=== PATIENT | female | born 1965 | race Caucasian/White ===

== ENCOUNTER 2021-06-05 19:27 | Observation (INO) | payer MEDICAID, SELFPAY ==
[2021-06-05] VITALS (8 sets, daily range): BP systolic 101–111; BP diastolic 72–81; PULSE 101–135; RESP 13–21; TEMP 36.7–36.8; O2SAT 99–100; BMI 23.2
--- NOTE | 2021-06-05 19:56 | USR_ITS ---
PROCEDURE INFORMATION: Exam: US Pelvis, Transvaginal Exam date and time: 06/05/2021 7:56 PM Age: 55 years old Clinical indication: Other: Vaginal bleeding since nov 2020 non stop TECHNIQUE: Imaging protocol: Real-time transvaginal pelvic ultrasound with image documentation. Transvaginal imaging was used for better evaluation of the endometrium, adnexa, and/or cervix. COMPARISON: No relevant prior studies available. FINDINGS: Uterus/cervix: No uterus measures 9.9 cm longitudinal x 6.3 cm AP x 8.0 cm transverse. Myometrium appears unremarkable. There is marked abnormal thickening of the endometrium. The endometrium measures 49 mm in AP thickness, and demonstrates visible blood flow on color Doppler imaging. Right adnexa: Right ovary is not identified/demonstrated. No right adnexal abnormality noted. Left adnexa: Left ovary is seen on the transabdominal images only. Left ovary measures 2.8 x 2.5 x 2.0 cm, and is unremarkable. Intraperitoneal space: No free fluid. US/US pelvic with transvaginal IMPRESSION: There is marked abnormal thickening of the endometrium. The endometrium measures 49 mm in AP thickness, and demonstrates abnormal blood flow on color Doppler imaging. This may represent endometrial hyperplasia versus endometrial carcinoma.. OPTICAL SALES ASSOCIATE consult recommended.
[2021-06-05 20:20] LABS: Basophils # 0.1 10^3/uL (0.0-0.1); Basophils % 0.3 %; Eosinophils % 0.1 %; Hematocrit 24.6 % (37.0-47.0); Lymphocytes # 3.3 10^3/uL (0.8-4.8); Lymphocytes % 17.5 %; Mean Corpuscular HGB Conc 28.5 g/dL (30.0-36.0); Mean Corpuscular Hemoglobin 25.2 pg (28.0-34.0); Mean Corpuscular Volume 88.5 fl (81-99); Mean Platelet Volume 11.5 fL (7.4-10.4); Monocytes # 0.7 10^3/uL (0.2-0.9); Monocytes % 3.4 %; Neutrophils % 78.3 %; Nucleated Red Blood Cells % 0 %; Platelet Count 663 10^3/cmm (130-400); Red Blood Count 2.78 10^6/uL (4.1-5.3); Red Cell Distribution Width 16.6 % (12.1-15.1); White Blood Count 19.1 10^3/uL (4.0-10.0)
[2021-06-05 20:26] LABS: Alanine Aminotransferase 37 U/L (0-33); Albumin Level 3.6 g/dL (3.5-5.2); Alkaline Phosphatase 85 IU/L (35-105); Aspartate Amino Transferase 33 U/L (0-32); Blood Urea Nitrogen 7 mg/dL (6-20); Calcium 9.1 mg/dL (8.5-10.5); Carbon Dioxide 19 mmol/L (22-29); Chloride 99 mmol/L (98-107); Globulin 3.1 g/dL (1.3-4.6); Glomerular Filtration Rate 128.1 mL/min (90-130); Glucose 196 mg/dL (65-115); NT Pro B Type Natriuretic Pept 149 pg/mL (0-125); Osmolality Calculated 283 mOsm/kg (285-295); Sodium 135 mmol/L (136-145); Total Bilirubin 0.3 mg/dL (0.15-1.2); Total Protein 6.7 g/dL (6.6-8.7)
[2021-06-05 21:07] LABS: INR 1.14 (0.8-1.2)
[2021-06-05 21:13] LABS: Lactate (Lactic Acid level) 2.8 mmol/L (0.5-2.2)
--- NOTE | 2021-06-05 22:26 | ED_ITS ---
HPI - General Adult General: Chief complaint: General Medical Stated complaint: SEIZURE/ VAGINAL BLEEDING Time Seen by Provider: 06/05/21 19:30 Source: patient, family, EMS and RN notes reviewed Mode of arrival: EMS Limitations: no limitations History of Present Illness: HPI narrative: Is 55-year-old female patient presents to the emergency department with complaints of intermittent vaginal bleeding for about 6 months. However in the last week she has been having heavy vaginal bleeds and using up to 1 pad per hour. She has seen a cooking show host about a week ago who put her on progesterone which helped a little but after the dose was decreased the bleeding got much worse. The patient has been feeling dizzy, lightheaded and is pale. Today while she was in the bathroom she had a syncopal episode. She is scheduled to have an ultrasound done sometime within the next week. She denies any fever, she has nausea but no vomiting. No blood in her stool. No urinary symptoms. Onset (ago): month(s) (6) Associated symptoms: Reports dyspnea, nausea, short of breath and weakness; Deny chest pain, confusion, cough, diaphoresis, decreased appetite, fevers/chills, headache(s), malaise, rash, palpitations, seizures, syncope or vomiting Review of Systems General: Reports: 10 or more systems reviewed and unremarkable except in HPI and below Const: Denies: malaise or diaphoresis Card: Denies: chest pain, palpitations or syncope Resp: Reports: dyspnea GI: Reports: nausea; Denies: vomiting Skin/Breast: Denies: rash Neuro: Denies: headache(s) or confusion PFS ED PFSH: Medical History CVA (cerebral vascular accident) Diabetes mellitus type 2 History of ganglion cyst History of stroke without residual deficits History of TIA (transient ischemic attack) Surgical History History of carpal tunnel surgery of left wrist History of surgery on arm broken arm History of surgical removal of ganglion cyst Family History Mother Breast cancer Cervical cancer Cancer lymphnode, lung, brain Diabetes Hypertension Stroke Sister Diabetes Hypertension Sister Hypertension Denies family history of CAD (coronary artery disease) Clotting disorder Hyperlipidemia Chronic kidney disease (CKD) Bleeding disorder Physical Exam Const: COMMON NORMALS: no acute distress, average body habitus, patient oriented x3, no limitations, healthy appearing, alert and well nourished HENMT: COMMON NORMALS: normocephalic, atraumatic and moist oral mucous membranes HEAD & SCALP: normocephalic and atraumatic Neck/C-Spine: COMMON NORMALS: no meningeal signs and no JVD Resp: COMMON NORMALS: normal respiratory effort, No retractions, No use of accessory muscles, clear to auscultation bilaterally and percussion normal AUSCULTATION: clear to auscultation bilaterally PERCUSSION: percussion normal Cardio: COMMON NORMALS: no JVD, regular rhythm, S1 normal heart sound present, S2 normal heart sound present, No gallops present (Cardio), No clicks present (Cardio), No murmurs present (Cardio), No rub (Cardio) and Peripheral pulses 2+ throughout RATE: tachycardic RHYTHM: regular rhythm HEART SOUNDS: S1 normal heart sound present and S2 normal heart sound present PERIPHERAL PULSES: Peripheral pulses 2+ throughout GI: COMMON NORMALS: Normal to inspection, nondistended, normoactive bowel sounds present, Soft to palpation, non-tender, No hepatosplenomegaly present, no masses and no bruits PALPATION: Yes Soft to palpation and Yes No hepatosplenomegaly present Extremity: COMMON NORMALS: normal to inspection, full ROM, capillary refill normal, no calf tenderness and no pedal edema Neuro: COMMON NORMALS: patient oriented x3 SENSORIUM/ORIENTATION: Yes alert MENINGEAL SIGNS: Yes no meningeal signs Skin: COMMON NORMALS: no rashes or lesions noted, no wounds, turgor normal, no jaundice, no petechiae and no mottling GENERAL SKIN EXAM: no rashes or lesions noted, turgor normal and pallor Course Reevaluation(s): Reevaluation #1: Discussed her lab and imaging findings with her. Also discussed my conversation with the cooking show host on-call. Explained that she has symptomatic anemia and ultrasound findings are concerning for en dometrial cancer. She will be admitted for transfusion and to undergo an endometrial biopsy. She voiced understanding and is in agreement with the plan. Time: 22:26 Consultations: Consultation #1: Discussed the patient with Dr. Hawley, cooking show host on-call. She advised that we admit the patient to her service for an endometrial biopsy. Meanwhile we should continue the transfusion is we have ordered as she is symptomatic. Time: 22:15 Vital Signs: Vital signs: Vital Signs Temperature 98.1 F 06/05/21 23:37 Pulse Rate 118 H 06/05/21 23:37 Respiratory Rate 18 06/05/21 23:37 Blood Pressure 108/72 06/05/21 23:37 Pulse Oximetry 99 06/05/21 22:52 MDM - General Adult MDM Narrative: Medical decision making narrative: 55-year-old female patient who presents with postmenopausal bleeding for about 6 months. In the last week the bleeding has been much more severe. She has been feeling dizzy and lightheaded and today had a syncopal episode. In the emergency department she has been tachycardic, had a low normal blood pressure and was pretty pale. Hemoglobin is 7.0 today and ultrasound of her pelvis was consistent with thickened endometrium concerning for endometrial cancer. Because she is symptomatic she is going to be transfused with 2 units of blood and will undergo an endometrial biopsy tomorrow by the cooking show host. She is therefore admitted to the gynecology service. Medical Records: Attestation: I reviewed the patient's medical records. Lab Data: Attestation: I reviewed the patient's lab results. Labs: Lab Results 06/05/21 06/05/21 06/05/21 Range/Units 19:35 19:35 20:46 WBC 19.1 H (4.0-10.0) 10^3/ uL RBC 2.78 L (4.1-5.3) 10^6/u L Hgb 7.0 L (11.5-15.3) g/dL Hct 24.6 L (37.0-47.0) % MCV 88.5 (81-99) fl MCH 25.2 L (28.0-34.0) pg MCHC 28.5 L (30.0-36.0) g/dL RDW 16.6 H (12.1-15.1) % Plt Count 663 H (130-400) 10^3/c mm MPV 11.5 H (7.4-10.4) fL Neut % (Auto) 78.3 % Lymph % (Auto) 17.5 % [place] % (Auto) 3.4 % Eos % (Auto) 0.1 % Baso % (Auto) 0.3 % Neut # (Auto) 15.00 H (1.8-7.7) 10^3/u L Lymph # (Auto) 3.3 (0.8-4.8) 10^3/u L [place] # (Auto) 0.7 (0.2-0.9) 10^3/u L Eos # (Auto) 0.0 (0.0-0.8) 10^3/u L Baso # (Auto) 0.1 (0.0-0.1) 10^3/u L Nucleated RBC % (a uto) 0 % Nucleated RBCs # 0.0 /100WBC PT 14.90 (12.1-14.9) SECO NDS INR 1.14 (0.8-1.2) Sodium 135 L (136-145) mmol/L Potassium 4.0 (3.5-5.1) mmol/L Chloride 99 (98-107) mmol/L Carbon Dioxide 19 L (22-29) mmol/L Anion Gap 21.0 H (5-19) BUN 7 (6-20) mg/dL Creatinine 0.5 (0.5-0.9) mg/dL GFR Calculation 128.1 (90-130) mL/min Glucose 196 H (65-115) mg/dL Calculated Osmolal ity 283 L (285-295) mOsm/k g Lactate (0.5-2.2) mmol/L Calcium 9.1 (8.5-10.5) mg/dL Total Bilirubin 0.3 (0.15-1.2) mg/dL AST 33 H (0-32) U/L ALT 37 H (0-33) U/L Alkaline Phosphata se 85 (35-105) IU/L C-Reactive Protein 5.0 H (0.0-4.9) mg/L NT-Pro-B Natriuret Pep 149 H (0-125) pg/mL Total Protein 6.7 (6.6-8.7) g/dL Albumin 3.6 (3.5-5.2) g/dL Globulin 3.1 (1.3-4.6) g/dL Blood Type Rho(D) Type Antibody Screen Crossmatch 06/05/21 06/05/21 Range/Units 20:46 20:46 WBC (4.0-10.0) 10^3/ uL RBC (4.1-5.3) 10^6/u L Hgb (11.5-15.3) g/dL Hct (37.0-47.0) % MCV (81-99) fl MCH (28.0-34.0) pg MCHC (30.0-36.0) g/dL RDW (12.1-15.1) % Plt Count (130-400) 10^3/c mm MPV (7.4-10.4) fL Neut % (Auto) % Lymph % (Auto) % [place] % (Auto) % Eos % (Auto) % Baso % (Auto) % Neut # (Auto) (1.8-7.7) 10^3/u L Lymph # (Auto) (0.8-4.8) 10^3/u L [place] # (Auto) (0.2-0.9) 10^3/u L Eos # (Auto) (0.0-0.8) 10^3/u L Baso # (Auto) (0.0-0.1) 10^3/u L Nucleated RBC % (a uto) % Nucleated RBCs # /100WBC PT (12.1-14.9) SECO NDS INR (0.8-1.2) Sodium (136-145) mmol/L Potassium (3.5-5.1) mmol/L Chloride (98-107) mmol/L Carbon Dioxide (22-29) mmol/L Anion Gap (5-19) BUN (6-20) mg/dL Creatinine (0.5-0.9) mg/dL GFR Calculation (90-130) mL/min Glucose (65-115) mg/dL Calculated Osmolal ity (285-295) mOsm/k g Lactate 2.8 H (0.5-2.2) mmol/L Calcium (8.5-10.5) mg/dL Total Bilirubin (0.15-1.2) mg/dL AST (0-32) U/L ALT (0-33) U/L Alkaline Phosphata se (35-105) IU/L C-Reactive Protein (0.0-4.9) mg/L NT-Pro-B Natriuret Pep (0-125) pg/mL Total Protein (6.6-8.7) g/dL Albumin (3.5-5.2) g/dL Globulin (1.3-4.6) g/dL Blood Type A Positive Rho(D) Type Positive Antibody Screen Negative Crossmatch See Detail Imaging Data^: US: Attestation: I personally reviewed and interpreted this imaging study as follows: Radiologist's impression: [employer] [id number] [place], [place] [id number] ReportSigned Patient: Basilia Pedraza #: [id number]: [id number]#:[id number]/Sex: 55 / FADM Date: 06/05/21Loc: ERRoom/Bed:Attending Dr: Ordering Provider/Ordering MD: Yair Cason [place] [facility] [place]: 06/05/21 Procedure(s): US pelvic with transvaginal Accession Number(s): [id number] Report Number: [id number] PROCEDURE INFORMATION: Exam: US Pelvis, Transvaginal Exam date and time: 06/05/2021 7:56 PM Age: 55 years old Clinical indication: Other: Vaginal bleeding since nov 2020 non stop TECHNIQUE: Imaging protocol: Real-time transvaginal pelvic ultrasound with image documentation. Transvaginal imaging was used for better evaluation of the endometrium, adnexa, and/or cervix. COMPARISON: No relevant prior studies available. FINDINGS: Uterus/cervix: No uterus measures 9.9 cm longitudinal x 6.3 cm AP x 8.0 cm transverse. Myometrium appears unremarkable. There is marked abnormal thickening of the endometrium. The endometrium measures 49 mm in AP thickness, and demonstrates visible blood flow on color Doppler imaging. Right adnexa: Right ovary is not identified/demonstrated. No right adnexal abnormality noted. Left adnexa: Left ovary is seen on the transabdominal images only. Left ovary measures 2.8 x 2.5 x 2.0 cm, and is unremarkable. Intraperitoneal space: No free fluid. US/US pelvic with transvaginal IMPRESSION: There is marked abnormal thickening of the endometrium. The endometrium measures 49 mm in AP thickness, and demonstrates abnormal blood flow on color Doppler imaging. This may represent endometrial hyperplasia versus endometrial carcinoma.. CREDIT CASHIER consult recommended. Dictated By:Ruslan Blake MDSigned By:Ruslan Blake MDSigned Date/Time:06/05/21D/ 11 Critical Care Time Critical Care Time: Critical Care Time: Yes Total Critical Care Time: 30 Attestation: This case had a high probability of a clinically significant, sudden, or life threatening deterioration of this patient's condition which required my full and direct attention, intervention and personal management. Discharge Plan Discharge Patient Disposition: Admitted As Inpatient Admit Provider: Aga Hawley Clinical Impression: Abnormal uterine bleeding (AUB), Symptomatic anemia, Endometrial hyperplasia Condition: Stable Coding Level of Care Code ED Manager Sql for Viktoria Hdez
[2021-06-05] MEDS: acetaminophen 325 mg Tablet 650 MG PO (23:30)
[2021-06-05] MEDS: diphenhydrAMINE 50 mg Capsule PO (23:30)
[2021-06-05 23:46] LABS: Glucose Point of Care 130 mg/dL (70-110)
[2021-06-06] VITALS (10 sets, daily range): BP systolic 104–126; BP diastolic 62–76; PULSE 81–101; RESP 17–18; TEMP 36.6–37.6; O2SAT 99–100
[2021-06-06 07:21] LABS: Glucose Point of Care 112 mg/dL (70-110)
[2021-06-06 07:25] LABS: Basophils # 0.1 10^3/uL (0.0-0.1); Basophils % 0.5 %; Eosinophils % 0.1 %; Hematocrit 30.8 % (37.0-47.0); Hemoglobin 9.3 g/dL (11.5-15.3); Lymphocytes # 2.7 10^3/uL (0.8-4.8); Lymphocytes % 18.7 %; Mean Corpuscular HGB Conc 30.2 g/dL (30.0-36.0); Mean Corpuscular Hemoglobin 27.6 pg (28.0-34.0); Mean Corpuscular Volume 91.4 fl (81-99); Mean Platelet Volume 10.3 fL (7.4-10.4); Monocytes # 0.9 10^3/uL (0.2-0.9); Monocytes % 6.2 %; Neutrophils # 10.75 10^3/uL (1.8-7.7); Neutrophils % 74.3 %; Nucleated Red Blood Cells % 0.1 %; Platelet Count 350 10^3/cmm (130-400); Red Blood Count 3.37 10^6/uL (4.1-5.3); White Blood Count 14.5 10^3/uL (4.0-10.0)
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
== END 2021-06-06 11:55 | disposition home or self-care (01) ==
LOC: ER 22:28 → OBGYN 22:40
PROVIDERS: Admitting Provider Obstetrics & Gynecology; Emergency Provider Family Medicine; PCP Registered Nurse; Visit Provider Obstetrics & Gynecology
DX: N93.9 Abnormal uterine and vaginal bleeding, unspecified (principal); D64.9 Anemia, unspecified; R93.89 Abnormal findings on diagnostic imaging of other specified body structures; Z86.73 Personal history of transient ischemic attack (TIA), and cerebral infarction without residual deficits; E11.9 Type 2 diabetes mellitus without complications; Z82.49 Family history of ischemic heart disease and other diseases of the circulatory system; Z83.3 Family history of diabetes mellitus; Z82.3 Family history of stroke; Z80.3 Family history of malignant neoplasm of breast
CPT/HCPCS: 36415; 36416; 36430; 76830; 76856; 80053; 82962; 83605; 83880; 85025; 85610; 86140; 86850; 86900; 86920; 99285; G0378; P9016; Q0163

== ENCOUNTER 2021-06-09 01:39 | Observation (INO) | payer MEDICAID, SELFPAY ==
[2021-06-09] VITALS (29 sets, daily range): BP systolic 99–139; BP diastolic 64–99; PULSE 72–142; RESP 13–20; TEMP 36.5–37.2; O2SAT 95–100; BMI 23.6
--- NOTE | 2021-06-09 02:02 | W.ED.FEMALGU ---
HPI - Female Genitourinary General: Chief complaint: Vaginal Bleeding Stated complaint: Vaginal Bleeding Time Seen by Provider: 06/09/21 01:58 Source: patient Mode of arrival: ambulatory Limitations: no limitations History of Present Illness: HPI Narrative: 55-year-old female having history of irregular periods over the last year. States she has had heavy periods recently and was actually admitted here 3 days ago and had received 2 units of blood due to vaginal bleeding. She had a pelvic ultrasound and that showed hyperplasia versus a possible neoplasm. She states she been doing well and then started bleeding again tonight at midnight. States she is having to change a pad every 15 minutes due to the heavy bleeding. She is also tachycardic as well. She had some slight lightheadedness denies any syncopal events. Denies any vomiting or diarrhea. Associated symptoms: Deny abdominal pain, headache(s) or nausea Review of Systems Const: Denies: fever(s), chills, body aches or change in appetite Eyes: Denies: blurry vision or eye discomfort ENMT: Denies: throat pain or dental pain Card: Denies: chest pain Resp: Denies: dyspnea GI: Denies: abdominal pain, nausea, vomiting or diarrhea : Reports: vaginal bleeding Musc: Denies: neck pain or back pain Skin/Breast: Denies: rash Neuro: Denies: headache(s) Psych: Denies: depression Viral/Lymph: Denies: easy bruising All/Imm: Denies: urticaria PFSH ED PFSH: Medical History CVA (cerebral vascular accident) Diabetes mellitus type 2 History of ganglion cyst History of stroke without residual deficits History of TIA (transient ischemic attack) Surgical History History of carpal tunnel surgery of left wrist History of surgery on arm broken arm History of surgical removal of ganglion cyst Family History Mother Breast cancer Cervical cancer Cancer lymphnode, lung, brain Diabetes Hypertension Stroke Sister Diabetes Hypertension Sister Hypertension Denies family history of CAD (coronary artery disease) Clotting disorder Hyperlipidemia Chronic kidney disease (CKD) Bleeding disorder Physical Exam Const: COMMON NORMALS: no acute distress, patient oriented x3 and healthy appearing HENMT: COMMON NORMALS: normocephalic and atraumatic HEAD & SCALP: normocephalic and atraumatic Eye: COMMON NORMALS: Equal, round and reactive pupils present and EOMs intact bilaterally PUPIL: Yes Equal, round and reactive pupils present Neck/C-Spine: COMMON NORMALS: full ROM and supple Chest: COMMONS NORMALS: normal inspection of the chest and normal palpation of entire chest wall Resp: COMMON NORMALS: normal respiratory effort, No retractions, No use of accessory muscles and clear to auscultation bilaterally AUSCULTATION: clear to auscultation bilaterally Cardio: COMMON NORMALS: regular rhythm and No murmurs present (Cardio) RATE: tachycardic RHYTHM: regular rhythm GI: COMMON NORMALS: Normal to inspection, nondistended, normoactive bowel sounds present, Soft to palpation, non-tender and no masses PALPATION: Yes Soft to palpation Extremity: COMMON NORMALS: normal to inspection and full ROM Neuro: COMMON NORMALS: patient oriented x3, moves all extremities and no focal motor deficits Psych: COMMON NORMALS: mental status grossly normal, Normal thought process present and cooperative THOUGHT PROCESS: Normal thought process present Skin: COMMON NORMALS: no rashes or lesions noted and no wounds GENERAL SKIN EXAM: no rashes or lesions noted Course Vital Signs: Vital signs: Vital Signs Temperature 98.2 F 06/09/21 01:42 Pulse Rate 98 06/09/21 04:43 Respiratory Rate 18 06/09/21 04:43 Blood Pressure 139/86 06/09/21 04:43 Pulse Oximetry 98 06/09/21 04:43 MDM - Female [facility] Narrative: Medical decision making narrative: Presents with abnormal vaginal bleeding. Her hemoglobin dropped from 9.5-8.2 she is continued to be tachycardic. I spoke to Dr. Gustafson [employer] FRUIT COLORER who agreed to admit patient at this time. She has had continued bleeding here as well. Will transfuse patient. Lab Data: Labs: Lab Results 06/09/21 06/09/21 06/09/21 Range/Units 02:05 02:05 02:05 WBC 14.4 H (4.0-10.0) 10^3/ uL RBC 3.45 L (4.1-5.3) 10^6/u L Hgb 9.5 L (11.5-15.3) g/dL Hct 29.9 L (37.0-47.0) % MCV 86.7 (81-99) fl MCH 27.5 L (28.0-34.0) pg MCHC 31.8 (30.0-36.0) g/dL RDW 15.1 (12.1-15.1) % Plt Count 527 H (130-400) 10^3/c mm MPV 9.9 (7.4-10.4) fL Neut % (Auto) 74.5 % Lymph % (Auto) 18.1 % [place] % (Auto) 5.7 % Eos % (Auto) 1.0 % Baso % (Auto) 0.5 % Neut # (Auto) 10.68 H (1.8-7.7) 10^3/u L Lymph # (Auto) 2.6 (0.8-4.8) 10^3/u L [place] # (Auto) 0.8 (0.2-0.9) 10^3/u L Eos # (Auto) 0.2 (0.0-0.8) 10^3/u L Baso # (Auto) 0.1 (0.0-0.1) 10^3/u L Nucleated RBC % (a uto) 0 % Nucleated RBCs # 0.0 /100WBC PT 14.80 (12.1-14.9) SECO NDS INR 1.12 (0.8-1.2) Sodium 136 (136-145) mmol/L Potassium 4.0 (3.5-5.1) mmol/L Chloride 100 (98-107) mmol/L Carbon Dioxide 23 (22-29) mmol/L Anion Gap 17.0 (5-19) BUN 6 (6-20) mg/dL Creatinine 0.4 L (0.5-0.9) mg/dL GFR Calculation 165.7 H (90-130) mL/min Glucose 145 H (65-115) mg/dL Calculated Osmolal ity 282 L (285-295) mOsm/k g Calcium 9.3 (8.5-10.5) mg/dL Total Bilirubin 0.6 (0.15-1.2) mg/dL AST 23 (0-32) U/L ALT 26 (0-33) U/L Alkaline Phosphata se 98 (35-105) IU/L Total Protein 7.2 (6.6-8.7) g/dL Albumin 3.6 (3.5-5.2) g/dL Globulin 3.6 (1.3-4.6) g/dL Blood Type Rho(D) Type Antibody Screen Crossmatch 06/09/21 06/09/21 Range/Units 02:05 04:38 WBC (4.0-10.0) 10^3/ uL RBC (4.1-5.3) 10^6/u L Hgb 8.2 L (11.5-15.3) g/dL Hct 26.6 L (37.0-47.0) % MCV (81-99) fl MCH (28.0-34.0) pg MCHC (30.0-36.0) g/dL RDW (12.1-15.1) % Plt Count (130-400) 10^3/c mm MPV (7.4-10.4) fL Neut % (Auto) % Lymph % (Auto) % [place] % (Auto) % Eos % (Auto) % Baso % (Auto) % Neut # (Auto) (1.8-7.7) 10^3/u L Lymph # (Auto) (0.8-4.8) 10^3/u L [place] # (Auto) (0.2-0.9) 10^3/u L Eos # (Auto) (0.0-0.8) 10^3/u L Baso # (Auto) (0.0-0.1) 10^3/u L Nucleated RBC % (a uto) % Nucleated RBCs # /100WBC PT (12.1-14.9) SECO NDS INR (0.8-1.2) Sodium (136-145) mmol/L Potassium (3.5-5.1) mmol/L Chloride (98-107) mmol/L Carbon Dioxide (22-29) mmol/L Anion Gap (5-19) BUN (6-20) mg/dL Creatinine (0.5-0.9) mg/dL GFR Calculation (90-130) mL/min Glucose (65-115) mg/dL Calculated Osmolal ity (285-295) mOsm/k g Calcium (8.5-10.5) mg/dL Total Bilirubin (0.15-1.2) mg/dL AST (0-32) U/L ALT (0-33) U/L Alkaline Phosphata se (35-105) IU/L Total Protein (6.6-8.7) g/dL Albumin (3.5-5.2) g/dL Globulin (1.3-4.6) g/dL Blood Type A Positive Rho(D) Type Positive Antibody Screen Negative Crossmatch See Detail EKG Data: EKG 1: Attestation: I personally reviewed and interpreted this EKG as follows: EKG Data: 06/09/21 EKG interpretation time: 02:15 Interpretation: sinus tach hr [address] or t wave abnormalities qrs 73 qtc 355 Discharge Plan Discharge Patient Disposition: Admitted As Inpatient Clinical Impression: Abnormal uterine bleeding (AUB) Condition: Stable Coding Level of Care Code ED Traffic Division Commanding Officer for Viktoria Hdez
--- NOTE | 2021-06-09 02:03 | ECG_ITS ---
[facility] Test Date: 2021-06-09 Pat Name: Basilia Pedraza Department: Room: OB8 Gender: Female Superintendent Commissary: : [id number] Requested By: Lima Mandujano Order Number: [id number] Reading MD: ZACARIAS LEE Measurements Intervals [place] Rate: 122 P: 5 OK: 108 QRS: 2 QRSD: 73 T: 20 QT: 282 QTc: 403 Interpretive Statements SINUS TACHYCARDIA WITH SHORT OK INTERVAL ABNORMAL RHYTHM ECG No previous ECG available for comparison Electronically Signed On 06-09-2021 21:04:48 CDT by ZACARIAS LEE [email or web address]
[2021-06-09 02:16] LABS: Basophils # 0.1 10^3/uL (0.0-0.1); Basophils % 0.5 %; Eosinophils # 0.2 10^3/uL (0.0-0.8); Hematocrit 29.9 % (37.0-47.0); Hemoglobin 9.5 g/dL (11.5-15.3); Lymphocytes # 2.6 10^3/uL (0.8-4.8); Lymphocytes % 18.1 %; Mean Corpuscular HGB Conc 31.8 g/dL (30.0-36.0); Mean Corpuscular Hemoglobin 27.5 pg (28.0-34.0); Mean Corpuscular Volume 86.7 fl (81-99); Mean Platelet Volume 9.9 fL (7.4-10.4); Monocytes # 0.8 10^3/uL (0.2-0.9); Monocytes % 5.7 %; Neutrophils # 10.68 10^3/uL (1.8-7.7); Neutrophils % 74.5 %; Nucleated Red Blood Cells % 0 %; Platelet Count 527 10^3/cmm (130-400); Red Blood Count 3.45 10^6/uL (4.1-5.3); Red Cell Distribution Width 15.1 % (12.1-15.1); White Blood Count 14.4 10^3/uL (4.0-10.0)
[2021-06-09] MEDS: sodium chloride 0.9% 1,000 ML 999 ML IV ×2 (02:22→03:25)
[2021-06-09 02:25] LABS: INR 1.12 (0.8-1.2)
[2021-06-09 02:32] LABS: Alanine Aminotransferase 26 U/L (0-33); Albumin Level 3.6 g/dL (3.5-5.2); Alkaline Phosphatase 98 IU/L (35-105); Aspartate Amino Transferase 23 U/L (0-32); Blood Urea Nitrogen 6 mg/dL (6-20); Calcium 9.3 mg/dL (8.5-10.5); Carbon Dioxide 23 mmol/L (22-29); Chloride 100 mmol/L (98-107); Globulin 3.6 g/dL (1.3-4.6); Glomerular Filtration Rate 165.7 mL/min (90-130); Glucose 145 mg/dL (65-115); Osmolality Calculated 282 mOsm/kg (285-295); Sodium 136 mmol/L (136-145); Total Bilirubin 0.6 mg/dL (0.15-1.2); Total Protein 7.2 g/dL (6.6-8.7)
--- NOTE | 2021-06-09 02:34 | CTR_ITS ---
PROCEDURE INFORMATION: Exam: CT Abdomen And Pelvis With Contrast Exam date and time: 06/09/2021 2:34 AM Age: 55 years old Clinical indication: Other: Vaginal bleeding TECHNIQUE: Imaging protocol: Computed tomography of the abdomen and pelvis with contrast. Radiation optimization: All CT scans at this facility use at least one of these dose optimization techniques: automated exposure control; mA and/or kV adjustment per patient size (includes targeted exams where dose is matched to clinical indication); or iterative reconstruction. Contrast material: OMNI 300; Contrast volume: 95 ml; Contrast route: INTRAVENOUS (IV); COMPARISON: US transvaginal [id number] 06/05/2021 8:24 PM RADIATION DOSE METRICS: Total DLP (mGy-cm): 1110.27 FINDINGS: Liver: There is diffuse low attenuation throughout the liver consistent with fatty infiltration. No masses. Gallbladder and bile ducts: Normal. No calcified stones. No ductal dilation. Pancreas: Normal. No ductal dilation. Spleen: Normal. No splenomegaly. Adrenal glands: Normal. No mass. Kidneys and ureters: Normal. No hydronephrosis. Stomach and bowel: Unremarkable. No obstruction. No mucosal thickening. Appendix: No evidence of appendicitis. Intraperitoneal space: Unremarkable. No free air. No significant fluid collection. Vasculature: Unremarkable. No abdominal aortic aneurysm. Lymph nodes: Extensive para-aortic and aortocaval lymphadenopathy, measuring up to 1.9 cm. There is also bilateral iliac chain lymphadenopathy, measuring 2.5 cm on the left and 2.4 cm on the right. There is also surendra hepatis lymphadenopathy, measuring up to 2.3 cm. Urinary bladder: Unremarkable as visualized. 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 There is invasion and thinning of the myometrium near the right fundus. Bones/joints: Unremarkable. No acute fracture. Soft tissues: Unremarkable. CT/CT abdomen pelvis w con* [id number] IMPRESSION: Large mass in the uterus with retroperitoneal lymphadenopathy suspicious for an endometrial carcinoma versus hyperplasia with large blood clots. Fatty liver. Radiation Dose CTDIVOL = (mGy): DLP = 1110.27 (mGy-cm)
[2021-06-09] MEDS: iohexol 300 mg/mL 100 mL Btl IV (03:20)
[2021-06-09 04:41] LABS: Hematocrit 26.6 % (37.0-47.0); Hemoglobin 8.2 g/dL (11.5-15.3)
[2021-06-09] MEDS: sodium chloride 0.9% (100 ml) 100 ML (05:40)
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
--- NOTE | 2021-06-09 06:36 | PC.NURSE ---
patient taken to OR via stretcher with OR team; blood continued there
--- NOTE | 2021-06-09 06:59 | P.ANESASSM_ITS ---
Pre-Anesthetic Assessment Pre-Anesthetic Assessment: Height/Weight: Height 1.55 m Weight 56.835 kg Temp Pulse Resp BP Pulse Ox 97.8 F 106 H 16 122/91 97 06/09/21 06:38 06/09/21 06:38 06/09/21 06:38 06/09/21 06:38 06/09/21 06:38 Preop Diagnosis: AUB Proposed Procedure: Operation Date: 06/09/21 07:25 Proposed Procedures p Dilation And Curettage (D&C)(Not Applicable) - Jeanette Nettles MD Familial anesthetic complications: None Was Beta Tre taken within 24 hours: N/A Was Clonidine taken within 24 hours: N/A Last intake: Intake Last Liquid Date 06/08/21 Last Liquid Time 22:30 Last Solid Date 06/08/21 Last Solid Time 21:30 Social: Social History: No alcohol and No tobacco Exam: Pre-Anes Outpt Exam: alert, oriented x 3, clear to auscultation bilaterally and regular rate & rhythm Additional Exam Findings (including area of procedure): HR 99- 103 Airway: Cervical ROM: WNL MP: 3 Dentition: Other (missing) Metabolic: Metabolic: DM and Hyperlipidemia Anesthetic Plan: ASA status: 3 Anesthesia: General Risk of > 500 ml blood loss (7ml/kg in children): No PFSH Anesthesia PFSH: Medical History (Updated 06/09/21 @ 06:33 by Jeanette Nettles MD) Diabetes mellitus type 2--diagnosed in November 2020 with a hemoglobin A1c of 10. She states she was on Metformin and her hemoglobin A1c improved to 4 and she was taken off of Metformin in April 2021. History of TIA (transient ischemic attack) November 2020--some minor memory difficulty--is just on aspirin Hypercholesteremia Diagnosed in November 2020 at time of TIA--has been on Lipitor since then managed by her primary care provider No pertinent past medical history Denies asthma, hypertension, seizures, DVT/PE. PMD: Surgical History (Updated 06/09/21 @ 06:33 by Jeanette Nettles MD) H/O: knee surgery Arthroscopic left knee surgery History of surgery on arm broken arm-left arm and her 40s History of surgical removal of ganglion cyst Left wrist Family History Mother Breast cancer Cervical cancer Cancer lymphnode, lung, brain Diabetes Hypertension Stroke Sister Diabetes Hypertension Sister Hypertension Denies family history of CAD (coronary artery disease) Clotting disorder Hyperlipidemia Chronic kidney disease (CKD) Bleeding disorder Supplemental [facility] Information: Tobacco use: denies Alcohol use: denies Drug use: denies Data Anesthesia CBC & Chem 7: 06/09/21 04:38 06/09/21 02:05 Other Labs: Laboratory Results - last 48 hr 06/09/21 06/09/21 06/09/21 02:05 02:05 02:05 WBC 14.4 H RBC 3.45 L Hgb 9.5 L Hct 29.9 L MCV 86.7 MCH 27.5 L MCHC 31.8 RDW 15.1 Plt Count 527 H MPV 9.9 Neut % (Auto) 74.5 Lymph % (Auto) 18.1 Brown % (Auto) 5.7 Eos % (Auto) 1.0 Baso % (Auto) 0.5 Neut # (Auto) 10.68 H Lymph # (Auto) 2.6 Brown # (Auto) 0.8 Eos # (Auto) 0.2 Baso # (Auto) 0.1 Nucleated RBC % (auto) 0 Nucleated RBCs # 0.0 PT 14.80 INR 1.12 Sodium 136 Potassium 4.0 Chloride 100 Carbon Dioxide 23 Anion Gap 17.0 BUN 6 Creatinine 0.4 L GFR Calculation 165.7 H Glucose 145 H Calculated Osmolality 282 L Calcium 9.3 Total Bilirubin 0.6 AST 23 ALT 26 Alkaline Phosphatase 98 Total Protein 7.2 Albumin 3.6 Globulin 3.6 Blood Type Rho(D) Type Antibody Screen Crossmatch 06/09/21 06/09/21 02:05 04:38 WBC RBC Hgb 8.2 L Hct 26.6 L MCV MCH MCHC RDW Plt Count MPV Neut % (Auto) Lymph % (Auto) Brown % (Auto) Eos % (Auto) Baso % (Auto) Neut # (Auto) Lymph # (Auto) Brown # (Auto) Eos # (Auto) Baso # (Auto) Nucleated RBC % (auto) Nucleated RBCs # PT INR Sodium Potassium Chloride Carbon Dioxide Anion Gap BUN Creatinine GFR Calculation Glucose Calculated Osmolality Calcium Total Bilirubin AST ALT Alkaline Phosphatase Total Protein Albumin Globulin Blood Type A Positive Rho(D) Type Positive Antibody Screen Negative Crossmatch See Detail Cardiac Studies: No Data to Display
[2021-06-09] MEDS: silver nitrate applicator 1 EACH TOPICAL (07:50)
--- NOTE | 2021-06-09 08:01 | P.OP_ITS ---
Operative Report Date of procedure: June 09, 2021 OPERATIVE REPORT Date of surgery: 06/09/2021 Date of dictation: 06/09/2021 Preoperative diagnosis: Abnormal uterine bleeding, anemia Postoperative diagnosis/findings: Same, 9 to 10-week size anteverted bulky uterus, normal vaginal tissue, normal-appearing cervix-cotesting collected, D&C done, no obvious adnexal masses. Procedure done: Examination under anesthesia, dilation and curettage Specimens removed/disposition of specimens: Cotesting, endometrial curetting sent to pathology Surgeon: Dr. Jeanette Mayes Pressure Supervisor: Eliane Anesthesia: General endotracheal tube anesthesia Estimated blood loss: 25 ml Intravenous fluids: 500 mL of LR, 100 mL of PRBCs Urine output: 20 mL of urine via straight catheter prior to start of procedure Medications: As per anesthesia records Complications: None, patient was extubated and taken to the recovery room in a stable condition PROCEDURE: After consents were signed , the patient was taken to the operating room where she was placed under general endotracheal tube anesthesia without any difficulty. She was placed in dorsal lithotomy position and exam under anesthesia showed findings noted above. She he was then prepped and draped in the usual sterile fashion. Weighted speculum and lateral wall retractors were used to visualize the cervix and the anterior lip of cervix was grasped with a tenaculum. The cervix was easily dilated without any difficulty to 14 Ang- Khan dilator. Once this was done a uterine sound was placed and cavity was measured to 9 cm. Care was taken to be very gentle. The sound was removed and a sharp curette was introduced and gentle curettage was done of all 4 dahl with copious amounts of tissue removed without any difficulty. This was done until a slightly gritty sensation was noted. She was not noted to be actively bleeding once curettage was done. Tenaculum was removed from the cervix and hemostasis was achieved with silver nitrate. All instruments were removed from the vagina. The patient was extubated without difficulty and taken to the recovery room in a stable condition. This documentation was created by [employer] certified activities director software (known for inherent certified activities director error). Every effort was made to assure accuracy of certified activities director. Any obvious errors or omissions should be clarified with the author of the document. Pre-op Diagnosis: AUB
[2021-06-09] MEDS: sodium chloride 0.9% 1,000 ML 125 ML IV (10:25)
[2021-06-09] MEDS: medroxyprogesterone 2.5 mg Tablet 10 MG PO (10:50)
[2021-06-09 16:42] LABS: Basophils # 0.1 10^3/uL (0.0-0.1); Basophils % 0.4 %; Eosinophils # 0.1 10^3/uL (0.0-0.8); Eosinophils % 0.7 %; Hematocrit 28.5 % (37.0-47.0); Lymphocytes # 2.2 10^3/uL (0.8-4.8); Mean Corpuscular HGB Conc 31.6 g/dL (30.0-36.0); Mean Corpuscular Hemoglobin 28.2 pg (28.0-34.0); Mean Corpuscular Volume 89.3 fl (81-99); Mean Platelet Volume 10.4 fL (7.4-10.4); Monocytes # 0.8 10^3/uL (0.2-0.9); Monocytes % 5.5 %; Neutrophils # 10.44 10^3/uL (1.8-7.7); Nucleated Red Blood Cells % 0 %; Platelet Count 392 10^3/cmm (130-400); Red Blood Count 3.19 10^6/uL (4.1-5.3); White Blood Count 13.6 10^3/uL (4.0-10.0)
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
[2021-06-18 09:57] LABS: Miscellaneous Test See Scanned Lab Rpt
== END 2021-06-09 18:58 | disposition home or self-care (01) ==
LOC: ER 05:06 → OBGYN 05:39
PROVIDERS: Admitting Provider Obstetrics & Gynecology; Emergency Provider Emergency Medicine; Visit Provider Obstetrics & Gynecology
PROC: (CPT 58120; principal; 2021-06-09 07:15)
PROC: (CPT 58120; 2021-06-09 07:15)
DX: N93.9 Abnormal uterine and vaginal bleeding, unspecified (principal); D64.9 Anemia, unspecified
CPT/HCPCS: 58120; 36415; 36430; 74177; 80053; 85014; 85018; 85025; 85610; 86850; 86900; 86920; 88175; 88305; 88341; 88342; 93005; 96360; 96361; 99285; G0378; J0330; J2405; J2704; J3010; J3490; J7030; P9016; Q9967

== ENCOUNTER 2021-06-14 06:03 | Emergency (ER) | payer MEDICAID, SELFPAY ==
[2021-06-14 06:10] VITALS: BP 103/82; PULSE 120; RESP 18; TEMP 36.7; O2SAT 100; BMI 23.6
--- NOTE | 2021-06-14 06:27 | USR_ITS ---
PROCEDURE INFORMATION: Exam: US Nonobstetric Pelvis; Complete Exam date and time: 06/14/2021 6:27 AM Age: 55 years old Clinical indication: Other: Vaginal bleeding, age 55; Patient HX: D&c done on 06-09-21. Prior pelvic/tv US on 06-05-21; Additional info: Vag bleeding age 55 TECHNIQUE: Imaging protocol: Transabdominal pelvic nonobstetric ultrasound. Complete exam. Real time ultrasound with image documentation. COMPARISON: US transvaginal [id number] 06/05/2021 8:24 PM FINDINGS: Uterus/cervix: The uterus measures 9.6 x 7.0 x 6.7 cm. Heterogeneous endometrium with evidence of internal vascularity, and measuring up to 5 cm in thickness. Right adnexa: Obscured by overlying bowel gas. No mass identified. Left adnexa: Obscured by overlying bowel gas. No mass identified. Intraperitoneal space: No intraperitoneal fluid. Urinary bladder: Normal. US/US pelvic with transvaginal IMPRESSION: Unchanged abnormally thickened endometrium. OBGYN consultation is recommended.
[2021-06-14 06:29] VITALS: BP 109/83; PULSE 118; RESP 18; O2SAT 100
[2021-06-14 06:42] LABS: Basophils # 0.1 10^3/uL (0.0-0.1); Basophils % 0.6 %; Eosinophils # 0.2 10^3/uL (0.0-0.8); Eosinophils % 0.8 %; Hematocrit 29.5 % (37.0-47.0); Hemoglobin 8.8 g/dL (11.5-15.3); Lymphocytes # 2.8 10^3/uL (0.8-4.8); Lymphocytes % 14.8 %; Mean Corpuscular HGB Conc 29.8 g/dL (30.0-36.0); Mean Corpuscular Hemoglobin 27.5 pg (28.0-34.0); Mean Corpuscular Volume 92.2 fl (81-99); Mean Platelet Volume 9.8 fL (7.4-10.4); Monocytes % 5.2 %; Neutrophils # 14.83 10^3/uL (1.8-7.7); Nucleated Red Blood Cells % 0 %; Platelet Count 521 10^3/cmm (130-400); Red Cell Distribution Width 15.5 % (12.1-15.1)
[2021-06-14 06:54] LABS: Alanine Aminotransferase 21 U/L (0-33); Albumin Level 3.7 g/dL (3.5-5.2); Alkaline Phosphatase 84 IU/L (35-105); Anion Gap 14.5 (5-19); Aspartate Amino Transferase 22 U/L (0-32); Blood Urea Nitrogen 6 mg/dL (6-20); Calcium 8.9 mg/dL (8.5-10.5); Carbon Dioxide 23 mmol/L (22-29); Chloride 100 mmol/L (98-107); Globulin 3.1 g/dL (1.3-4.6); Glomerular Filtration Rate 165.7 mL/min (90-130); Glucose 141 mg/dL (65-115); Lipase 24 U/L (13-60); Osmolality Calculated 278 mOsm/kg (285-295); Potassium 3.5 mmol/L (3.5-5.1); Sodium 134 mmol/L (136-145); Total Bilirubin 0.5 mg/dL (0.15-1.2); Total Protein 6.8 g/dL (6.6-8.7)
--- NOTE | 2021-06-14 07:09 | ED_ITS ---
HPI - General Adult General: Chief complaint: Vaginal Bleeding Stated complaint: Vaginal Bleeding Time Seen by Provider: 06/14/21 06:26 History of Present Illness: HPI narrative: Patient is a 55-year-old female with history of DM, TIA, abnormal uterine bleeding since March who presents to the emergency room for breakthrough vaginal bleeding after D&C 06/09. Patient initially presented to the hospital at that point time for concerns of vaginal bleeding and tachycardia. US showed thickened endometrium vs mass. Patient was admitted on 06/09 abd underwent heterotopic D&C with significant resolution of symptoms. Since discharge, patient has noticed worsening bleeding. Over the last 3 days, patient has been using 16 pads a day. Patient reports feeling fatigued with generalized weakness from the bleeding. Onset: chronic x 3 months, acutely 3 days ago Duration:3 days Location:home Severity: moderate Review of Systems Narrative: Constitutional: No fever, no chills. HEENT: No vision changes CV: No chest pain, no palpitations PULM: no cough, no dyspnea. GI: No abdominal pain, no N/V/D. : No dysuria, +vaginal bleeding MSKEL: No muscle pain SKIN: No new rashes, no lesions. NEURO: No headache, no focal weakness. HEME: No visible bruises PSYCH: Normal mood PFSH ED PFSH: Medical History (Updated 06/14/21 @ 09:02 by Roland Dahl MD) Diabetes mellitus type 2--diagnosed in November 2020 with a hemoglobin A1c of 10. She states she was on Metformin and her hemoglobin A1c improved to 4 and she was taken off of Metformin in April 2021. History of TIA (transient ischemic attack) November 2020--some minor memory difficulty--is just on aspirin Hypercholesteremia Diagnosed in November 2020 at time of TIA--has been on Lipitor since then managed by her primary care provider No pertinent past medical history Denies asthma, hypertension, seizures, DVT/PE. PMD: Surgical History (Updated 06/09/21 @ 08:14 by Jeanette Nettles MD) H/O: knee surgery Arthroscopic left knee surgery History of surgery on arm broken arm-left arm and her 40s History of surgical removal of ganglion cyst Left wrist S/P dilation and curettage 06/09/2021--D&C done for acute abnormal uterine bleeding for thickened endometrium by Dr. Mayes at [facility] [place]. ------> pathology pending Family History Mother Breast cancer Cervical cancer Cancer lymphnode, lung, brain Diabetes Hypertension Stroke Sister Diabetes Hypertension Sister Hypertension Denies family history of CAD (coronary artery disease) Clotting disorder Hyperlipidemia Chronic kidney disease (CKD) Bleeding disorder Female Reproductive History: Date of last menstrual period: 01/01/21 Physical Exam Narrative: EXAM NARRATIVE: Head: Atraumatic Eyes: PERRL, conjunctiva without injection, +conjunctival pallor ENT: Dry membrane moist NECK: Supple, ROM intact LUNGS: LCTAB, no crackles/rhonchi CV: Tachycardia ABDOMEN: Soft, nontender in all quadrants EXTREMITY: Normal ROM SKIN: No rash or erythema NEURO: Awake and alert, no focal motor deficits PSYCH: Normal mood and affect : Exam supervised by TA Ewing: clots at the vaginal opening, pools of bloods and clots in the vaginal vault, no signs of active or brisk bleeding Course Vital Signs: Vital signs: Vital Signs Temperature 98.8 F 06/14/21 11:11 Pulse Rate 101 H 06/14/21 11:11 Respiratory Rate 14 06/14/21 11:11 Blood Pressure 132/87 06/14/21 11:11 Pulse Oximetry 99 06/14/21 11:11 MDM - General Adult MDM Narrative: Medical decision making narrative: Patient is a 55-year-old female who is status post D&C on 06/09 presenting to the emergency room with vaginal bleeding. On arrival, patient is noted to be tachycardic to 120s. Bedside pelvic exam showed clots and blood in the vaginal vault. No signs of active bleeding. D&C sample from 06/09/2021 showed endometrial adenocarcinoma, FIGO grade 2. H&H appears to be stable compared to prior 9.0 from 06/09/2021. However patient has noticed significant blood and clots in the vaginal vault. Given elevated white count of 19 K from 13 K with tachycardia after D&C on 06/09, this is concerning for possible sepsis from recent instrumentation. S/p vancomycin, ceftriaxone, and clindaymcin, and 2L of IVF. Given concerns for bleeding, as well as sepsis, case was discussed with Dr. Ruelas our OPTICAL COATING TECHNICIAN provider who informed of given cancer finding on pathology report, patient will need GYO service to control the bleeding. I have discussed case with Dr[facility] Agarwal at [facility] in [place], [place] who agrees with the transfer. We will arrange ground transport for patient. Prior to transfer, repeat hemoglobin of 7.0 at 9:56PM. Patient received 2u of pRBC. Continues to be tachycardiac to the 110s. Disposition: Transfer to outside hospital. Lab Data: Labs: Lab Results 06/14/21 06/14/21 06/14/21 Range/Units 06:19 06:19 06:19 WBC 19.0 H (4.0-10.0) 10^3/ uL RBC 3.20 L (4.1-5.3) 10^6/u L Hgb 8.8 L (11.5-15.3) g/dL Hct 29.5 L (37.0-47.0) % MCV 92.2 (81-99) fl MCH 27.5 L (28.0-34.0) pg MCHC 29.8 L (30.0-36.0) g/dL RDW 15.5 H (12.1-15.1) % Plt Count 521 H (130-400) 10^3/c mm MPV 9.8 (7.4-10.4) fL Neut % (Auto) 78.0 % Lymph % (Auto) 14.8 % [place] % (Auto) 5.2 % Eos % (Auto) 0.8 % Baso % (Auto) 0.6 % Neut # (Auto) 14.83 H (1.8-7.7) 10^3/u L Lymph # (Auto) 2.8 (0.8-4.8) 10^3/u L [place] # (Auto) 1.0 H (0.2-0.9) 10^3/u L Eos # (Auto) 0.2 (0.0-0.8) 10^3/u L Baso # (Auto) 0.1 (0.0-0.1) 10^3/u L Nucleated RBC % (a uto) 0 % Nucleated RBCs # 0.0 /100WBC Sodium 134 L (136-145) mmol/L Potassium 3.5 (3.5-5.1) mmol/L Chloride 100 (98-107) mmol/L Carbon Dioxide 23 (22-29) mmol/L Anion Gap 14.5 (5-19) BUN 6 (6-20) mg/dL Creatinine 0.4 L (0.5-0.9) mg/dL GFR Calculation 165.7 H (90-130) mL/min Glucose 141 H (65-115) mg/dL Calculated Osmolal ity 278 L (285-295) mOsm/k g Lactate (0.5-2.2) mmol/L Calcium 8.9 (8.5-10.5) mg/dL Total Bilirubin 0.5 (0.15-1.2) mg/dL AST 22 (0-32) U/L ALT 21 (0-33) U/L Alkaline Phosphata se 84 (35-105) IU/L Total Protein 6.8 (6.6-8.7) g/dL Albumin 3.7 (3.5-5.2) g/dL Globulin 3.1 (1.3-4.6) g/dL Lipase 24 (13-60) U/L SARS-CoV-2 Ag (Rap id) (Negative) Blood Type A Positive Rho(D) Type Positive Antibody Screen Negative Crossmatch See Detail 06/14/21 06/14/21 06/14/21 Range/Units 06:19 09:00 09:15 WBC 12.8 H (4.0-10.0) 10^3/ uL RBC 2.58 L (4.1-5.3) 10^6/u L Hgb 7.0 L (11.5-15.3) g/dL Hct 23.1 L (37.0-47.0) % MCV 89.5 (81-99) fl MCH 27.1 L (28.0-34.0) pg MCHC 30.3 (30.0-36.0) g/dL RDW 15.5 H (12.1-15.1) % Plt Count 378 (130-400) 10^3/c mm MPV 9.8 (7.4-10.4) fL Neut % (Auto) 85.0 % Lymph % (Auto) 10.9 % [place] % (Auto) 3.1 % Eos % (Auto) 0.2 % Baso % (Auto) 0.5 % Neut # (Auto) 10.83 H (1.8-7.7) 10^3/u L Lymph # (Auto) 1.4 (0.8-4.8) 10^3/u L [place] # (Auto) 0.4 (0.2-0.9) 10^3/u L Eos # (Auto) 0.0 (0.0-0.8) 10^3/u L Baso # (Auto) 0.1 (0.0-0.1) 10^3/u L Nucleated RBC % (a uto) 0 % Nucleated RBCs # 0.0 /100WBC Sodium (136-145) mmol/L Potassium (3.5-5.1) mmol/L Chloride (98-107) mmol/L Carbon Dioxide (22-29) mmol/L Anion Gap (5-19) BUN (6-20) mg/dL Creatinine (0.5-0.9) mg/dL GFR Calculation (90-130) mL/min Glucose (65-115) mg/dL Calculated Osmolal ity (285-295) mOsm/k g Lactate 1.6 (0.5-2.2) mmol/L Calcium (8.5-10.5) mg/dL Total Bilirubin (0.15-1.2) mg/dL AST (0-32) U/L ALT (0-33) U/L Alkaline Phosphata se (35-105) IU/L Total Protein (6.6-8.7) g/dL Albumin (3.5-5.2) g/dL Globulin (1.3-4.6) g/dL Lipase (13-60) U/L SARS-CoV-2 Ag (Rap id) Negative (Negative) Blood Type Rho(D) Type Antibody Screen Crossmatch Imaging Data^: Other Imaging: Radiologist's impression: [address] [id number] ReportSigned Patient: Basilia Pedraza #: [id number]: 1965Acct#:[id number]/Sex: 55 / FADM Date: 06/14/21Loc: ERRoom/Bed:Attending Dr: Ordering Provider/Ordering MD: Roland Dahl MD Date of Service: 06/14/21 Procedure(s): US pelvic with transvaginal Accession Number(s): [id number] Report Number: [id number] PROCEDURE INFORMATION: Exam: US Nonobstetric Pelvis; Complete Exam date and time: 06/14/2021 6:27 AM Age: 55 years old Clinical indication: Other: Vaginal bleeding, age 55; Patient HX: D&c done on 06-09-21. Prior pelvic/tv US on 06-05-21; Additional info: Vag bleeding age 55 TECHNIQUE: Imaging protocol: Transabdominal pelvic nonobstetric ultrasound. Complete exam. Real time ultrasound with image documentation. COMPARISON: US transvaginal [id number] 06/05/2021 8:24 PM FINDINGS: Uterus/cervix: The uterus measures 9.6 x 7.0 x 6.7 cm. Heterogeneous endometrium with evidence of internal vascularity, and measuring up to 5 cm in thickness. Right adnexa: Obscured by overlying bowel gas. No mass identified. Left adnexa: Obscured by overlying bowel gas. No mass identified. Intraperitoneal space: No intraperitoneal fluid. Urinary bladder: Normal. US/US pelvic with transvaginal IMPRESSION: Unchanged abnormally thickened endometrium. OBGYN consultation is recommended. Dictated By:Jeannie Briggs By:Jeannie Briggs Date/Time:06/14/21823DD/ 2 Discharge Plan Discharge Patient Disposition: Transfer to ED Clinical Impression: Sepsis, Abnormal uterine bleeding (AUB), Vaginal bleeding, Endometrial carcinoma Condition: Stable Prescriptions: No Action atorvastatin 40 mg tablet 40 mg PO DAILY RF: 0 ferrous sulfate 325 mg (65 mg iron) tablet,delayed release (DR/EC) 325 mg PO TID RF: 0 vitamin B complex Tablet 1 tab PO DAILY RF: 0 multivitamin with minerals Capsule 1 cap PO DAILY RF: 0 medroxyprogesterone [Provera] 10 mg tablet 10 mg PO BID Qty: 30 RF: 2 Senna-S 8.6-50 mg Tablet 1 tab-cap PO TID PRN (Reason: Constipation) RF: 0 Coding Level of Care Code ED Puppet Developer for Chg Lemuel
[2021-06-14 07:59] LABS: Lactate (Lactic Acid level) 1.6 mmol/L (0.5-2.2)
[2021-06-14] MEDS: sodium chloride 0.9% 1,000 ML 999 ML IV (08:15)
[2021-06-14] MEDS: vancomycin 1,000 MG in sodium chloride 0.9% 250 ML 250 MG IV (08:15)
[2021-06-14] MEDS: cefTRIAXone 1,000 MG in lidocaine 1% 2.1 ML 1 MG IM (08:16)
[2021-06-14 09:08] VITALS: BP 134/86; PULSE 96; RESP 15; O2SAT 100
[2021-06-14 09:19] LABS: Basophils # 0.1 10^3/uL (0.0-0.1); Basophils % 0.5 %; Eosinophils % 0.2 %; Hematocrit 23.1 % (37.0-47.0); Lymphocytes # 1.4 10^3/uL (0.8-4.8); Lymphocytes % 10.9 %; Mean Corpuscular HGB Conc 30.3 g/dL (30.0-36.0); Mean Corpuscular Hemoglobin 27.1 pg (28.0-34.0); Mean Corpuscular Volume 89.5 fl (81-99); Mean Platelet Volume 9.8 fL (7.4-10.4); Monocytes # 0.4 10^3/uL (0.2-0.9); Monocytes % 3.1 %; Neutrophils # 10.83 10^3/uL (1.8-7.7); Nucleated Red Blood Cells % 0 %; Platelet Count 378 10^3/cmm (130-400); Red Blood Count 2.58 10^6/uL (4.1-5.3); Red Cell Distribution Width 15.5 % (12.1-15.1); White Blood Count 12.8 10^3/uL (4.0-10.0)
[2021-06-14] MEDS: clindamycin 600 MG/50 ML PREMIX 100 MG IV (09:25)
[2021-06-14 09:37] LABS: SARS Covid-2 Antigen Negative (Negative)
[2021-06-14 10:31] VITALS: BP 129/84; PULSE 103; RESP 19; O2SAT 100
[2021-06-14 10:54] VITALS: BP 129/90; PULSE 102; RESP 14; TEMP 37.3; O2SAT 98
[2021-06-14 11:11] VITALS: BP 132/87; PULSE 101; RESP 14; TEMP 37.1; O2SAT 99
== END 2021-06-14 11:41 ==
PROVIDERS: Emergency Provider Emergency Medicine
DX: A41.9 Sepsis, unspecified organism (principal); N93.9 Abnormal uterine and vaginal bleeding, unspecified; C54.1 Malignant neoplasm of endometrium; E11.9 Type 2 diabetes mellitus without complications; Z86.73 Personal history of transient ischemic attack (TIA), and cerebral infarction without residual deficits; Z20.822 Contact with and (suspected) exposure to COVID-19
CPT/HCPCS: 36430; 76830; 76856; 80053; 83605; 83690; 85025; 86850; 86900; 86920; 87040; 87426; 96365; 96367; 96372; 99285; J0696; J3370; J3490; J7030; J7050; P9016

== ENCOUNTER → 2021-06-22 10:47 | Outpatient (BNVA) | payer MEDICAID, SELFPAY | PROVIDERS: Referring Provider Obstetrics & Gynecology Gynecologic Oncology; Visit Provider Surgery | DX: C55 Malignant neoplasm of uterus, part unspecified (principal); Z20.822 Contact with and (suspected) exposure to COVID-19 | CPT/HCPCS: 87635 ==

== ENCOUNTER 2021-06-29 06:13 | Day surgery (SDC) | payer MEDICAID, SELFPAY ==
[2021-06-26 14:53] VITALS: BMI 23.6
[2021-06-29] VITALS (7 sets, daily range): BP systolic 103–127; BP diastolic 75–99; PULSE 86–134; RESP 15–19; TEMP 36.2–36.8; O2SAT 94–99
--- NOTE | 2021-06-29 | SCC_ITS ---
Procedure Done: 1. Placement of PowerPort catheter right internal jugular vein 16.5 seconds of fluoroscopic guidance, for a cumulative dose of 1.62 mGy, was provided to Dr. Broderick by the radiology department. C-arm images of the chest were saved for the patient's permanent record. [facility]
--- NOTE | 2021-06-29 06:21 | SC_ITS ---
WS: [id number] INTRAOPERATIVE TECHNIQUE: 3 Spot fluoroscopic images for intraoperative purposes. FLUOROSCOPY TIME: 16.5 seconds CLINICAL INFORMATION: Powerport Placement COMPARISON: None. FINDINGS: Right Port-A-Cath with tip in the distal SVC in good position. No pneumothorax. SC/C-arm FL for CVA [id number] IMPRESSION: Right Port-A-Cath with tip in the distal SVC in good position.
[2021-06-29] MEDS: sodium chloride 0.9% 1,000 ML 30 ML IV (06:49)
--- NOTE | 2021-06-29 07:54 | W.PM.OPSUD ---
Surgery/Procedure H&P Update DATE OF PROCEDURE: June 29, 2021 DATE H&P PERFORMED: 06/22/21 H&P UPDATE INFORMATION: I have reviewed H&P completed within last 30 days, I have examined patient prior to procedure and No changes to prior documentation PREOP DIAGNOSIS: Uterine cancer PRIMARY INDICATION FOR PROCEDURE: The same PLANNED PROCEDURE: Operation Date: 06/29/21 07:45 Proposed Procedures p Portacath Placement [id number] C55(Not Applicable) - Rogelio Broderick MD
--- NOTE | 2021-06-29 08:18 | ANES.PREANE2 ---
Pre-Anesthetic Assessment Pre-Anesthetic Assessment: Height/Weight: Height 1.55 m Weight 56.699 kg Temp Pulse Resp BP Pulse Ox 98.3 F 120 H 15 119/99 99 06/29/21 06:30 06/29/21 06:44 06/29/21 06:30 06/29/21 06:30 06/29/21 06:30 Preop Diagnosis: Uterine cancer Proposed Procedure: Operation Date: 06/29/21 07:45 Proposed Procedures p Portacath Placement 31686 C55(Not Applicable) - Rogelio Broderick MD Was Beta Tre taken within 24 hours: N/A Was Clonidine taken within 24 hours: N/A Last intake: Intake Last Liquid Date 06/28/21 Last Liquid Time 22:00 Last Solid Date 06/28/21 Last Solid Time 18:00 Social: Social History: No alcohol and No tobacco Exam: Pre-Anes Outpt Exam: alert, oriented x 3, clear to auscultation bilaterally and regular rate & rhythm Airway: Submandibular: WNL Cervical ROM: WNL MP: 2 Dentition: Chipped Additional comments: Missing several CV/HEM: CV/HEM: Anemia Metabolic: Metabolic: Hyperlipidemia Anesthetic Plan: ASA status: 3 Anesthesia: MAC Risk of > 500 ml blood loss (7ml/kg in children): No Meds/Allergies Current Medications: Current Medications Generic Name Dose Route Start Last Admin Trade Name Freq PRN Reason Stop Dose Admin Sodium Chloride 1,000 mls @ 30 ml s/hr 06/29/21 06:30 06/29/21 06:49 Sodium Chloride 0.9% IV 06/30/21 06:29 30 mls/hr .Q24H ALCEIA Administration PFSH Anesthesia PFSH: Medical History Diabetes mellitus type 2--diagnosed in November 2020 with a hemoglobin A1c of 10. She states she was on Metformin and her hemoglobin A1c improved to 4 and she was taken off of Metformin in April 2021. History of TIA (transient ischemic attack) November 2020--some minor memory difficulty--is just on aspirin Hypercholesteremia Diagnosed in November 2020 at time of TIA--has been on Lipitor since then managed by her primary care provider No pertinent past medical history Denies asthma, hypertension, seizures, DVT/PE. PMD: Uterine cancer Surgical History H/O: knee surgery Arthroscopic left knee surgery History of surgery on arm broken arm-left arm and her 40s History of surgical removal of ganglion cyst Left wrist S/P dilation and curettage 06/09/2021--D&C done for acute abnormal uterine bleeding for thickened endometrium by Dr. Mayes at [facility] [place]. ------> pathology pending Family History Mother Breast cancer Cervical cancer Cancer lymphnode, lung, brain Diabetes Hypertension Stroke Sister Diabetes Hypertension Sister Hypertension Denies family history of CAD (coronary artery disease) Clotting disorder Hyperlipidemia Chronic kidney disease (CKD) Bleeding disorder Social History Smoking and tobacco status: never smoked Female Reproductive History: Date of last menstrual period: 01/01/21 Data Anesthesia Cardiac Studies: No Data to Display
[2021-06-29] MEDS: lidocaine 2% INJ 20 mL INJECTION (08:25)
[2021-06-29] MEDS: heparin, porcine 1,000 unit/mL INJ 10 mL 10000 UNIT INJECTION (08:27)
--- NOTE | 2021-06-29 08:53 | PM.OP ---
Operative Report Date of procedure: June 29, 2021 Pre-op Diagnosis: Uterine cancer Post-op diagnosis: same Procedure Done: 1. Placement of PowerPort catheter right internal jugular vein 2. Fluoroscopic guidance and interpretation for placement of catheter 3. Ultrasound guidance to access the right internal jugular vein Implants: Right internal jugular vein PowerPort placement Surgeon: Rogelio Broderick Human Relations Professor: lead injection mold technician Haley Circulating nurse Chidi Colmenares Anesthesia: MAC (manager servicing Kiel) Estimated blood loss (mL): 10 Condition: stable Disposition: same day Brief History: Uterine cancer Procedure: Patient was identified in the holding area and taken to the operative room and placed in supine position IV propofol was given by the anesthesia provider ,both arms were tucked,Time-out was done verifying the patient's name/date of /planned procedure and destination after the procedure, all were in agreement. SCDs confirmed to be functioning, preoperative antibiotics administered per protocol, and beta bon protocol was confirmed, appropriate positioning of the patient was done by me. Medications were reviewed to assess for anticoagulant usage. Risks and benefits and prevention of central line associated blood stream infection (CLABSI) were discussed with the patient/CPOA, and a consent was obtained. Monitors were in place and monitored throughout the procedure. All necessary supplies were available prior to start. Hand hygiene was completed prior to starting. Maximum barrier technique was utilized including a sterile gown, sterile gloves with a hat and mask. Site was was prepped with [chlorhexidine] and a full body drape was placed. 5 mL of 2% lidocaine was injected into the skin with a 25 gauge needle. Prep& drape was done under the usual sterile technique, lidocaine 2% was injected at the site of the stick, started by right subclavian vein but yet on 2 attempts arterial blood was withdrawn so I decided to abort and deviate my attention to the right internal jugular vein. Appropriate pressure was applied for a few minutes at the site of the right subclavian area stick. The right internal Juglar vein stick that retrieved venous blood was obtained from the first stick under ultrasound guidance and there was no evidence of intraluminal thrombosis, interpretation was done by me through the whole entire procedure, a guidewire was then threaded and under the guidance of fluoroscopy position was confirmed to be in the IVC and my interpretation, there was no PVC changes, at that point the guidewire was secured to the drapes with a hemostat and the needle was taken out. Attention was then deviated towards creation of a pocket for the port were lidocaine 2% was injected using an 15 blade knife skin incision was created at the right upper Chest ,dissection using the Bovie to create a pocket for the PowerPort to be accommodated, hemostasis was secured, after the port being appropriately flushed it was inserted into the pocket and a tunneler was used to accommodate the catheter of the port cath to be delivered through the incision first created at the site of the stick. At that point under fluoroscopy an estimated length was measured for the catheter and was cut at the designed level, followed by that a dilator with the sheath introduced onto the guidewire the dilator and the wire were retrieved and the catheter of the port was introduced via the sheath where it was peeled off and the catheter maintained to be in the SVC that was confirmed with fluoroscopy, and the fluoroscopy interpretation was done by me throughout the entire procedure. Multiple flushes of the port was done by diluted heparin and I was able to retrieve without difficulty venous blood as well as appropriate flushing was achieved. The port was kept in its pocket, 3-0 Vicryl deep subdermal interrupted sutures, skin was then closed by 4-0 Monocryl as subcuticular closure. The stick site was closed by 3-0 Vicryl and Dermabond was used followed by dressing. Patient tolerated the procedure well was taken to the recovery area Count was correct at the end of the procedure I was present for the whole entire procedure
--- NOTE | 2021-06-29 08:57 | XR_ITS ---
WS: [id number] CHEST XRAY TECHNIQUE: Portable chest. CLINICAL INFORMATION: Status post placement of right internal jugular vein port COMPARISON: None. FINDINGS: Right Port-A-Cath with tip in the distal SVC in good position. No pneumothorax. Postoperative changes left humerus. XR/XR chest 1V portable [id number] IMPRESSION: Right Port-A-Cath with tip in the distal SVC in good position
--- NOTE | 2021-06-29 15:26 | ANE.PACU2 ---
Inpatient post-anesthesia follow up: Airway intact: Yes Vital signs: Temperature 98.2 F Pulse Rate 86 Respiratory Rate 17 Blood Pressure 127/82 Pulse Oximetry 97 Oxygen Delivery Me thod Room Air Oxygen Flow Rate Fraction of Inspir ed Oxygen Hydration adequate: Yes Nausea and vomiting: No Pain level: 1 Mental status: Baseline
== END 2021-06-29 10:00 | disposition home or self-care (01) ==
PROVIDERS: PCP Registered Nurse; Visit Provider Surgery
PROC: (CPT 36561; principal; 2021-06-29 07:45)
DX: C55 Malignant neoplasm of uterus, part unspecified (principal); E11.9 Type 2 diabetes mellitus without complications; Z86.73 Personal history of transient ischemic attack (TIA), and cerebral infarction without residual deficits; E78.00 Pure hypercholesterolemia, unspecified; Z82.49 Family history of ischemic heart disease and other diseases of the circulatory system; Z83.3 Family history of diabetes mellitus; Z80.3 Family history of malignant neoplasm of breast; Z80.8 Family history of malignant neoplasm of other organs or systems; E78.5 Hyperlipidemia, unspecified
CPT/HCPCS: 36561; 71045; 76000; 77001; C1788; J0690; J1644; J7030

== ENCOUNTER 2021-06-29 11:57 | Outpatient (CLI) | payer MEDICAID, SELFPAY ==
--- NOTE | 2021-06-29 12:02 | MR_ITS ---
WS: [id number] INDICATION: Uterine cancer TECHNIQUE: MRI of the pelvis without and with gadolinium enhancement. Coronal T1, T2, and STIR imagin g. Axial T1 and T2 imaging. Sagittal T1-T2 and postgadolinium imaging with fat saturation technique. FINDINGS: Comparison CT abdomen pelvis 06/09/21 ultrasound June 14, 2021 Diffuse heterogeneous enlargement of the uterus with diffuse heterogeneous enhancement. Marked hetero geneity of the endometrium consistent with neoplasm. Uterus measures approximately 6.9 x 7.9 x 7.9 cm . Mass effect on the sigmoid colon adjacent bladder. Diffuse heterogeneity and endometrial thickening extends to the internal cervical os and the cervix. Normal adnexa. No adnexal mass. Bilateral retroperitoneal and iliac lymphadenopathy extending into the pelvis. Largest lymph nodes me asure approximately 1.5 and 1.8 cm. Right obturator and external iliac lymphadenopathy. Large right e xternal iliac lymph node measuring 2.5 x 1.7 cm unchanged since the prior CT. Normal bone marrow sign al in the lower lumbar spine and sacrum. No evidence of bony metastatic disease. IMPRESSION: 1. Diffuse heterogeneous enlargement of the uterus with marked endometrial thickening compatible wi th endometrial carcinoma. 2. Heterogeneous endometrial thickening and enhancement extends to the internal cervical os 3. Both adnexa are normal. No adnexal lesions. 4. Bilateral retroperitoneal and iliac lymphadenopathy extending into the pelvis. Largest lymph node s measure approximately 1.5 and 1.8 cm. 5. Right obturator and external iliac lymphadenopathy. Large right external iliac lymph node measuri ng 2.5 x 1.7 cm unchanged since the prior CT. 6. Normal bone marrow signal in the lower lumbar spine and sacrum. No evidence of bony metastatic di sease.
[2021-06-29] MEDS: gadobenate dimeglumine 20 mL vial IV (13:18)
== END 2021-06-29 11:58 | disposition home or self-care (01) ==
PROVIDERS: PCP Registered Nurse; Visit Provider Obstetrics & Gynecology
DX: C54.9 Malignant neoplasm of corpus uteri, unspecified (principal); R59.0 Localized enlarged lymph nodes
CPT/HCPCS: 72197; A9577

== ENCOUNTER → 2021-06-29 | Day surgery (SDC) | payer BC, MEDICAID, SELFPAY | LOC: OR 02-18 10:53 | PROVIDERS: PCP Registered Nurse; Visit Provider Obstetrics & Gynecology | DX: Z01.818 Encounter for other preprocedural examination (principal); C55 Malignant neoplasm of uterus, part unspecified | CPT/HCPCS: J2704; J2710; J3010 ==

== ENCOUNTER 2021-07-01 09:01 | Outpatient (CLI) | payer MEDICAID, SELFPAY ==
[2021-07-01 11:44] LABS: Basophils # 0.1 10^3/uL (0.0-0.1); Basophils % 0.5 %; Eosinophils # 0.1 10^3/uL (0.0-0.8); Eosinophils % 0.7 %; Hematocrit 35.7 % (37.0-47.0); Hemoglobin 11.1 g/dL (11.5-15.3); Lymphocytes # 1.9 10^3/uL (0.8-4.8); Lymphocytes % 18.6 %; Mean Corpuscular HGB Conc 31.1 g/dL (30.0-36.0); Mean Corpuscular Hemoglobin 27.9 pg (28.0-34.0); Mean Corpuscular Volume 89.7 fl (81-99); Mean Platelet Volume 9.9 fL (7.4-10.4); Monocytes # 0.8 10^3/uL (0.2-0.9); Monocytes % 7.6 %; Neutrophils # 7.25 10^3/uL (1.8-7.7); Neutrophils % 72.3 %; Nucleated Red Blood Cells % 0 %; Platelet Count 397 10^3/cmm (130-400); Red Blood Count 3.98 10^6/uL (4.1-5.3); Red Cell Distribution Width 13.7 % (12.1-15.1)
[2021-07-01 12:34] LABS: Alanine Aminotransferase 30 U/L (0-33); Albumin Level 3.7 g/dL (3.5-5.2); Alkaline Phosphatase 115 IU/L (35-105); Anion Gap 13.9 (5-19); Aspartate Amino Transferase 31 U/L (0-32); Blood Urea Nitrogen 6 mg/dL (6-20); Calcium 9.1 mg/dL (8.5-10.5); Carbon Dioxide 27 mmol/L (22-29); Chloride 98 mmol/L (98-107); Ferritin 57 ng/mL (15-150); Globulin 3.6 g/dL (1.3-4.6); Glucose 90 mg/dL (65-115); Iron 26 ug/dL (37-145); Osmolality Calculated 277 mOsm/kg (285-295); Percent Saturation 8.6 % (20-50); Potassium 3.9 mmol/L (3.5-5.1); Sodium 135 mmol/L (136-145); Total Bilirubin 0.6 mg/dL (0.15-1.2); Total Iron Binding Capacity 299 mcg/dl; Total Protein 7.3 g/dL (6.6-8.7); Unsaturated Iron Binding 273 ug/dL (112-347); Vitamin B12 581 pg/mL (232-1245)
--- NOTE | 2021-07-01 13:30 | ONC CON_ITS ---
Dr. Wilburn New Patient Note Patient: Basilia Pedraza Unit #: [id number]: 1965 Dicatated By: Jerardo Wilburn M.D.Date of Visit: Jul 01, 2021 Onc MED New Patient/Consult Referring Physician: Tito Agarwal History of Present Illness: Ms. Basilia Fuentes, is a 55-year-old woman with history of diabetes mellitus, hypercholesterolemia, history of TIA/stroke in November 2020, subsequently she developed dysphagia and lost about 30 pounds since then moreover patient was on diabetic diet also, earlier patient was treated with Metformin but as she lost weight and her A1c gone down to 4 from 10, now she takes Metformin on as-needed basis. 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 There is invasion and thinning of the myometrium near the right fundus. And extensive para-aortic and aortocaval lymphadenopathy, measuring up to 1.9 cm. There is also bilateral iliac chain lymphadenopathy measuring 2.5 cm on the left and 2.4 cm on the right. 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 On June 14, 2021 patient went to [facility] with heavy vaginal bleeding, at that time she was referred to [facility] where she received 2 units of packed RBC prior to the transfer. Patient underwent pelvic exam which showed lesion of the cervix which was biopsied which showed extensive necroinflammatory debris's, no viable tumor cells present and while in [place] she underwent CT scan of head, chest abdomen pelvis on June 15, 2021 which showed few indeterminate sub-3 mm pulmonary nodules. No thoracic lymphadenopathy, and large heterogeneous irregular endometrial thickening/mass. Multiple enlarged retroperitoneal and pelvic lymph nodes. Few too small to characterize splenic hypodensities., Patient was evaluated by Dr. Agarwal he order MRI scan of the pelvis which was done on July 07, 2021 which shows diffuse heterogeneous enlargement of uterus with marked endometrial thickening compatible with endometrial carcinoma. Heterogeneous endometrial thickening and enhancement extends to the internal cervical os., Both adnexa are normal. Bilateral retroperitoneal and iliac lymphadenopathy extending into the pelvis. Largest lymph nodes measuring approximately 1.5 x 1.8 cm. Right obturator and external iliac lymphadenopathy. Large right external iliac lymph node measuring 2.5 x 1.7 cm. No bone mets. Patient denies smoking alcohol use patient denies any abdominal pain, denies any fever chills but generalized weakness and fatigue, denies any melena or hematochezia denies any hemoptysis or hematemesis, no jaundice still having off and on vaginal bleeding. And now awaiting her CT PET scan which is scheduled for coming Tuesday. As per patient she has seen Dr. Agarwal in [place] who has recommended 3 cycles of chemotherapy and then reevaluation to see if she is a candidate for surgery. Past Medical History: Ms. Pedraza's medical history consists of ganglion cyst, type II diabetes, and stroke in 2020. Past Surgical History: Ms. Pedraza's surgical/procedural history consists of excision of ganglion cyst, left carpal tunnel release, repair of arm fracture, portacath placement in 2020, Dilation and Curettage in 2020, covid vaccine #2 in 2020, and covid vaccine #1 in 2020. Medications: Adult Aspirin EC Low Strength 1 Tablet (of 81 mg) Tablet, enteric coated Oral daily, Atorvastatin Calcium 1 Tablet (of 40 mg) Oral daily, B Complex 1 Tablet Oral daily, Cholecalciferol 1 Tablet (of 25 mcg ) Oral daily, Daily Multiple Vitamins 1 Tablet Oral daily, Ferrous Sulfate 1 Tablet (of 325 (65 fe) mg) Oral t.i.d., Sennosides 1 Tablet (of 8.6 mg) Capsule Oral b.i.d. Allergies: Adhesive tape Social History: Ms. Pedraza is single. Ms. Pedraza has never smoked. She has no history of drinking. Family History: Ms. Pedraza's mother at age 81: brain cancer, and breast cancer, and cervical cancer, and hypertension, and lung cancer, and lung met, and stroke, and type II diabetes. Ms. Pedraza's father at age 94: dementia. Ms. Pedraza has 2 brothers: 2 alive. She has 2 sisters: 2 alive. Review Of Symptoms: Review of Systems is not available for this patient. Vital Signs: Performed on Jul 01, 2021 10:51: 7, 3, 22.67, 1.52 sq.m, 61 in, 99 %, 80 /min, 18 /min, 127/87 mm(hg), 97.5 F (LOW), and 120 lbs (HIGH). Performance Status: 1 - No physically strenuous activity, but ambulatory and able to carry out light or sedentary work (e.g. office work, light house work). (ECOG) Physical Examination: ENMT - Mouth sores, no thrush, no jaundice no cervical lymphadenopathy, Respiratory - Lungs are clear to auscultation, Cardiovascular - Regular rate and rhythm of heart, Abdomen - Soft, bowel sounds present, Extremities - Trace edema bilaterally. Lab/Imaging: Most recent lab results are not available for this patient. 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 Agarwal in [place], patient is already scheduled for staging CT PET scan for coming Tuesday, so she will return to clinic on Tuesday for review and discussion in the meantime, as recommended and planned by Dr. Agrawal, will consider neoadjuvant therapy with carboplatin/Taxol every 3 weeks x 3 and reevaluate, all the side effect ,possible benefits associated with chemotherapy including but not limited to bone marrow suppression, nausea vomiting, hair loss, peripheral neuropathy, allergic reactions especially with Taxol were mentioned. Further teaching will be done by chemotherapy nurse. We will obtain approval from insurance regarding her treatment. Patient has mild numbness in the fingertips and toes probably due to diabetic neuropathy due to noncompliance with diabetes, patient was advised to monitor her blood sugar and to use Metformin as recommended by PMD and also consider sliding scale during chemotherapy as patient will require high-dose steroids as premedication for Taxol, which may cause hyperglycemia. We will obtain baseline CBC CMP iron studies, CA-125 today, patient already has Port-A-Cath placement. Return to clinic on Tuesday, with staging CT PET scan for further discussion Signed By: Jerardo Wilburn M.D. <<Signature on File>>
== END 2021-07-01 09:02 | disposition home or self-care (01) ==
LOC: ONCMED 09:05
PROVIDERS: PCP Registered Nurse; Visit Provider Internal Medicine Hematology & Oncology
DX: C54.1 Malignant neoplasm of endometrium (principal); D50.0 Iron deficiency anemia secondary to blood loss (chronic); Z86.73 Personal history of transient ischemic attack (TIA), and cerebral infarction without residual deficits; Z79.899 Other long term (current) drug therapy
CPT/HCPCS: 36415; 80053; 82607; 82728; 83540; 83550; 85025; 86304; 99205

== ENCOUNTER 2021-07-08 06:42 | Outpatient (CLI) | payer MEDICAID, SELFPAY ==
[2021-07-08 12:45] LABS: Basophils % 0.3 %; Eosinophils # 0.1 10^3/uL (0.0-0.8); Eosinophils % 0.9 %; Hematocrit 38.7 % (37.0-47.0); Hemoglobin 12.2 g/dL (11.5-15.3); Lymphocytes # 1.7 10^3/uL (0.8-4.8); Lymphocytes % 15.1 %; Mean Corpuscular HGB Conc 31.5 g/dL (30.0-36.0); Mean Corpuscular Hemoglobin 28.1 pg (28.0-34.0); Mean Corpuscular Volume 89.2 fl (81-99); Monocytes # 0.6 10^3/uL (0.2-0.9); Monocytes % 5.4 %; Neutrophils # 8.87 10^3/uL (1.8-7.7); Neutrophils % 77.9 %; Nucleated Red Blood Cells % 0 %; Platelet Count 431 10^3/cmm (130-400); Red Blood Count 4.34 10^6/uL (4.1-5.3); Red Cell Distribution Width 13.4 % (12.1-15.1); White Blood Count 11.4 10^3/uL (4.0-10.0)
[2021-07-08 13:27] LABS: Alanine Aminotransferase 24 U/L (0-33); Albumin Level 3.8 g/dL (3.5-5.2); Alkaline Phosphatase 108 IU/L (35-105); Aspartate Amino Transferase 28 U/L (0-32); Carbon Dioxide 27 mmol/L (22-29); Chloride 98 mmol/L (98-107); Ferritin 52 ng/mL (15-150); Globulin 3.8 g/dL (1.3-4.6); Glucose 156 mg/dL (65-115); Iron 31 ug/dL (37-145); Percent Saturation 9.1 % (20-50); Sodium 135 mmol/L (136-145); Total Bilirubin 0.5 mg/dL (0.15-1.2); Total Iron Binding Capacity 340 mcg/dl; Total Protein 7.6 g/dL (6.6-8.7); Unsaturated Iron Binding 309 ug/dL (112-347); Vitamin B12 467 pg/mL (232-1245)
[2021-07-08 13:43] LABS: Blood Urea Nitrogen 9 mg/dL (6-20); Calcium 9.5 mg/dL (8.5-10.5); Osmolality Calculated 282 mOsm/kg (285-295)
--- NOTE | 2021-07-08 14:06 | ONC FU_ITS ---
Dr. Wilburn follow up note Patient: Basilia Pedraza Unit #: [id number]: 1965 Dicatated By: Jerardo Wilburn M.D.Date of Visit:Jul 08, 2021 Onc Med Follow-up/Prog Note History of Present Illness: Ms. Basilia Fuentes, is a 55-year-old woman with history of diabetes mellitus, hypercholesterolemia, history of TIA/stroke in November 2020, subsequently she developed dysphagia and lost about 30 pounds since then moreover patient was on diabetic diet also, earlier patient was treated with Metformin but as she lost weight and her A1c gone down to 4 from 10, now she takes Metformin on as-needed basis. As per patient in November 2020 she started having heavy vaginal bleeding initially she was treated with medroxyprogesterone and underwent [employer] work-up including transvaginal ultrasound which Was done on June 05, 2021 showed thickened endometrium to 5 cm subsequently underwent hysteroscopy and D&C on June 09, 2021 with that her bleeding improved initially but then again progressed requiring multiple blood transfusion and eventually she was referred to [facility] Also underwent CT scan of abdomen pelvis which showed 5.2 x 5.4 cm heterogeneous mass in the fundus of uterus with marked thickening of the endometrial canal consistent with probable endometrial carcinoma. There is invasion and thinning of the myometrium near the right fundus. And extensive para-aortic and aortocaval lymphadenopathy, measuring up to 1.9 cm. There is also bilateral iliac chain lymphadenopathy measuring 2.5 cm on the left and 2.4 cm on the right. 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 On June 14, 2021 patient went to [facility] with heavy vaginal bleeding, at that time she was referred to [facility] where she received 2 units of packed RBC prior to the transfer. Patient underwent pelvic exam which showed lesion of the cervix which was biopsied which showed extensive necroinflammatory debris's, no viable tumor cells present and while in [place] she underwent CT scan of head, chest abdomen pelvis on June 15, 2021 which showed few indeterminate sub-3 mm pulmonary nodules. No thoracic lymphadenopathy, and large heterogeneous irregular endometrial thickening/mass. Multiple enlarged retroperitoneal and pelvic lymph nodes. Few too small to characterize splenic hypodensities., Patient was evaluated by Dr. Agarwal he order MRI scan of the pelvis which was done on July 07, 2021 which shows diffuse heterogeneous enlargement of uterus with marked endometrial thickening compatible with endometrial carcinoma. Heterogeneous endometrial thickening and enhancement extends to the internal cervical os., Both adnexa are normal. Bilateral retroperitoneal and iliac lymphadenopathy extending into the pelvis. Largest lymph nodes measuring approximately 1.5 x 1.8 cm. Right obturator and external iliac lymphadenopathy. Large right external iliac lymph node measuring 2.5 x 1.7 cm. No bone mets. Patient denies smoking alcohol use patient denies any abdominal pain, denies any fever chills but generalized weakness and fatigue, denies any melena or hematochezia denies any hemoptysis or hematemesis, no jaundice still having off and on vaginal bleeding. And now awaiting her CT PET scan which is scheduled for coming Tuesday. As per patient she has seen Dr. Agarwal in [place] who has recommended 3 cycles of chemotherapy and then reevaluation to see if she is a candidate for surgery. CT PET scan done on July 04, 2021 showed primary central uterine mass with central necrosis measuring 3.6 x 4.2 x 7.7 cm with SUV of 24.9. Multiple FDG positive bilateral pelvic and abdominal lymph nodes represent metastatic disease. These are present in the right external iliac, right obturator, bilateral common iliac, bilateral periaortic, retrocaval, mesenteric root, peripancreatic nodes and left para-aortic region and node in the left mesenteric root is 1.7 cm and outside of abdomen and pelvis there is a metastatic lymph node in the left cervical level 4 territory of the neck measuring 1.5 cm with SUV of 7 Came for follow-up, denies any specific complaints, except generalized weakness and fatigue, no fever chills, no nausea or vomiting, no diarrhea or constipation, no abdominal pain, no jaundice, no diarrhea or constipation. Medications: Adult Aspirin EC Low Strength 1 Tablet (of 81 mg) Tablet, enteric coated Oral daily, Atorvastatin Calcium 1 Tablet (of 40 mg) Oral daily, B Complex 1 Tablet Oral daily, Cholecalciferol 1 Tablet (of 25 mcg ) Oral daily, Daily Multiple Vitamins 1 Tablet Oral daily, Ferrous Sulfate 1 Tablet (of 325 (65 fe) mg) Oral t.i.d., Sennosides 1 Tablet (of 8.6 mg) Capsule Oral b.i.d. Allergies: Adhesive tape Review of Systems: Review of Systems is not available for this patient. Vital Signs: Vitals are not available for this patient. Performance Status: 1 - No physically strenuous activity, but ambulatory and able to carry out light or sedentary work (e.g. office work, light house work). (ECOG) Physical Examination: ENMT - No mouth sores, no thrush, no jaundice, Respiratory - Lungs are clear to auscultation, Cardiovascular - Regular rate and rhythm of heart, Abdomen - Soft, bowel sounds present, Extremities - No visible edema. Lab/Imaging: Most recent lab results are not available for this patient. Impression: Endometrioid endometrial carcinoma per D&C done on June 09, [address] PET scan done on July 04, 2021 showed primary central uterine mass with central necrosis measuring 3.6 x 4.2 x 7.7 cm with SUV of 24.9. Multiple FDG positive bilateral pelvic and abdominal lymph nodes represent metastatic disease. These are present in the right external iliac, right obturator, bilateral common iliac, bilateral periaortic, retrocaval, mesenteric root, peripancreatic nodes and left para-aortic region and node in the left mesenteric root is 1.7 cm and outside of abdomen and pelvis there is a metastatic lymph node in the left cervical level 4 territory of the neck measuring 1.5 cm with SUV of 7 History of TIA/CVA diagnosed in November 2020 Iron deficiency anemia status post multiple transfusions due to dysfunctional uterine bleeding due to endometrial carcinoma biopsy-proven Plan: Discussed with patient regarding her labs white blood count 11.4 hemoglobin 12.2 hematocrit 38.7 platelets 431,000 partial CMP shows LFTs within normal range, her tumor marker CA-125 is 1214, normal being less than 35. Anemia work-up shows ferritin 52, TIBC 340 B12 467, iron saturation and iron level is pending Clinically, patient is doing reasonably well with no new signs symptoms, her CT PET scan findings were discussed with patient as it shows uterine mass which is primary and extensive intra-abdominal lymphadenopathy and a single lymph node in left neck Now awaiting for approval from her insurance regarding systemic therapy with 3 weekly carboplatin/Taxol as recommended by Dr. Agarwal her [employer] surgical oncologist in [facility], plan to give her 3 cycles of chemotherapy followed by CT PET scan to assess response.And her CA 125 is elevated so we will follow it with each cycle to assess disease response We will also monitor her blood sugar and use sliding scale Patient return to clinic 1 week after chemotherapy carboplatin/Taxol is initiated, with CBC CMP Signed By: Jerardo Wilburn M.D. <<Signature on File>>
== END 2021-07-08 06:43 | disposition home or self-care (01) ==
PROVIDERS: PCP Registered Nurse; Visit Provider Internal Medicine Hematology & Oncology
DX: C54.1 Malignant neoplasm of endometrium (principal); C77.8 Secondary and unspecified malignant neoplasm of lymph nodes of multiple regions; D50.0 Iron deficiency anemia secondary to blood loss (chronic); Z86.73 Personal history of transient ischemic attack (TIA), and cerebral infarction without residual deficits; Z79.899 Other long term (current) drug therapy
CPT/HCPCS: 36591; 80053; 82607; 82728; 83540; 83550; 85025; 86304; 99214

== ENCOUNTER 2021-07-13 06:33 | Outpatient (CLI) | payer MEDICAID, SELFPAY ==
[2021-07-13 09:21] LABS: Basophils % 0.1 %; Hematocrit 40.5 % (37.0-47.0); Hemoglobin 12.6 g/dL (11.5-15.3); Lymphocytes # 0.9 10^3/uL (0.8-4.8); Lymphocytes % 9.2 %; Mean Corpuscular HGB Conc 31.1 g/dL (30.0-36.0); Mean Corpuscular Hemoglobin 27.2 pg (28.0-34.0); Mean Corpuscular Volume 87.5 fl (81-99); Mean Platelet Volume 10.3 fL (7.4-10.4); Monocytes % 0.3 %; Neutrophils # 9.07 10^3/uL (1.8-7.7); Neutrophils % 90.1 %; Nucleated Red Blood Cells % 0 %; Platelet Count 457 10^3/cmm (130-400); Red Blood Count 4.63 10^6/uL (4.1-5.3); Red Cell Distribution Width 13.2 % (12.1-15.1); White Blood Count 10.1 10^3/uL (4.0-10.0)
[2021-07-13 09:47] LABS: Slide Review Slide Review Perform
[2021-07-13 09:52] LABS: Alanine Aminotransferase 19 U/L (0-33); Albumin Level 4.1 g/dL (3.5-5.2); Alkaline Phosphatase 109 IU/L (35-105); Aspartate Amino Transferase 18 U/L (0-32); Blood Urea Nitrogen 12 mg/dL (6-20); Calcium 9.9 mg/dL (8.5-10.5); Carbon Dioxide 25 mmol/L (22-29); Chloride 97 mmol/L (98-107); Globulin 4.2 g/dL (1.3-4.6); Glucose 167 mg/dL (65-115); Osmolality Calculated 284 mOsm/kg (285-295); Sodium 135 mmol/L (136-145); Total Bilirubin 0.5 mg/dL (0.15-1.2); Total Protein 8.3 g/dL (6.6-8.7)
[2021-07-13] MEDS: famotidine 20 mg/2 mL INJ IVP (10:38)
[2021-07-13] MEDS: diphenhydrAMINE 50 mg/mL SDV 1mL 25 MG IV (10:40)
[2021-07-13] MEDS: palonosetron 0.25 mg/5 mL SDV IV (10:46)
[2021-07-13] MEDS: fosaprepitant 150 MG in sodium chloride 0.9% 150 ML 300 MG IV (11:07)
[2021-07-13] MEDS: pegfilgrastim 6 mg/0.6 mL Kit (onpro) SUBCUT (15:10)
== END 2021-07-13 06:34 | disposition home or self-care (01) ==
LOC: ONCMED 06:33
PROVIDERS: PCP Registered Nurse; Visit Provider Internal Medicine Hematology & Oncology
DX: Z51.11 Encounter for antineoplastic chemotherapy (principal); C54.1 Malignant neoplasm of endometrium; C77.8 Secondary and unspecified malignant neoplasm of lymph nodes of multiple regions; D50.0 Iron deficiency anemia secondary to blood loss (chronic); Z79.899 Other long term (current) drug therapy
CPT/HCPCS: 80053; 85025; 96367; 96372; 96375; 96377; 96413; 96415; 96417; J1100; J1200; J1453; J2469; J2505; J3490; J7030; J7040; J9045; J9267

== ENCOUNTER 2021-08-05 08:36 | Outpatient (RCR) | payer MEDICAID, SELFPAY ==
[2021-07-20 13:35] LABS: Basophils # 0.1 10^3/uL (0.0-0.1); Basophils % 0.3 %; Eosinophils # 0.1 10^3/uL (0.0-0.8); Eosinophils % 0.5 %; Hematocrit 34.2 % (37.0-47.0); Hemoglobin 10.7 g/dL (11.5-15.3); Lymphocytes # 1.9 10^3/uL (0.8-4.8); Lymphocytes % 10.1 %; Mean Corpuscular HGB Conc 31.3 g/dL (30.0-36.0); Mean Corpuscular Volume 86.4 fl (81-99); Mean Platelet Volume 10.7 fL (7.4-10.4); Monocytes # 1.4 10^3/uL (0.2-0.9); Monocytes % 7.4 %; Neutrophils # 15.03 10^3/uL (1.8-7.7); Nucleated Red Blood Cells % 0 %; Platelet Count 303 10^3/cmm (130-400); Red Blood Count 3.96 10^6/uL (4.1-5.3); Red Cell Distribution Width 13.1 % (12.1-15.1); White Blood Count 18.8 10^3/uL (4.0-10.0)
[2021-07-20 14:18] LABS: Alanine Aminotransferase 21 U/L (0-33); Albumin Level 3.8 g/dL (3.5-5.2); Alkaline Phosphatase 211 IU/L (35-105); Anion Gap 15.9 (5-19); Aspartate Amino Transferase 22 U/L (0-32); Blood Urea Nitrogen 9 mg/dL (6-20); Calcium 9.4 mg/dL (8.5-10.5); Carbon Dioxide 27 mmol/L (22-29); Chloride 95 mmol/L (98-107); Globulin 3.3 g/dL (1.3-4.6); Glucose 119 mg/dL (65-115); Osmolality Calculated 278 mOsm/kg (285-295); Potassium 3.9 mmol/L (3.5-5.1); Sodium 134 mmol/L (136-145); Total Bilirubin 0.2 mg/dL (0.15-1.2); Total Protein 7.1 g/dL (6.6-8.7)
--- NOTE | 2021-07-27 10:21 | ONC FU_ITS ---
Dr. Wilburn follow up note Patient: Basilia Pedraza Unit #: [id number]: [id number] Dicatated By: Jerardo Wilburn M.D.Date of Visit:Jul 21, 2021 Onc Med Follow-up/Prog Note History of Present Illness: Ms. Basilia Fuentes, is a 55-year-old woman with history of diabetes mellitus, hypercholesterolemia, history of TIA/stroke in November 2020, subsequently she developed dysphagia and lost about 30 pounds since then moreover patient was on diabetic diet also, earlier patient was treated with Metformin but as she lost weight and her A1c gone down to 4 from 10, now she takes Metformin on as-needed basis. As per patient in November 2020 she started having heavy vaginal bleeding initially she was treated with medroxyprogesterone and underwent [employer] work-up including transvaginal ultrasound which Was done on June 05, 2021 showed thickened endometrium to 5 cm subsequently underwent hysteroscopy and D&C on June 09, 2021 with that her bleeding improved initially but then again progressed requiring multiple blood transfusion and eventually she was referred to [facility] Also underwent CT scan of abdomen pelvis which showed 5.2 x 5.4 cm heterogeneous mass in the fundus of uterus with marked thickening of the endometrial canal consistent with probable endometrial carcinoma. There is invasion and thinning of the myometrium near the right fundus. And extensive para-aortic and aortocaval lymphadenopathy, measuring up to 1.9 cm. There is also bilateral iliac chain lymphadenopathy measuring 2.5 cm on the left and 2.4 cm on the right. 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 On June 14, 2021 patient went to [facility] with heavy vaginal bleeding, at that time she was referred to [facility] where she received 2 units of packed RBC prior to the transfer. Patient underwent pelvic exam which showed lesion of the cervix which was biopsied which showed extensive necroinflammatory debris's, no viable tumor cells present and while in [place] she underwent CT scan of head, chest abdomen pelvis on June 15, 2021 which showed few indeterminate sub-3 mm pulmonary nodules. No thoracic lymphadenopathy, and large heterogeneous irregular endometrial thickening/mass. Multiple enlarged retroperitoneal and pelvic lymph nodes. Few too small to characterize splenic hypodensities., Patient was evaluated by Dr. Agarwal he order MRI scan of the pelvis which was done on July 07, 2021 which shows diffuse heterogeneous enlargement of uterus with marked endometrial thickening compatible with endometrial carcinoma. Heterogeneous endometrial thickening and enhancement extends to the internal cervical os., Both adnexa are normal. Bilateral retroperitoneal and iliac lymphadenopathy extending into the pelvis. Largest lymph nodes measuring approximately 1.5 x 1.8 cm. Right obturator and external iliac lymphadenopathy. Large right external iliac lymph node measuring 2.5 x 1.7 cm. No bone mets. Patient denies smoking alcohol use patient denies any abdominal pain, denies any fever chills but generalized weakness and fatigue, denies any melena or hematochezia denies any hemoptysis or hematemesis, no jaundice still having off and on vaginal bleeding. And now awaiting her CT PET scan which is scheduled for coming Tuesday. As per patient she has seen Dr. Agarwal in [place] who has recommended 3 cycles of chemotherapy and then reevaluation to see if she is a candidate for surgery. CT PET scan done on July 04, 2021 showed primary central uterine mass with central necrosis measuring 3.6 x 4.2 x 7.7 cm with SUV of 24.9. Multiple FDG positive bilateral pelvic and abdominal lymph nodes represent metastatic disease. These are present in the right external iliac, right obturator, bilateral common iliac, bilateral periaortic, retrocaval, mesenteric root, peripancreatic nodes and left para-aortic region and node in the left mesenteric root is 1.7 cm and outside of abdomen and pelvis there is a metastatic lymph node in the left cervical level 4 territory of the neck measuring 1.5 cm with SUV of 7 Started on 3 weekly carboplatin/Taxol on July 13, 2021 Came for follow-up, denies any specific complaint except constipation, her vaginal bleeding is also improving since starting chemotherapy, Mild nausea, and indigestion but no vomiting denies any diarrhea, denies any jaundice denies any abdominal pain denies any fever chills, tolerated first cycle of chemotherapy with carboplatin/Taxol well Medications: Adult Aspirin EC Low Strength 1 Tablet (of 81 mg) Tablet, enteric coated Oral daily, Atorvastatin Calcium 1 Tablet (of 40 mg) Oral daily, B Complex 1 Tablet Oral daily, Cholecalciferol 1 Tablet (of 25 mcg ) Oral daily, Daily Multiple Vitamins 1 Tablet Oral daily, Ferrous Sulfate 1 Tablet (of 325 (65 fe) mg) Oral t.i.d., Loratadine 1 Tablet (of 10 mg) Oral daily, Sennosides 1 Tablet (of 8.6 mg) Capsule Oral b.i.d. Allergies: Adhesive tape Review of Systems: Review of Systems is not available for this patient. Vital Signs: Performed on Jul 21, 2021 08:11 Height - 61.00 in Weight - 117.8 lbs (LOW) BSA - 1.51 sq.m BMI - 22.26 Temperature - 98.0 F (LOW) Pulse - 108 /min (HIGH) Respiration - 18 /min BP - 135/89 mm(hg) O2 Sat - 99 % Pain - 1 Fatigue - 7 Performance Status: 1 - No physically strenuous activity, but ambulatory and able to carry out light or sedentary work (e.g. office work, light house work). (ECOG) Physical Examination: ENMT - No mouth sores, no thrush, no jaundice, Respiratory - Lungs are clear to auscultation, Cardiovascular - Regular rate and rhythm of heart, Abdomen - Soft, bowel sounds present, Extremities - Trace edema bilaterally. Lab/Imaging: Test performed on Jul 13, 2021 08:50 Sodium 135 mmol/L Potassium 4.0 mmol/L Chloride 97 mmol/L CO2 25 mmol/L Anion Gap 17.0 BUN 12 mg/dL Creatinine 0.3 mg/dL Cr Clearance (Est) 182.6800 mL/min eGFR 231.0 mL/min Glucose 167 mg/dL Osmolality - Calculated 284 mOsm/kg Calcium 9.9 mg/dL Protein, Total 8.3 g/dL Albumin 4.1 g/dL Globulin 4.2 g/dL Bilirubin, Total 0.5 mg/dL ALT (SGPT) 19 U/L AST (SGOT) 18 U/L Alkaline Phosphatase 109 IU/L WBC 10.1 10 3/uL RBC 4.63 10 6/uL HGB 12.6 g/dL HCT 40.5 % MCV 87.5 fl MCH 27.2 pg MCHC 31.1 g/dL RDW 13.2 % Platelet Count 457 10 3/cmm MPV 10.3 fL Neutrophils 9.07 10 3/uL Lymphocytes 0.9 10 3/uL Monocytes 0.0 10 3/uL Eosinophils 0.0 10 3/uL Basophils 0.0 10 3/uL Neutrophil % 90.1 % Lymphocyte % 9.2 % Monocyte % 0.3 % Eosinophil % 0.0 % Basophils % 0.1 % NRBC % 0 % CBC Slide Review Slide Review Perform SLIDE REVIEW AGREES WITH AUTOMATED RESULTS Impression: Endometrioid endometrial carcinoma per D&C done on June 09, 2021 FIGO grade 2 History of TIA/CVA diagnosed in November 2020 Iron deficiency anemia status post multiple transfusions due to dysfunctional uterine bleeding due to endometrial carcinoma biopsy-proven Plan: Discussed with patient regarding her labs white blood count 18.8 hemoglobin 10.7 hematocrit 34.2 platelets 303,000 CMP within normal limits except alk phos 211 Clinically, patient is doing reasonably well, tolerated first cycle of chemotherapy with carboplatin/Taxol well her follow-up labs shows leukocytosis probably due to Neulasta as patient has no signs symptom suggestive of acute infection. And there is a drop in her hemoglobin which could be multifactorial including persistent but not improving vaginal bleeding, will monitor, she will return to clinic in 2 weeks with CBC CMP and CA-125 and if reasonable for second cycle of full dose carboplatin/Taxol As far as constipation is concerned probably multifactorial, we will discontinue oral iron and consider parenteral iron Injectafer x1 and monitor her hemoglobin. And iron stores Signed By: Jerardo Wilburn M.D. <<Signature on File>>
[2021-07-27] MEDS: sodium chloride 0.9% (100 ml) 100 ML 300 ML (13:13)
[2021-07-27] MEDS: iron sucrose 200 MG in sodium chloride 0.9% (100 ml) 100 ML 220 MG IV (13:13)
[2021-07-29] MEDS: iron sucrose 200 MG in sodium chloride 0.9% (100 ml) 100 ML 220 MG IV (13:33)
[2021-07-31] MEDS: iron sucrose 200 MG in sodium chloride 0.9% (100 ml) 100 ML 220 MG IV (10:30)
[2021-08-03 08:58] LABS: Basophils % 0.3 %; Eosinophils % 0.2 %; Hematocrit 36.6 % (37.0-47.0); Hemoglobin 11.2 g/dL (11.5-15.3); Lymphocytes # 1.7 10^3/uL (0.8-4.8); Lymphocytes % 14.1 %; Mean Corpuscular HGB Conc 30.6 g/dL (30.0-36.0); Mean Corpuscular Hemoglobin 27.6 pg (28.0-34.0); Mean Corpuscular Volume 90.1 fl (81-99); Mean Platelet Volume 10.2 fL (7.4-10.4); Monocytes # 0.5 10^3/uL (0.2-0.9); Neutrophils # 9.73 10^3/uL (1.8-7.7); Neutrophils % 81.1 %; Nucleated Red Blood Cells % 0 %; Platelet Count 253 10^3/cmm (130-400); Red Blood Count 4.06 10^6/uL (4.1-5.3)
[2021-08-03] MEDS: iron sucrose 200 MG in sodium chloride 0.9% (100 ml) 100 ML 220 MG IV (09:03)
[2021-08-03 09:33] LABS: Ferritin 628 ng/mL (15-150); Iron 45 ug/dL (37-145); Percent Saturation 12.9 % (20-50); Total Iron Binding Capacity 348 mcg/dl; Unsaturated Iron Binding 303 ug/dL (112-347)
[2021-08-05] MEDS: iron sucrose 200 MG in sodium chloride 0.9% (100 ml) 100 ML 220 MG IV (09:25)
[2021-08-05] MEDS: sodium chloride 0.9% 250 ML 75 ML IV (09:25)
[2021-08-05 09:55] LABS: Alanine Aminotransferase 108 U/L (0-33); Alkaline Phosphatase 114 IU/L (35-105); Anion Gap 20.1 (5-19); Aspartate Amino Transferase 68 U/L (0-32); Blood Urea Nitrogen 14 mg/dL (6-20); Calcium 9.4 mg/dL (8.5-10.5); Carbon Dioxide 22 mmol/L (22-29); Chloride 100 mmol/L (98-107); Globulin 3.4 g/dL (1.3-4.6); Glucose 147 mg/dL (65-115); Osmolality Calculated 289 mOsm/kg (285-295); Potassium 4.1 mmol/L (3.5-5.1); Sodium 138 mmol/L (136-145); Total Bilirubin 0.2 mg/dL (0.15-1.2); Total Protein 7.4 g/dL (6.6-8.7)
[2021-08-05] MEDS: palonosetron 0.25 mg/5 mL SDV IV (10:25)
[2021-08-05] MEDS: famotidine 20 mg/2 mL INJ IVP (10:26)
[2021-08-05] MEDS: diphenhydrAMINE 50 mg/mL SDV 1mL 25 MG IV (10:28)
[2021-08-05] MEDS: fosaprepitant 150 MG in sodium chloride 0.9% 150 ML 300 MG IV (10:50)
[2021-08-05] MEDS: pegfilgrastim 6 mg/0.6 mL Kit (onpro) SUBCUT (15:50)
--- NOTE | 2021-08-14 13:45 | ONC FU_ITS ---
[facility] Patient Note Patient: Basilia Pedraza Unit #: [id number]: 1965 Dictated By: Ginger HunterDate of Visit: Aug 03, 2021 Onc MED Follow-Up/Prog Note Chief Complaint: Endometrial carcinoma History of Present Illness: Ms. Pedraza is a 55-year-old woman with history of diabetes mellitus, hypercholesterolemia. She also has a history of TIA/stroke in November 2020. Subsequently she developed dysphagia and lost about 30 pounds since November 2020. She was on a diabetic diet also. She had been treated with Metformin but as she lost weight and her A1c gone down to 4 from 10. She reports that she takes Metformin on as-needed basis. As per patient in November 2020 she started having heavy vaginal bleeding initially she was treated with medroxyprogesterone. She underwent [employer] work-up including transvaginal ultrasound on June 05, 2021. The report showed thickened endometrium to 5 cm. She then underwent hysteroscopy and D&C on June 09, 2021. With that her bleeding improved initially but then again progressed requiring multiple blood transfusion. Eventually she was referred to [facility] On June 09, 2021, she underwent CT scan of abdomen pelvis which showed 5.2 x 5.4 cm heterogeneous mass in the fundus of uterus with marked thickening of the endometrial canal consistent with probable endometrial carcinoma. There was invasion and thinning of the myometrium near the right fundus. Extensive para-aortic and aortocaval lymphadenopathy, measuring up to 1.9 cm. There is also bilateral iliac chain lymphadenopathy measuring 2.5 cm on the left and 2.4 cm on the right. There is also surendra hepatis lymphadenopathy measuring up to 2.3 cm., No abnormality seen in the liver. 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 On June 14, 2021, Ms Pedraza went to [facility] with heavy vaginal bleeding, at that time she was referred to [facility]. She received 2 units of packed RBC prior to the transfer. Patient underwent pelvic exam which showed lesion of the cervix which was biopsied which showed extensive necroinflammatory debris's, no viable tumor cells present and while in [place] she underwent CT scan of head, chest abdomen pelvis on June 15, 2021 which showed few indeterminate sub-3 mm pulmonary nodules. No thoracic lymphadenopathy, and large heterogeneous irregular endometrial thickening/mass. Multiple enlarged retroperitoneal and pelvic lymph nodes. Few too small to characterize splenic hypodensities., Patient was evaluated by Dr. Agarwal he order MRI scan of the pelvis which was done on July 07, 2021 which shows diffuse heterogeneous enlargement of uterus with marked endometrial thickening compatible with endometrial carcinoma. Heterogeneous endometrial thickening and enhancement extends to the internal cervical os., Both adnexa are normal. Bilateral retroperitoneal and iliac lymphadenopathy extending into the pelvis. Largest lymph nodes measuring approximately 1.5 x 1.8 cm. Right obturator and external iliac lymphadenopathy. Large right external iliac lymph node measuring 2.5 x 1.7 cm. No bone mets. Patient denies smoking alcohol use patient denies any abdominal pain, denies any fever chills but generalized weakness and fatigue, denies any melena or hematochezia denies any hemoptysis or hematemesis, no jaundice still having off and on vaginal bleeding. And now awaiting her CT PET scan which is scheduled for coming Tuesday. As per patient she has seen Dr. Agarwal in [place] who has recommended 3 cycles of chemotherapy and then reevaluation to see if she is a candidate for surgery. CT PET scan done on July 04, 2021 showed primary central uterine mass with central necrosis measuring 3.6 x 4.2 x 7.7 cm with SUV of 24.9. Multiple FDG positive bilateral pelvic and abdominal lymph nodes represent metastatic disease. These are present in the right external iliac, right obturator, bilateral common iliac, bilateral periaortic, retrocaval, mesenteric root, peripancreatic nodes and left para-aortic region and node in the left mesenteric root is 1.7 cm and outside of abdomen and pelvis there is a metastatic lymph node in the left cervical level 4 territory of the neck measuring 1.5 cm with SUV of 7 Started on 3 weekly carboplatin/Taxol on July 13, 2021. She is here today for follow-up and consideration of cycle 2 carboplatin paclitaxel. She completed 4/5 days of Venofer earlier today. She states she forgot to take her premed steroids for her treatment today. She states as far starting last treatment she has felt pretty good. She states she has noticed the first 3 fingers on her left hand are slightly numb as well as the first 3 fingers on her right hand. States it travels around her fingers. She states her feet to mid thigh have occasional neuropathy symptoms as well but they are resolved at present. She denies any fever chills or any signs of infection. She states that her breathing is good. She denies any cough or hemoptysis. She has had no nausea or vomiting. She is had no diarrhea or constipation. She states her urinary patterns are normal for her. She reports that she is off of her ferrous sulfate as well as her atorvastatin but remains on baby aspirin daily. She francisco active and states her appetite is good. Her ECOG is 1. Past Medical History: Ganglion cyst Type II diabetes Stroke in 2020 Past Surgical History: Excision of ganglion cyst Left carpal tunnel release Repair of arm fracture Portacath placement in 2020 Dilation and Curettage in 2020 Covid vaccine #2 in 2020 Covid vaccine #1 in 2020 Allergies: Adhesive tape Medications: Adult Aspirin EC Low Strength 1 Tablet (of 81 mg) Tablet, enteric coated Oral daily Atorvastatin Calcium 1 Tablet (of 40 mg) Oral daily B Complex 1 Tablet Oral daily Cholecalciferol 1 Tablet (of 25 mcg ) Oral daily Daily Multiple Vitamins 1 Tablet Oral daily Loratadine 1 Tablet (of 10 mg) Oral daily Sennosides 1 Tablet (of 8.6 mg) Capsule Oral b.i.d. Family History: Ms. Pedraza's mother at age 81: brain cancer, and breast cancer, and cervical cancer, and hypertension, and lung cancer, and lung met, and stroke, and type II diabetes. Ms. Pedraza's father at age 94: dementia. Ms. Pedraza has 2 brothers: 2 alive. She has 2 sisters: 2 alive. Social History: Ms. Pedraza is single. Ms. Pedraza has never smoked. She has no history of drinking. Review Of Symptoms: <See Above> Vital Signs: Performed on Aug 03, 2021 10:18 Height - 61.00 in Weight - 122.6 lbs (HIGH) BSA - 1.53 sq.m BMI - 23.17 Temperature - 97.6 F (LOW) Pulse - 106 /min (HIGH) Respiration - 18 /min BP - 134/87 mm(hg) O2 Sat - 98 % Pain - 0 Fatigue - 5,1 - No physically strenuous activity, but ambulatory and able to carry out light or sedentary work (e.g. office work, light house work). (ECOG) Physical Examination: Constitutional Alert, oriented, no acute distress. Skin pink, warm and dry. Head Normocephalic; atraumatic. Eyes Conjunctivae and sclerae are clear and without icterus. Pupils are reactive and equal. ENMT No oral exudates, ulcers, masses, thrush or mucositis. Oropharynx clear. Tongue normal. Neck Supple without masses or thyromegaly. No jugular venous distension. Hematologic/Lymphatic No petechiae or purpura. No tender or palpable lymph nodes in the cervical or supraclavicular areas. Respiratory Lungs are clear to auscultation without rhonchi or wheezing. Cardiovascular Regular rate and rhythm of heart without murmurs,clicks, gallops or rubs. Chest Chest is symmetric without chest wall deformities. Right chest wall venous access device insertion site is unremarkable Abdomen Non-tender, non-distended, no masses or ascites. Good bowel sounds noted in all quads. No guarding or rebound tenderness. No pulsatile masses. Back/Spine Non-tender to palpation. Extremities No visible deformities, no cyanosis, clubbing or edema. Musculoskeletal No tenderness or swelling, normal range of motion without obvious weakness. Integumentary No rashes or lesions. Neurologic No sensory or motor deficits, normal cerebellar function, normal gait. Psychiatric Alert and oriented times three. Coherent speech. Verbalizes understanding of our discussions today. Laboratory:Test performed on Aug 05, 2021 10:02 Creatinine 0.3 mg/dL Cr Clearance (Est) 182.68 mL/min Test performed on Aug 03, 2021 08:37 Ferritin 628 ng/mL Iron 45 mcg/dL Sodium 138 mmol/L Iron Binding Capacity (TIBC) 348 mcg/dl Potassium 4.1 mmol/L % Iron Saturation 12.9 % Chloride 100 mmol/L CO2 22 mmol/L UIBC 303 mcg/dL Anion Gap 20.1 BUN 14 mg/dL eGFR 231.0 mL/min Glucose 147 mg/dL Osmolality - Calculated 289 mOsm/kg Calcium 9.4 mg/dL Protein, Total 7.4 g/dL Albumin 4.0 g/dL Globulin 3.4 g/dL Bilirubin, Total 0.2 mg/dL ALT (SGPT) 108 U/L AST (SGOT) 68 U/L Alkaline Phosphatase 114 IU/L WBC 12.0 10 3/uL RBC 4.06 10 6/uL HGB 11.2 g/dL HCT 36.6 % MCV 90.1 fl MCH 27.6 pg MCHC 30.6 g/dL RDW 17.0 % Platelet Count 253 10 3/cmm MPV 10.2 fL Neutrophils 9.73 10 3/uL Lymphocytes 1.7 10 3/uL Monocytes 0.5 10 3/uL Eosinophils 0.0 10 3/uL Basophils 0.0 10 3/uL Neutrophil % 81.1 % Lymphocyte % 14.1 % Monocyte % 4.0 % Eosinophil % 0.2 % Basophils % 0.3 % NRBC % 0 % Test performed on Jul 13, 2021 08:50 CBC Slide Review Slide Review Perform SLIDE REVIEW AGREES WITH AUTOMATED RESULTS Impression: Endometrioid endometrial carcinoma per D&C done on June 09, 2021 FIGO grade 2 History of TIA/CVA diagnosed in November 2020 Iron deficiency anemia status post multiple transfusions due to dysfunctional uterine bleeding due to endometrial carcinoma biopsy-proven Plan/Problems Addressed at this Visit: Endometrial cancer currently undergoing chemotherapy with carboplatin paclitaxel. She began her first cycle on July 13, 2021. A. She will proceed with her second cycle of carboplatin paclitaxel tomorrow she will got her premed steroids today. B. Labs from today reviewed in detail discussed with Ms. Pedraza and a copy was given to her. WBC 12.0, hemoglobin 11.2 platelets 10 53,000 and ANC is 9730. She did receive Neulasta support with cycle 1. Her iron saturation has improved today at 12.9% and her iron level is 45. C. We will plan to do her treatment later this week at which time she will finish her Venofer as well. D. For post follow-up visit we will ask for this in 3 weeks with CBC CMP and repeat iron studies at that time. Also have asked for Ca1 25. E. Ms. Pedraza was instructed to contact us in interim should questions or problems arise. She was reminded take her premeds the night before her next planned chemotherapy so she can be treated on schedule. Signed By: Ginger Hunter-, AOCNP Jerardo Wilburn MD <<Signature on File>>
== END 2021-08-09 23:59 | disposition home or self-care (01) ==
LOC: ONCMED 08:36
PROVIDERS: Nurse Practitioner; PCP Registered Nurse; Visit Provider Internal Medicine Hematology & Oncology
DX: Z51.11 Encounter for antineoplastic chemotherapy (principal); C54.1 Malignant neoplasm of endometrium; D50.0 Iron deficiency anemia secondary to blood loss (chronic); Z86.73 Personal history of transient ischemic attack (TIA), and cerebral infarction without residual deficits; Z79.899 Other long term (current) drug therapy
CPT/HCPCS: 36591; 80053; 82728; 83540; 83550; 85025; 96365; 96367; 96375; 96377; 96413; 96415; 96417; 99214; J1100; J1200; J1453; J1756; J2469; J2505; J3490; J7030; J7040; J7050; J9045; J9267

== ENCOUNTER 2021-09-07 06:28 | Outpatient (RCR) | payer MEDICAID, SELFPAY ==
[2021-08-21 09:22] LABS: Basophils % 0.5 %; Eosinophils % 0.4 %; Hematocrit 39.9 % (37.0-47.0); Hemoglobin 12.5 g/dL (11.5-15.3); Lymphocytes # 1.7 10^3/uL (0.8-4.8); Lymphocytes % 19.8 %; Mean Corpuscular HGB Conc 31.3 g/dL (30.0-36.0); Mean Corpuscular Hemoglobin 28.7 pg (28.0-34.0); Mean Corpuscular Volume 91.5 fl (81-99); Mean Platelet Volume 9.6 fL (7.4-10.4); Monocytes # 0.5 10^3/uL (0.2-0.9); Monocytes % 5.5 %; Neutrophils # 6.23 10^3/uL (1.8-7.7); Neutrophils % 73.4 %; Nucleated Red Blood Cells % 0 %; Platelet Count 189 10^3/cmm (130-400); Red Blood Count 4.36 10^6/uL (4.1-5.3); White Blood Count 8.5 10^3/uL (4.0-10.0)
[2021-08-21 09:52] LABS: Alanine Aminotransferase 30 U/L (0-33); Albumin Level 3.8 g/dL (3.5-5.2); Alkaline Phosphatase 132 IU/L (35-105); Anion Gap 14.9 (5-19); Aspartate Amino Transferase 21 U/L (0-32); Blood Urea Nitrogen 11 mg/dL (6-20); CA 125 643.6 U/mL (0-35); Calcium 9.3 mg/dL (8.5-10.5); Carbon Dioxide 25 mmol/L (22-29); Chloride 101 mmol/L (98-107); Ferritin 612 ng/mL (15-150); Globulin 3.2 g/dL (1.3-4.6); Glomerular Filtration Rate 368.8 mL/min (90-130); Glucose 146 mg/dL (65-115); Iron 55 ug/dL (37-145); Osmolality Calculated 286 mOsm/kg (285-295); Percent Saturation 16.8 % (20-50); Potassium 3.9 mmol/L (3.5-5.1); Sodium 137 mmol/L (136-145); Total Bilirubin 0.2 mg/dL (0.15-1.2); Total Iron Binding Capacity 326 mcg/dl; Unsaturated Iron Binding 271 ug/dL (112-347)
[2021-08-24] MEDS: sodium chloride 0.9% 250 ML 75 ML IV (09:32)
[2021-08-24] MEDS: famotidine 20 mg/2 mL INJ IVP (09:32)
[2021-08-24] MEDS: diphenhydrAMINE 50 mg/mL SDV 1mL 25 MG IV (09:34)
[2021-08-24] MEDS: palonosetron 0.25 mg/5 mL SDV IV (09:38)
[2021-08-24] MEDS: fosaprepitant 150 MG in sodium chloride 0.9% 150 ML 300 MG IV (09:55)
[2021-08-24] MEDS: iron sucrose 200 MG in sodium chloride 0.9% (100 ml) 100 ML 220 MG IV (13:08)
[2021-08-24] MEDS: pegfilgrastim 6 mg/0.6 mL Kit (onpro) SUBCUT (13:35)
--- NOTE | 2021-08-25 17:33 | ONC FU_ITS ---
Dr. Wilburn follow up note Patient: Basilia Pedraza Unit #: [id number]: 1965 Dicatated By: Jerardo Wilburn M.D.Date of Visit:Aug 24, 2021 Onc Med Follow-up/Prog Note History of Present Illness: Ms. Pedraza is a 55-year-old woman with history of diabetes mellitus, hypercholesterolemia. She also has a history of TIA/stroke in November 2020. Subsequently she developed dysphagia and lost about 30 pounds since November 2020. She was on a diabetic diet also. She had been treated with Metformin but as she lost weight and her A1c gone down to 4 from 10. She reports that she takes Metformin on as-needed basis. As per patient in November 2020 she started having heavy vaginal bleeding initially she was treated with medroxyprogesterone. She underwent [employer] work-up including transvaginal ultrasound on June 05, 2021. The report showed thickened endometrium to 5 cm. She then underwent hysteroscopy and D&C on June 09, 2021. With that her bleeding improved initially but then again progressed requiring multiple blood transfusion. Eventually she was referred to [facility] On June 09, 2021, she underwent CT scan of abdomen pelvis which showed 5.2 x 5.4 cm heterogeneous mass in the fundus of uterus with marked thickening of the endometrial canal consistent with probable endometrial carcinoma. There was invasion and thinning of the myometrium near the right fundus. Extensive para-aortic and aortocaval lymphadenopathy, measuring up to 1.9 cm. There is also bilateral iliac chain lymphadenopathy measuring 2.5 cm on the left and 2.4 cm on the right. There is also surendra hepatis lymphadenopathy measuring up to 2.3 cm., No abnormality seen in the liver. 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 On June 14, 2021, Ms Pedraza went to [facility] ER with heavy vaginal bleeding, at that time she was referred to [facility]. She received 2 units of packed RBC prior to the transfer. Patient underwent pelvic exam which showed lesion of the cervix which was biopsied which showed extensive necroinflammatory debris's, no viable tumor cells present and while in [place] she underwent CT scan of head, chest abdomen pelvis on June 15, 2021 which showed few indeterminate sub-3 mm pulmonary nodules. No thoracic lymphadenopathy, and large heterogeneous irregular endometrial thickening/mass. Multiple enlarged retroperitoneal and pelvic lymph nodes. Few too small to characterize splenic hypodensities., Patient was evaluated by Dr. Agarwal he order MRI scan of the pelvis which was done on July 07, 2021 which shows diffuse heterogeneous enlargement of uterus with marked endometrial thickening compatible with endometrial carcinoma. Heterogeneous endometrial thickening and enhancement extends to the internal cervical os., Both adnexa are normal. Bilateral retroperitoneal and iliac lymphadenopathy extending into the pelvis. Largest lymph nodes measuring approximately 1.5 x 1.8 cm. Right obturator and external iliac lymphadenopathy. Large right external iliac lymph node measuring 2.5 x 1.7 cm. No bone mets. Patient denies smoking alcohol use patient denies any abdominal pain, denies any fever chills but generalized weakness and fatigue, denies any melena or hematochezia denies any hemoptysis or hematemesis, no jaundice still having off and on vaginal bleeding. And now awaiting her CT PET scan which is scheduled for coming Tuesday. As per patient she has seen Dr. Agarwal in [place] who has recommended 3 cycles of chemotherapy and then reevaluation to see if she is a candidate for surgery. CT PET scan done on July 04, 2021 showed primary central uterine mass with central necrosis measuring 3.6 x 4.2 x 7.7 cm with SUV of 24.9. Multiple FDG positive bilateral pelvic and abdominal lymph nodes represent metastatic disease. These are present in the right external iliac, right obturator, bilateral common iliac, bilateral periaortic, retrocaval, mesenteric root, peripancreatic nodes and left para-aortic region and node in the left mesenteric root is 1.7 cm and outside of abdomen and pelvis there is a metastatic lymph node in the left cervical level 4 territory of the neck measuring 1.5 cm with SUV of 7 Started on 3 weekly carboplatin/Taxol on July 13, 2021. Came for follow-up, denies any specific complaints, no fever chills, no nausea or vomiting, no diarrhea constipation, in fact patient said she is feeling much better since started on chemotherapy, more energetic especially after iron infusions. Her vaginal bleeding has improved significantly now just off and on spotting only. Abdominal girth has also improved. Appetite is also improving. And tolerating 3 weekly carboplatin/Taxol well. Medications: Adult Aspirin EC Low Strength 1 Tablet (of 81 mg) Tablet, enteric coated Oral daily, Atorvastatin Calcium 1 Tablet (of 40 mg) Oral daily, B Complex 1 Tablet Oral daily, Cholecalciferol 1 Tablet (of 25 mcg ) Oral daily, Daily Multiple Vitamins 1 Tablet Oral daily, Loratadine 1 Tablet (of 10 mg) Oral daily, Sennosides 1 Tablet (of 8.6 mg) Capsule Oral b.i.d. Allergies: Adhesive tape Review of Systems: Review of Systems is not available for this patient. Vital Signs: Performed on Aug 24, 2021 09:07 Height - 61.00 in Weight - 123 lbs (HIGH) BSA - 1.54 sq.m BMI - 23.24 Temperature - 96.9 F (LOW) Pulse - 125 /min (HIGH) Respiration - 18 /min BP - 141/96 mm(hg) (HIGH) O2 Sat - 99 % Pain - 0 Fatigue - 3 Performance Status: 1 - No physically strenuous activity, but ambulatory and able to carry out light or sedentary work (e.g. office work, light house work). (ECOG) Physical Examination: ENMT - No mouth sores, no thrush, no jaundice, Respiratory - Lungs are clear to auscultation, Cardiovascular - Regular rate and rhythm of heart, Abdomen - Soft, bowel sounds present, Extremities - No visible edema. Lab/Imaging: Test performed on Aug 21, 2021 09:11 Ferritin 612 ng/mL Iron 55 mcg/dL Sodium 137 mmol/L Iron Binding Capacity (TIBC) 326 mcg/dl Potassium 3.9 mmol/L % Iron Saturation 16.8 % Chloride 101 mmol/L CO2 25 mmol/L UIBC 271 mcg/dL Anion Gap 14.9 BUN 11 mg/dL Creatinine 0.2 mg/dL Cr Clearance (Est) 274.0200 mL/min eGFR 368.8 mL/min Glucose 146 mg/dL Osmolality - Calculated 286 mOsm/kg Calcium 9.3 mg/dL Protein, Total 7.0 g/dL Albumin 3.8 g/dL Globulin 3.2 g/dL Bilirubin, Total 0.2 mg/dL ALT (SGPT) 30 U/L AST (SGOT) 21 U/L Alkaline Phosphatase 132 IU/L WBC 8.5 10 3/uL RBC 4.36 10 6/uL HGB 12.5 g/dL HCT 39.9 % MCV 91.5 fl MCH 28.7 pg MCHC 31.3 g/dL RDW 19.0 % Platelet Count 189 10 3/cmm MPV 9.6 fL Neutrophils 6.23 10 3/uL Lymphocytes 1.7 10 3/uL Monocytes 0.5 10 3/uL Eosinophils 0.0 10 3/uL Basophils 0.0 10 3/uL Neutrophil % 73.4 % Lymphocyte % 19.8 % Monocyte % 5.5 % Eosinophil % 0.4 % Basophils % 0.5 % NRBC % 0 % CA-125 643.6 U/mL Test performed on Jul 13, 2021 08:50 CBC Slide Review Slide Review Perform SLIDE REVIEW AGREES WITH AUTOMATED RESULTS Impression: Endometrioid endometrial carcinoma per D&C done on June 09, 2021 FIGO grade 2 Started on neoadjuvant chemotherapy with carboplatin/Taxol on July 13, 2021 History of TIA/CVA diagnosed in November 2020 Iron deficiency anemia status post multiple transfusions due to dysfunctional uterine bleeding due to endometrial carcinoma biopsy-proven Plan: Discussed with patient regarding her labs white blood count 8.5 hemoglobin 12.5 g compared to 10.7 on July 20, 2021, hematocrit 39.9 platelets 189,000 CMP within normal limits iron studies shows iron saturation 16.8% compared to 9.1 prior to Venofer infusion, ferritin 612 compared to 52 prior to iron infusion and her tumor marker CA-125 has improved significantly now 643 compared to 1264 prior to chemotherapy. Clinically, patient doing well, tolerating neoadjuvant chemotherapy with carboplatin/Taxol well but with expected side effects, patient has completed 2/3 prior to surgical evaluation, scheduled cycle of chemotherapy with carboplatin/Taxol. We will proceed with cycle #3/3 of neoadjuvant chemotherapy with carboplatin/Taxol today and then patient will go to [place] see her [employer] surgical oncologist for evaluation. As far as iron deficiency anemia is concerned which was due to excessive vaginal bleeding, which has improved significantly since she is on chemotherapy moreover she was given parenteral iron, now her hemoglobin is in normal range along with improvement in iron stores. Patient return to clinic in 2 weeks with CBC CMP unless, scheduled for surgery Signed By: Jerardo Wilburn M.D. <<Signature on File>>
[2021-09-07 09:15] LABS: Basophils # 0.1 10^3/uL (0.0-0.1); Basophils % 0.4 %; Eosinophils # 0.1 10^3/uL (0.0-0.8); Eosinophils % 0.3 %; Hematocrit 38.4 % (37.0-47.0); Hemoglobin 12.4 g/dL (11.5-15.3); Lymphocytes # 2.6 10^3/uL (0.8-4.8); Lymphocytes % 13.2 %; Mean Corpuscular HGB Conc 32.3 g/dL (30.0-36.0); Mean Corpuscular Hemoglobin 29.2 pg (28.0-34.0); Mean Corpuscular Volume 90.6 fl (81-99); Mean Platelet Volume 10.6 fL (7.4-10.4); Monocytes # 0.9 10^3/uL (0.2-0.9); Monocytes % 4.6 %; Neutrophils # 15.92 10^3/uL (1.8-7.7); Neutrophils % 79.6 %; Nucleated Red Blood Cells % 0 %; Platelet Count 213 10^3/cmm (130-400); Red Blood Count 4.24 10^6/uL (4.1-5.3); Red Cell Distribution Width 19.3 % (12.1-15.1)
[2021-09-07 09:23] LABS: Alanine Aminotransferase 30 U/L (0-33); Albumin Level 3.4 g/dL (3.5-5.2); Alkaline Phosphatase 209 IU/L (35-105); Anion Gap 13.6 (5-19); Aspartate Amino Transferase 23 U/L (0-32); Blood Urea Nitrogen 15 mg/dL (6-20); Calcium 8.4 mg/dL (8.5-10.5); Carbon Dioxide 23 mmol/L (22-29); Chloride 107 mmol/L (98-107); Globulin 2.7 g/dL (1.3-4.6); Glomerular Filtration Rate 368.8 mL/min (90-130); Glucose 108 mg/dL (65-115); Osmolality Calculated 291 mOsm/kg (285-295); Potassium 3.6 mmol/L (3.5-5.1); Sodium 140 mmol/L (136-145); Total Bilirubin 0.2 mg/dL (0.15-1.2); Total Protein 6.1 g/dL (6.6-8.7)
--- NOTE | 2021-09-11 12:23 | ONC FU_ITS ---
Dr. Wilburn follow up note Patient: Basilia Pedraza Unit #: [id number]: 1965 Dicatated By: Jerardo Wilburn M.D.Date of Visit:Sep 07, 2021 Onc Med Follow-up/Prog Note History of Present Illness: Ms. Pedraza is a 55-year-old woman with history of diabetes mellitus, hypercholesterolemia. She also has a history of TIA/stroke in November 2020. Subsequently she developed dysphagia and lost about 30 pounds since November 2020. She was on a diabetic diet also. She had been treated with Metformin but as she lost weight and her A1c gone down to 4 from 10. She reports that she takes Metformin on as-needed basis. As per patient in November 2020 she started having heavy vaginal bleeding initially she was treated with medroxyprogesterone. She underwent [employer] work-up including transvaginal ultrasound on June 05, 2021. The report showed thickened endometrium to 5 cm. She then underwent hysteroscopy and D&C on June 09, 2021. With that her bleeding improved initially but then again progressed requiring multiple blood transfusion. Eventually she was referred to [facility] On June 09, 2021, she underwent CT scan of abdomen pelvis which showed 5.2 x 5.4 cm heterogeneous mass in the fundus of uterus with marked thickening of the endometrial canal consistent with probable endometrial carcinoma. There was invasion and thinning of the myometrium near the right fundus. Extensive para-aortic and aortocaval lymphadenopathy, measuring up to 1.9 cm. There is also bilateral iliac chain lymphadenopathy measuring 2.5 cm on the left and 2.4 cm on the right. There is also surendra hepatis lymphadenopathy measuring up to 2.3 cm., No abnormality seen in the liver. 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 On June 14, 2021, Ms Pedraza went to [facility] ER with heavy vaginal bleeding, at that time she was referred to [facility]. She received 2 units of packed RBC prior to the transfer. Patient underwent pelvic exam which showed lesion of the cervix which was biopsied which showed extensive necroinflammatory debris's, no viable tumor cells present and while in [place] she underwent CT scan of head, chest abdomen pelvis on June 15, 2021 which showed few indeterminate sub-3 mm pulmonary nodules. No thoracic lymphadenopathy, and large heterogeneous irregular endometrial thickening/mass. Multiple enlarged retroperitoneal and pelvic lymph nodes. Few too small to characterize splenic hypodensities., Patient was evaluated by Dr. Agarwal he order MRI scan of the pelvis which was done on July 07, 2021 which shows diffuse heterogeneous enlargement of uterus with marked endometrial thickening compatible with endometrial carcinoma. Heterogeneous endometrial thickening and enhancement extends to the internal cervical os., Both adnexa are normal. Bilateral retroperitoneal and iliac lymphadenopathy extending into the pelvis. Largest lymph nodes measuring approximately 1.5 x 1.8 cm. Right obturator and external iliac lymphadenopathy. Large right external iliac lymph node measuring 2.5 x 1.7 cm. No bone mets. Patient denies smoking alcohol use patient denies any abdominal pain, denies any fever chills but generalized weakness and fatigue, denies any melena or hematochezia denies any hemoptysis or hematemesis, no jaundice still having off and on vaginal bleeding. And now awaiting her CT PET scan which is scheduled for coming Tuesday. As per patient she has seen Dr. Agarwal in [place] who has recommended 3 cycles of chemotherapy and then reevaluation to see if she is a candidate for surgery. CT PET scan done on July 04, 2021 showed primary central uterine mass with central necrosis measuring 3.6 x 4.2 x 7.7 cm with SUV of 24.9. Multiple FDG positive bilateral pelvic and abdominal lymph nodes represent metastatic disease. These are present in the right external iliac, right obturator, bilateral common iliac, bilateral periaortic, retrocaval, mesenteric root, peripancreatic nodes and left para-aortic region and node in the left mesenteric root is 1.7 cm and outside of abdomen and pelvis there is a metastatic lymph node in the left cervical level 4 territory of the neck measuring 1.5 cm with SUV of 7 Started on 3 weekly carboplatin/Taxol on July 13, 2021. Came for follow-up, denies any specific complaints, no fever chills, no nausea or vomiting, no diarrhea or constipation, overall feeling much better, more energetic, patient was scheduled to see her [employer] surgical oncologist Dr. Agarwal in [facility] after 3 cycles of chemotherapy for surgical evaluation, as per patient she was advised By her surgeon's office to take another dose and after that she will be evaluated for surgery. Medications: Adult Aspirin EC Low Strength 1 Tablet (of 81 mg) Tablet, enteric coated Oral daily, Atorvastatin Calcium 1 Tablet (of 40 mg) Oral daily, B Complex 1 Tablet Oral daily, Cholecalciferol 1 Tablet (of 25 mcg ) Oral daily, Daily Multiple Vitamins 1 Tablet Oral daily, Loratadine 1 Tablet (of 10 mg) Oral daily, Sennosides 1 Tablet (of 8.6 mg) Capsule Oral b.i.d. Allergies: Adhesive tape Review of Systems: Review of Systems is not available for this patient. Vital Signs: Performed on Sep 07, 2021 11:15 Height - 61.00 in Weight - 125.2 lbs (HIGH) BSA - 1.55 sq.m BMI - 23.66 Temperature - 99.4 F (HIGH) Pulse - 85 /min Respiration - 18 /min BP - 140/89 mm(hg) O2 Sat - 99 % Pain - 0 Fatigue - 2 Performance Status: 0 - Fully active, able to carry on all predisease activities without restrictions. (ECOG) Physical Examination: ENMT - No mouth sores, no thrush, no jaundice, Respiratory - Lungs are clear to auscultation, Cardiovascular - Regular rate and rhythm of heart, Abdomen - Soft, bowel sounds present, Extremities - No visible edema. Lab/Imaging: Test performed on Aug 21, 2021 09:11 Ferritin 612 ng/mL Iron 55 mcg/dL Sodium 137 mmol/L Iron Binding Capacity (TIBC) 326 mcg/dl Potassium 3.9 mmol/L % Iron Saturation 16.8 % Chloride 101 mmol/L CO2 25 mmol/L UIBC 271 mcg/dL Anion Gap 14.9 BUN 11 mg/dL Creatinine 0.2 mg/dL Cr Clearance (Est) 274.0200 mL/min eGFR 368.8 mL/min Glucose 146 mg/dL Osmolality - Calculated 286 mOsm/kg Calcium 9.3 mg/dL Protein, Total 7.0 g/dL Albumin 3.8 g/dL Globulin 3.2 g/dL Bilirubin, Total 0.2 mg/dL ALT (SGPT) 30 U/L AST (SGOT) 21 U/L Alkaline Phosphatase 132 IU/L WBC 8.5 10 3/uL RBC 4.36 10 6/uL HGB 12.5 g/dL HCT 39.9 % MCV 91.5 fl MCH 28.7 pg MCHC 31.3 g/dL RDW 19.0 % Platelet Count 189 10 3/cmm MPV 9.6 fL Neutrophils 6.23 10 3/uL Lymphocytes 1.7 10 3/uL Monocytes 0.5 10 3/uL Eosinophils 0.0 10 3/uL Basophils 0.0 10 3/uL Neutrophil % 73.4 % Lymphocyte % 19.8 % Monocyte % 5.5 % Eosinophil % 0.4 % Basophils % 0.5 % NRBC % 0 % CA-125 643.6 U/mL Test performed on Jul 13, 2021 08:50 CBC Slide Review Slide Review Perform SLIDE REVIEW AGREES WITH AUTOMATED RESULTS Impression: Endometrioid endometrial carcinoma per D&C done on June 09, 2021 FIGO grade 2 Started on neoadjuvant chemotherapy with carboplatin/Taxol on July 13, 2021 History of TIA/CVA diagnosed in November 2020 Iron deficiency anemia status post multiple transfusions due to dysfunctional uterine bleeding due to endometrial carcinoma biopsy-proven Plan: Discussed with patient regarding her labs white blood count 20,000 hemoglobin 12.4 hematocrit 38.4 platelets 213,000 CMP within normal limits except albumin 3.4 and alk phos 209 Clinically, patient doing well with no new signs symptom, more energetic, tolerating neoadjuvant therapy with carboplatin/Taxol well, patient has completed 3 cycles of carboplatin/Taxol well, as per initial plan she was due for her surgical evaluation but as per patient and family she did discuss with Dr. Agarwal's office and she was recommended to proceed with 1 more cycle prior to surgical evaluation, in that case she will return to clinic in 1 week for cycle #4 with 3 weekly carboplatin/Taxol and after that she will go to [place] for surgical evaluation. As far as leukocytosis concerned most likely due to Neulasta as patient has no signs symptom suggestive of acute infection. Signed By: Jerardo Wilburn M.D. <<Signature on File>>
== END 2021-09-08 23:59 | disposition home or self-care (01) ==
LOC: ONCMED 06:28
PROVIDERS: PCP Registered Nurse; Visit Provider Internal Medicine Hematology & Oncology
DX: Z51.11 Encounter for antineoplastic chemotherapy (principal); C54.1 Malignant neoplasm of endometrium; D50.0 Iron deficiency anemia secondary to blood loss (chronic); N93.8 Other specified abnormal uterine and vaginal bleeding; Z86.73 Personal history of transient ischemic attack (TIA), and cerebral infarction without residual deficits; Z79.899 Other long term (current) drug therapy; Z92.21 Personal history of antineoplastic chemotherapy
CPT/HCPCS: 36415; 36591; 80053; 82728; 83540; 83550; 85025; 86304; 96367; 96372; 96375; 96377; 96413; 96415; 96417; 99214; 99215; J1100; J1200; J1453; J1756; J2469; J2505; J3490; J7030; J7040; J7050; J9045; J9267

== ENCOUNTER 2021-09-14 06:31 | Outpatient (RCR) | payer MEDICAID, SELFPAY ==
[2021-09-14 08:22] LABS: Basophils % 0.1 %; Hematocrit 41.4 % (37.0-47.0); Hemoglobin 13.2 g/dL (11.5-15.3); Lymphocytes # 0.7 10^3/uL (0.8-4.8); Mean Corpuscular HGB Conc 31.9 g/dL (30.0-36.0); Mean Corpuscular Hemoglobin 29.3 pg (28.0-34.0); Mean Corpuscular Volume 91.8 fl (81-99); Mean Platelet Volume 10.3 fL (7.4-10.4); Monocytes % 0.2 %; Neutrophils # 8.67 10^3/uL (1.8-7.7); Neutrophils % 92.4 %; Nucleated Red Blood Cells % 0 %; Platelet Count 166 10^3/cmm (130-400); Red Blood Count 4.51 10^6/uL (4.1-5.3); Red Cell Distribution Width 18.9 % (12.1-15.1); White Blood Count 9.4 10^3/uL (4.0-10.0)
[2021-09-14 08:49] LABS: Alanine Aminotransferase 33 U/L (0-33); Albumin Level 4.2 g/dL (3.5-5.2); Alkaline Phosphatase 131 IU/L (35-105); Aspartate Amino Transferase 26 U/L (0-32); Blood Urea Nitrogen 14 mg/dL (6-20); Calcium 9.6 mg/dL (8.5-10.5); Carbon Dioxide 20 mmol/L (22-29); Chloride 101 mmol/L (98-107); Globulin 3.6 g/dL (1.3-4.6); Glomerular Filtration Rate 165.7 mL/min (90-130); Glucose 294 mg/dL (65-115); Osmolality Calculated 297 mOsm/kg (285-295); Sodium 138 mmol/L (136-145); Total Bilirubin 0.3 mg/dL (0.15-1.2); Total Protein 7.8 g/dL (6.6-8.7)
[2021-09-14 09:37] LABS: Slide Review Slide Review Perform
[2021-09-14] MEDS: sodium chloride 0.9% 250 ML 75 ML IV (10:15)
[2021-09-14] MEDS: palonosetron 0.25 mg/5 mL SDV IV (10:15)
[2021-09-14] MEDS: famotidine 20 mg/2 mL INJ IVP (10:16)
[2021-09-14] MEDS: diphenhydrAMINE 50 mg/mL SDV 1mL 25 MG IV (10:18)
[2021-09-14] MEDS: fosaprepitant 150 MG in sodium chloride 0.9% 150 ML 300 MG IV (10:20)
[2021-09-14] MEDS: pegfilgrastim 6 mg/0.6 mL Kit (onpro) SUBCUT (15:10)
== END 2021-10-09 23:59 | disposition home or self-care (01) ==
LOC: ONCMED 06:31
PROVIDERS: PCP Registered Nurse; Visit Provider Internal Medicine Hematology & Oncology
DX: Z51.11 Encounter for antineoplastic chemotherapy (principal); C54.1 Malignant neoplasm of endometrium
CPT/HCPCS: 80053; 85025; 96367; 96372; 96375; 96413; 96415; 96417; J1100; J1200; J1453; J2469; J2505; J3490; J7030; J7040; J7050; J9045; J9267

== ENCOUNTER 2021-10-26 06:19 | Outpatient (RCR) | payer MEDICAID, SELFPAY ==
[2021-10-23 11:23] LABS: Basophils # 0.1 10^3/uL (0.0-0.1); Basophils % 0.7 %; Eosinophils # 0.2 10^3/uL (0.0-0.8); Eosinophils % 1.7 %; Hematocrit 40.3 % (37.0-47.0); Hemoglobin 13.1 g/dL (11.5-15.3); Lymphocytes # 1.7 10^3/uL (0.8-4.8); Lymphocytes % 19.2 %; Mean Corpuscular HGB Conc 32.5 g/dL (30.0-36.0); Mean Corpuscular Hemoglobin 30.8 pg (28.0-34.0); Mean Corpuscular Volume 94.8 fl (81-99); Monocytes # 0.6 10^3/uL (0.2-0.9); Monocytes % 7.2 %; Neutrophils % 70.9 %; Nucleated Red Blood Cells % 0 %; Platelet Count 283 10^3/cmm (130-400); Red Blood Count 4.25 10^6/uL (4.1-5.3); Red Cell Distribution Width 16.6 % (12.1-15.1); White Blood Count 8.9 10^3/uL (4.0-10.0)
[2021-10-23 11:47] LABS: Alanine Aminotransferase 46 U/L (0-33); Albumin Level 4.2 g/dL (3.5-5.2); Alkaline Phosphatase 112 IU/L (35-105); Anion Gap 17.2 (5-19); Aspartate Amino Transferase 34 U/L (0-32); Blood Urea Nitrogen 12 mg/dL (6-20); Carbon Dioxide 23 mmol/L (22-29); Chloride 102 mmol/L (98-107); Chol HDL Ratio 3.46 mg/dL (0.0-4.40); Cholesterol 142 mg/dL (0-200); Globulin 2.5 g/dL (1.3-4.6); Glucose 115 mg/dL (65-115); HDL Cholesterol 41 mg/dL (60-100); LDL Cholesterol Calculated 63 mg/dL (50-129); LDL HDL Ratio 1.54 RATIO (0.00-3.22); Osmolality Calculated 287 mOsm/kg (285-295); Potassium 4.2 mmol/L (3.5-5.1); Sodium 138 mmol/L (136-145); Total Bilirubin 0.4 mg/dL (0.15-1.2); Total Protein 6.7 g/dL (6.6-8.7); Triglycerides 188 mg/dL (0-150)
--- NOTE | 2021-10-26 08:55 | ONC FU_ITS ---
Dr. Wilburn follow up note Patient: Basilia Pedraza Unit #: [id number]: 1965 Dicatated By: Jerardo Wilburn M.D.Date of Visit:Oct 26, 2021 Onc Med Follow-up/Prog Note History of Present Illness: Ms. Pedraza is a 55-year-old woman with history of diabetes mellitus, hypercholesterolemia. She also has a history of TIA/stroke in November 2020. Subsequently she developed dysphagia and lost about 30 pounds since November 2020. She was on a diabetic diet also. She had been treated with Metformin but as she lost weight and her A1c gone down to 4 from 10. She reports that she takes Metformin on as-needed basis. As per patient in November 2020 she started having heavy vaginal bleeding initially she was treated with medroxyprogesterone. She underwent [employer] work-up including transvaginal ultrasound on June 05, 2021. The report showed thickened endometrium to 5 cm. She then underwent hysteroscopy and D&C on June 09, 2021. With that her bleeding improved initially but then again progressed requiring multiple blood transfusion. Eventually she was referred to [facility] On June 09, 2021, she underwent CT scan of abdomen pelvis which showed 5.2 x 5.4 cm heterogeneous mass in the fundus of uterus with marked thickening of the endometrial canal consistent with probable endometrial carcinoma. There was invasion and thinning of the myometrium near the right fundus. Extensive para-aortic and aortocaval lymphadenopathy, measuring up to 1.9 cm. There is also bilateral iliac chain lymphadenopathy measuring 2.5 cm on the left and 2.4 cm on the right. There is also surendra hepatis lymphadenopathy measuring up to 2.3 cm., No abnormality seen in the liver. 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 On June 14, 2021, Ms Pedraza went to [facility] ER with heavy vaginal bleeding, at that time she was referred to [facility]. She received 2 units of packed RBC prior to the transfer. Patient underwent pelvic exam which showed lesion of the cervix which was biopsied which showed extensive necroinflammatory debris's, no viable tumor cells present and while in [place] she underwent CT scan of head, chest abdomen pelvis on June 15, 2021 which showed few indeterminate sub-3 mm pulmonary nodules. No thoracic lymphadenopathy, and large heterogeneous irregular endometrial thickening/mass. Multiple enlarged retroperitoneal and pelvic lymph nodes. Few too small to characterize splenic hypodensities., Patient was evaluated by Dr. Agarwal he order MRI scan of the pelvis which was done on July 07, 2021 which shows diffuse heterogeneous enlargement of uterus with marked endometrial thickening compatible with endometrial carcinoma. Heterogeneous endometrial thickening and enhancement extends to the internal cervical os., Both adnexa are normal. Bilateral retroperitoneal and iliac lymphadenopathy extending into the pelvis. Largest lymph nodes measuring approximately 1.5 x 1.8 cm. Right obturator and external iliac lymphadenopathy. Large right external iliac lymph node measuring 2.5 x 1.7 cm. No bone mets. Patient denies smoking alcohol use patient denies any abdominal pain, denies any fever chills but generalized weakness and fatigue, denies any melena or hematochezia denies any hemoptysis or hematemesis, no jaundice still having off and on vaginal bleeding. And now awaiting her CT PET scan which is scheduled for coming Tuesday. As per patient she has seen Dr. Agarwal in [place] who has recommended 3 cycles of chemotherapy and then reevaluation to see if she is a candidate for surgery. CT PET scan done on July 04, 2021 showed primary central uterine mass with central necrosis measuring 3.6 x 4.2 x 7.7 cm with SUV of 24.9. Multiple FDG positive bilateral pelvic and abdominal lymph nodes represent metastatic disease. These are present in the right external iliac, right obturator, bilateral common iliac, bilateral periaortic, retrocaval, mesenteric root, peripancreatic nodes and left para-aortic region and node in the left mesenteric root is 1.7 cm and outside of abdomen and pelvis there is a metastatic lymph node in the left cervical level 4 territory of the neck measuring 1.5 cm with SUV of 7 Started on 3 weekly carboplatin/Taxol on July 13, 2021. Came for follow-up, denies any specific complaints except mild numbness in her fingertips and toe but stable, no nausea or vomiting, no diarrhea or constipation, no fever chills, no abdominal pain or fullness. As per patient, her expiratory laparotomy was postponed due to hospital in [place] being full and her [employer] surgical oncologist asked her to continue with another cycle of chemotherapy with carboplatin/Taxol and now surgery is planned for November 09, 2020 Medications: Adult Aspirin EC Low Strength 1 Tablet (of 81 mg) Tablet, enteric coated Oral daily, Atorvastatin Calcium 1 Tablet (of 40 mg) Oral daily, B Complex 1 Tablet Oral daily, Cholecalciferol 1 Tablet (of 25 mcg ) Oral daily, Daily Multiple Vitamins 1 Tablet Oral daily, Loratadine 1 Tablet (of 10 mg) Oral daily, Sennosides 1 Tablet (of 8.6 mg) Capsule Oral b.i.d. Allergies: Adhesive tape Review of Systems: Review of Systems is not available for this patient. Vital Signs: Vitals are not available for this patient. Performance Status: 0 - Fully active, able to carry on all predisease activities without restrictions. (ECOG) Physical Examination: ENMT - No mouth sores, no thrush, no jaundice, Respiratory - Lungs are clear to auscultation, Cardiovascular - Regular rate and rhythm of heart, Abdomen - Soft, bowel sounds present, Extremities - No visible edema. Lab/Imaging: Test performed on Oct 23, 2021 11:06 Sodium 138 mmol/L Potassium 4.2 mmol/L Chloride 102 mmol/L CO2 23 mmol/L Anion Gap 17.2 BUN 12 mg/dL Creatinine 0.3 mg/dL Cr Clearance (Est) 182.6800 mL/min eGFR 231.0 mL/min Glucose 115 mg/dL Osmolality - Calculated 287 mOsm/kg Calcium 9.0 mg/dL Protein, Total 6.7 g/dL Albumin 4.2 g/dL Globulin 2.5 g/dL Bilirubin, Total 0.4 mg/dL ALT (SGPT) 46 U/L AST (SGOT) 34 U/L Alkaline Phosphatase 112 IU/L WBC 8.9 10 3/uL RBC 4.25 10 6/uL HGB 13.1 g/dL HCT 40.3 % MCV 94.8 fl MCH 30.8 pg MCHC 32.5 g/dL RDW 16.6 % Platelet Count 283 10 3/cmm MPV 10.0 fL Neutrophils 6.30 10 3/uL Lymphocytes 1.7 10 3/uL Monocytes 0.6 10 3/uL Eosinophils 0.2 10 3/uL Basophils 0.1 10 3/uL Neutrophil % 70.9 % Lymphocyte % 19.2 % Monocyte % 7.2 % Eosinophil % 1.7 % Basophils % 0.7 % NRBC % 0 % Test performed on Aug 21, 2021 09:11 Ferritin 612 ng/mL Iron 55 mcg/dL Iron Binding Capacity (TIBC) 326 mcg/dl % Iron Saturation 16.8 % UIBC 271 mcg/dL CA-125 643.6 U/mL Test performed on Jul 13, 2021 08:50 CBC Slide Review Slide Review Perform SLIDE REVIEW AGREES WITH AUTOMATED RESULTS Impression: Endometrioid endometrial carcinoma per D&C done on June 09, 2021 FIGO grade 2 Started on neoadjuvant chemotherapy with carboplatin/Taxol on July 13, 2021 History of TIA/CVA diagnosed in November 2020 Iron deficiency anemia status post multiple transfusions due to dysfunctional uterine bleeding due to endometrial carcinoma biopsy-proven Plan: Discussed with patient regarding her labs white blood count 8.9 hemoglobin 13.1 hematocrit 40.3 platelets 283,000 CMP within normal limits except ALT 46 compared to 30 previously and AST 34 compared to 23 previously alk phos 112 compared to 2019 previously Clinically, patient is doing well with no new signs symptoms suggestive of disease progression, will proceed with next cycle of carboplatin/Taxol today, she will return to clinic 2 weeks after her exploratory laparotomy which is scheduled for November 09, 2021., With CBC CMP. Signed By: Jerardo Wilburn M.D. <<Signature on File>>
[2021-10-26] MEDS: famotidine 20 mg/2 mL INJ IVP (09:09)
[2021-10-26] MEDS: diphenhydrAMINE 50 mg/mL SDV 1mL 25 MG IV (09:11)
[2021-10-26] MEDS: palonosetron 0.25 mg/5 mL SDV IV (09:14)
[2021-10-26] MEDS: sodium chloride 0.9% 250 ML 75 ML IV (09:14)
[2021-10-26] MEDS: fosaprepitant 150 MG in sodium chloride 0.9% 150 ML 300 MG IV (09:35)
[2021-10-26] MEDS: pegfilgrastim 6 mg/0.6 mL Kit (onpro) SUBCUT (14:45)
== END 2021-11-09 23:59 | disposition home or self-care (01) ==
LOC: ONCMED 06:19
PROVIDERS: PCP Registered Nurse; Visit Provider Internal Medicine Hematology & Oncology
DX: Z51.11 Encounter for antineoplastic chemotherapy (principal); C54.1 Malignant neoplasm of endometrium; D50.0 Iron deficiency anemia secondary to blood loss (chronic); N93.8 Other specified abnormal uterine and vaginal bleeding; Z86.73 Personal history of transient ischemic attack (TIA), and cerebral infarction without residual deficits; Z79.899 Other long term (current) drug therapy
CPT/HCPCS: 36591; 80053; 80061; 85025; 96367; 96372; 96375; 96377; 96413; 96415; 96417; 99215; J1100; J1200; J1453; J2469; J2506; J3490; J7030; J7040; J7050; J9045; J9267

== ENCOUNTER → 2021-11-04 08:35 | Outpatient (BNVA) | payer MEDICAID, SELFPAY | PROVIDERS: PCP Registered Nurse; Visit Provider Obstetrics & Gynecology | DX: Z01.812 Encounter for preprocedural laboratory examination (principal); Z20.822 Contact with and (suspected) exposure to COVID-19 | CPT/HCPCS: 87635 ==

== ENCOUNTER 2021-12-07 07:10 | Outpatient (RCR) | payer MEDICAID, SELFPAY ==
[2021-11-24 11:28] LABS: Basophils % 0.5 %; Eosinophils # 0.1 10^3/uL (0.0-0.8); Eosinophils % 1.5 %; Hematocrit 36.5 % (37.0-47.0); Lymphocytes # 1.7 10^3/uL (0.8-4.8); Lymphocytes % 20.1 %; Mean Corpuscular HGB Conc 30.1 g/dL (30.0-36.0); Mean Corpuscular Hemoglobin 29.7 pg (28.0-34.0); Mean Corpuscular Volume 98.6 fl (81-99); Mean Platelet Volume 10.1 fL (7.4-10.4); Monocytes # 0.6 10^3/uL (0.2-0.9); Monocytes % 7.1 %; Neutrophils # 5.84 10^3/uL (1.8-7.7); Neutrophils % 70.6 %; Nucleated Red Blood Cells % 0 %; Platelet Count 287 10^3/cmm (130-400); Red Cell Distribution Width 15.3 % (12.1-15.1); White Blood Count 8.3 10^3/uL (4.0-10.0)
[2021-11-24 11:56] LABS: Alanine Aminotransferase 24 U/L (0-33); Alkaline Phosphatase 92 IU/L (35-105); Anion Gap 13.2 (5-19); Aspartate Amino Transferase 19 U/L (0-32); Blood Urea Nitrogen 14 mg/dL (6-20); Calcium 9.9 mg/dL (8.5-10.5); Carbon Dioxide 26 mmol/L (22-29); Chloride 102 mmol/L (98-107); Globulin 3.7 g/dL (1.3-4.6); Glomerular Filtration Rate 230.1 mL/min (90-130); Glucose 146 mg/dL (65-115); Osmolality Calculated 287 mOsm/kg (285-295); Potassium 4.2 mmol/L (3.5-5.1); Sodium 137 mmol/L (136-145); Total Bilirubin 0.6 mg/dL (0.15-1.2); Total Protein 7.7 g/dL (6.6-8.7)
--- NOTE | 2021-11-24 17:52 | ONC FU_ITS ---
Dr. Wilburn follow up note Patient: Basilia Pedraza Unit #: [id number]: 1965 Dicatated By: Jerardo Wilburn M.D.Date of Visit:Nov 24, 2021 Onc Med Follow-up/Prog Note History of Present Illness: Ms. Pedraza is a 55-year-old woman with history of diabetes mellitus, hypercholesterolemia. She also has a history of TIA/stroke in November 2020. Subsequently she developed dysphagia and lost about 30 pounds since November 2020. She was on a diabetic diet also. She had been treated with Metformin but as she lost weight and her A1c gone down to 4 from 10. She reports that she takes Metformin on as-needed basis. As per patient in November 2020 she started having heavy vaginal bleeding initially she was treated with medroxyprogesterone. She underwent [employer] work-up including transvaginal ultrasound on June 05, 2021. The report showed thickened endometrium to 5 cm. She then underwent hysteroscopy and D&C on June 09, 2021. With that her bleeding improved initially but then again progressed requiring multiple blood transfusion. Eventually she was referred to [facility] On June 09, 2021, she underwent CT scan of abdomen pelvis which showed 5.2 x 5.4 cm heterogeneous mass in the fundus of uterus with marked thickening of the endometrial canal consistent with probable endometrial carcinoma. There was invasion and thinning of the myometrium near the right fundus. Extensive para-aortic and aortocaval lymphadenopathy, measuring up to 1.9 cm. There is also bilateral iliac chain lymphadenopathy measuring 2.5 cm on the left and 2.4 cm on the right. There is also surendra hepatis lymphadenopathy measuring up to 2.3 cm., No abnormality seen in the liver. 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 On June 14, 2021, Ms Pedraza went to [facility] with heavy vaginal bleeding, at that time she was referred to [facility]. She received 2 units of packed RBC prior to the transfer. Patient underwent pelvic exam which showed lesion of the cervix which was biopsied which showed extensive necroinflammatory debris's, no viable tumor cells present and while in [place] she underwent CT scan of head, chest abdomen pelvis on June 15, 2021 which showed few indeterminate sub-3 mm pulmonary nodules. No thoracic lymphadenopathy, and large heterogeneous irregular endometrial thickening/mass. Multiple enlarged retroperitoneal and pelvic lymph nodes. Few too small to characterize splenic hypodensities., Patient was evaluated by Dr. Agarwal he order MRI scan of the pelvis which was done on July 07, 2021 which shows diffuse heterogeneous enlargement of uterus with marked endometrial thickening compatible with endometrial carcinoma. Heterogeneous endometrial thickening and enhancement extends to the internal cervical os., Both adnexa are normal. Bilateral retroperitoneal and iliac lymphadenopathy extending into the pelvis. Largest lymph nodes measuring approximately 1.5 x 1.8 cm. Right obturator and external iliac lymphadenopathy. Large right external iliac lymph node measuring 2.5 x 1.7 cm. No bone mets. Patient denies smoking alcohol use patient denies any abdominal pain, denies any fever chills but generalized weakness and fatigue, denies any melena or hematochezia denies any hemoptysis or hematemesis, no jaundice still having off and on vaginal bleeding. And now awaiting her CT PET scan which is scheduled for coming Tuesday. As per patient she has seen Dr. Agarwal in [place] who has recommended 3 cycles of chemotherapy and then reevaluation to see if she is a candidate for surgery. CT PET scan done on July 04, 2021 showed primary central uterine mass with central necrosis measuring 3.6 x 4.2 x 7.7 cm with SUV of 24.9. Multiple FDG positive bilateral pelvic and abdominal lymph nodes represent metastatic disease. These are present in the right external iliac, right obturator, bilateral common iliac, bilateral periaortic, retrocaval, mesenteric root, peripancreatic nodes and left para-aortic region and node in the left mesenteric root is 1.7 cm and outside of abdomen and pelvis there is a metastatic lymph node in the left cervical level 4 territory of the neck measuring 1.5 cm with SUV of 7 Started on 3 weekly carboplatin/Taxol on July 13, 2021.And completed 5 cycles on October 26, 2021, Subsequently underwent robotic hysterectomy, BSO and lymph node dissection and debulking on November 09, 2021 Came for follow-up, denies any specific complaint except generalized weakness and fatigue, as per patient she underwent robotic hysterectomy, BSO and lymph node dissection and debulking on November 09, 2021 in [facility], patient tolerated procedure well, As per patient she was told that she has a spot near her liver which was not resected and not sure where the biopsy was done ,she had televisit with her surgeon Dr. Agarwal and scheduled for another one for next week. Patient has recovered well from her surgery. Denies any fever chills denies any nausea or vomiting denies any diarrhea or constipation denies any melena or hematochezia denies any muscle hematemesis denies any abdominal pain. She is here to discuss further management Medications: Adult Aspirin EC Low Strength 1 Tablet (of 81 mg) Tablet, enteric coated Oral daily, Atorvastatin Calcium 1 Tablet (of 40 mg) Oral daily, B Complex 1 Tablet Oral daily, Cholecalciferol 1 Tablet (of 25 mcg ) Oral daily, Daily Multiple Vitamins 1 Tablet Oral daily, Enoxaparin Sodium (40 mg/0.4mL) Subcutaneous at bedtime, Loratadine 1 Tablet (of 10 mg) Oral daily, Sennosides 1 Tablet (of 8.6 mg) Capsule Oral b.i.d. Allergies: Adhesive tape Review of Systems: Review of Systems is not available for this patient. Vital Signs: Performed on Nov 24, 2021 13:50 Height - 61.00 in Weight - 121.2 lbs (LOW) BSA - 1.53 sq.m BMI - 22.90 Temperature - 98.2 F (LOW) Pulse - 116 /min (HIGH) Respiration - 18 /min BP - 122/85 mm(hg) O2 Sat - 99 % Pain - 0 Fatigue - 8 Performance Status: 1 - No physically strenuous activity, but ambulatory and able to carry out light or sedentary work (e.g. office work, light house work). (ECOG) Physical Examination: ENMT - No mouth sores, no thrush, no jaundice, Respiratory - Lungs are clear to auscultation, Cardiovascular - Regular rate and rhythm of heart, Abdomen - Soft, bowel sounds present, Extremities - No visible edema. Lab/Imaging: Test performed on Oct 23, 2021 11:06 Sodium 138 mmol/L Potassium 4.2 mmol/L Chloride 102 mmol/L CO2 23 mmol/L Anion Gap 17.2 BUN 12 mg/dL Creatinine 0.3 mg/dL Cr Clearance (Est) 182.6800 mL/min eGFR 231.0 mL/min Glucose 115 mg/dL Osmolality - Calculated 287 mOsm/kg Calcium 9.0 mg/dL Protein, Total 6.7 g/dL Albumin 4.2 g/dL Globulin 2.5 g/dL Bilirubin, Total 0.4 mg/dL ALT (SGPT) 46 U/L AST (SGOT) 34 U/L Alkaline Phosphatase 112 IU/L WBC 8.9 10 3/uL RBC 4.25 10 6/uL HGB 13.1 g/dL HCT 40.3 % MCV 94.8 fl MCH 30.8 pg MCHC 32.5 g/dL RDW 16.6 % Platelet Count 283 10 3/cmm MPV 10.0 fL Neutrophils 6.30 10 3/uL Lymphocytes 1.7 10 3/uL Monocytes 0.6 10 3/uL Eosinophils 0.2 10 3/uL Basophils 0.1 10 3/uL Neutrophil % 70.9 % Lymphocyte % 19.2 % Monocyte % 7.2 % Eosinophil % 1.7 % Basophils % 0.7 % NRBC % 0 % Test performed on Aug 21, 2021 09:11 Ferritin 612 ng/mL Iron 55 mcg/dL Iron Binding Capacity (TIBC) 326 mcg/dl % Iron Saturation 16.8 % UIBC 271 mcg/dL CA-125 643.6 U/mL Test performed on Jul 13, 2021 08:50 CBC Slide Review Slide Review Perform SLIDE REVIEW AGREES WITH AUTOMATED RESULTS Impression: Endometrioid endometrial carcinoma per D&C done on June 09, 2021 FIGO grade 2 Started on neoadjuvant chemotherapy with carboplatin/Taxol on July 13, 2021, Completed 5 cycles of chemotherapy with carboplatin/Taxol on October 26, 2021 subsequently underwent robotic hysterectomy, BSO, lymph node dissection, debulking on November 09, 2021 History of TIA/CVA diagnosed in November 2020 Iron deficiency anemia status post multiple transfusions due to dysfunctional uterine bleeding due to endometrial carcinoma biopsy-proven Plan: Discussed with patient regarding her labs white blood count 8.3 hemoglobin 11 g hematocrit 36.5 platelets 287,000 CMP within normal limits Clinically, patient doing well with no new signs symptom, now recovering from her robotic hysterectomy/BSO/lymph node dissection, her pathology report is not available at this time, will obtain report from Dr. Agarwal's office and review and then make further recommendations. Patient return to clinic in 1 week for further discussion Signed By: Jerardo Wilburn M.D. <<Signature on File>>
--- NOTE | 2021-12-02 10:34 | ONC FU_ITS ---
Dr. Wilburn follow up note Patient: Basilia Pedraza Unit #: [id number]: 1965 Dicatated By: Jerardo Wilburn M.D.Date of Visit:Dec 02, 2021 Onc Med Follow-up/Prog Note History of Present Illness: Ms. Pedraza is a 55-year-old woman with history of diabetes mellitus, hypercholesterolemia. She also has a history of TIA/stroke in November 2020. Subsequently she developed dysphagia and lost about 30 pounds since November 2020. She was on a diabetic diet also. She had been treated with Metformin but as she lost weight and her A1c gone down to 4 from 10. She reports that she takes Metformin on as-needed basis. As per patient in November 2020 she started having heavy vaginal bleeding initially she was treated with medroxyprogesterone. She underwent [employer] work-up including transvaginal ultrasound on June 05, 2021. The report showed thickened endometrium to 5 cm. She then underwent hysteroscopy and D&C on June 09, 2021. With that her bleeding improved initially but then again progressed requiring multiple blood transfusion. Eventually she was referred to [facility] On June 09, 2021, she underwent CT scan of abdomen pelvis which showed 5.2 x 5.4 cm heterogeneous mass in the fundus of uterus with marked thickening of the endometrial canal consistent with probable endometrial carcinoma. There was invasion and thinning of the myometrium near the right fundus. Extensive para-aortic and aortocaval lymphadenopathy, measuring up to 1.9 cm. There is also bilateral iliac chain lymphadenopathy measuring 2.5 cm on the left and 2.4 cm on the right. There is also surendra hepatis lymphadenopathy measuring up to 2.3 cm., No abnormality seen in the liver. 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 On June 14, 2021, Ms Pedraza went to [facility] with heavy vaginal bleeding, at that time she was referred to [facility]. She received 2 units of packed RBC prior to the transfer. Patient underwent pelvic exam which showed lesion of the cervix which was biopsied which showed extensive necroinflammatory debris's, no viable tumor cells present and while in [place] she underwent CT scan of head, chest abdomen pelvis on June 15, 2021 which showed few indeterminate sub-3 mm pulmonary nodules. No thoracic lymphadenopathy, and large heterogeneous irregular endometrial thickening/mass. Multiple enlarged retroperitoneal and pelvic lymph nodes. Few too small to characterize splenic hypodensities., Patient was evaluated by Dr. Agarwal he order MRI scan of the pelvis which was done on July 07, 2021 which shows diffuse heterogeneous enlargement of uterus with marked endometrial thickening compatible with endometrial carcinoma. Heterogeneous endometrial thickening and enhancement extends to the internal cervical os., Both adnexa are normal. Bilateral retroperitoneal and iliac lymphadenopathy extending into the pelvis. Largest lymph nodes measuring approximately 1.5 x 1.8 cm. Right obturator and external iliac lymphadenopathy. Large right external iliac lymph node measuring 2.5 x 1.7 cm. No bone mets. Patient denies smoking alcohol use patient denies any abdominal pain, denies any fever chills but generalized weakness and fatigue, denies any melena or hematochezia denies any hemoptysis or hematemesis, no jaundice still having off and on vaginal bleeding. And now awaiting her CT PET scan which is scheduled for coming Tuesday. As per patient she has seen Dr. Agarwal in [place] who has recommended 3 cycles of chemotherapy and then reevaluation to see if she is a candidate for surgery. CT PET scan done on July 04, 2021 showed primary central uterine mass with central necrosis measuring 3.6 x 4.2 x 7.7 cm with SUV of 24.9. Multiple FDG positive bilateral pelvic and abdominal lymph nodes represent metastatic disease. These are present in the right external iliac, right obturator, bilateral common iliac, bilateral periaortic, retrocaval, mesenteric root, peripancreatic nodes and left para-aortic region and node in the left mesenteric root is 1.7 cm and outside of abdomen and pelvis there is a metastatic lymph node in the left cervical level 4 territory of the neck measuring 1.5 cm with SUV of 7 Started on 3 weekly carboplatin/Taxol on July 13, 2021.And completed 5 cycles on October 26, 2021, Subsequently underwent robotic hysterectomy, BSO and lymph node dissection and debulking on November 09, 2021 And final pathology report showed endometrial carcinoma with depth of invasion 50%, vascular involvement present, 1/3 left pelvic lymph node positive for metastatic disease and 2/5 right pelvic lymph node positive for metastatic disease, 0/4 periaortic lymph node involvement. 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 Case was discussed with Dr. Agarwal, her [employer] surgical oncologist in [facility] and the recommendation was to give patient additional 3 cycles of chemotherapy with carboplatin/Taxol followed by CT PET scan and as tumor is positive for MMR D, consider maintenance therapy with Keytruda Came for follow-up, denies any specific complaints, no fever chills, no nausea or vomiting, no diarrhea or constipation, no melena or hematochezia no hemoptysis hematemesis, no abdominal pain or fullness now has recovered from her recent surgery well Medications: Adult Aspirin EC Low Strength 1 Tablet (of 81 mg) Tablet, enteric coated Oral daily, Atorvastatin Calcium 1 Tablet (of 40 mg) Oral daily, B Complex 1 Tablet Oral daily, Cholecalciferol 1 Tablet (of 25 mcg ) Oral daily, Daily Multiple Vitamins 1 Tablet Oral daily, Enoxaparin Sodium (40 mg/0.4mL) Subcutaneous at bedtime, Loratadine 1 Tablet (of 10 mg) Oral daily, Sennosides 1 Tablet (of 8.6 mg) Capsule Oral b.i.d. Allergies: Adhesive tape Review of Systems: Review of Systems is not available for this patient. Vital Signs: Performed on Dec 02, 2021 10:05 Height - 61.00 in Weight - 121.8 lbs (HIGH) BSA - 1.53 sq.m BMI - 23.01 Temperature - 98.1 F (LOW) Pulse - 99 /min Respiration - 16 /min BP - 131/88 mm(hg) O2 Sat - 94 % (LOW) Pain - 0 Fatigue - 3 Performance Status: 1 - No physically strenuous activity, but ambulatory and able to carry out light or sedentary work (e.g. office work, light house work). (ECOG) Physical Examination: ENMT - No mouth sores, no thrush, no jaundice, Respiratory - Lungs are clear to auscultation, Cardiovascular - Regular rate and rhythm of heart, Abdomen - Soft, bowel sounds present, Extremities - No visible edema. Lab/Imaging: Test performed on Oct 23, 2021 11:06 Sodium 138 mmol/L Potassium 4.2 mmol/L Chloride 102 mmol/L CO2 23 mmol/L Anion Gap 17.2 BUN 12 mg/dL Creatinine 0.3 mg/dL Cr Clearance (Est) 182.6800 mL/min eGFR 231.0 mL/min Glucose 115 mg/dL Osmolality - Calculated 287 mOsm/kg Calcium 9.0 mg/dL Protein, Total 6.7 g/dL Albumin 4.2 g/dL Globulin 2.5 g/dL Bilirubin, Total 0.4 mg/dL ALT (SGPT) 46 U/L AST (SGOT) 34 U/L Alkaline Phosphatase 112 IU/L WBC 8.9 10 3/uL RBC 4.25 10 6/uL HGB 13.1 g/dL HCT 40.3 % MCV 94.8 fl MCH 30.8 pg MCHC 32.5 g/dL RDW 16.6 % Platelet Count 283 10 3/cmm MPV 10.0 fL Neutrophils 6.30 10 3/uL Lymphocytes 1.7 10 3/uL Monocytes 0.6 10 3/uL Eosinophils 0.2 10 3/uL Basophils 0.1 10 3/uL Neutrophil % 70.9 % Lymphocyte % 19.2 % Monocyte % 7.2 % Eosinophil % 1.7 % Basophils % 0.7 % NRBC % 0 % Test performed on Aug 21, 2021 09:11 Ferritin 612 ng/mL Iron 55 mcg/dL Iron Binding Capacity (TIBC) 326 mcg/dl % Iron Saturation 16.8 % UIBC 271 mcg/dL CA-125 643.6 U/mL Test performed on Jul 13, 2021 08:50 CBC Slide Review Slide Review Perform SLIDE REVIEW AGREES WITH AUTOMATED RESULTS Impression: Endometrioid endometrial carcinoma per D&C done on June 09, 2021 FIGO grade 2 Started on neoadjuvant chemotherapy with carboplatin/Taxol on July 13, 2021, Completed 5 cycles of chemotherapy with carboplatin/Taxol on October 26, 2021 subsequently underwent robotic hysterectomy, BSO, lymph node dissection, debulking on November 09, 2021 History of TIA/CVA diagnosed in November 2020 Iron deficiency anemia status post multiple transfusions due to dysfunctional uterine bleeding due to endometrial carcinoma biopsy-proven Plan: Discussed with patient regarding her final pathology report which confirmed persistent endometrial carcinoma with bilateral pelvic lymph node involvement but no evidence of periaortic lymph node involvement, patient is high risk for recurrence, as per discussion with Dr. Agarwal, her [employer] surgical oncologist in [facility], it was recommended to continue with carboplatin/Taxol for 3 more cycles followed by CT PET scan and as tumor is positive for MMR D, also recommended maintenance therapy with Keytruda. So we will proceed CBC and CMP today and if within desirable range, consider cycle #6/8 with carboplatin/Taxol on Tuesday. Signed By: Jerardo Wilburn M.D. <<Signature on File>>
[2021-12-02 10:55] LABS: Basophils % 0.4 %; Eosinophils # 0.1 10^3/uL (0.0-0.8); Eosinophils % 2.4 %; Hemoglobin 11.1 g/dL (11.5-15.3); Lymphocytes # 1.3 10^3/uL (0.8-4.8); Mean Corpuscular HGB Conc 30.8 g/dL (30.0-36.0); Mean Corpuscular Hemoglobin 29.9 pg (28.0-34.0); Mean Platelet Volume 9.6 fL (7.4-10.4); Monocytes # 0.3 10^3/uL (0.2-0.9); Monocytes % 6.2 %; Neutrophils # 3.73 10^3/uL (1.8-7.7); Neutrophils % 67.8 %; Nucleated Red Blood Cells % 0 %; Platelet Count 214 10^3/cmm (130-400); Red Blood Count 3.71 10^6/uL (4.1-5.3); Red Cell Distribution Width 14.4 % (12.1-15.1); White Blood Count 5.5 10^3/uL (4.0-10.0)
[2021-12-02 11:20] LABS: Alanine Aminotransferase 32 U/L (0-33); Albumin Level 4.1 g/dL (3.5-5.2); Alkaline Phosphatase 94 IU/L (35-105); Anion Gap 14.9 (5-19); Aspartate Amino Transferase 29 U/L (0-32); Blood Urea Nitrogen 12 mg/dL (6-20); Calcium 9.7 mg/dL (8.5-10.5); Carbon Dioxide 25 mmol/L (22-29); Chloride 101 mmol/L (98-107); Globulin 3.1 g/dL (1.3-4.6); Glomerular Filtration Rate 230.1 mL/min (90-130); Glucose 81 mg/dL (65-115); Osmolality Calculated 283 mOsm/kg (285-295); Potassium 3.9 mmol/L (3.5-5.1); Sodium 137 mmol/L (136-145); Total Bilirubin 0.5 mg/dL (0.15-1.2); Total Protein 7.2 g/dL (6.6-8.7)
[2021-12-07 09:05] LABS: Basophils % 0.2 %; Hematocrit 39.4 % (37.0-47.0); Hemoglobin 12.2 g/dL (11.5-15.3); Lymphocytes # 0.8 10^3/uL (0.8-4.8); Lymphocytes % 13.3 %; Mean Corpuscular Hemoglobin 29.8 pg (28.0-34.0); Mean Corpuscular Volume 96.1 fl (81-99); Monocytes % 0.2 %; Neutrophils # 5.13 10^3/uL (1.8-7.7); Nucleated Red Blood Cells % 0 %; Platelet Count 247 10^3/cmm (130-400)
[2021-12-07 09:26] LABS: Alanine Aminotransferase 35 U/L (0-33); Albumin Level 4.2 g/dL (3.5-5.2); Alkaline Phosphatase 91 IU/L (35-105); Anion Gap 18.9 (5-19); Aspartate Amino Transferase 29 U/L (0-32); Blood Urea Nitrogen 17 mg/dL (6-20); Calcium 9.7 mg/dL (8.5-10.5); Carbon Dioxide 21 mmol/L (22-29); Chloride 102 mmol/L (98-107); Globulin 3.6 g/dL (1.3-4.6); Glomerular Filtration Rate 165.1 mL/min (90-130); Glucose 235 mg/dL (65-115); Osmolality Calculated 295 mOsm/kg (285-295); Potassium 3.9 mmol/L (3.5-5.1); Sodium 138 mmol/L (136-145); Total Bilirubin 0.3 mg/dL (0.15-1.2); Total Protein 7.8 g/dL (6.6-8.7)
[2021-12-07] MEDS: sodium chloride 0.9% 250 ML 75 ML IV (10:40)
[2021-12-07] MEDS: palonosetron 0.25 mg/5 mL SDV IV (10:40)
[2021-12-07] MEDS: famotidine 20 mg/2 mL INJ IVP (10:41)
[2021-12-07] MEDS: diphenhydrAMINE 50 mg/mL SDV 1mL 25 MG IV (10:45)
[2021-12-07] MEDS: fosaprepitant 150 MG in sodium chloride 0.9% 150 ML 300 MG IV (11:10)
[2021-12-07] MEDS: pegfilgrastim 6 mg/0.6 mL Kit (onpro) SUBCUT (15:15)
== END 2021-12-07 23:59 | disposition home or self-care (01) ==
LOC: ONCMED 07:10
PROVIDERS: PCP Registered Nurse; Visit Provider Internal Medicine Hematology & Oncology
DX: Z51.11 Encounter for antineoplastic chemotherapy (principal); C54.1 Malignant neoplasm of endometrium; D50.0 Iron deficiency anemia secondary to blood loss (chronic); N93.8 Other specified abnormal uterine and vaginal bleeding; Z86.73 Personal history of transient ischemic attack (TIA), and cerebral infarction without residual deficits; Z79.899 Other long term (current) drug therapy; Z92.21 Personal history of antineoplastic chemotherapy; Z90.710 Acquired absence of both cervix and uterus
CPT/HCPCS: 36591; 80053; 85025; 96367; 96375; 96377; 96413; 96417; 99214; J1100; J1200; J1453; J2469; J2506; J3490; J7030; J7040; J7050; J9045; J9267

== ENCOUNTER 2021-12-28 06:51 | Outpatient (RCR) | payer MEDICAID, SELFPAY ==
[2021-12-21 10:35] LABS: Basophils # 0.1 10^3/uL (0.0-0.1); Basophils % 0.6 %; Eosinophils % 0.2 %; Hematocrit 36.5 % (37.0-47.0); Hemoglobin 11.4 g/dL (11.5-15.3); Lymphocytes # 1.6 10^3/uL (0.8-4.8); Mean Corpuscular HGB Conc 31.2 g/dL (30.0-36.0); Mean Corpuscular Hemoglobin 30.2 pg (28.0-34.0); Mean Corpuscular Volume 96.6 fl (81-99); Mean Platelet Volume 10.1 fL (7.4-10.4); Monocytes # 0.7 10^3/uL (0.2-0.9); Monocytes % 5.5 %; Neutrophils # 9.84 10^3/uL (1.8-7.7); Neutrophils % 80.1 %; Nucleated Red Blood Cells % 0 %; Platelet Count 141 10^3/cmm (130-400); Red Blood Count 3.78 10^6/uL (4.1-5.3); Red Cell Distribution Width 14.8 % (12.1-15.1); White Blood Count 12.3 10^3/uL (4.0-10.0)
[2021-12-21 10:51] LABS: Alanine Aminotransferase 33 U/L (0-33); Albumin Level 3.9 g/dL (3.5-5.2); Alkaline Phosphatase 276 IU/L (35-105); Anion Gap 13.8 (5-19); Aspartate Amino Transferase 32 U/L (0-32); Blood Urea Nitrogen 11 mg/dL (6-20); Calcium 9.8 mg/dL (8.5-10.5); Carbon Dioxide 26 mmol/L (22-29); Chloride 102 mmol/L (98-107); Globulin 3.4 g/dL (1.3-4.6); Glomerular Filtration Rate 230.1 mL/min (90-130); Glucose 113 mg/dL (65-115); Osmolality Calculated 286 mOsm/kg (285-295); Potassium 3.8 mmol/L (3.5-5.1); Sodium 138 mmol/L (136-145); Total Bilirubin 0.2 mg/dL (0.15-1.2); Total Protein 7.3 g/dL (6.6-8.7)
--- NOTE | 2021-12-21 15:35 | ONC FU_ITS ---
Veda Chen Progress Note Patient: Basilia Pedraza Unit #: [id number]: 1965 Dicatated By: Veda Chen N.P.Date of Visit:Dec 21, 2021 Onc MED Follow-up/Prog Note Chief Complaint: Endometrial carcinoma History of Present Illness: Ms. Pedraza is a 55-year-old woman with history of diabetes mellitus, hypercholesterolemia. She also has a history of TIA/stroke in November 2020. Subsequently she developed dysphagia and lost about 30 pounds since November 2020. She was on a diabetic diet also. She had been treated with Metformin but as she lost weight and her A1c gone down to 4 from 10. She reports that she takes Metformin on as-needed basis. As per patient in November 2020 she started having heavy vaginal bleeding initially she was treated with medroxyprogesterone. She underwent [employer]LE[employer]ORTS ASSISTANT work-up including transvaginal ultrasound on June 05, 2021. The report showed thickened endometrium to 5 cm. She then underwent hysteroscopy and D&C on June 09, 2021. With that her bleeding improved initially but then again progressed requiring multiple blood transfusion. Eventually she was referred to [facility] On June 09, 2021, she underwent CT scan of abdomen pelvis which showed 5.2 x 5.4 cm heterogeneous mass in the fundus of uterus with marked thickening of the endometrial canal consistent with probable endometrial carcinoma. There was invasion and thinning of the myometrium near the right fundus. Extensive para-aortic and aortocaval lymphadenopathy, measuring up to 1.9 cm. There is also bilateral iliac chain lymphadenopathy measuring 2.5 cm on the left and 2.4 cm on the right. There is also surendra hepatis lymphadenopathy measuring up to 2.3 cm., No abnormality seen in the liver. 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 On June 14, 2021, Ms Pedraza went to [facility] ER with heavy vaginal bleeding, at that time she was referred to [facility]. She received 2 units of packed RBC prior to the transfer. Patient underwent pelvic exam which showed lesion of the cervix which was biopsied which showed extensive necroinflammatory debris's, no viable tumor cells present and while in [place] she underwent CT scan of head, chest abdomen pelvis on June 15, 2021 which showed few indeterminate sub-3 mm pulmonary nodules. No thoracic lymphadenopathy, and large heterogeneous irregular endometrial thickening/mass. Multiple enlarged retroperitoneal and pelvic lymph nodes. Few too small to characterize splenic hypodensities., Patient was evaluated by Dr. Agarwal he order MRI scan of the pelvis which was done on July 07, 2021 which shows diffuse heterogeneous enlargement of uterus with marked endometrial thickening compatible with endometrial carcinoma. Heterogeneous endometrial thickening and enhancement extends to the internal cervical os., Both adnexa are normal. Bilateral retroperitoneal and iliac lymphadenopathy extending into the pelvis. Largest lymph nodes measuring approximately 1.5 x 1.8 cm. Right obturator and external iliac lymphadenopathy. Large right external iliac lymph node measuring 2.5 x 1.7 cm. No bone mets. Patient denies smoking alcohol use patient denies any abdominal pain, denies any fever chills but generalized weakness and fatigue, denies any melena or hematochezia denies any hemoptysis or hematemesis, no jaundice still having off and on vaginal bleeding. And now awaiting her CT PET scan which is scheduled for coming Tuesday. As per patient she has seen Dr. Agarwal in [place] who has recommended 3 cycles of chemotherapy and then reevaluation to see if she is a candidate for surgery. CT PET scan done on July 04, 2021 showed primary central uterine mass with central necrosis measuring 3.6 x 4.2 x 7.7 cm with SUV of 24.9. Multiple FDG positive bilateral pelvic and abdominal lymph nodes represent metastatic disease. These are present in the right external iliac, right obturator, bilateral common iliac, bilateral periaortic, retrocaval, mesenteric root, peripancreatic nodes and left para-aortic region and node in the left mesenteric root is 1.7 cm and outside of abdomen and pelvis there is a metastatic lymph node in the left cervical level 4 territory of the neck measuring 1.5 cm with SUV of 7 Started on 3 weekly carboplatin/Taxol on July 13, 2021.And completed 5 cycles on October 26, 2021, Subsequently underwent robotic hysterectomy, BSO and lymph node dissection and debulking on November 09, 2021 And final pathology report showed endometrial carcinoma with depth of invasion 50%, vascular involvement present, 1/3 left pelvic lymph node positive for metastatic disease and 2/5 right pelvic lymph node positive for metastatic disease, 0/4 periaortic lymph node involvement. 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 Case was discussed with Dr. Agarwal, her [employer] ASSISTANT surgical oncologist in [facility] and the recommendation was to give patient additional 3 cycles of chemotherapy with carboplatin/Taxol followed by CT PET scan and as tumor is positive for MMR D, consider maintenance therapy with Keytruda. Patient presents today for follow-up. She states she has been feeling well. Her appetite has been fair. She is requesting chocolate Ensure to boost her appetite. She denies fever, chills, night sweats. She denies mouth sores or sore throat. No shortness of breath, cough, chest pain she experienced some nausea after last treatment but over few days it resolved. She denies joint or bone pain. No headaches or dizziness. Review Of Symptoms: See above. Past Medical History: Ganglion cyst Type II diabetes Stroke in 2020 Past Surgical History: Excision of ganglion cyst Left carpal tunnel release Repair of arm fracture Portacath placement in 2020 Dilation and Curettage in 2020 Covid vaccine #2 in 2020 Covid vaccine #1 in 2020 Allergies: Adhesive tape Medications: Adult Aspirin EC Low Strength 1 Tablet (of 81 mg) Tablet, enteric coated Oral daily Atorvastatin Calcium 1 Tablet (of 40 mg) Oral daily B Complex 1 Tablet Oral daily Cholecalciferol 1 Tablet (of 25 mcg ) Oral daily Daily Multiple Vitamins 1 Tablet Oral daily Enoxaparin Sodium (40 mg/0.4mL) Subcutaneous at bedtime Loratadine 1 Tablet (of 10 mg) Oral daily Sennosides 1 Tablet (of 8.6 mg) Capsule Oral b.i.d. Family History: Ms. Pedraza's mother at age 81: brain cancer, and breast cancer, and cervical cancer, and hypertension, and lung cancer, and lung met, and stroke, and type II diabetes. Ms. Pedraza's father at age 94: dementia. Ms. Pedraza has 2 brothers: 2 alive. She has 2 sisters: 2 alive. Social History: Ms. Pedraza is single. Ms. Pedraza has never smoked. She has no history of drinking. Physical Examination: Performed on Dec 21, 2021 11:43: Height - 61.00 in, Weight - 123.0 lbs (HIGH), BSA - 1.54 sq.m, BMI - 23.24, Temperature - 99.2 F (HIGH), Pulse - 87 /min, Respiration - 16 /min, BP - 126/83 mm(hg), O2 Sat - 99 %, Pain - 0, and Fatigue - 2. Performance Status: 1 - No physically strenuous activity, but ambulatory and able to carry out light or sedentary work (e.g. office work, light house work). (ECOG) Constitutional Alert, cooperative, oriented. Mood and affect appropriate. Appears close to chronological age. Well nourished. Well developed. Head Normocephalic; no scars. Eyes Conjunctivae and sclerae are clear and without icterus. Pupils are reactive and equal. Respiratory Lungs are clear to auscultation without rhonchi or wheezing. Cardiovascular Regular rate and rhythm of heart without murmurs, gallops or rubs. Abdomen Non-tender, non-distended, no masses, ascites or hepatosplenomegaly. Good bowel sounds. No guarding or rebound tenderness. Extremities No visible deformities, no cyanosis, clubbing or edema. Pulses 3+ and equal bilaterally. Musculoskeletal No tenderness or swelling, normal range of motion without obvious weakness. Psychiatric Alert and oriented times three. Coherent speech. Verbalizes understanding of our discussions today. Laboratory: Test performed on Dec 21, 2021 10:09 Sodium 138 mmol/L Potassium 3.8 mmol/L Chloride 102 mmol/L CO2 26 mmol/L Anion Gap 13.8 BUN 11 mg/dL Creatinine 0.3 mg/dL Cr Clearance (Est) 180.5300 mL/min eGFR 230.1 mL/min Glucose 113 mg/dL Osmolality - Calculated 286 mOsm/kg Calcium 9.8 mg/dL Protein, Total 7.3 g/dL Albumin 3.9 g/dL Globulin 3.4 g/dL Bilirubin, Total 0.2 mg/dL ALT (SGPT) 33 U/L AST (SGOT) 32 U/L Alkaline Phosphatase 276 IU/L WBC 12.3 10 3/uL RBC 3.78 10 6/uL HGB 11.4 g/dL HCT 36.5 % MCV 96.6 fl MCH 30.2 pg MCHC 31.2 g/dL RDW 14.8 % Platelet Count 141 10 3/cmm MPV 10.1 fL Neutrophils 9.84 10 3/uL Lymphocytes 1.6 10 3/uL Monocytes 0.7 10 3/uL Eosinophils 0.0 10 3/uL Basophils 0.1 10 3/uL Neutrophil % 80.1 % Lymphocyte % 13.0 % Monocyte % 5.5 % Eosinophil % 0.2 % Basophils % 0.6 % NRBC % 0 % Test performed on Aug 21, 2021 09:11 Ferritin 612 ng/mL Iron 55 mcg/dL Iron Binding Capacity (TIBC) 326 mcg/dl % Iron Saturation 16.8 % UIBC 271 mcg/dL CA-125 643.6 U/mL Test performed on Jul 13, 2021 08:50 CBC Slide Review Slide Review Perform SLIDE REVIEW AGREES WITH AUTOMATED RESULTS Impression: Endometrioid endometrial carcinoma per D&C done on June 09, 2021 FIGO grade 2 Started on neoadjuvant chemotherapy with carboplatin/Taxol on July 13, 2021, Completed 5 cycles of chemotherapy with carboplatin/Taxol on October 26, 2021 subsequently underwent robotic hysterectomy, BSO, lymph node dissection, debulking on November 09, 2021 History of TIA/CVA diagnosed in November 2020 Iron deficiency anemia status post multiple transfusions due to dysfunctional uterine bleeding due to endometrial carcinoma biopsy-proven Final pathology report confirmed persistent endometrial carcinoma with bilateral pelvic lymph node involvement but no evidence of periaortic lymph node involvement, patient is high risk for recurrence, as per discussion with Dr. Agarwal, her [employer] surgical oncologist in [facility], it was recommended to continue with carboplatin/Taxol for 3 more cycles followed by CT PET scan and as tumor is positive for MMR D, also recommended maintenance therapy with Keytruda. Plan: Patient presents today for follow-up after receiving Neulasta for neutropenia. Her labs are stable today with a WBC of 12.3, hemoglobin 11.4, hematocrit 36.5, platelet count 141,000, neutrophil count 9.84. It was recommended by her [employer]IST[employer] oncologist in [facility] that she her cycles of carboplatin Taxol. She has 2 cycles left. That she will follow-up with a CT PET scan and the tumor is positive for MMR D so maintenance therapy with Keytruda will be considered. Patient to follow-up in 1 week with CBC and CMP for treatment with carboplatin and Taxol. She will then have follow-up with provider in 3 weeks with a CBC and CMP. Signed By: Veda Chen N.P. <<Signature on File>>
[2021-12-28 08:30] LABS: Basophils % 0.2 %; Hematocrit 39.3 % (37.0-47.0); Hemoglobin 12.3 g/dL (11.5-15.3); Lymphocytes # 0.8 10^3/uL (0.8-4.8); Lymphocytes % 7.1 %; Mean Corpuscular HGB Conc 31.3 g/dL (30.0-36.0); Mean Corpuscular Hemoglobin 29.6 pg (28.0-34.0); Mean Corpuscular Volume 94.7 fl (81-99); Mean Platelet Volume 10.1 fL (7.4-10.4); Monocytes % 0.2 %; Neutrophils % 92.1 %; Nucleated Red Blood Cells % 0 %; Platelet Count 255 10^3/cmm (130-400); Red Blood Count 4.15 10^6/uL (4.1-5.3); Red Cell Distribution Width 15.4 % (12.1-15.1); White Blood Count 11.5 10^3/uL (4.0-10.0)
[2021-12-28 08:49] LABS: Alanine Aminotransferase 36 U/L (0-33); Albumin Level 4.5 g/dL (3.5-5.2); Alkaline Phosphatase 115 IU/L (35-105); Anion Gap 16.7 (5-19); Aspartate Amino Transferase 25 U/L (0-32); Blood Urea Nitrogen 13 mg/dL (6-20); Calcium 10.2 mg/dL (8.5-10.5); Carbon Dioxide 22 mmol/L (22-29); Chloride 97 mmol/L (98-107); Globulin 3.5 g/dL (1.3-4.6); Glomerular Filtration Rate 165.1 mL/min (90-130); Glucose 260 mg/dL (65-115); Osmolality Calculated 283 mOsm/kg (285-295); Potassium 3.7 mmol/L (3.5-5.1); Sodium 132 mmol/L (136-145); Total Bilirubin 0.3 mg/dL (0.15-1.2)
[2021-12-28] MEDS: famotidine 20 mg/2 mL INJ IVP (09:53)
[2021-12-28] MEDS: sodium chloride 0.9% 250 ML 75 ML IV (09:53)
[2021-12-28] MEDS: diphenhydrAMINE 50 mg/mL SDV 1mL 25 MG IV (09:57)
[2021-12-28] MEDS: palonosetron 0.25 mg/5 mL SDV IV (10:06)
[2021-12-28] MEDS: fosaprepitant 150 MG in sodium chloride 0.9% 150 ML 300 MG IV (10:25)
[2021-12-28] MEDS: pegfilgrastim 6 mg/0.6 mL Kit (onpro) SUBCUT (15:33)
== END 2022-01-07 23:59 | disposition home or self-care (01) ==
LOC: ONCMED 06:51
PROVIDERS: Nurse Practitioner Family; PCP Registered Nurse; Visit Provider Internal Medicine Hematology & Oncology
DX: Z51.11 Encounter for antineoplastic chemotherapy (principal); C54.1 Malignant neoplasm of endometrium; C77.8 Secondary and unspecified malignant neoplasm of lymph nodes of multiple regions; D50.0 Iron deficiency anemia secondary to blood loss (chronic); N93.8 Other specified abnormal uterine and vaginal bleeding; Z86.73 Personal history of transient ischemic attack (TIA), and cerebral infarction without residual deficits
CPT/HCPCS: 36415; 36591; 80053; 85025; 96367; 96372; 96375; 96377; 96413; 96415; 96417; 99214; J1100; J1200; J1453; J2469; J2506; J3490; J7030; J7040; J7050; J9045; J9267

== ENCOUNTER 2022-01-27 06:54 | Outpatient (RCR) | payer BC, MEDICAID, SELFPAY ==
[2022-01-15 11:13] LABS: Basophils % 0.5 %; Eosinophils % 0.1 %; Hematocrit 35.9 % (37.0-47.0); Hemoglobin 11.3 g/dL (11.5-15.3); Lymphocytes # 1.5 10^3/uL (0.8-4.8); Lymphocytes % 17.1 %; Mean Corpuscular HGB Conc 31.5 g/dL (30.0-36.0); Mean Corpuscular Hemoglobin 29.7 pg (28.0-34.0); Mean Corpuscular Volume 94.2 fl (81-99); Mean Platelet Volume 10.5 fL (7.4-10.4); Monocytes # 0.5 10^3/uL (0.2-0.9); Neutrophils # 6.63 10^3/uL (1.8-7.7); Neutrophils % 76.1 %; Nucleated Red Blood Cells % 0 %; Platelet Count 106 10^3/cmm (130-400); Red Blood Count 3.81 10^6/uL (4.1-5.3); Red Cell Distribution Width 17.1 % (12.1-15.1); White Blood Count 8.7 10^3/uL (4.0-10.0)
[2022-01-15 11:30] LABS: Alanine Aminotransferase 24 U/L (0-33); Albumin Level 4.2 g/dL (3.5-5.2); Alkaline Phosphatase 114 IU/L (35-105); Anion Gap 12.7 (5-19); Aspartate Amino Transferase 23 U/L (0-32); Blood Urea Nitrogen 12 mg/dL (6-20); Calcium 9.8 mg/dL (8.5-10.5); Carbon Dioxide 26 mmol/L (22-29); Chloride 102 mmol/L (98-107); Globulin 3.7 g/dL (1.3-4.6); Glomerular Filtration Rate 230.1 mL/min (90-130); Glucose 111 mg/dL (65-115); Osmolality Calculated 284 mOsm/kg (285-295); Potassium 3.7 mmol/L (3.5-5.1); Sodium 137 mmol/L (136-145); Total Bilirubin 0.3 mg/dL (0.15-1.2); Total Protein 7.9 g/dL (6.6-8.7)
[2022-01-18 10:41] LABS: Basophils % 0.1 %; Hematocrit 36.2 % (37.0-47.0); Hemoglobin 11.4 g/dL (11.5-15.3); Lymphocytes # 0.6 10^3/uL (0.8-4.8); Lymphocytes % 6.7 %; Mean Corpuscular HGB Conc 31.5 g/dL (30.0-36.0); Mean Corpuscular Hemoglobin 29.8 pg (28.0-34.0); Mean Corpuscular Volume 94.5 fl (81-99); Mean Platelet Volume 10.4 fL (7.4-10.4); Monocytes % 0.2 %; Neutrophils # 8.64 10^3/uL (1.8-7.7); Neutrophils % 92.5 %; Nucleated Red Blood Cells % 0 %; Platelet Count 130 10^3/cmm (130-400); Red Blood Count 3.83 10^6/uL (4.1-5.3); Red Cell Distribution Width 17.6 % (12.1-15.1); White Blood Count 9.4 10^3/uL (4.0-10.0)
[2022-01-18 11:06] LABS: Slide Review Slide Review Perform
[2022-01-18] MEDS: sodium chloride 0.9% 250 ML 75 ML IV (12:00)
[2022-01-18] MEDS: famotidine 20 mg/2 mL INJ IVP (12:00)
[2022-01-18] MEDS: diphenhydrAMINE 50 mg/mL SDV 1mL 25 MG IV (12:02)
[2022-01-18] MEDS: fosaprepitant 150 MG in sodium chloride 0.9% 150 ML 300 MG IV (12:12)
[2022-01-18] MEDS: palonosetron 0.25 mg/5 mL SDV IV (12:52)
[2022-01-18] MEDS: pegfilgrastim 6 mg/0.6 mL Kit (onpro) SUBCUT (16:15)
--- NOTE | 2022-01-20 17:28 | ONC FU_ITS ---
Dr. Wilburn follow up note Patient: Basilia Pedraza Unit #: [id number]: 1965 Dicatated By: Jerardo Wilburn M.D.Date of Visit:Jan 18, 2022 Onc Med Follow-up/Prog Note History of Present Illness: Ms. Pedraza is a 55-year-old woman with history of diabetes mellitus, hypercholesterolemia. She also has a history of TIA/stroke in November 2020. Subsequently she developed dysphagia and lost about 30 pounds since November 2020. She was on a diabetic diet also. She had been treated with Metformin but as she lost weight and her A1c gone down to 4 from 10. She reports that she takes Metformin on as-needed basis. As per patient in November 2020 she started having heavy vaginal bleeding initially she was treated with medroxyprogesterone. She underwent PROJECT OFFICER work-up including transvaginal ultrasound on June 05, 2021. The report showed thickened endometrium to 5 cm. She then underwent hysteroscopy and D&C on June 09, 2021. With that her bleeding improved initially but then again progressed requiring multiple blood transfusion. Eventually she was referred to [facility] On June 09, 2021, she underwent CT scan of abdomen pelvis which showed 5.2 x 5.4 cm heterogeneous mass in the fundus of uterus with marked thickening of the endometrial canal consistent with probable endometrial carcinoma. There was invasion and thinning of the myometrium near the right fundus. Extensive para-aortic and aortocaval lymphadenopathy, measuring up to 1.9 cm. There is also bilateral iliac chain lymphadenopathy measuring 2.5 cm on the left and 2.4 cm on the right. There is also surendra hepatis lymphadenopathy measuring up to 2.3 cm., No abnormality seen in the liver. 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 On June 14, 2021, Ms Pedraza went to [facility] ER with heavy vaginal bleeding, at that time she was referred to [facility]. She received 2 units of packed RBC prior to the transfer. Patient underwent pelvic exam which showed lesion of the cervix which was biopsied which showed extensive necroinflammatory debris's, no viable tumor cells present and while in [place] she underwent CT scan of head, chest abdomen pelvis on June 15, 2021 which showed few indeterminate sub-3 mm pulmonary nodules. No thoracic lymphadenopathy, and large heterogeneous irregular endometrial thickening/mass. Multiple enlarged retroperitoneal and pelvic lymph nodes. Few too small to characterize splenic hypodensities., Patient was evaluated by Dr. Agarwal he order MRI scan of the pelvis which was done on July 07, 2021 which shows diffuse heterogeneous enlargement of uterus with marked endometrial thickening compatible with endometrial carcinoma. Heterogeneous endometrial thickening and enhancement extends to the internal cervical os., Both adnexa are normal. Bilateral retroperitoneal and iliac lymphadenopathy extending into the pelvis. Largest lymph nodes measuring approximately 1.5 x 1.8 cm. Right obturator and external iliac lymphadenopathy. Large right external iliac lymph node measuring 2.5 x 1.7 cm. No bone mets. Patient denies smoking alcohol use patient denies any abdominal pain, denies any fever chills but generalized weakness and fatigue, denies any melena or hematochezia denies any hemoptysis or hematemesis, no jaundice still having off and on vaginal bleeding. And now awaiting her CT PET scan which is scheduled for coming Tuesday. As per patient she has seen Dr. Agarwal in [place] who has recommended 3 cycles of chemotherapy and then reevaluation to see if she is a candidate for surgery. CT PET scan done on July 04, 2021 showed primary central uterine mass with central necrosis measuring 3.6 x 4.2 x 7.7 cm with SUV of 24.9. Multiple FDG positive bilateral pelvic and abdominal lymph nodes represent metastatic disease. These are present in the right external iliac, right obturator, bilateral common iliac, bilateral periaortic, retrocaval, mesenteric root, peripancreatic nodes and left para-aortic region and node in the left mesenteric root is 1.7 cm and outside of abdomen and pelvis there is a metastatic lymph node in the left cervical level 4 territory of the neck measuring 1.5 cm with SUV of 7 Started on 3 weekly carboplatin/Taxol on July 13, 2021.And completed 5 cycles on October 26, 2021, Subsequently underwent robotic hysterectomy, BSO and lymph node dissection and debulking on November 09, 2021 And final pathology report showed endometrial carcinoma with depth of invasion 50%, vascular involvement present, 1/3 left pelvic lymph node positive for metastatic disease and 2/5 right pelvic lymph node positive for metastatic disease, 0/4 periaortic lymph node involvement. 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 Case was discussed with Dr. Agarwal, her PROJECT OFFICER surgical oncologist in [facility] and the recommendation was to give patient additional 3 cycles of chemotherapy with carboplatin/Taxol followed by CT PET scan and as tumor is positive for MMR D, consider maintenance therapy with Keytruda. Came for follow-up, denies any specific complaints, except last week, had an episode of self-limiting diarrhea for 3 days, no mucus or blood in the stool, no abdominal pain, no jaundice, no skin rash. Today, denies any fever chills denies any nausea or vomiting denies any diarrhea or constipation denies any dysuria or hematuria. Tolerating systemic therapy with carboplatin/Taxol well otherwise Medications: Adult Aspirin EC Low Strength 1 Tablet (of 81 mg) Tablet, enteric coated Oral daily, Atorvastatin Calcium 1 Tablet (of 40 mg) Oral daily, B Complex 1 Tablet Oral daily, Cholecalciferol 1 Tablet (of 25 mcg ) Oral daily, Daily Multiple Vitamins 1 Tablet Oral daily, Enoxaparin Sodium (40 mg/0.4mL) Subcutaneous at bedtime, Loratadine 1 Tablet (of 10 mg) Oral daily, Sennosides 1 Tablet (of 8.6 mg) Capsule Oral b.i.d. Allergies: Adhesive tape Review of Systems: Review of Systems is not available for this patient. Vital Signs: Performed on Jan 18, 2022 10:39 Height - 61.00 in Weight - 125.4 lbs (HIGH) BSA - 1.55 sq.m BMI - 23.69 Temperature - 98.2 F (LOW) Pulse - 122 /min (HIGH) Respiration - 18 /min BP - 123/85 mm(hg) O2 Sat - 99 % Pain - 2 Fatigue - 3 Performance Status: 1 - No physically strenuous activity, but ambulatory and able to carry out light or sedentary work (e.g. office work, light house work). (ECOG) Physical Examination: ENMT - No mouth sores, no thrush, no jaundice, Respiratory - Lungs are clear to auscultation, Cardiovascular - Regular rate and rhythm of heart, Abdomen - Soft, bowel sounds present, Extremities - No visible edema. Lab/Imaging: Test performed on Jan 15, 2022 11:27 Creatinine 0.3 mg/dL Cr Clearance (Est) 180.53 mL/min Test performed on Dec 21, 2021 10:09 Sodium 138 mmol/L Potassium 3.8 mmol/L Chloride 102 mmol/L CO2 26 mmol/L Anion Gap 13.8 BUN 11 mg/dL eGFR 230.1 mL/min Glucose 113 mg/dL Osmolality - Calculated 286 mOsm/kg Calcium 9.8 mg/dL Protein, Total 7.3 g/dL Albumin 3.9 g/dL Globulin 3.4 g/dL Bilirubin, Total 0.2 mg/dL ALT (SGPT) 33 U/L AST (SGOT) 32 U/L Alkaline Phosphatase 276 IU/L WBC 12.3 10 3/uL RBC 3.78 10 6/uL HGB 11.4 g/dL HCT 36.5 % MCV 96.6 fl MCH 30.2 pg MCHC 31.2 g/dL RDW 14.8 % Platelet Count 141 10 3/cmm MPV 10.1 fL Neutrophils 9.84 10 3/uL Lymphocytes 1.6 10 3/uL Monocytes 0.7 10 3/uL Eosinophils 0.0 10 3/uL Basophils 0.1 10 3/uL Neutrophil % 80.1 % Lymphocyte % 13.0 % Monocyte % 5.5 % Eosinophil % 0.2 % Basophils % 0.6 % NRBC % 0 % Test performed on Aug 21, 2021 09:11 Ferritin 612 ng/mL Iron 55 mcg/dL Iron Binding Capacity (TIBC) 326 mcg/dl % Iron Saturation 16.8 % UIBC 271 mcg/dL CA-125 643.6 U/mL Impression: Endometrioid endometrial carcinoma per D&C done on June 09, 2021 FIGO grade 2 Started on neoadjuvant chemotherapy with carboplatin/Taxol on July 13, 2021, Completed 5 cycles of chemotherapy with carboplatin/Taxol on October 26, 2021 subsequently underwent robotic hysterectomy, BSO, lymph node dissection, debulking on November 09, 2021 History of TIA/CVA diagnosed in November 2020 Iron deficiency anemia status post multiple transfusions due to dysfunctional uterine bleeding due to endometrial carcinoma biopsy-proven Final pathology report confirmed persistent endometrial carcinoma with bilateral pelvic lymph node involvement but no evidence of periaortic lymph node involvement, patient is high risk for recurrence, as per discussion with Dr. Agarwal, her PROJECT OFFICER surgical oncologist in [facility], it was recommended to continue with carboplatin/Taxol for 3 more cycles followed by CT PET scan and as tumor is positive for MMR D, also recommended maintenance therapy with Keytruda. Plan: Discussed with patient regarding her labs checked on January 15, 2022, white blood count 8.7 hemoglobin 11.3 hematocrit 35.9 platelets 106,000 CMP within normal limits Clinically, patient doing well with no new signs symptom suggestive of disease progression or recurrence, tolerating systemic therapy with carboplatin/Taxol well, her lab work-up done on January 15, 2022 shows mild thrombocytopenia, patient is due for her final dose of carboplatin/Taxol., So her CBC was repeated today shows resolution of mild thrombocytopenia now platelet count is 130,000, will proceed with final dose of carboplatin/Taxol today and then she will return to clinic in a week with CBC CMP, we will monitor her platelet count closely. And then in 2 to 3 weeks, will consider starting her on maintenance Keytruda as recommended by PRO[employer]ICER surgical oncology at [facility]. Signed By: Jerardo Wilburn M.D. <<Signature on File>>
[2022-01-27 09:42] LABS: Basophils # 0.1 10^3/uL (0.0-0.1); Basophils % 0.8 %; Eosinophils # 0.1 10^3/uL (0.0-0.8); Eosinophils % 0.8 %; Hematocrit 33.3 % (37.0-47.0); Hemoglobin 10.8 g/dL (11.5-15.3); Lymphocytes # 1.2 10^3/uL (0.8-4.8); Lymphocytes % 15.7 %; Mean Corpuscular HGB Conc 32.4 g/dL (30.0-36.0); Mean Corpuscular Hemoglobin 30.5 pg (28.0-34.0); Mean Corpuscular Volume 94.1 fl (81-99); Mean Platelet Volume 10.7 fL (7.4-10.4); Monocytes # 0.7 10^3/uL (0.2-0.9); Monocytes % 9.1 %; Neutrophils # 5.69 10^3/uL (1.8-7.7); Nucleated Red Blood Cells % 0 %; Platelet Count 141 10^3/cmm (130-400); Red Blood Count 3.54 10^6/uL (4.1-5.3); Red Cell Distribution Width 17.6 % (12.1-15.1); White Blood Count 7.9 10^3/uL (4.0-10.0)
[2022-01-27 10:01] LABS: Alanine Aminotransferase 26 U/L (0-33); Albumin Level 4.1 g/dL (3.5-5.2); Alkaline Phosphatase 131 IU/L (35-105); Anion Gap 17.5 (5-19); Aspartate Amino Transferase 20 U/L (0-32); Blood Urea Nitrogen 11 mg/dL (6-20); Calcium 9.8 mg/dL (8.5-10.5); Carbon Dioxide 25 mmol/L (22-29); Chloride 101 mmol/L (98-107); Globulin 3.3 g/dL (1.3-4.6); Glomerular Filtration Rate 367.4 mL/min (90-130); Glucose 120 mg/dL (65-115); Osmolality Calculated 291 mOsm/kg (285-295); Potassium 3.5 mmol/L (3.5-5.1); Sodium 140 mmol/L (136-145); Total Bilirubin 0.2 mg/dL (0.15-1.2); Total Protein 7.4 g/dL (6.6-8.7)
--- NOTE | 2022-02-01 09:42 | ONC FU_ITS ---
Veda Chen Progress Note Patient: Basilia Pedraza Unit #: [id number]: 1965 Dicatated By: Veda Chen N.P.Date of Visit:Jan 27, 2022 Onc MED Follow-up/Prog Note Chief Complaint: Endometrial carcinoma History of Present Illness: Ms. Pedraza is a 55-year-old woman with history of diabetes mellitus, hypercholesterolemia. She also has a history of TIA/stroke in November 2020. Subsequently she developed dysphagia and lost about 30 pounds since November 2020. She was on a diabetic diet also. She had been treated with Metformin but as she lost weight and her A1c gone down to 4 from 10. She reports that she takes Metformin on as-needed basis. As per patient in November 2020 she started having heavy vaginal bleeding initially she was treated with medroxyprogesterone. She underwent KEY WORKER work-up including transvaginal ultrasound on June 05, 2021. The report showed thickened endometrium to 5 cm. She then underwent hysteroscopy and D&C on June 09, 2021. With that her bleeding improved initially but then again progressed requiring multiple blood transfusion. Eventually she was referred to [facility] On June 09, 2021, she underwent CT scan of abdomen pelvis which showed 5.2 x 5.4 cm heterogeneous mass in the fundus of uterus with marked thickening of the endometrial canal consistent with probable endometrial carcinoma. There was invasion and thinning of the myometrium near the right fundus. Extensive para-aortic and aortocaval lymphadenopathy, measuring up to 1.9 cm. There is also bilateral iliac chain lymphadenopathy measuring 2.5 cm on the left and 2.4 cm on the right. There is also surendra hepatis lymphadenopathy measuring up to 2.3 cm., No abnormality seen in the liver. 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 On June 14, 2021, Ms Pedraza went to [facility] with heavy vaginal bleeding, at that time she was referred to [facility]. She received 2 units of packed RBC prior to the transfer. Patient underwent pelvic exam which showed lesion of the cervix which was biopsied which showed extensive necroinflammatory debris's, no viable tumor cells present and while in [place] she underwent CT scan of head, chest abdomen pelvis on June 15, 2021 which showed few indeterminate sub-3 mm pulmonary nodules. No thoracic lymphadenopathy, and large heterogeneous irregular endometrial thickening/mass. Multiple enlarged retroperitoneal and pelvic lymph nodes. Few too small to characterize splenic hypodensities., Patient was evaluated by Dr. Agarwal he order MRI scan of the pelvis which was done on July 07, 2021 which shows diffuse heterogeneous enlargement of uterus with marked endometrial thickening compatible with endometrial carcinoma. Heterogeneous endometrial thickening and enhancement extends to the internal cervical os., Both adnexa are normal. Bilateral retroperitoneal and iliac lymphadenopathy extending into the pelvis. Largest lymph nodes measuring approximately 1.5 x 1.8 cm. Right obturator and external iliac lymphadenopathy. Large right external iliac lymph node measuring 2.5 x 1.7 cm. No bone mets. Patient denies smoking alcohol use patient denies any abdominal pain, denies any fever chills but generalized weakness and fatigue, denies any melena or hematochezia denies any hemoptysis or hematemesis, no jaundice still having off and on vaginal bleeding. And now awaiting her CT PET scan which is scheduled for coming Tuesday. As per patient she has seen Dr. Agarwal in [place] who has recommended 3 cycles of chemotherapy and then reevaluation to see if she is a candidate for surgery. CT PET scan done on July 04, 2021 showed primary central uterine mass with central necrosis measuring 3.6 x 4.2 x 7.7 cm with SUV of 24.9. Multiple FDG positive bilateral pelvic and abdominal lymph nodes represent metastatic disease. These are present in the right external iliac, right obturator, bilateral common iliac, bilateral periaortic, retrocaval, mesenteric root, peripancreatic nodes and left para-aortic region and node in the left mesenteric root is 1.7 cm and outside of abdomen and pelvis there is a metastatic lymph node in the left cervical level 4 territory of the neck measuring 1.5 cm with SUV of 7 Started on 3 weekly carboplatin/Taxol on July 13, 2021.And completed 5 cycles on October 26, 2021, Subsequently underwent robotic hysterectomy, BSO and lymph node dissection and debulking on November 09, 2021 And final pathology report showed endometrial carcinoma with depth of invasion 50%, vascular involvement present, 1/3 left pelvic lymph node positive for metastatic disease and 2/5 right pelvic lymph node positive for metastatic disease, 0/4 periaortic lymph node involvement. 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 Case was discussed with Dr. Agarwal, her KEY WORKER surgical oncologist in [facility] and the recommendation was to give patient additional 3 cycles of chemotherapy with carboplatin/Taxol followed by CT PET scan and as tumor is positive for MMR D, consider maintenance therapy with Keytruda. Patient presents today for follow-up. She states that she is feeling good. She has minimal fatigue. Her appetite is good. No fever, chills, night sweats. No sinus drainage or mouth sores. No shortness of breath, cough, chest pain. No GI or problems. No joint or bone pain. No headaches or dizziness. She completed her final cycle of carboplatin and paclitaxel on 01/18/2022. Her gynecological surgical oncologist in [facility] recommended maintenance therapy with Keytruda due to tumor being positive for MMR D. Review Of Symptoms: See above. Past Medical History: Ganglion cyst Type II diabetes Stroke in 2020 Past Surgical History: Excision of ganglion cyst Left carpal tunnel release Repair of arm fracture Portacath placement in 2020 Dilation and Curettage in 2020 Covid vaccine #2 in 2020 Covid vaccine #1 in 2020 Allergies: Adhesive tape Medications: Adult Aspirin EC Low Strength 1 Tablet (of 81 mg) Tablet, enteric coated Oral daily Atorvastatin Calcium 1 Tablet (of 40 mg) Oral daily B Complex 1 Tablet Oral daily Cholecalciferol 1 Tablet (of 25 mcg ) Oral daily Daily Multiple Vitamins 1 Tablet Oral daily Enoxaparin Sodium (40 mg/0.4mL) Subcutaneous at bedtime Loratadine 1 Tablet (of 10 mg) Oral daily Sennosides 1 Tablet (of 8.6 mg) Capsule Oral b.i.d. Family History: Ms. Pedraza's mother at age 81: brain cancer, and breast cancer, and cervical cancer, and hypertension, and lung cancer, and lung met, and stroke, and type II diabetes. Ms. Pedraza's father at age 94: dementia. Ms. Pedraza has 2 brothers: 2 alive. She has 2 sisters: 2 alive. Social History: Ms. Pedraza is single. Ms. Pedraza has never smoked. She has no history of drinking. Physical Examination: Performed on Jan 27, 2022 10:19: Height - 61.00 in, Weight - 124.0 lbs (LOW), BSA - 1.54 sq.m, BMI - 23.43, Temperature - 98.3 F (LOW), Pulse - 109 /min (HIGH), Respiration - 18 /min, BP - 135/85 mm(hg), O2 Sat - 97 %, Pain - 1, and Fatigue - 3. Performance Status: 1 - No physically strenuous activity, but ambulatory and able to carry out light or sedentary work (e.g. office work, light house work). (ECOG) Constitutional Alert, cooperative, oriented. Mood and affect appropriate. Appears close to chronological age. Well nourished. Well developed. Respiratory Lungs are clear to auscultation without rhonchi or wheezing. Cardiovascular Regular rate and rhythm of heart without murmurs, gallops or rubs. Abdomen Non-tender, non-distended, no masses, ascites or hepatosplenomegaly. Good bowel sounds. No guarding or rebound tenderness. Musculoskeletal No tenderness or swelling, normal range of motion without obvious weakness. Psychiatric Alert and oriented times three. Coherent speech. Verbalizes understanding of our discussions today. Laboratory: Test performed on Jan 27, 2022 09:18 Sodium 140 mmol/L Potassium 3.5 mmol/L Chloride 101 mmol/L CO2 25 mmol/L Anion Gap 17.5 BUN 11 mg/dL Creatinine 0.2 mg/dL Cr Clearance (Est) 278.89 mL/min eGFR 367.4 mL/min Glucose 120 mg/dL Osmolality - Calculated 291 mOsm/kg Calcium 9.8 mg/dL Protein, Total 7.4 g/dL Albumin 4.1 g/dL Globulin 3.3 g/dL Bilirubin, Total 0.2 mg/dL ALT (SGPT) 26 U/L AST (SGOT) 20 U/L Alkaline Phosphatase 131 IU/L WBC 7.9 10 3/uL RBC 3.54 10 6/uL HGB 10.8 g/dL HCT 33.3 % MCV 94.1 fl MCH 30.5 pg MCHC 32.4 g/dL RDW 17.6 % Platelet Count 141 10 3/cmm MPV 10.7 fL Neutrophils 5.69 10 3/uL Lymphocytes 1.2 10 3/uL Monocytes 0.7 10 3/uL Eosinophils 0.1 10 3/uL Basophils 0.1 10 3/uL Neutrophil % 72.0 % Lymphocyte % 15.7 % Monocyte % 9.1 % Eosinophil % 0.8 % Basophils % 0.8 % NRBC % 0 % Test performed on Aug 21, 2021 09:11 Ferritin 612 ng/mL Iron 55 mcg/dL Iron Binding Capacity (TIBC) 326 mcg/dl % Iron Saturation 16.8 % UIBC 271 mcg/dL CA-125 643.6 U/mL Impression: Endometrioid endometrial carcinoma per D&C done on June 09, 2021 FIGO grade 2 Started on neoadjuvant chemotherapy with carboplatin/Taxol on July 13, 2021, Completed 5 cycles of chemotherapy with carboplatin/Taxol on October 26, 2021 subsequently underwent robotic hysterectomy, BSO, lymph node dissection, debulking on November 09, 2021 History of TIA/CVA diagnosed in November 2020 Iron deficiency anemia status post multiple transfusions due to dysfunctional uterine bleeding due to endometrial carcinoma biopsy-proven Final pathology report confirmed persistent endometrial carcinoma with bilateral pelvic lymph node involvement but no evidence of periaortic lymph node involvement, patient is high risk for recurrence, as per discussion with Dr. Agarwal, her KEY WORKER surgical oncologist in [facility], it was recommended to continue with carboplatin/Taxol for 3 more cycles followed by CT PET scan and as tumor is positive for MMR D, also recommended maintenance therapy with Keytruda. Plan: Lab reviewed with patient with WBC at 7.9, hemoglobin 10.8, hematocrit 33.3, and platelet count at 141,000. Patient is doing well and has recovered well from her chemotherapy treatment. We will order Keytruda 200 mg to be given IV every 3 weeks for maintenance therapy once approved by insurance. Signed By: Veda Chen NDea <<Signature on File>>
== END 2022-02-06 23:59 | disposition home or self-care (01) ==
LOC: ONCMED 06:54
PROVIDERS: Internal Medicine Hematology & Oncology; PCP Registered Nurse; Visit Provider Nurse Practitioner Family
DX: Z51.11 Encounter for antineoplastic chemotherapy (principal); C54.1 Malignant neoplasm of endometrium; C77.8 Secondary and unspecified malignant neoplasm of lymph nodes of multiple regions; D50.9 Iron deficiency anemia, unspecified; N93.8 Other specified abnormal uterine and vaginal bleeding; Z86.73 Personal history of transient ischemic attack (TIA), and cerebral infarction without residual deficits; Z79.899 Other long term (current) drug therapy
CPT/HCPCS: 36591; 80053; 85025; 96367; 96368; 96372; 96375; 96377; 96413; 96415; 96417; 99214; 99215; J1100; J1200; J1453; J2469; J2506; J3490; J7030; J7040; J7050; J9045; J9267

== ENCOUNTER 2022-03-02 09:30 | Oncology outpatient (recurring) (ONCR) | payer BC, MEDICAID, SELFPAY ==
[2022-02-08 11:27] LABS: Basophils # 0.1 10^3/uL (0.0-0.1); Basophils % 0.6 %; Eosinophils % 0.3 %; Hemoglobin 11.9 g/dL (11.5-15.3); Lymphocytes # 1.4 10^3/uL (0.8-4.8); Lymphocytes % 16.4 %; Mean Corpuscular HGB Conc 32.2 g/dL (30.0-36.0); Mean Corpuscular Hemoglobin 31.1 pg (28.0-34.0); Mean Corpuscular Volume 96.6 fl (81-99); Mean Platelet Volume 10.1 fL (7.4-10.4); Monocytes # 0.6 10^3/uL (0.2-0.9); Monocytes % 7.3 %; Neutrophils # 6.47 10^3/uL (1.8-7.7); Neutrophils % 75.1 %; Nucleated Red Blood Cells % 0 %; Platelet Count 205 10^3/cmm (130-400); Red Blood Count 3.83 10^6/uL (4.1-5.3); Red Cell Distribution Width 19.4 % (12.1-15.1); White Blood Count 8.6 10^3/uL (4.0-10.0)
[2022-02-08 11:50] LABS: Alanine Aminotransferase 30 U/L (0-33); Albumin Level 4.2 g/dL (3.5-5.2); Alkaline Phosphatase 129 IU/L (35-105); Anion Gap 12.8 (5-19); Aspartate Amino Transferase 25 U/L (0-32); Blood Urea Nitrogen 15 mg/dL (6-20); Calcium 9.9 mg/dL (8.5-10.5); Carbon Dioxide 25 mmol/L (22-29); Chloride 101 mmol/L (98-107); Creatinine Clr Calc Pharmacy 170.4463; Globulin 3.9 g/dL (1.3-4.6); Glomerular Filtration Rate 230.1 mL/min (90-130); Glucose 129 mg/dL (65-115); Osmolality Calculated 283 mOsm/kg (285-295); Potassium 3.8 mmol/L (3.5-5.1); Sodium 135 mmol/L (136-145); Total Bilirubin 0.3 mg/dL (0.15-1.2); Total Protein 8.1 g/dL (6.6-8.7)
[2022-02-08] MEDS: pembrolizumab 200 MG in sodium chloride 0.9% 250 ML 516 MG IV (14:22)
[2022-02-08] MEDS: sodium chloride 0.9% 250 ML 50 ML IV (14:23)
[2022-02-08 14:53] VITALS: BP 109/77; PULSE 89; TEMP 36.9; O2SAT 99
--- NOTE | 2022-02-08 15:05 | PC.NURSE ---
this RN verified with Swati CHAPPELL that patient is getting Pembrolizumab 200mg IV over 30min per order, prior to administration.
[2022-03-02 09:53] LABS: Basophils % 0.3 %; Eosinophils # 0.2 10^3/uL (0.0-0.8); Eosinophils % 3.1 %; Hemoglobin 11.5 g/dL (11.5-15.3); Lymphocytes # 1.1 10^3/uL (0.8-4.8); Lymphocytes % 17.1 %; Mean Corpuscular HGB Conc 31.1 g/dL (30.0-36.0); Mean Corpuscular Volume 93.2 fl (81-99); Mean Platelet Volume 9.1 fL (7.4-10.4); Monocytes # 0.5 10^3/uL (0.2-0.9); Monocytes % 8.1 %; Neutrophils # 4.42 10^3/uL (1.8-7.7); Neutrophils % 71.1 %; Nucleated Red Blood Cells % 0 %; Platelet Count 202 10^3/cmm (130-400); Red Blood Count 3.97 10^6/uL (4.1-5.3); Red Cell Distribution Width 16.8 % (12.1-15.1); White Blood Count 6.2 10^3/uL (4.0-10.0)
[2022-03-02 10:34] LABS: Alanine Aminotransferase 54 U/L (0-33); Albumin Level 4.1 g/dL (3.5-5.2); Alkaline Phosphatase 105 IU/L (35-105); Anion Gap 12.7 (5-19); Aspartate Amino Transferase 45 U/L (0-32); Blood Urea Nitrogen 12 mg/dL (6-20); Calcium 9.6 mg/dL (8.5-10.5); Carbon Dioxide 26 mmol/L (22-29); Chloride 100 mmol/L (98-107); Glomerular Filtration Rate 230.1 mL/min (90-130); Glucose 121 mg/dL (65-115); Osmolality Calculated 281 mOsm/kg (285-295); Potassium 3.7 mmol/L (3.5-5.1); Sodium 135 mmol/L (136-145); Thyroid Stimulating Hormone 2.08 uIU/mL (0.27-4.20); Total Bilirubin 0.4 mg/dL (0.15-1.2); Total Protein 8.1 g/dL (6.6-8.7)
[2022-03-02] MEDS: sodium chloride 0.9% 250 ML 75 ML IV (11:58)
[2022-03-02] MEDS: pembrolizumab 200 MG in sodium chloride 0.9% 250 ML 516 MG IV (12:02)
== END 2022-03-09 23:59 | disposition home or self-care (01) ==
PROVIDERS: Internal Medicine Hematology & Oncology; PCP Registered Nurse; Visit Provider Nurse Practitioner Family
DX: Z51.12 Encounter for antineoplastic immunotherapy (principal); C54.1 Malignant neoplasm of endometrium; C77.8 Secondary and unspecified malignant neoplasm of lymph nodes of multiple regions; D50.9 Iron deficiency anemia, unspecified; N93.8 Other specified abnormal uterine and vaginal bleeding; R74.01 Elevation of levels of liver transaminase levels; Z86.73 Personal history of transient ischemic attack (TIA), and cerebral infarction without residual deficits; Z79.899 Other long term (current) drug therapy
CPT/HCPCS: 36591; 80053; 84443; 85025; 96413; 99215; 99999; J7050; J9271

== ENCOUNTER 2022-03-23 09:09 | Oncology outpatient (recurring) (ONCR) | payer BC, MEDICAID, SELFPAY ==
[2022-03-23 09:30] VITALS: BMI 24.0
[2022-03-23 10:13] LABS: Basophils % 0.4 %; Eosinophils # 0.2 10^3/uL (0.0-0.8); Eosinophils % 2.8 %; Hematocrit 37.3 % (37.0-47.0); Hemoglobin 11.4 g/dL (11.5-15.3); Lymphocytes # 1.4 10^3/uL (0.8-4.8); Lymphocytes % 20.3 %; Mean Corpuscular HGB Conc 30.6 g/dL (30.0-36.0); Mean Corpuscular Hemoglobin 27.5 pg (28.0-34.0); Mean Corpuscular Volume 90.1 fl (81-99); Mean Platelet Volume 9.9 fL (7.4-10.4); Monocytes # 0.6 10^3/uL (0.2-0.9); Monocytes % 8.4 %; Neutrophils # 4.52 10^3/uL (1.8-7.7); Neutrophils % 67.5 %; Nucleated Red Blood Cells % 0 %; Platelet Count 206 10^3/cmm (130-400); Red Blood Count 4.14 10^6/uL (4.1-5.3); Red Cell Distribution Width 15.8 % (12.1-15.1); White Blood Count 6.7 10^3/uL (4.0-10.0)
[2022-03-23 10:40] LABS: Alanine Aminotransferase 47 U/L (0-33); Albumin Level 4.2 g/dL (3.5-5.2); Alkaline Phosphatase 97 IU/L (35-105); Anion Gap 12.9 (5-19); Aspartate Amino Transferase 43 U/L (0-32); Blood Urea Nitrogen 10 mg/dL (6-20); Calcium 9.7 mg/dL (8.5-10.5); Carbon Dioxide 28 mmol/L (22-29); Chloride 100 mmol/L (98-107); Globulin 3.4 g/dL (1.3-4.6); Glomerular Filtration Rate 230.1 mL/min (90-130); Glucose 108 mg/dL (65-115); Osmolality Calculated 284 mOsm/kg (285-295); Potassium 3.9 mmol/L (3.5-5.1); Sodium 137 mmol/L (136-145); Thyroid Stimulating Hormone 2.13 uIU/mL (0.27-4.20); Total Bilirubin 0.4 mg/dL (0.15-1.2); Total Protein 7.6 g/dL (6.6-8.7)
[2022-03-23] MEDS: sodium chloride 0.9% 250 ML 75 ML IV (12:17)
[2022-03-23] MEDS: pembrolizumab 200 MG in sodium chloride 0.9% 250 ML 516 MG IV (13:04)
[2022-03-23 13:55] VITALS: BP 129/85; PULSE 86; RESP 18; TEMP 36.3; O2SAT 99
== END 2022-04-08 23:59 | disposition home or self-care (01) ==
PROVIDERS: Internal Medicine Hematology & Oncology; PCP Registered Nurse; Visit Provider Nurse Practitioner Family
DX: Z51.11 Encounter for antineoplastic chemotherapy (principal); C55 Malignant neoplasm of uterus, part unspecified; R74.01 Elevation of levels of liver transaminase levels
CPT/HCPCS: 80053; 84443; 85025; 96413; 99214; J7050; J9271

== ENCOUNTER 2022-05-03 09:30 | Oncology outpatient (recurring) (ONCR) | payer BC, MEDICAID, SELFPAY ==
[2022-04-13 09:14] VITALS: BMI 24.3
[2022-04-13 09:31] LABS: Basophils % 0.4 %; Eosinophils # 0.2 10^3/uL (0.0-0.8); Eosinophils % 2.2 %; Hematocrit 37.2 % (37.0-47.0); Hemoglobin 11.7 g/dL (11.5-15.3); Lymphocytes # 1.3 10^3/uL (0.8-4.8); Lymphocytes % 17.8 %; Mean Corpuscular HGB Conc 31.5 g/dL (30.0-36.0); Mean Corpuscular Hemoglobin 27.9 pg (28.0-34.0); Mean Corpuscular Volume 88.8 fl (81-99); Mean Platelet Volume 9.8 fL (7.4-10.4); Monocytes # 0.6 10^3/uL (0.2-0.9); Neutrophils % 71.3 %; Nucleated Red Blood Cells % 0 %; Platelet Count 207 10^3/cmm (130-400); Red Blood Count 4.19 10^6/uL (4.1-5.3); Red Cell Distribution Width 15.4 % (12.1-15.1); White Blood Count 7.3 10^3/uL (4.0-10.0)
[2022-04-13 09:57] LABS: Alanine Aminotransferase 46 U/L (0-33); Albumin Level 4.1 g/dL (3.5-5.2); Alkaline Phosphatase 114 IU/L (35-105); Aspartate Amino Transferase 45 U/L (0-32); Blood Urea Nitrogen 17 mg/dL (6-20); Calcium 9.4 mg/dL (8.5-10.5); Carbon Dioxide 26 mmol/L (22-29); Chloride 102 mmol/L (98-107); Globulin 3.7 g/dL (1.3-4.6); Glomerular Filtration Rate 165.1 mL/min (90-130); Glucose 103 mg/dL (65-115); Osmolality Calculated 290 mOsm/kg (285-295); Sodium 139 mmol/L (136-145); Thyroid Stimulating Hormone 2.39 uIU/mL (0.27-4.20); Total Bilirubin 0.4 mg/dL (0.15-1.2); Total Protein 7.8 g/dL (6.6-8.7)
[2022-04-13 10:04] LABS: Anion Gap 15.1 (5-19); Potassium 4.1 mmol/L (3.5-5.1)
[2022-04-13] MEDS: sodium chloride 0.9% 250 ML 75 ML IV (11:52)
[2022-04-13] MEDS: pembrolizumab 200 MG in sodium chloride 0.9% 250 ML 516 MG IV (12:06)
[2022-04-13 13:05] VITALS: BP 119/79; PULSE 69; RESP 18; TEMP 36.3; O2SAT 99
[2022-05-03 09:54] VITALS: BMI 24.3
[2022-05-03 10:16] LABS: Alanine Aminotransferase 56 U/L (0-33); Albumin Level 4.3 g/dL (3.5-5.2); Alkaline Phosphatase 111 IU/L (35-105); Anion Gap 13.6 (5-19); Aspartate Amino Transferase 45 U/L (0-32); Blood Urea Nitrogen 15 mg/dL (6-20); Calcium 9.7 mg/dL (8.5-10.5); Carbon Dioxide 28 mmol/L (22-29); Chloride 104 mmol/L (98-107); Glomerular Filtration Rate 230.1 mL/min (90-130); Glucose 114 mg/dL (65-115); Osmolality Calculated 294 mOsm/kg (285-295); Potassium 4.6 mmol/L (3.5-5.1); Sodium 141 mmol/L (136-145); Thyroid Stimulating Hormone 1.81 uIU/mL (0.27-4.20); Total Bilirubin 0.4 mg/dL (0.15-1.2); Total Protein 7.3 g/dL (6.6-8.7)
[2022-05-03 10:25] LABS: Basophils % 0.7 %; Eosinophils # 0.1 10^3/uL (0.0-0.8); Eosinophils % 2.2 %; Hematocrit 37.7 % (37.0-47.0); Hemoglobin 11.6 g/dL (11.5-15.3); Lymphocytes # 1.3 10^3/uL (0.8-4.8); Lymphocytes % 21.8 %; Mean Corpuscular HGB Conc 30.8 g/dL (30.0-36.0); Mean Corpuscular Hemoglobin 27.5 pg (28.0-34.0); Mean Corpuscular Volume 89.3 fl (81-99); Monocytes # 0.5 10^3/uL (0.2-0.9); Monocytes % 7.7 %; Neutrophils # 4.02 10^3/uL (1.8-7.7); Neutrophils % 67.3 %; Nucleated Red Blood Cells % 0 %; Platelet Count 180 10^3/cmm (130-400); Red Blood Count 4.22 10^6/uL (4.1-5.3); Red Cell Distribution Width 15.6 % (12.1-15.1)
[2022-05-03] MEDS: sodium chloride 0.9% 250 ML 75 ML IV (11:39)
[2022-05-03] MEDS: pembrolizumab 200 MG in sodium chloride 0.9% 250 ML 516 MG IV (11:41)
[2022-05-03 12:20] VITALS: BP 112/75; PULSE 65; RESP 18; TEMP 36.4; O2SAT 100
== END 2022-05-09 23:59 | disposition home or self-care (01) ==
PROVIDERS: Internal Medicine Hematology & Oncology; PCP Registered Nurse; Visit Provider Nurse Practitioner Family
DX: Z51.12 Encounter for antineoplastic immunotherapy (principal); C54.1 Malignant neoplasm of endometrium; C77.8 Secondary and unspecified malignant neoplasm of lymph nodes of multiple regions; N93.9 Abnormal uterine and vaginal bleeding, unspecified; Z79.899 Other long term (current) drug therapy
CPT/HCPCS: 80053; 84443; 85025; 96413; 99214; 99215; J7050; J9271

== ENCOUNTER 2022-05-24 09:22 | Oncology outpatient (recurring) (ONCR) | payer BC, MEDICAID, SELFPAY ==
[2022-05-24 09:50] LABS: Basophils % 0.4 %; Eosinophils # 0.1 10^3/uL (0.0-0.8); Eosinophils % 1.7 %; Hematocrit 38.2 % (37.0-47.0); Hemoglobin 11.8 g/dL (11.5-15.3); Lymphocytes # 1.3 10^3/uL (0.8-4.8); Lymphocytes % 17.7 %; Mean Corpuscular HGB Conc 30.9 g/dL (30.0-36.0); Mean Corpuscular Hemoglobin 27.3 pg (28.0-34.0); Mean Corpuscular Volume 88.4 fl (81-99); Mean Platelet Volume 9.6 fL (7.4-10.4); Monocytes # 0.4 10^3/uL (0.2-0.9); Monocytes % 5.8 %; Neutrophils % 74.1 %; Nucleated Red Blood Cells % 0 %; Platelet Count 181 10^3/cmm (130-400); Red Blood Count 4.32 10^6/uL (4.1-5.3); Red Cell Distribution Width 15.6 % (12.1-15.1); White Blood Count 7.6 10^3/uL (4.0-10.0)
[2022-05-24 10:36] LABS: Alanine Aminotransferase 70 U/L (0-33); Albumin Level 4.3 g/dL (3.5-5.2); Alkaline Phosphatase 125 U/L (35-105); Aspartate Amino Transferase 61 U/L (0-32); Blood Urea Nitrogen 18 mg/dL (6-20); Calcium 9.5 mg/dL (8.5-10.5); Carbon Dioxide 27 mmol/L (22-29); Chloride 101 mmol/L (98-107); Globulin 3.6 g/dL (1.3-4.6); Glomerular Filtration Rate 165.1 mL/min (90-130); Glucose 103 mg/dL (65-115); Osmolality Calculated 290 mOsm/kg (285-295); Sodium 139 mmol/L (136-145); Thyroid Stimulating Hormone 1.35 uIU/mL (0.27-4.20); Total Bilirubin 0.4 mg/dL (0.15-1.2); Total Protein 7.9 g/dL (6.6-8.7)
[2022-05-24] MEDS: pembrolizumab 200 MG in sodium chloride 0.9% 250 ML 516 MG IV (12:04)
[2022-05-24 12:42] VITALS: BP 103/64; PULSE 67; RESP 16; TEMP 36.4; O2SAT 99
== END 2022-06-09 23:59 | disposition home or self-care (01) ==
PROVIDERS: PCP Registered Nurse; Visit Provider Nurse Practitioner Family
DX: Z51.12 Encounter for antineoplastic immunotherapy (principal); C54.1 Malignant neoplasm of endometrium; C77.8 Secondary and unspecified malignant neoplasm of lymph nodes of multiple regions
CPT/HCPCS: 80053; 84443; 85025; 96413; 99214; 99215; J7050; J9271

== ENCOUNTER 2022-07-05 09:30 | Oncology outpatient (recurring) (ONCR) | payer BC, MEDICAID, SELFPAY ==
[2022-06-15 11:41] LABS: Alanine Aminotransferase 32 U/L (0-33); Albumin Level 4.1 g/dL (3.5-5.2); Alkaline Phosphatase 110 U/L (35-105); Anion Gap 15.2 (5-19); Aspartate Amino Transferase 29 U/L (0-32); Blood Urea Nitrogen 17 mg/dL (6-20); Calcium 9.9 mg/dL (8.5-10.5); Carbon Dioxide 28 mmol/L (22-29); Chloride 101 mmol/L (98-107); Globulin 3.4 g/dL (1.3-4.6); Glomerular Filtration Rate 165.1 mL/min (90-130); Glucose 89 mg/dL (65-115); Osmolality Calculated 291 mOsm/kg (285-295); Potassium 4.2 mmol/L (3.5-5.1); Sodium 140 mmol/L (136-145); Thyroid Stimulating Hormone 1.59 uIU/mL (0.27-4.20); Total Bilirubin 0.3 mg/dL (0.15-1.2); Total Protein 7.5 g/dL (6.6-8.7)
[2022-06-15] MEDS: sodium chloride 0.9% 250 ML 75 ML IV (12:13)
[2022-06-15] MEDS: pembrolizumab 200 MG in sodium chloride 0.9% 250 ML 516 MG IV (12:33)
[2022-07-05 09:40] LABS: Basophils % 0.5 %; Eosinophils # 0.2 10^3/uL (0.0-0.8); Eosinophils % 2.9 %; Hematocrit 38.1 % (37.0-47.0); Hemoglobin 11.9 g/dL (11.5-15.3); Lymphocytes # 1.5 10^3/uL (0.8-4.8); Lymphocytes % 23.3 %; Mean Corpuscular HGB Conc 31.2 g/dL (30.0-36.0); Mean Corpuscular Volume 89.6 fl (81-99); Mean Platelet Volume 9.5 fL (7.4-10.4); Monocytes # 0.5 10^3/uL (0.2-0.9); Monocytes % 7.1 %; Neutrophils # 4.17 10^3/uL (1.8-7.7); Nucleated Red Blood Cells % 0 %; Platelet Count 186 10^3/cmm (130-400); Red Blood Count 4.25 10^6/uL (4.1-5.3); Red Cell Distribution Width 15.2 % (12.1-15.1); White Blood Count 6.3 10^3/uL (4.0-10.0)
[2022-07-05 10:11] LABS: Alanine Aminotransferase 24 U/L (0-33); Albumin Level 4.3 g/dL (3.5-5.2); Alkaline Phosphatase 98 U/L (35-105); Anion Gap 14.1 (5-19); Aspartate Amino Transferase 25 U/L (0-32); Blood Urea Nitrogen 13 mg/dL (6-20); Calcium 9.6 mg/dL (8.5-10.5); Carbon Dioxide 28 mmol/L (22-29); Chloride 102 mmol/L (98-107); Globulin 3.4 g/dL (1.3-4.6); Glomerular Filtration Rate 165.1 mL/min (90-130); Glucose 100 mg/dL (65-115); Osmolality Calculated 290 mOsm/kg (285-295); Potassium 4.1 mmol/L (3.5-5.1); Sodium 140 mmol/L (136-145); Thyroid Stimulating Hormone 1.95 uIU/mL (0.27-4.20); Total Bilirubin 0.4 mg/dL (0.15-1.2); Total Protein 7.7 g/dL (6.6-8.7)
[2022-07-05] MEDS: pembrolizumab 200 MG in sodium chloride 0.9% 250 ML 516 MG IV (11:59)
[2022-07-05 12:33] VITALS: BP 109/75; PULSE 51; RESP 16; TEMP 36.3; O2SAT 98
== END 2022-07-06 10:20 | disposition home or self-care (01) ==
PROVIDERS: Internal Medicine Hematology & Oncology; PCP Registered Nurse; Visit Provider Nurse Practitioner Family
DX: Z51.12 Encounter for antineoplastic immunotherapy (principal); C54.1 Malignant neoplasm of endometrium; C77.8 Secondary and unspecified malignant neoplasm of lymph nodes of multiple regions
CPT/HCPCS: 80053; 84443; 85025; 96413; J7050; J9271

== ENCOUNTER 2022-07-26 08:16 | Oncology outpatient (recurring) (ONCR) | payer BC, MEDICAID, SELFPAY ==
[2022-07-26 08:41] LABS: Basophils % 0.3 %; Eosinophils # 0.2 10^3/uL (0.0-0.8); Eosinophils % 2.5 %; Hematocrit 38.6 % (37.0-47.0); Hemoglobin 12.1 g/dL (11.5-15.3); Lymphocytes # 1.3 10^3/uL (0.8-4.8); Lymphocytes % 16.3 %; Mean Corpuscular HGB Conc 31.3 g/dL (30.0-36.0); Mean Corpuscular Hemoglobin 28.3 pg (28.0-34.0); Mean Corpuscular Volume 90.4 fl (81-99); Mean Platelet Volume 9.4 fL (7.4-10.4); Monocytes # 0.5 10^3/uL (0.2-0.9); Monocytes % 5.8 %; Neutrophils # 5.92 10^3/uL (1.8-7.7); Neutrophils % 74.7 %; Nucleated Red Blood Cells % 0 %; Platelet Count 228 10^3/cmm (130-400); Red Blood Count 4.27 10^6/uL (4.1-5.3); Red Cell Distribution Width 14.4 % (12.1-15.1); White Blood Count 7.9 10^3/uL (4.0-10.0)
[2022-07-26 09:16] LABS: Alanine Aminotransferase 23 U/L (0-33); Albumin Level 4.5 g/dL (3.5-5.2); Alkaline Phosphatase 100 U/L (35-105); Anion Gap 15.2 (5-19); Aspartate Amino Transferase 22 U/L (0-32); Blood Urea Nitrogen 17 mg/dL (6-20); Calcium 10.1 mg/dL (8.5-10.5); Carbon Dioxide 27 mmol/L (22-29); Chloride 100 mmol/L (98-107); Globulin 3.7 g/dL (1.3-4.6); Glomerular Filtration Rate 127.6 mL/min (90-130); Glucose 111 mg/dL (65-115); Osmolality Calculated 288 mOsm/kg (285-295); Potassium 4.2 mmol/L (3.5-5.1); Sodium 138 mmol/L (136-145); Thyroid Stimulating Hormone 1.88 uIU/mL (0.27-4.20); Total Bilirubin 0.4 mg/dL (0.15-1.2); Total Protein 8.2 g/dL (6.6-8.7)
[2022-07-26] MEDS: sodium chloride 0.9% 250 ML 100 ML IV (10:36)
[2022-07-26] MEDS: pembrolizumab 200 MG in sodium chloride 0.9% 250 ML 516 MG IV (10:45)
[2022-07-26 11:32] VITALS: BP 95/65; PULSE 73; RESP 16; TEMP 36.6
== END 2022-08-09 23:59 | disposition home or self-care (01) ==
PROVIDERS: Internal Medicine Hematology & Oncology; PCP Registered Nurse; Visit Provider Nurse Practitioner Family
DX: Z51.12 Encounter for antineoplastic immunotherapy (principal); C54.1 Malignant neoplasm of endometrium; C77.8 Secondary and unspecified malignant neoplasm of lymph nodes of multiple regions
CPT/HCPCS: 80053; 84443; 85025; 96413; J7050; J9271

== ENCOUNTER 2022-09-06 09:00 | Oncology outpatient (recurring) (ONCR) | payer BC, MEDICAID, SELFPAY ==
[2022-08-16 08:50] LABS: Basophils % 0.4 %; Eosinophils # 0.1 10^3/uL (0.0-0.8); Eosinophils % 1.1 %; Hematocrit 36.3 % (37.0-47.0); Hemoglobin 11.4 g/dL (11.5-15.3); Lymphocytes # 1.7 10^3/uL (0.8-4.8); Mean Corpuscular HGB Conc 31.4 g/dL (30.0-36.0); Mean Corpuscular Hemoglobin 28.3 pg (28.0-34.0); Mean Corpuscular Volume 90.1 fl (81-99); Mean Platelet Volume 9.4 fL (7.4-10.4); Monocytes # 0.6 10^3/uL (0.2-0.9); Monocytes % 7.8 %; Neutrophils # 5.35 10^3/uL (1.8-7.7); Neutrophils % 68.3 %; Nucleated Red Blood Cells % 0 %; Platelet Count 187 10^3/cmm (130-400); Red Blood Count 4.03 10^6/uL (4.1-5.3); Red Cell Distribution Width 14.8 % (12.1-15.1); White Blood Count 7.8 10^3/uL (4.0-10.0)
[2022-08-16 09:50] LABS: Alanine Aminotransferase 20 U/L (0-33); Albumin Level 3.9 g/dL (3.5-5.2); Alkaline Phosphatase 99 U/L (35-105); Anion Gap 11.9 (5-19); Aspartate Amino Transferase 18 U/L (0-32); Blood Urea Nitrogen 14 mg/dL (6-20); Calcium 9.7 mg/dL (8.5-10.5); Carbon Dioxide 27 mmol/L (22-29); Chloride 98 mmol/L (98-107); Globulin 3.9 g/dL (1.3-4.6); Glomerular Filtration Rate 165.1 mL/min (90-130); Glucose 94 mg/dL (65-115); Osmolality Calculated 276 mOsm/kg (285-295); Potassium 3.9 mmol/L (3.5-5.1); Sodium 133 mmol/L (136-145); Thyroid Stimulating Hormone 1.85 uIU/mL (0.27-4.20); Total Bilirubin 0.7 mg/dL (0.15-1.2); Total Protein 7.8 g/dL (6.6-8.7)
[2022-08-16] MEDS: pembrolizumab 200 MG in sodium chloride 0.9% 250 ML 516 MG IV (11:08)
[2022-08-16 11:49] VITALS: BP 97/67; PULSE 74; RESP 18; TEMP 36.2; O2SAT 99
[2022-09-06 09:11] LABS: Basophils % 0.3 %; Eosinophils # 0.2 10^3/uL (0.0-0.8); Eosinophils % 2.5 %; Hematocrit 36.3 % (37.0-47.0); Hemoglobin 11.3 g/dL (11.5-15.3); Lymphocytes # 1.5 10^3/uL (0.8-4.8); Lymphocytes % 22.6 %; Mean Corpuscular HGB Conc 31.1 g/dL (30.0-36.0); Mean Corpuscular Hemoglobin 27.8 pg (28.0-34.0); Mean Corpuscular Volume 89.4 fl (81-99); Mean Platelet Volume 9.4 fL (7.4-10.4); Monocytes # 0.5 10^3/uL (0.2-0.9); Monocytes % 7.9 %; Neutrophils # 4.29 10^3/uL (1.8-7.7); Neutrophils % 66.4 %; Nucleated Red Blood Cells % 0 %; Platelet Count 176 10^3/cmm (130-400); Red Blood Count 4.06 10^6/uL (4.1-5.3); Red Cell Distribution Width 14.5 % (12.1-15.1); White Blood Count 6.5 10^3/uL (4.0-10.0)
[2022-09-06 09:47] LABS: Alanine Aminotransferase 16 U/L (0-33); Albumin Level 4.2 g/dL (3.5-5.2); Alkaline Phosphatase 106 U/L (35-105); Anion Gap 14.5 (5-19); Aspartate Amino Transferase 20 U/L (0-32); Blood Urea Nitrogen 18 mg/dL (6-20); Calcium 9.6 mg/dL (8.5-10.5); Carbon Dioxide 25 mmol/L (22-29); Chloride 98 mmol/L (98-107); Globulin 3.6 g/dL (1.3-4.6); Glomerular Filtration Rate 127.6 mL/min (90-130); Glucose 113 mg/dL (65-115); Osmolality Calculated 281 mOsm/kg (285-295); Potassium 3.5 mmol/L (3.5-5.1); Sodium 134 mmol/L (136-145); Thyroid Stimulating Hormone 2.18 uIU/mL (0.27-4.20); Total Bilirubin 0.4 mg/dL (0.15-1.2); Total Protein 7.8 g/dL (6.6-8.7)
[2022-09-06] MEDS: sodium chloride 0.9% 250 ML 100 ML IV (11:33)
[2022-09-06] MEDS: pembrolizumab 200 MG in sodium chloride 0.9% 250 ML 516 MG IV (11:54)
== END 2022-09-07 09:12 | disposition home or self-care (01) ==
PROVIDERS: Internal Medicine Hematology & Oncology; PCP Registered Nurse; Visit Provider Nurse Practitioner Family
DX: Z51.12 Encounter for antineoplastic immunotherapy (principal); C54.1 Malignant neoplasm of endometrium; C77.8 Secondary and unspecified malignant neoplasm of lymph nodes of multiple regions
CPT/HCPCS: 80053; 84443; 85025; 96413; J7050; J9271

== ENCOUNTER 2022-09-27 08:17 | Oncology outpatient (recurring) (ONCR) | payer BC, MEDICAID, SELFPAY ==
[2022-09-27 08:52] LABS: Basophils # 0.1 10^3/uL (0.0-0.1); Basophils % 0.6 %; Eosinophils # 0.2 10^3/uL (0.0-0.8); Hemoglobin 10.9 g/dL (11.5-15.3); Lymphocytes # 1.7 10^3/uL (0.8-4.8); Lymphocytes % 22.6 %; Mean Corpuscular HGB Conc 30.3 g/dL (30.0-36.0); Mean Corpuscular Hemoglobin 26.6 pg (28.0-34.0); Mean Corpuscular Volume 87.8 fl (81-99); Mean Platelet Volume 9.4 fL (7.4-10.4); Monocytes # 0.5 10^3/uL (0.2-0.9); Monocytes % 6.1 %; Neutrophils % 67.4 %; Nucleated Red Blood Cells % 0 %; Platelet Count 274 10^3/cmm (130-400); Red Cell Distribution Width 14.6 % (12.1-15.1); White Blood Count 7.7 10^3/uL (4.0-10.0)
[2022-09-27 09:22] LABS: Alanine Aminotransferase 12 U/L (0-33); Albumin Level 3.9 g/dL (3.5-5.2); Alkaline Phosphatase 98 U/L (35-105); Anion Gap 15.7 (5-19); Aspartate Amino Transferase 17 U/L (0-32); Blood Urea Nitrogen 15 mg/dL (6-20); Calcium 9.5 mg/dL (8.5-10.5); Carbon Dioxide 25 mmol/L (22-29); Chloride 102 mmol/L (98-107); Globulin 3.8 g/dL (1.3-4.6); Glomerular Filtration Rate 127.6 mL/min (90-130); Glucose 118 mg/dL (65-115); Osmolality Calculated 290 mOsm/kg (285-295); Potassium 3.7 mmol/L (3.5-5.1); Sodium 139 mmol/L (136-145); Thyroid Stimulating Hormone 2.26 uIU/mL (0.27-4.20); Total Bilirubin 0.3 mg/dL (0.15-1.2); Total Protein 7.7 g/dL (6.6-8.7)
[2022-09-27 11:54] LABS: Urine Appearance Bloody (CLEAR); Urine Color Red (Yellow)
[2022-09-27 12:02] LABS: Blood Urine 3+ (Negative); Glucose Urine UA Norm (Normal); Ketones Urine Negative (Negative); Protein Urine 3+ (Negative); Specific Gravity, Urine 1.025 (1.005-1.030); pH Urine 6.5 (5-7)
[2022-09-27 12:03] LABS: Add Urine Microscopic? YES; Bilirubin Urine Neg (Negative); Leukocyte Esterase Urine Trace (Negative); Nitrate Urine Negative (Negative); Urobilinogen Urine 1 mg/dL (Negative)
[2022-09-27 12:04] LABS: Add Urine Culture? Yes; Bacteria Urine 4+ /hpf; RBC Urine TOO NUMEROUS TO CNT /hpf (0-2); Squamous Epithelial Cell Urine 0-4 /hpf (0-5); WBC Urine 0-4 /hpf (0-5)
[2022-09-27] MEDS: pembrolizumab 200 MG in sodium chloride 0.9% 250 ML 516 MG IV (12:05)
[2022-09-27 12:45] VITALS: BP 101/69; PULSE 69; RESP 18; TEMP 36.5; O2SAT 98
[2022-09-27 14:26] LABS: Ferritin 293 ng/mL (15-150); Iron 38 ug/dL (37-145); Percent Saturation 14.7 % (20-50); Total Iron Binding Capacity 258 mcg/dl; Unsaturated Iron Binding 220 ug/dL (112-347)
== END 2022-10-09 23:59 | disposition home or self-care (01) ==
PROVIDERS: Nurse Practitioner; PCP Registered Nurse; Visit Provider Internal Medicine Hematology & Oncology
DX: Z51.12 Encounter for antineoplastic immunotherapy (principal); C54.1 Malignant neoplasm of endometrium; C77.8 Secondary and unspecified malignant neoplasm of lymph nodes of multiple regions; R31.9 Hematuria, unspecified; R10.30 Lower abdominal pain, unspecified; R10.2 Pelvic and perineal pain; Z79.899 Other long term (current) drug therapy
CPT/HCPCS: 80053; 81001; 82728; 83540; 83550; 84443; 85025; J7050; J9271

== ENCOUNTER 2022-10-14 18:34 | Inpatient (IN) | payer BC, SELFPAY ==
[2022-10-14] VITALS (42 sets, daily range): BP systolic 83–121; BP diastolic 72–85; PULSE 0–126; RESP 12–33; TEMP 36.6–36.8; O2SAT 97–100; BMI 24.5
--- NOTE | 2022-10-14 18:58 | CTR_ITS ---
PROCEDURE INFORMATION: Exam: CT Abdomen And Pelvis With Contrast Exam date and time: 10/14/2022 7:36 PM Age: 56 years old Clinical indication: Condition or disease; Cancer; Other: Uterine; Additional info: Abd pain TECHNIQUE: Imaging protocol: Computed tomography of the abdomen and pelvis with contrast. Radiation optimization: All CT scans at this facility use at least one of these dose optimization techniques: automated exposure control; mA and/or kV adjustment per patient size (includes targeted exams where dose is matched to clinical indication); or iterative reconstruction. Contrast material: OMNIPAQUE 350; Contrast volume: 95 ml; Contrast route: INTRAVENOUS (IV); COMPARISON: MR pelvis wo/w con [id number] 06/29/2021 12:22 PM RADIATION DOSE METRICS: Total DLP (mGy-cm): 436.07 FINDINGS: Liver: Hepatic steatosis. Gallbladder and bile ducts: Normal. No calcified stones. No ductal dilation. Pancreas: Normal. No ductal dilation. Spleen: Normal. No splenomegaly. Adrenal glands: Normal. No mass. Kidneys and ureters: Normal. No hydronephrosis. Stomach and bowel: Diverticulosis without diverticulitis. Constipation. Appendix: No evidence of appendicitis. Intraperitoneal space: Unremarkable. No free air. No significant fluid collection. Vasculature: Unremarkable. No abdominal aortic aneurysm. Lymph nodes: Scattered periaortic enlarged lymph nodes measuring up to 15 mm, likely reflecting metastatic disease. Urinary bladder: Hyperdense masslike area seen in the region of the urinary bladder based and urethra appears to reflect a large soft tissue mass measuring up to at least 8.7 x 8.8 cm, likely reflecting a malignant process. Small amount of air is seen in the urinary bladder, likely iatrogenic. Reproductive: Unremarkable as visualized. Bones/joints: Unremarkable. No acute fracture. Soft tissues: Unremarkable. CT/CT abdomen pelvis w con* [id number] IMPRESSION: 1. Hyperdense masslike area seen in the region of the urinary bladder base and urethra appears to reflect a large soft tissue mass measuring up to at least 8.7 x 8.8 cm, likely reflecting a malignant process. Small amount of air is seen in the urinary bladder, likely iatrogenic. 2. Diverticulosis without diverticulitis. 3. Hepatic steatosis. 4. Constipation. 5. Scattered periaortic enlarged lymph nodes measuring up to 15 mm, likely reflecting metastatic disease.
--- NOTE | 2022-10-14 18:59 | ED_ITS ---
HPI - Female Genitourinary General: Chief complaint: Urogenital-Female Stated complaint: BLOODY URINE Time Seen by Provider: 10/14/22 18:55 Source: patient and EMS Mode of arrival: EMS Limitations: no limitations History of Present Illness: 81-year-old female has a history of uterine cancer and had her uterus removed last year states that over the last month she has had hematuria along with increasing weakness patient is quite pale here she has had a history of anemia she denies vomiting blood denies any blood in her stool she denies any worsening improving factors. Associated symptoms: Deny abdominal pain, headache(s) or nausea Date of Last Menstrual Period: 01/01/21 Review of Systems Const: Reports: malaise Eyes: Denies: blurry vision or eye discomfort ENMT: Denies: throat pain or dental pain Card: Denies: chest pain Resp: Denies: dyspnea GI: Denies: abdominal pain, nausea, vomiting or diarrhea : Reports: hematuria Musc: Denies: neck pain or back pain Skin/Breast: Denies: rash Neuro: Denies: headache(s) Psych: Denies: depression Viral/Lymph: Denies: easy bruising All/Imm: Denies: urticaria PFSH ED PFSH: Medical History Diabetes mellitus type 2--diagnosed in November 2020 with a hemoglobin A1c of 10. She states she was on Metformin and her hemoglobin A1c improved to 4 and she was taken off of Metformin in April 2021. Endometrioid adenocarcinoma of uterus History of TIA (transient ischemic attack) November 2020--some minor memory difficulty--is just on aspirin Hypercholesteremia Diagnosed in November 2020 at time of TIA--has been on Lipitor since then managed by her primary care provider No pertinent past medical history Denies asthma, hypertension, seizures, DVT/PE. PMD: Uterine cancer Surgical History H/O: knee surgery Arthroscopic left knee surgery History of surgery on arm broken arm-left arm and her 40s History of surgical removal of ganglion cyst Left wrist S/P dilation and curettage 06/09/2021--D&C done for acute abnormal uterine bleeding for thickened endometrium by Dr. Mayes at [facility]. ------> pathology pending Family History Mother Breast cancer Cervical cancer Cancer lymphnode, lung, brain Diabetes Hypertension Stroke Sister Diabetes Hypertension Sister Hypertension Denies family history of CAD (coronary artery disease) Clotting disorder Dementia Hyperlipidemia Chronic kidney disease (CKD) Anesthesia complication Bleeding disorder Lung disease Social History Smoking and tobacco status: never smoked Alcohol intake: never Female Reproductive History: Date of last menstrual period: 01/01/21 Physical Exam Const: COMMON NORMALS: patient oriented x3 GENERAL APPEARANCE: ill appearing HENMT: COMMON NORMALS: normocephalic and atraumatic HEAD & SCALP: normocephalic and atraumatic Eye: COMMON NORMALS: Equal, round and reactive pupils present and EOMs intact bilaterally PUPIL: Yes Equal, round and reactive pupils present Neck/C-Spine: COMMON NORMALS: full ROM and supple Chest: COMMONS NORMALS: normal inspection of the chest and normal palpation of entire chest wall Resp: COMMON NORMALS: normal respiratory effort, No retractions, No use of accessory muscles and clear to auscultation bilaterally AUSCULTATION: clear to auscultation bilaterally Cardio: COMMON NORMALS: regular rate, regular rhythm and No murmurs present (Cardio) RATE: regular rate RHYTHM: regular rhythm GI: COMMON NORMALS: Normal to inspection, nondistended, normoactive bowel sounds present, Soft to palpation, non-tender and no masses PALPATION: Yes Soft to palpation Extremity: COMMON NORMALS: normal to inspection and full ROM Neuro: COMMON NORMALS: patient oriented x3, moves all extremities and no focal motor deficits Psych: COMMON NORMALS: mental status grossly normal, Normal thought process present and cooperative THOUGHT PROCESS: Normal thought process present Skin: COMMON NORMALS: no rashes or lesions noted and no wounds NARRATIVE SKIN EXAM: pale in appearance GENERAL SKIN EXAM: no rashes or lesions noted Course Vital Signs: Vital signs: Vital Signs Temperature 98.2 F 10/14/22 18:45 Pulse Rate 102 H 10/14/22 18:45 Respiratory Rate 14 10/14/22 18:45 Blood Pressure 101/73 10/14/22 18:45 Pulse Oximetry 99 10/14/22 18:45 MDM - Female Medical Decision Making Patient presents here with anemia is likely happened over quite some time as she is heme a vascular stable here her hemoglobin is 5.3 she does have a bladder mass that is new on her CT scan spoke to the hospitalist along with urologist will admit for blood transfusion patient's been stable here Lab Data 10/14/22 19:02 10/14/22 19:02 Radiology Impressions Abdomen/Pelvis CT 10/14/22 18:58 IMPRESSION: 1. Hyperdense masslike area seen in the region of the urinary bladder base and urethra appears to reflect a large soft tissue mass measuring up to at least 8.7 x 8.8 cm, likely reflecting a malignant process. Small amount of air is seen in the urinary bladder, likely iatrogenic. 2. Diverticulosis without diverticulitis. 3. Hepatic steatosis. 4. Constipation. 5. Scattered periaortic enlarged lymph nodes measuring up to 15 mm, likely reflecting metastatic disease. Laboratory Results WBC 8.9 10^3/uL (4.0-10.0) 10/14/22 19:02 RBC 2.15 10^6/uL (4.1-5.3) L 10/14/22 19:02 Hgb 5.3 g/dL (11.5-15.3) L* 10/14/22 19:02 Hct 19.3 % (37.0-47.0) L* 10/14/22 19:02 MCV 89.8 fl (81-99) 10/14/22 19:02 MCH 24.7 pg (28.0-34.0) L 10/14/22 19:02 MCHC 27.5 g/dL (30.0-36.0) L 10/14/22 19:02 RDW 17.5 % (12.1-15.1) H 10/14/22 19:02 Plt Count 245 10^3/cmm (130-400) 10/14/22 19:02 MPV 9.9 fL (7.4-10.4) 10/14/22 19:02 Neut % (Auto) 80.2 % 10/14/22 19:02 Lymph % (Auto) 14.6 % 10/14/22 19: Arroyo % (Auto) 4.2 % 10/14/22 19:02 Eos % (Auto) 0.1 % 10/14/22 19:02 Baso % (Auto) 0.2 % 10/14/22 19:02 Neut # (Auto) 7.11 10^3/uL (1.8-7.7) 10/14/22 19:02 Lymph # (Auto) 1.3 10^3/uL (0.8-4.8) 10/14/22 19:02 Arroyo # (Auto) 0.4 10^3/uL (0.2-0.9) 10/14/22 19:02 Eos # (Auto) 0.0 10^3/uL (0.0-0.8) 10/14/22 19:02 Baso # (Auto) 0.0 10^3/uL (0.0-0.1) 10/14/22 19:02 Nucleated RBC % (auto) 0 % 10/14/22 19:02 Nucleated RBCs # 0.0 /100WBC 10/14/22 19:02 PT 15.20 SECONDS (12.1-14.9) H 10/14/22 19:02 INR 1.17 (0.8-1.2) 10/14/22 19:02 Sodium 138 mmol/L (136-145) 10/14/22 19:02 Potassium 4.3 mmol/L (3.5-5.1) 10/14/22 19:02 Chloride 101 mmol/L (98-107) 10/14/22 19:02 Carbon Dioxide 24 mmol/L (22-29) 10/14/22 19:02 Anion Gap 17.3 (5-19) 10/14/22 19:02 BUN 15 mg/dL (6-20) 10/14/22 19:02 Creatinine 0.5 mg/dL (0.5-0.9) 10/14/22 19:02 GFR Calculation 127.6 mL/min (90-130) 10/14/22 19:02 Glucose 148 mg/dL (65-115) H 10/14/22 19:02 Calculated Osmolality 290 mOsm/kg (285-295) 10/14/22 19:02 Calcium 9.2 mg/dL (8.5-10.5) 10/14/22 19:02 Total Bilirubin 0.3 mg/dL (0.15-1.2) 10/14/22 19:02 AST 12 U/L (0-32) 10/14/22 19:02 ALT 7 U/L (0-33) 10/14/22 19:02 Alkaline Phosphatase 82 U/L (35-105) 10/14/22 19:02 Total Protein 6.4 g/dL (6.6-8.7) L 10/14/22 19:02 Albumin 3.6 g/dL (3.5-5.2) 10/14/22 19:02 Globulin 2.8 g/dL (1.3-4.6) 10/14/22 19:02 Urine Color Red (Yellow) 10/14/22 19:12 Urine Appearance Bloody (CLEAR) A 10/14/22 19:12 Urine pH 6.5 (5-7) 10/14/22 19:12 Ur Specific [place] 1.020 (1.005-1.030) 10/14/22 19:12 Urine Protein 2+ (Negative) H 10/14/22 19:12 Urine Glucose (UA) Norm (Normal) 10/14/22 19:12 Urine Ketones Negative (Negative) 10/14/22 19:12 Urine Blood 3+ (Negative) H 10/14/22 19:12 Urine Nitrate Negative (Negative) 10/14/22 19:12 Urine Bilirubin Neg (Negative) 10/14/22 19:12 Urine Urobilinogen Norm mg/dL (Negative) 10/14/22 19:12 Ur Leukocyte Esterase Negative (Negative) 10/14/22 19:12 Urine RBC Too numerous to cnt /hpf (0-2) H 10/14/22 19:12 Urine WBC None /hpf (0-5) 10/14/22 19:12 Ur Squamous Epith Cells None /hpf (0-5) 10/14/22 19:12 Amorphous Sediment Not Reportable 10/14/22 19:12 Urine Bacteria None /hpf (NONE) 10/14/22 19:12 Critical Care Time Critical Care Time: Critical Care Time: Yes Total Critical Care Time: 40 Attestation: The high probability of a clinically significant, sudden or life threatening deterioration of the patient's gu system(s) required my full and direct attention, intervention and personal management. The critical care time is as shown. This time is in addition to time spent performing any reported procedures but includes the following: [x] Data and vital sign review and interpretation [x] Patient assessment, examination and intervention [x] Documentation [x] Medication orders and management Discharge Plan Discharge Patient Disposition: Admitted As Inpatient Clinical Impression: Anemia, Mass of bladder Condition: Stable Prescriptions: No Action vitamin B complex Tablet 1 tab PO DAILY multivitamin with minerals Capsule 1 cap PO DAILY cholecalciferol (vitamin D3) 25 mcg (1,000 unit) capsule 25 mcg PO DAILY ciprofloxacin HCl 500 mg tablet 500 mg PO BID 7 Days Qty: 14 0RF Referrals: Elisa Scott [Primary Care Provider] - Coding Level of Care Code ED Cotton Sampler for Chg Fwd Exam Comprehensive
[2022-10-14 19:33] LABS: Basophils % 0.2 %; Eosinophils % 0.1 %; Lymphocytes # 1.3 10^3/uL (0.8-4.8); Lymphocytes % 14.6 %; Mean Corpuscular HGB Conc 27.5 g/dL (30.0-36.0); Mean Corpuscular Hemoglobin 24.7 pg (28.0-34.0); Mean Corpuscular Volume 89.8 fl (81-99); Mean Platelet Volume 9.9 fL (7.4-10.4); Monocytes # 0.4 10^3/uL (0.2-0.9); Monocytes % 4.2 %; Neutrophils # 7.11 10^3/uL (1.8-7.7); Neutrophils % 80.2 %; Nucleated Red Blood Cells % 0 %; Platelet Count 245 10^3/cmm (130-400); Red Blood Count 2.15 10^6/uL (4.1-5.3); Red Cell Distribution Width 17.5 % (12.1-15.1); White Blood Count 8.9 10^3/uL (4.0-10.0)
[2022-10-14 19:40] LABS: Bilirubin Urine Neg (Negative); Blood Urine 3+ (Negative); Glucose Urine UA Norm (Normal); Ketones Urine Negative (Negative); Leukocyte Esterase Urine Negative (Negative); Nitrate Urine Negative (Negative); Protein Urine 2+ (Negative); Urine Appearance Bloody (CLEAR); Urine Color Red (Yellow); Urobilinogen Urine Norm (Negative); pH Urine 6.5 (5-7)
[2022-10-14 19:41] LABS: Add Urine Microscopic? YES
[2022-10-14 19:44] LABS: Hematocrit 19.3 % (37.0-47.0); Hemoglobin 5.3 g/dL (11.5-15.3)
[2022-10-14 19:45] LABS: RBC Urine TOO NUMEROUS TO CNT /hpf (0-2)
[2022-10-14 19:46] LABS: INR 1.17 (0.8-1.2)
[2022-10-14] MEDS: iohexol 350 mg/mL 500 mL Btl (per mL) IV (19:53)
[2022-10-14 19:56] LABS: Alanine Aminotransferase 7 U/L (0-33); Albumin Level 3.6 g/dL (3.5-5.2); Alkaline Phosphatase 82 U/L (35-105); Anion Gap 17.3 (5-19); Aspartate Amino Transferase 12 U/L (0-32); Blood Urea Nitrogen 15 mg/dL (6-20); Calcium 9.2 mg/dL (8.5-10.5); Carbon Dioxide 24 mmol/L (22-29); Chloride 101 mmol/L (98-107); Globulin 2.8 g/dL (1.3-4.6); Glomerular Filtration Rate 127.6 mL/min (90-130); Glucose 148 mg/dL (65-115); Osmolality Calculated 290 mOsm/kg (285-295); Potassium 4.3 mmol/L (3.5-5.1); Sodium 138 mmol/L (136-145); Total Bilirubin 0.3 mg/dL (0.15-1.2); Total Protein 6.4 g/dL (6.6-8.7)
--- NOTE | 2022-10-14 20:51 | P.HP_ITS ---
Providers/Chief Complaint Primary Care Provider: Elisa Scott Chief Complaint: BLOODY URINE History of Present Illness Basilia Pedraza is a 56 year old female with past medical history of uterine cancer status post hysterectomy, TIA, hypercholesterolemia, diabetes mellitus presented to the hospital today with hematuria that has been worsening since the last month. She has been getting more more weaker and since has turned very pa le. She does have a history of anemia. Denies blood in vomit, stool. Does have generalized weakness and fatigue. Also reports very mild shortness of breath on exertion. She does complain of lower abdominal fullness/pain. She recently saw Dr. Wilburn on [address] abdomen pelvis was ordered along with a referral to urology. ED course: 101/73, respiratory 14, pulse 102, temperature 98.2, pulse ox 99%. Hemoglobin 5.[address] scan abdomen showed: Hyperdense masslike area seen in the region of the urinary bladder base and urethra appears to reflect a large soft tissue mass measuring up to at least 8.7 x 8.8 cm, likely reflecting a malignant process. Small amount of air is seen in the urinary bladder, likely iatrogenic. Urology was consulted. Medications/Allergies Home Medications Medication Instructions Recorded Confirmed Last Taken Type multivitamin with minerals 1 cap PO DAILY 05/29/21 09/27/22 06/28/21 History vitamin B complex 1 tab PO DAILY 05/29/21 09/27/22 06/28/21 History cholecalciferol (vitamin D3) 25 25 mcg PO DAILY 06/22/21 09/27/22 06/28/21 History mcg (1,000 unit) capsule ciprofloxacin HCl 500 mg tablet 500 mg PO BID 7 days #14 tabs 09/29/22 Unknown Rx Allergies Allergy/AdvReac Type Severity Reaction Status Date / Time adhesive Allergy Unknown Unknown Verified 09/27/22 10:28 PFSH Acute PFSH: Medical History Diabetes mellitus type 2--diagnosed in November 2020 with a hemoglobin A1c of 10. She states she was on Metformin and her hemoglobin A1c improved to 4 and she was taken off of Metformin in April 2021. Endometrioid adenocarcinoma of uterus History of TIA (transient ischemic attack) November 2020--some minor memory difficulty--is just on aspirin Hypercholesteremia Diagnosed in November 2020 at time of TIA--has been on Lipitor since then managed by her primary care provider No pertinent past medical history Denies asthma, hypertension, seizures, DVT/PE. PMD: Uterine cancer Surgical History H/O: knee surgery Arthroscopic left knee surgery History of surgery on arm broken arm-left arm and her 40s History of surgical removal of ganglion cyst Left wrist S/P dilation and curettage 06/09/2021--D&C done for acute abnormal uterine bleeding for thickened endometrium by Dr. Mayes at [facility] [place]. ------> pathology pending Family History Mother Breast cancer Cervical cancer Cancer lymphnode, lung, brain Diabetes Hypertension Stroke Sister Diabetes Hypertension Sister Hypertension Denies family history of CAD (coronary artery disease) Clotting disorder Dementia Hyperlipidemia Chronic kidney disease (CKD) Anesthesia complication Bleeding disorder Lung disease Social History Smoking and tobacco status: never smoked Alcohol intake: never Female Reproductive History: Date of last menstrual period: 01/01/21 Vitals/I&O/Wt Last Vital Signs Temp 98.2 F 10/14/22 18:45 Pulse 102 H 10/14/22 18:45 Resp 14 10/14/22 18:45 BP 101/73 10/14/22 18:45 Pulse Ox 99 10/14/22 18:45 Weight last 48 hrs Weight 58.967 kg Physical Exam Narrative: General: Alert oriented x3 but very fatigued dehydrated appearing female, appears ill and weak HEENT: Normocephalic, atraumatic, EOMI, breathing room air Cardio: Regular rate rhythm, normal S1-S2 Respiratory: CTA b/L, no w/r/c GI: Abdomen soft, nontender, visceral obesity, mild distention, bowel sounds + Extremities: No b/l le edema Data 10/14/22 19:02 10/14/22 19:02 A&P Assessment and plan (1) Anemia: (2) Mass of bladder: (3) Endometrioid adenocarcinoma of uterus: (4) Malignant neoplasm of endometrium: (5) Uterine cancer: (6) Hypercholesteremia: Plan #Acute on chronic anemia, hemoglobin 5.5 on arrival #Newly found bladder mass #Poor oral intake #Generalized weakness #History of uterine cancer status post hysterectomy #Diabetes mellitus #Hypercholesterolemia #Chronic anemia ? Urology consulted from the ER. Will await further recommendations. Possibility of inpatient biopsy. ? We will transfuse patient. Order 2 unit packed RBC type and screen. ? H&H every 8 hours ? Patient will need to follow-up with urology as an outpatient as well. ? Sliding scale insulin low-dose intensity ? Normal saline 75 cc/h ? Check iron panel, TIBC, ferritin - Poor oral intake - Check lactic acid - Protonix 40 IV daily - Zofran for nausea - Regular diet - Check chest xray Full code DVT prophylaxis: SCDs Attestations Medical Necessity Statement*: Will cross greater than 2 midnight stay for management of acute on chronic anemia. Coding Level of Care Code Acute Senior Investment Manager for Viktoria Hdez Diagnoses Anemia D64.9 Mass of bladder N32.89 Endometrioid adenocarcinoma of uterus C55 Malignant neoplasm of endometrium C54.1 Uterine cancer C55 Hypercholesteremia E78.00
[2022-10-14 21:48] LABS: Hematocrit 19.3 % (37.0-47.0); Hemoglobin 5.4 g/dL (11.5-15.3)
[2022-10-14 22:06] LABS: Lactic Sepsis W/Reflex 2.7 mmol/L (0.5-2.2)
[2022-10-14 22:16] LABS: Ferritin 74 ng/mL (15-150); Iron 19 ug/dL (37-145); Percent Saturation 7.2 % (20-50); Thyroid Stimulating Hormone 1.57 uIU/mL (0.27-4.20); Total Iron Binding Capacity 262 mcg/dl; Unsaturated Iron Binding 243 ug/dL (112-347)
[2022-10-14 22:39] LABS: Procalcitonin 0.07 ng/mL (0-0.5)
--- NOTE | 2022-10-14 22:57 | XRR_ITS ---
PROCEDURE INFORMATION: Exam: XR Chest Exam date and time: 10/15/2022 12:19 AM Age: 56 years old Clinical indication: Prior surgery; Surgery type: Chest port; Patient HX: Critical anemia. History of uterine cancer. ; Additional info: Baseline TECHNIQUE: Imaging protocol: Radiologic exam of the chest. Views: 1 view. COMPARISON: CR XR chest 1V portable [id number] 06/29/2021 9:01 AM FINDINGS: Tubes, catheters and devices: MediPort catheter is placed via the right internal jugular vein with its tip at the level of the superior vena cava. EKG leads overlie the chest. Lungs: Unremarkable. No consolidation. Pleural spaces: Unremarkable. No pleural effusion. No pneumothorax. Heart/Mediastinum: Unremarkable. No cardiomegaly. Bones/joints: An intramedullary mateo is seen in the proximal left humerus. XR/XR chest 1V portable [id number] IMPRESSION: There are no acute chest findings.
[2022-10-14 23:20] LABS: Reflex Lactate Order REFLEX LACTIC ORDERD
[2022-10-14] MEDS: ondansetron 2 mg/ML SDV 2 mL 4 MG IVP (23:27)
[2022-10-14] MEDS: pantoprazole 40 mg SDV IVP (23:27)
[2022-10-15] VITALS (25 sets, daily range): BP systolic 95–133; BP diastolic 7–89; PULSE 76–100; RESP 16–24; TEMP 36.1–37; O2SAT 92–100
[2022-10-15] MEDS: sodium chloride 0.9% (100 ml) 100 ML 150 ML ×2 (00:23→03:01)
[2022-10-15] MEDS: sodium chloride 0.9% 1,000 ML 125 ML IV ×2 (03:01→23:21)
[2022-10-15 05:19] LABS: Basophils % 0.3 %; Hemoglobin 9.1 g/dL (11.5-15.3); Lymphocytes # 1.4 10^3/uL (0.8-4.8); Lymphocytes % 11.4 %; Mean Corpuscular Hemoglobin 26.9 pg (28.0-34.0); Mean Corpuscular Volume 85.2 fl (81-99); Mean Platelet Volume 9.5 fL (7.4-10.4); Monocytes # 0.5 10^3/uL (0.2-0.9); Monocytes % 4.3 %; Neutrophils # 10.08 10^3/uL (1.8-7.7); Neutrophils % 82.4 %; Nucleated Red Blood Cells # 0.1 /100WBC; Nucleated Red Blood Cells % 0.7 %; Platelet Count 235 10^3/cmm (130-400); Red Blood Count 3.38 10^6/uL (4.1-5.3); Red Cell Distribution Width 15.8 % (12.1-15.1); White Blood Count 12.2 10^3/uL (4.0-10.0)
[2022-10-15 05:30] LABS: Hematocrit 28.8 % (37.0-47.0); Mean Corpuscular HGB Conc 31.6 g/dL (30.0-36.0)
--- NOTE | 2022-10-15 05:37 | P.CONIM_ITS ---
Providers/Reason For Consult Consulting Physician/Specialty*: Urology/Wallis Reason for Consult*: Hematuria/Pelvic Mass Requesting Physician: Dr. Burnham/Dr. Mandujano Attending Physician: Nehal Burnham MD Primary Care Provider: Elisa Scott History of Present Illness History of Present Illness Basilia Pedraza is a 56 year old female with a history of uterine cancer diagnosed in mid 2020 with extensive lymphadenopathy with most distant location being cervical chain. Treatment included both neoadjuvant chemo, robotic lymphadectomy/hysterectomy (), and additional post operative systemic therapy (chemo and immunotherapy). Surgical treatment and systemic therapy direction managed by [facility] oncology at . Dr. Wilburn provided local treatment. It looks like the impression was that on followup she had no evidence of persistent disease as recently as June 2022 per report from . Patient does think that she had an additional CT scan post treatment although I do not think we have a record of that. In September she mentioned small amount of hematuria at followup. Presented to ED yesterday with significant hematuria complaints, weakness, paleness, and pelvic fullness. Hg was 5+ CT showed an 8 cm pelvic mass involving mostly posterior aspect of bladder likely invasive into bladder. Probably clot as well. No ureteral obstruction from this mass. Received transfusion with Hg up to 9.1 from 5. She is feeling pretty lousy. Complains of weakness, nausea and vomiting. I reviewed all the above with the patient. We will pursue CT scan done at sometime last year after her surgery to compare with the current study. Reviewed the urologic component of her evaluation mainly focusing upon hematuria. This does not appear to be a primary bladder tumor but rather local invasion of the bladder from recurrent uterine cancer being the most likely. The bigger picture obviously will involve oncology and [facility] oncology for next steps. Recommended that we focus on managing hematuria first with large bore catheter with manual irrigation to clear clots because it does sound as though she is having difficulty emptying her bladder. We will also initiate CBI and then re assess to decide whether there is a requirement to try to slow the bleeding with fulguration. I think she does need a cystoscopy either way to evaluate the anatomy. Did review with her that if this is a local recurrence with bladder invasion that endoscopic treatment via cystoscopy will not be effective for anything other than potentially being able to control the bleeding. She expressed understanding. On follow-up later today the attempts at manual irrigation of the bladder were unsuccessful to clear much in the way of clots and the catheter was not functioning well with CBI not really providing any therapeutic benefit. For that reason it was recommended that we go to the operating room and do cystoscopy under anesthesia, clot evacuation, transurethral resection/fulguration of bleeding mass. It is expected that this mass is extrinsic and related to her uterine cancer. If it is a primary bladder cancer it is extending through the wall which would be unusual. Based on that expectation though it is unlikely that the mass will be resected completely but may need to be significantly fulgurated to control bleeding. All of this was discussed with the patient at length Review of Systems Const: Denies: fever(s), fatigue or malaise Eyes: Denies: change in vision or yellow eyes ENMT: Denies: hoarseness Card: Denies: chest pain Resp: Denies: dyspnea or wheezing GI: Reports: abdominal pain, nausea and vomiting : Denies: flank pain or genital lesions Musc: Denies: joint redness Skin/Breast: Denies: rash Neuro: Denies: confusion Psych: Denies: anxiety Endo: Denies: flushing Viral/Lymph: Denies: easy bruising All/Imm: Denies: urticaria or acute wheezing Medications/Allergies Home Medications Medication Instructions Recorded Confirmed Last Taken Type multivitamin with minerals 1 cap PO DAILY 05/29/21 10/15/22 06/28/21 History vitamin B complex 1 tab PO DAILY 05/29/21 10/15/22 06/28/21 History cholecalciferol (vitamin D3) 25 25 mcg PO DAILY 06/22/21 10/15/22 06/28/21 History mcg (1,000 unit) capsule Allergies Allergy/AdvReac Type Severity Reaction Status Date / Time adhesive Allergy Unknown Unknown Verified 10/15/22 08:35 Current Medications Generic Name Dose Route Start Last Admin Trade Name Freq PRN Reason Stop Dose Admin Sodium Chloride 1,000 mls @ 125 mls/hr 10/14/22 21:15 10/15/22 03:01 Sodium Chloride 0.9% IV 125 mls/hr .Q8H ALECIA Administration Ondansetron HCl 4 mg 10/14/22 21:10 10/14/22 23:27 Ondansetron 2 Mg/Ml Sdv 2 Ml IVP 4 mg Q8H PRN Administration vomiting, or N/V if npo Pantoprazole Sodium 40 mg 10/14/22 21:15 10/14/22 23:27 Pantoprazole 40 Mg Sdv IVP 40 mg Q24H ALECIA Administration PFSH Acute PFSH: Medical History Diabetes mellitus type 2--diagnosed in November 2020 with a hemoglobin A1c of 10. She states she was on Metformin and her hemoglobin A1c improved to 4 and she was taken off of Metformin in April 2021. History of TIA (transient ischemic attack) November 2020--some minor memory difficulty--is just on aspirin Hypercholesteremia Diagnosed in November 2020 at time of TIA--has been on Lipitor since then managed by her primary care provider No pertinent past medical history Denies asthma, hypertension, seizures, DVT/PE. PMD: Uterine cancer Surgical History H/O: knee surgery Arthroscopic left knee surgery History of surgery on arm broken arm-left arm and her 40s History of surgical removal of ganglion cyst Left wrist S/P dilation and curettage 06/09/2021--D&C done for acute abnormal uterine bleeding for thickened endometrium by Dr. Mayes at [facility] [place]. ------> pathology pending Family History Mother Breast cancer Cervical cancer Cancer lymphnode, lung, brain Diabetes Hypertension Stroke Sister Diabetes Hypertension Sister Hypertension Denies family history of CAD (coronary artery disease) Clotting disorder Dementia Hyperlipidemia Chronic kidney disease (CKD) Anesthesia complication Bleeding disorder Lung disease Social History Smoking and tobacco status: never smoked Alcohol intake: never Female Reproductive History: Date of last menstrual period: 01/01/21 Vitals/I&O/Wt Last Vital Signs Temp 97.7 F 10/15/22 02:43 Pulse 85 10/15/22 02:43 Resp 20 H 10/15/22 02:43 BP 122/83 10/15/22 02:43 Pulse Ox 100 10/15/22 02:40 O2 Del Method 10/15/22 00:51 10/14/22 10/14/22 10/15/22 14:59 22:59 06:59 Intake Total 0 / 0 700 / 700 Balance 0 / 0 700 / 700 Weight last 48 hrs Weight 130 lb Physical Exam Narrative: General alert and oriented, appears very uncomfortable and weak HEENT atraumatic normocephalic Neck good range of motion Respirations: Good air movement. No audible wheezes Cardiovascular regular rate rhythm GI: Abdomen soft some fullness in the suprapubic area Extremities: Good range of motion, no severe edema. Neurologic No focal neurologic symptom Hematologic No abnormal bruising or bleeding, does have hematuria from known bladder Lymphatic no palpable groin lymph nodes Psychiatric: Anxiety related to her medical illness Skin: No breakdown exam: Some urogenital atrophy. Urethral meatus is normal. Mild anterior pelvic floor relaxation. The bladder is palpable with a distinct nodularity near the apex of the vaginal cuff attached to the bladder. It is mobile. Not fixed to the pelvis. Consistent with the findings on the CT scan that showed a pelvic mass extending into the posterior bladder wall in the midline. Data 10/15/22 04:54 10/14/22 19:02 A&P Assessment and plan (1) Gross hematuria: Likely from locally invasive recurrent uterine cancer Will focus on initial treatment with clot evacuation, CBI and cystoscopy. (2) Pelvic mass: Most likely secondary to recurrence of uterine cancer with secondary bladder invasion leading to gross hematuria (3) Uterine cancer: Coding Level of Care Code Acute Appeals Coordinator for g Fwd Diagnoses Gross hematuria R31.0 Pelvic mass R19.00 Uterine cancer C55
[2022-10-15 05:38] LABS: Lactic Acid level (Lactate) 2.3 mmol/L (0.5-2.2)
[2022-10-15 05:39] LABS: Alanine Aminotransferase 8 U/L (0-33); Albumin Level 3.7 g/dL (3.5-5.2); Alkaline Phosphatase 81 U/L (35-105); Anion Gap 14.9 (5-19); Aspartate Amino Transferase 12 U/L (0-32); Blood Urea Nitrogen 15 mg/dL (6-20); Calcium 8.8 mg/dL (8.5-10.5); Carbon Dioxide 23 mmol/L (22-29); Chloride 103 mmol/L (98-107); Globulin 2.9 g/dL (1.3-4.6); Glomerular Filtration Rate 127.6 mL/min (90-130); Glucose 145 mg/dL (65-115); Magnesium 1.9 mg/dL (1.7-2.3); Osmolality Calculated 287 mOsm/kg (285-295); Potassium 3.9 mmol/L (3.5-5.1); Sodium 137 mmol/L (136-145); Total Bilirubin 2.7 mg/dL (0.15-1.2); Total Protein 6.6 g/dL (6.6-8.7)
--- NOTE | 2022-10-15 06:30 | PC.NURSE ---
pt voided 14 times since arriving on this floor, most amount voided at one time is 30 ml, other times were 20 or 10 or smears, urine consistency was blood, thin and as night progress small jelly type clots. pt feels constant urge to void. received 2 units of blood this shift and hgb up to 9.1
[2022-10-15] MEDS: ondansetron 2 mg/ML SDV 2 mL 4 MG IVP ×3 (06:44→18:10)
[2022-10-15 08:37] LABS: Estmated Average Glucose 68
--- NOTE | 2022-10-15 09:50 | P.PN_ITS ---
Subjective Subjective: Patient is not in acute distress CBI running at the bedside, her urine color has improved to light pink Hemoglobin stable Hemodynamically stable Patient has been kept n.p.o. for possible cystoscopy today by Dr. Wallis Patient is stating that she lives with her 2 friends who help her for daily a ctivities, her family is not in [place], Vitals/I&O/Wt Last Vital Signs Temp 98.0 F 10/15/22 07:53 Pulse 90 10/15/22 07:53 Resp 16 10/15/22 07:53 BP 133/89 10/15/22 07:53 Pulse Ox 98 10/15/22 07:53 O2 Del Method 10/15/22 07:53 10/14/22 10/15/22 10/15/22 22:59 06:59 14:59 Intake Total 0 / 0 760 / 760 Output Total 30 / 30 Balance -30 / -30 760 / 730 Weight last 48 hrs Weight 58.967 kg Physical Exam Narrative: Patient is laying supine Clinically looks dehydrated CBI at the bedside Urine color is light pink Abdomen soft Awake and alert S1, S2 Currently on room air Nonfocal neuro exam Urinary Catheter Management: 3-way Urethral CBI: Cath Placed During This Visit: yes Urinary Catheter Date of Insertion: 10/15/22 Urinary Catheter Time of Insertion: 08:15 Data 10/15/22 04:54 10/15/22 04:54 A&P Assessment and plan (1) Uterine cancer: (2) Malignant neoplasm of endometrium: (3) Anemia: (4) Mass of bladder: (5) Pelvic mass: (6) Gross hematuria: Plan Gross hematuria Bladder mass Hematuria likely related to uterine cancer recurrence invading bladder wall Currently on CBI Urine color has improved Status post blood transfusion hemoglobin is stable Hemodynamically stable She is n.p.o. for possible cystoscopy today by Dr. Wallis She is full code DVT prophylaxis SCDs Lives with her friends at home, family is not in [place].. Patient still has to see Dr. Wilburn Attestations Medical Necessity Statement*: Continue medical management Time Spent in Patient Care: 40 Coding Level of Care Code Acute Swimming Pool Maintenance for Chg Fwd Diagnoses Uterine cancer C55 Malignant neoplasm of endometrium C54.1 Anemia D64.9 Mass of bladder N32.89 Pelvic mass R19.00 Gross hematuria R31.0
--- NOTE | 2022-10-15 11:15 | PC.CHAP ---
Pastoral Care Encounter/Spiritual Assessment Type of Contact [] Declined precision lathe operator visit [] Patient/Family/Request visit [] Outpatient visit [] Follow-up visit [] Physician referral [] Code/Alert [x] Routine visit [] Staff referral [] Actively dying [] Patient sleeping [] Family support [] [] Out of room [] Palliative care [] [] Receiving care in room [] Pre-surgical visit [] Trauma [] Long length of stay [] ICU visit [] Other: Relational/Emotional Strength [x] Patient feels connected with others/family/visitors/staff [] Distress [] Loneliness/isolation [] Abandonment Spirituality of Patient [x] Person of Cynthia [] Attends Sikh of their Cynthia [x] Believes in Prayer [] Reads Bible or Shinto materials [] There are Spiritual issues to be addressed Glass Lined Tank Repairer Interventions [x] Prayer [] Active listening [] Non-anxious presence [] Spiritual/emotional support [] Crisis/trauma care [] Spiritual counseling [] Bereavement support [] Provided bereavement packet [] Provided Bible/devotional materials [] Provided toy/stuffed animal, coloring book to patient or family member [] Provided Communion [] Anointing/[place] [] Salvation [] Completed spiritual assessment [] Other: Impact on Illness or Injury [] Angry [] Fearful [] Anxious [] Often cries [] Exhaustion [] Unable to work [] Unable to attend presybeterian [] Unable to walk/stand [] Unable to read [] Unable to drive [] Unable to eat/drink [] Unable to sleep [] Unable to be with family [] Patient intubated [] Other: Summary Time spent with patient 5 min
--- NOTE | 2022-10-15 16:30 | P.OP_ITS ---
Operative Report Date of procedure: October 15, 2022 Pre-op diagnosis: Clot retention Perivesical pelvic mass with invasion, history uterine cancer Post-op diagnosis: Clot retention Perivesical pelvic mass with invasion, history uterine cancer Procedure done: 1. Cystoscopy clot evacuation, difficult 2. Transurethral resection of bladder tumor large Implants: 24 [place] three-way Couvelaire hematuria catheter Specimens removed/disposition: Bladder tumor chips Pathology: Bladder tumor chips Surgeon: Kadi Estimated blood loss: Less than 50 cc Urine output: Not measured Findings: Anesthesia: General Condition: Stable Disposition: PACU Intraoperative findings: * Her bladder was absolutely full of organized clot. Very tedious and difficult to clear. It took almost an hour to break the clot up enough to get it cleared from the bladder. * Large posterior floor invasive vascular tumor consistent with findings on CT scan. Most likely diagnosis is invasive extrinsic pelvic tumor recurrence of uterine cancer, but could not rule out a high-grade TCCA with obvious invasion and extension into the extravesical space * Partial resection mostly to get good sampling but also to resect the very vascular mucosal surface that was bleeding almost diffusely on the tumor. * At the completion of the procedure there was no active bleeding and the surface of the tumor was hemostatic having removed all the irregular tumor vessels and fulgurated the base Brief History: Basilia is a very pleasant 56-year-old white female who I evaluated for the first time today at the request of the hospitalist service for hematuria and clot retention. She has a very complex history of uterine cancer with widespread metastatic lymph nodes at diagnosis in mid 2020. She underwent combination therapy of neoadjuvant chemotherapy, laparoscopic hysterectomy and lymph node dissection, adjuvant chemotherapy and immunotherapy. Her surgery was in October 2021. She apparently did have some imaging studies sometime postop that were felt to represent no evidence of recurrent disease Recently she was seen with complaints of some fatigue and hematuria and since that time she had substantial increase in hematuria was found to be severely anemic and was admitted for evaluation of the above. CT scan showed a pelvic mass that appeared to be invading the posterior aspect of the bladder and surrounding tissues. Ureters were not involved and she had no evidence of upper urinary tract obstruction. There appeared to be a large amount of clot in the bladder and attempts at c learing the clot with aggressive irrigation were unsuccessful. Based on that it was decided to take her to the operating room for clot evacuation, examination under anesthesia with cystoscopy, possible biopsy/resection fulguration Procedure: After urgent evaluation examination and obtaining of informed consent she was taken to the operating suite on 10/15/2022 where general anesthesia was administered without difficulty after appropriate timeout was performed, SCDs confirmed to be functioning, preoperative antibiotics administered, beta-bon protocol confirmed. Prepped and draped in usual sterile fashion in dorsolithotomy position paying careful attention to avoiding pressure points. Examination under anesthesia revealed: Mild pelvic floor relaxation and a large palpable mass on the anteriorly on the posterior aspect of the bladder consistent with findings on CT scan. Did not appear to be invading into the vagina. 23 [place] cystoscope with 30 degree lens was introduced into urethra meatus and advanced into the bladder. The bladder was absolutely full of clot. It was organized and could not be easily manipulated with an Ellik evacuator. The scope sheath was then exchanged for a 25 [place] with a little bit more success in breaking up clot but not much. The 25 [place] continuous-flow resectoscope sheath was then utilized with the super loop manually not electrically breaking up clot with again some but not dramatic's success. A 24 [place] Couvelaire three-way hematuria catheter was then placed and with aggressive barbotage with a 60 cc cath tip syringe the clot was eventually completely broken up and cleared. Reexamination with resectoscope revealed a large nodular mass on the posterior aspect of the bladder approximately 1.5 cm cephalad to the trigone and extending most of the way toward the dome and up from the bladder wall approximately 2 cm. Surface was very friable with lots of tumor vessels that were actively bleeding. It was decided at this point to resect the entire surface of the tumor to get down to more hemostatic tissue if possible. Super loop with the gyrus bipolar system was utilized to resect the surface of the tumor down into the bulk of the tissue mass. This was significantly helpful in controlling active bleeding. The chips were evacuated. No attempt at complete resection of the tumor was made given the extrinsic component identified on the CT scan and consistent with the intraoperative cystoscopic findings. The main focus was to resect enough tissue to control bleeding. The button probe was then utilized for vaporization for further deeper destruction as well as the cautery setting for meticulous hemostasis. All the chips were evacuated for the bladder. Point fulguration/vaporization was utilized for final hemostatic control and at the completion of the procedure with the water turned off there was no active bleeding. The orifices were confirmed to be well away from the tumor and resection site and not involved. No chips remained in the bladder and the procedure was completed by draining the bladder with a 24 [place] three-way Couvelaire Juan catheter and light CBI was initiated. She was awakened in the operating room. She tolerated procedure well without complications. Returned to PACU in stable condition. PLANS: 1. Back to the floor for observation. Continue CBI but I expect that should be able to be tapered off relatively quickly 2. Focus needs to shift to oncology both locally and probable at . 3. Check final pathology report to confirm suspected recurrence of uterine cancer with extrinsic invasion through the bladder wall or atypical TCCA of the bladder.
--- NOTE | 2022-10-15 18:59 | ANE.PACU2 ---
Inpatient post-anesthesia follow up: Airway intact: Yes Vital signs: Temperature 98.5 F Pulse Rate 77 Respiratory Rate 17 Blood Pressure 125/79 Pulse Oximetry 100 Oxygen Delivery Me thod Nasal Cannula Oxygen Flow Rate 6 Fraction of Inspir ed Oxygen Hydration adequate: Yes Nausea and vomiting: No Pain level: 2 Mental status: Baseline
[2022-10-15] MEDS: pantoprazole 40 mg SDV IVP (21:08)
[2022-10-16] VITALS (20 sets, daily range): BP systolic 116–146; BP diastolic 71–88; PULSE 63–93; RESP 16–18; TEMP 36.4–37.1; O2SAT 90–98
[2022-10-16 00:01] LABS: Glucose Point of Care 130 mg/dL (70-110)
[2022-10-16] MEDS: metoclopramide 5 mg/mL SDV 2 mL 10 MG IVP (00:33)
--- NOTE | 2022-10-16 04:36 | PC.NURSE ---
Patient has maintained clear output with CBI throughout the shift. The patient denies any pain or discomfort. At 0400 CBI was shut off. The urine output has been appropriate. The only complaints the patient has had is nausea and vomiting. A one time order for Reglan 10 mg IVP. This has worked well for the patient and she has been able to rest well and get some sleep. Will monitor output for any signs of bleeding and restart CBI if needed.
[2022-10-16 06:19] LABS: Basophils % 0.3 %; Mean Corpuscular Hemoglobin 26.3 pg (28.0-34.0); Mean Corpuscular Volume 87.7 fl (81-99); Mean Platelet Volume 9.4 fL (7.4-10.4); Monocytes # 0.5 10^3/uL (0.2-0.9); Monocytes % 5.2 %; Neutrophils # 8.41 10^3/uL (1.8-7.7); Neutrophils % 83.9 %; Nucleated Red Blood Cells % 0.4 %; Platelet Count 185 10^3/cmm (130-400); Red Blood Count 2.36 10^6/uL (4.1-5.3); Red Cell Distribution Width 18.1 % (12.1-15.1)
[2022-10-16 06:39] LABS: Anion Gap 12.3 (5-19); Blood Urea Nitrogen 12 mg/dL (6-20); C Reactive Protein 11.5 mg/L (0.0-4.9); Calcium 8.3 mg/dL (8.5-10.5); Carbon Dioxide 22 mmol/L (22-29); Chloride 109 mmol/L (98-107); Glomerular Filtration Rate 103.4 mL/min (90-130); Glucose 111 mg/dL (65-115); Magnesium 1.7 mg/dL (1.7-2.3); Osmolality Calculated 290 mOsm/kg (285-295); Potassium 3.3 mmol/L (3.5-5.1); Sodium 140 mmol/L (136-145)
[2022-10-16 07:04] LABS: Hemoglobin 6.2 g/dL (11.5-15.3)
[2022-10-16 07:05] LABS: Hematocrit 20.7 % (37.0-47.0)
[2022-10-16] MEDS: sennosides-docusate Tablet 1 TAB PO (08:01)
[2022-10-16] MEDS: sodium chloride 0.9% 1,000 ML 125 ML IV (08:02)
[2022-10-16] MEDS: ipratropium-albuterol 3 mL Neb INHALATION (08:18)
[2022-10-16] MEDS: ondansetron 2 mg/ML SDV 2 mL 4 MG IVP (10:55)
--- NOTE | 2022-10-16 11:29 | P.PN_ITS ---
Subjective Subjective: This morning patient has received treatment PRBC for hemoglobin of 6.2 however hemodynamically she is stable no tachycardia hematuria has improved significantly Plan to discharge her tomorrow if she is clinically stable Patient has not eaten very well since yesterday No BM yet Vitals/I&O/Wt Last Vital Signs Temp 98.2 F 10/16/22 10:28 Pulse 81 10/16/22 10:28 Resp 18 10/16/22 10:28 BP 131/87 10/16/22 10:28 Pulse Ox 95 10/16/22 10:28 O2 Del Method 10/16/22 08:23 O2 Flow Rate 6 10/15/22 16:15 10/15/22 10/16/22 10/16/22 22:59 06:59 14:59 Intake Total 120 / 1120 30 / 1150 1000 / 1000 Output Total 75 / 75 Balance 45 / 1045 30 / 1075 1000 / 1000 Weight last 48 hrs Weight 58.967 kg Physical Exam Narrative: Awake and alert No signs of distress Hemodynamically stable Doing well on room air Abdomen soft Baca cath draining dilute urine Hematuria improved Awake and alert nonfocal neuro exam Friend at the bedside EOMI, DIPIKARROSA GCS 15 Urinary Catheter Management: 3-way Urethral CBI: Cath Placed During This Visit: yes, but has since been removed by the nurse Reason for Continuing Indwelling Catheter: Other Urinary Catheter Date of Insertion: 10/15/22 Urinary Catheter Time of Insertion: 15:55 Date Urinary Catheter Removed: 10/15/22 Time Urinary Catheter Discontinued: 14:45 Data 10/16/22 06:05 10/16/22 06:05 A&P Assessment and plan (1) Uterine cancer: (2) Malignant neoplasm of endometrium: (3) Anemia: (4) Mass of bladder: (5) Gross hematuria: (6) Pelvic mass: Plan Acute hematuria related blood loss anemia She will get 2 more units which will make total of 4 units PRBC Plan to discharge her tomorrow outpatient follow-up with Dr. Wilburn Clinically she is doing well Advance diet DVT prophylaxis: SCDs Plan to discharge her tomorrow Discontinue IV fluids Baca catheter will remain in place Hypokalemia: Repleted PT evaluation tomorrow I have asked PT to see her tomorrow because she is due for 2 units PRBC today Attestations Medical Necessity Statement*: Discharge tomorrow Time Spent in Patient Care: 40 Coding Level of Care Code Acute Weaving Machine Operator for Chg Fwd Diagnoses Uterine cancer C55 Malignant neoplasm of endometrium C54.1 Anemia D64.9 Mass of bladder N32.89 Gross hematuria R31.0 Pelvic mass R19.00
--- NOTE | 2022-10-16 11:57 | P.PN_ITS ---
Subjective Subjective: Urology follow-up visit, postop day #1 clot evacuation and TURBT extensive Overall she is doing well. Feels much better. Decreased nausea. No abdominal pain or cramps. Catheter has worked well overnight with no recurrent bleeding. CBI has been gradually reduced to minimal flow. Catheter functioning and not requiring any irrigation. Hemoglobin has dropped substantially since her post initial transfusion but this appears to be a occurred before her surgery since she has not had any signifi cant bleeding postop. Given the amount of blood clot in her bladder that is a very logical conclusion. There is no evidence of any acute bleeding elsewhere. Abdomen is soft. She is feeling much better. We reviewed the findings and discussed steps forward primarily regarding bladder management. Plan will be to remove the catheter tomorrow if her urine stays clear. If the pathology shows that this is in fact uterine cancer recurrence will defer entirely to oncology. If it shows primary bladder (unlikely) we will discuss options for intervention including but not limited to bladder sparing procedures, cystectomy, etc. Vitals/I&O/Wt Last Vital Signs Temp 98.2 F 10/16/22 10:28 Pulse 81 10/16/22 10:28 Resp 18 10/16/22 10:28 BP 131/87 10/16/22 10:28 Pulse Ox 95 10/16/22 10:28 O2 Del Method 10/16/22 08:23 O2 Flow Rate 6 10/15/22 16:15 10/15/22 10/16/22 10/16/22 22:59 06:59 14:59 Intake Total 120 / 1120 30 / 1150 1000 / 1000 Output Total 75 / 75 Balance 45 / 1045 30 / 1075 1000 / 1000 Weight last 48 hrs Weight 130 lb Physical Exam Const: COMMON NORMALS: no acute distress, average body habitus and patient oriented x3 HENMT: COMMON NORMALS: hearing grossly normal bilaterally Eye: COMMON NORMALS: no scleral icterus Neck/C-Spine: OTHER: Good range of motion Chest: OTHER: Normal chest movements Resp: OTHER: No tachypnea. Unlabored, no wheezing GI: OTHER: Soft, nontender. No distention : OTHER: Bladder nondistended Extremity: NARRATIVE EXTREMITY EXAM: Good range of motion Neuro: COMMON NORMALS: patient oriented x3 Psych: OTHER: Depressed Urinary Catheter Management: 3-way Urethral CBI: Cath Placed During This Visit: yes, but has since been removed by the nurse Reason for Continuing Indwelling Catheter: Other Urinary Catheter Date of Insertion: 10/15/22 Urinary Catheter Time of Insertion: 15:55 Date Urinary Catheter Removed: 10/15/22 Time Urinary Catheter Discontinued: 14:45 Data 10/16/22 06:05 10/16/22 06:05 A&P Assessment and plan (1) Gross hematuria: Resolved after clot evacuation and partial resection of posterior bladder wall mass. Urine has remained clear since surgery. She had obviously more significant bleeding post prior transfusion and up until the time of surgery and that fits the picture of how much clot was in her bladder. There is no evidence of acute ongoing bleeding. (2) Pelvic mass: Most likely secondary to recurrence of uterine cancer with secondary bladder invasion leading to gross hematuria (3) Uterine cancer: Metastatic involvement at time of diagnosis Plan 1. Taper off CBI 2. Voiding trial tomorrow if continues to remain clear 3. Her next step oncologically determined by pathology report. Attestations Medical Necessity Statement*: See attending Coding Level of Care Code Acute Assistant Commissioner for Viktoria Hdez Diagnoses Gross hematuria R31.0 Pelvic mass R19.00 Uterine cancer C55
[2022-10-16] MEDS: potassium chloride ER 20 mEq Tablet 40 MEQ PO (16:03)
[2022-10-16 19:22] LABS: Hematocrit 34.9 % (37.0-47.0); Hemoglobin 10.2 g/dL (11.5-15.3)
[2022-10-17 04:00] VITALS: BP 131/80; PULSE 69; RESP 18; TEMP 36.8
[2022-10-17 04:02] LABS: Basophils # 0.1 10^3/uL (0.0-0.1); Basophils % 0.5 %; Eosinophils % 0.2 %; Hematocrit 33.1 % (37.0-47.0); Hemoglobin 10.3 g/dL (11.5-15.3); Lymphocytes # 1.4 10^3/uL (0.8-4.8); Lymphocytes % 14.4 %; Mean Corpuscular HGB Conc 31.1 g/dL (30.0-36.0); Mean Corpuscular Hemoglobin 27.5 pg (28.0-34.0); Mean Corpuscular Volume 88.5 fl (81-99); Mean Platelet Volume 9.5 fL (7.4-10.4); Monocytes # 0.6 10^3/uL (0.2-0.9); Monocytes % 5.6 %; Neutrophils # 7.67 10^3/uL (1.8-7.7); Neutrophils % 78.7 %; Nucleated Red Blood Cells # 0.1 /100WBC; Nucleated Red Blood Cells % 0.5 %; Platelet Count 171 10^3/cmm (130-400); Red Blood Count 3.74 10^6/uL (4.1-5.3); Red Cell Distribution Width 17.3 % (12.1-15.1); White Blood Count 9.8 10^3/uL (4.0-10.0)
[2022-10-17 04:16] LABS: Anion Gap 12.5 (5-19); Blood Urea Nitrogen 9 mg/dL (6-20); Calcium 8.4 mg/dL (8.5-10.5); Carbon Dioxide 24 mmol/L (22-29); Chloride 102 mmol/L (98-107); Glomerular Filtration Rate 127.6 mL/min (90-130); Glucose 98 mg/dL (65-115); Osmolality Calculated 279 mOsm/kg (285-295); Potassium 3.5 mmol/L (3.5-5.1); Sodium 135 mmol/L (136-145)
[2022-10-17 08:00] VITALS: BP 138/89; PULSE 64; RESP 16; TEMP 36.8; O2SAT 97
[2022-10-17] MEDS: sennosides-docusate Tablet 1 TAB PO (08:12)
--- NOTE | 2022-10-17 11:20 | PM.DCS ---
Discharge Providers Date of Admission: 10/14/22 20:51 Date of Discharge: October 17, 2022 Attending Provider at Admission: Nehal Burnham MD Attending Provider at Discharge: Melly Peñaloza MD Primary Care Provider: Elisa Scott Diagnoses at Discharge Discharge Diagnosis (1) Gross hematuria: Status: Acute (2) Pelvic mass: Status: Acute (3) Uterine cancer: Status: Acute Reason for Visit Reason for Visit: BLOODY URINE Hospital Course Hospital Course Basilia Pedraza is a 56 year old female with past medical history of uterine cancer status post hysterectomy, TIA, hypercholesterolemia, diabetes mellitus presented to the hospital today with hematuria that has been worsening since the last month. Patient was given 4 units in total for her severe anemia. He did not show any signs of dilutional thrombocytopenia. She remained hemodynamically stable. Source of bleeding was hematuria. Dr. Wallis was consulted for hematuria and cystoscopy. With CBI General: Improved to clear, Baca catheter removed at the time of discharge. For cystoscopy see Dr. Wallis's note for further details. Her bladder wall mass seems to be related to invasive uterine cancer. She will see Dr. Wilburn on Wednesday 10/18. Patient lives with her 2 friends, does not want to go to any rehab. Physical therapy requested before discharge. Patient is hemodynamically stable doing well on room air. Hemoglobin at the time of discharge 10.3. Physical Exam Narrative: Awake and alert No signs of distress Hemodynamically stable Doing well on room air Abdomen soft Baca cath draining dilute urine Hematuria improved Awake and alert nonfocal neuro exam Friend at the bedside EOMI, PERRLA GCS 15 Urinary Catheter Management: 3-way Urethral CBI: Cath Placed During This Visit: yes, but has since been removed by the nurse Reason for Continuing Indwelling Catheter: Other Urinary Catheter Date of Insertion: 10/15/22 Urinary Catheter Time of Insertion: 15:55 Date Urinary Catheter Removed: 10/15/22 Time Urinary Catheter Discontinued: 14:45 Discharge Data Studies Completed and Pending Completed Studies During Hospitalization Category Date Time Status CT abdomen pelvis w con* [id number] Stat Cat Scan 10/14/22 18:58 Completed XR chest 1V portable [id number] Urgent Exams 10/14/22 22:57 Completed Pending at discharge Category Date Time Status Pathology: Surgical [PTH] Routine Pth 10/15/22 15:57 Ordered Radiology Impressions Abdomen/Pelvis CT 10/14/22 18:58 IMPRESSION: 1. Hyperdense masslike area seen in the region of the urinary bladder base and urethra appears to reflect a large soft tissue mass measuring up to at least 8.7 x 8.8 cm, likely reflecting a malignant process. Small amount of air is seen in the urinary bladder, likely iatrogenic. 2. Diverticulosis without diverticulitis. 3. Hepatic steatosis. 4. Constipation. 5. Scattered periaortic enlarged lymph nodes measuring up to 15 mm, likely reflecting metastatic disease. Chest X-Ray 10/14/22 22:57 IMPRESSION: There are no acute chest findings. Laboratory Results WBC 9.8 10^3/uL (4.0-10.0) 10/17/22 03:35 RBC 3.74 10^6/uL (4.1-5.3) L 10/17/22 03:35 Hgb 10.3 g/dL (11.5-15.3) L 10/17/22 03:35 Hct 33.1 % (37.0-47.0) L 10/17/22 03:35 MCV 88.5 fl (81-99) 10/17/22 03:35 MCH 27.5 pg (28.0-34.0) L 10/17/22 03:35 MCHC 31.1 g/dL (30.0-36.0) 10/17/22 03:35 RDW 17.3 % (12.1-15.1) H 10/17/22 03:35 Plt Count 171 10^3/cmm (130-400) 10/17/22 03:35 MPV 9.5 fL (7.4-10.4) 10/17/22 03:35 Neut % (Auto) 78.7 % 10/17/22 03:35 Lymph % (Auto) 14.4 % 10/17/22 03:35 [place] % (Auto) 5.6 % 10/17/22 03:35 Eos % (Auto) 0.2 % 10/17/22 03:35 Baso % (Auto) 0.5 % 10/17/22 03:35 Neut # (Auto) 7.67 10^3/uL (1.8-7.7) 10/17/22 03:35 Lymph # (Auto) 1.4 10^3/uL (0.8-4.8) 10/17/22 03:35 [place] # (Auto) 0.6 10^3/uL (0.2-0.9) 10/17/22 03:35 Eos # (Auto) 0.0 10^3/uL (0.0-0.8) 10/17/22 03:35 Baso # (Auto) 0.1 10^3/uL (0.0-0.1) 10/17/22 03:35 Nucleated RBC % (auto) 0.5 % 10/17/22 03:35 Nucleated RBCs # 0.1 /100WBC 10/17/22 03:35 PT 15.20 SECONDS (12.1-14.9) H 10/14/22 19:02 INR 1.17 (0.8-1.2) 10/14/22 19:02 Sodium 135 mmol/L (136-145) L 10/17/22 03:35 Potassium 3.5 mmol/L (3.5-5.1) 10/17/22 03:35 Chloride 102 mmol/L (98-107) 10/17/22 03:35 Carbon Dioxide 24 mmol/L (22-29) 10/17/22 03:35 Anion Gap 12.5 (5-19) 10/17/22 03:35 BUN 9 mg/dL (6-20) 10/17/22 03:35 Creatinine 0.5 mg/dL (0.5-0.9) 10/17/22 03:35 GFR Calculation 127.6 mL/min (90-130) 10/17/22 03:35 Glucose 98 mg/dL (65-115) 10/17/22 03:35 POC Glucose 130 mg/dL (70-110) H 10/15/22 23:28 Estimat Average Glucose 68 10/14/22 19:02 Hemoglobin A1c 4.0 % (4.0-6.0) 10/14/22 19:02 Calculated Osmolality 279 mOsm/kg (285-295) L 10/17/22 03:35 Lactic Acid 2.7 mmol/L (0.5-2.2) H 10/14/22 21:30 Lactic Acid (Sepsis) 2.3 mmol/L (0.5-2.2) H 10/15/22 04:54 Calcium 8.4 mg/dL (8.5-10.5) L 10/17/22 03:35 Magnesium 1.7 mg/dL (1.7-2.3) 10/16/22 06:05 Iron 19 ug/dL (37-145) L 10/14/22 21:30 TIBC 262 mcg/dl 10/14/22 21:30 % Saturation 7.2 % (20-50) L 10/14/22 21:30 Unsat Iron Binding 243 ug/dL (112-347) 10/14/22 21:30 Ferritin 74 ng/mL (15-150) 10/14/22 21:30 Total Bilirubin 2.7 mg/dL (0.15-1.2) H 10/15/22 04:54 AST 12 U/L (0-32) 10/15/22 04:54 ALT 8 U/L (0-33) 10/15/22 04:54 Alkaline Phosphatase 81 U/L (35-105) 10/15/22 04:54 C-Reactive Protein 11.5 mg/L (0.0-4.9) H 10/16/22 06:05 Total Protein 6.6 g/dL (6.6-8.7) 10/15/22 04:54 Albumin 3.7 g/dL (3.5-5.2) 10/15/22 04:54 Globulin 2.9 g/dL (1.3-4.6) 10/15/22 04:54 Procalcitonin 0.07 ng/mL (0-0.5) 10/14/22 21:30 TSH 1.57 uIU/mL (0.27-4.20) 10/14/22 21:30 Urine Color Red (Yellow) 10/14/22 19:12 Urine Appearance Bloody (CLEAR) A 10/14/22 19:12 Urine pH 6.5 (5-7) 10/14/22 19:12 Ur Specific [place] 1.020 (1.005-1.030) 10/14/22 19:12 Urine Protein 2+ (Negative) H 10/14/22 19:12 Urine Glucose (UA) Norm (Normal) 10/14/22 19:12 Urine Ketones Negative (Negative) 10/14/22 19:12 Urine Blood 3+ (Negative) H 10/14/22 19:12 Urine Nitrate Negative (Negative) 10/14/22 19:12 Urine Bilirubin Neg (Negative) 10/14/22 19:12 Urine Urobilinogen Norm mg/dL (Negative) 10/14/22 19:12 Ur Leukocyte Esterase Negative (Negative) 10/14/22 19:12 Urine RBC Too numerous to cnt /hpf (0-2) H 10/14/22 19:12 Urine WBC None /hpf (0-5) 10/14/22 19:12 Ur Squamous Epith Cells None /hpf (0-5) 10/14/22 19:12 Amorphous Sediment Not Reportable 10/14/22 19:12 Urine Bacteria None /hpf (NONE) 10/14/22 19:12 Blood Type A Positive 10/14/22 19:02 Rho(D) Type Positive 10/14/22 19:02 Antibody Screen Negative 10/14/22 19:02 Crossmatch See Detail 10/14/22 19:02 Vitals Last Vital Signs Temp 98.2 F 10/17/22 08:00 Pulse 64 10/17/22 08:00 Resp 16 10/17/22 08:00 BP 138/89 10/17/22 08:00 Pulse Ox 97 10/17/22 08:00 O2 Del Method 10/17/22 08:00 O2 Flow Rate 6 10/15/22 16:15 Discharge Plan Discharge Patient Disposition: Home Condition: Stable Prescriptions: New oxycodone-acetaminophen 5-325 mg tablet 1 tab PO Q8H PRN (Reason: pain) Qty: 10 0RF sennosides-docusate sodium [Stool Softener-Laxative] 8.6-50 mg Tablet 1 tab PO DAILY Qty: 12 0RF Continued vitamin B complex Tablet 1 tab PO DAILY multivitamin with minerals Capsule 1 cap PO DAILY cholecalciferol (vitamin D3) 25 mcg (1,000 unit) capsule 25 mcg PO DAILY Discharge Orders: Discharge Order (Routine); Ordered 10/17/22 Ordered By: Melly Peñaloza Referrals: Elisa Scott [Primary Care Provider] - 2 weeks Jearrdo Wilburn MD [Staff Physician] - (Has appointment on 10/18) Patient Instructions: Opioid Safety Discharge Attestations Time Spent in Discharge Care*: less than 30 min Quality Metrics Clinical Quality Measures [ No reported AMI, CVA or VTE this stay] Coding Level of Care Code Acute Chg FW DC note Diagnoses Gross hematuria R31.0 Pelvic mass R19.00 Uterine cancer C55
[2022-10-17 11:51] LABS: Ferritin 102 ng/mL (15-150); Iron 33 ug/dL (37-145); Total Iron Binding Capacity 235 mcg/dl; Unsaturated Iron Binding 202 ug/dL (112-347)
[2022-10-17 11:56] VITALS: BP 138/89; PULSE 64; RESP 16; TEMP 36.8; O2SAT 97
[2022-10-17 12:00] VITALS: BP 129/82; PULSE 77; RESP 16; TEMP 36.9; O2SAT 98
[2022-10-17 12:07] LABS: Vitamin B12 641 pg/mL (232-1245)
[2022-10-22 14:11] LABS: Mismatch Repari Proteins-IHC See Report
== END 2022-10-17 12:22 | disposition home or self-care (01) | DRG 988 ==
LOC: ER 20:38 → MEDSURG 20:52
PROVIDERS: Physician Assistant; Urology; Admitting Provider Internal Medicine; Emergency Provider Emergency Medicine; PCP Registered Nurse; Visit Provider Internal Medicine
PROC: 0TJB8ZZ Inspection of Bladder, Via Natural or Artificial Opening Endoscopic (ICD-10-PCS; CPT 52000; principal; 2022-10-15 14:15)
PROC: 0T5B8ZZ Destruction of Bladder, Via Natural or Artificial Opening Endoscopic (ICD-10-PCS; 2022-10-15 14:15)
PROC: 0TBB8ZZ Excision of Bladder, Via Natural or Artificial Opening Endoscopic (ICD-10-PCS; 2022-10-15 14:15)
DX: D64.9 Anemia, unspecified (principal); C77.8 Secondary and unspecified malignant neoplasm of lymph nodes of multiple regions; N32.9 Bladder disorder, unspecified; C54.1 Malignant neoplasm of endometrium; R31.0 Gross hematuria; Z86.73 Personal history of transient ischemic attack (TIA), and cerebral infarction without residual deficits; E78.00 Pure hypercholesterolemia, unspecified; E11.9 Type 2 diabetes mellitus without complications; N32.89 Other specified disorders of bladder
CPT/HCPCS: 36415; 36416; 36430; 51702; 51798; 71045; 74177; 80048; 80053; 81001; 82607; 82728; 82962; 83036; 83540; 83550; 83605; 83735; 84145; 84443; 85014; 85018; 85025; 85610; 86140; 86850; 86900; 86920; 88307; 88342; 88360; 94640; 96374; 97161; 99285; C9113; J2370; J2405; J2704; J2765; J3010; J7030; P9016; P9040; Q9967

== ENCOUNTER 2022-10-25 08:30 | Oncology outpatient (recurring) (ONCR) | payer BC, MEDICAID, SELFPAY ==
[2022-10-18 09:03] LABS: Basophils % 0.2 %; Eosinophils # 0.1 10^3/uL (0.0-0.8); Eosinophils % 0.7 %; Hematocrit 37.7 % (37.0-47.0); Hemoglobin 11.7 g/dL (11.5-15.3); Lymphocytes % 12.4 %; Mean Corpuscular Volume 86.9 fl (81-99); Mean Platelet Volume 9.3 fL (7.4-10.4); Monocytes # 0.5 10^3/uL (0.2-0.9); Monocytes % 6.1 %; Neutrophils # 6.73 10^3/uL (1.8-7.7); Neutrophils % 80.1 %; Nucleated Red Blood Cells % 0 %; Platelet Count 175 10^3/cmm (130-400); Red Blood Count 4.34 10^6/uL (4.1-5.3); Red Cell Distribution Width 17.5 % (12.1-15.1); White Blood Count 8.4 10^3/uL (4.0-10.0)
[2022-10-18 09:20] LABS: Alanine Aminotransferase 9 U/L (0-33); Albumin Level 3.5 g/dL (3.5-5.2); Alkaline Phosphatase 81 U/L (35-105); Anion Gap 12.5 (5-19); Aspartate Amino Transferase 17 U/L (0-32); Blood Urea Nitrogen 10 mg/dL (6-20); Calcium 9.1 mg/dL (8.5-10.5); Carbon Dioxide 27 mmol/L (22-29); Chloride 99 mmol/L (98-107); Globulin 2.7 g/dL (1.3-4.6); Glomerular Filtration Rate 127.6 mL/min (90-130); Glucose 125 mg/dL (65-115); Osmolality Calculated 281 mOsm/kg (285-295); Potassium 3.5 mmol/L (3.5-5.1); Sodium 135 mmol/L (136-145); Total Bilirubin 1.1 mg/dL (0.15-1.2); Total Protein 6.2 g/dL (6.6-8.7)
[2022-10-25 09:08] VITALS: BMI 24.0
[2022-10-25 09:14] LABS: Basophils % 0.5 %; Eosinophils # 0.2 10^3/uL (0.0-0.8); Eosinophils % 2.1 %; Hematocrit 34.6 % (37.0-47.0); Hemoglobin 10.4 g/dL (11.5-15.3); Lymphocytes # 1.3 10^3/uL (0.8-4.8); Lymphocytes % 16.8 %; Mean Corpuscular HGB Conc 30.1 g/dL (30.0-36.0); Mean Corpuscular Hemoglobin 26.6 pg (28.0-34.0); Mean Corpuscular Volume 88.5 fl (81-99); Mean Platelet Volume 9.7 fL (7.4-10.4); Monocytes # 0.6 10^3/uL (0.2-0.9); Monocytes % 7.7 %; Neutrophils % 72.5 %; Nucleated Red Blood Cells % 0 %; Platelet Count 287 10^3/cmm (130-400); Red Blood Count 3.91 10^6/uL (4.1-5.3); Red Cell Distribution Width 15.9 % (12.1-15.1); White Blood Count 7.5 10^3/uL (4.0-10.0)
[2022-10-25 09:43] LABS: Alanine Aminotransferase 9 U/L (0-33); Albumin Level 3.4 g/dL (3.5-5.2); Alkaline Phosphatase 77 U/L (35-105); Anion Gap 12.9 (5-19); Aspartate Amino Transferase 16 U/L (0-32); Blood Urea Nitrogen 10 mg/dL (6-20); Calcium 9.5 mg/dL (8.5-10.5); Carbon Dioxide 26 mmol/L (22-29); Chloride 102 mmol/L (98-107); Globulin 3.5 g/dL (1.3-4.6); Glomerular Filtration Rate 165.1 mL/min (90-130); Glucose 154 mg/dL (65-115); Osmolality Calculated 286 mOsm/kg (285-295); Potassium 3.9 mmol/L (3.5-5.1); Sodium 137 mmol/L (136-145); Total Bilirubin 0.5 mg/dL (0.15-1.2); Total Protein 6.9 g/dL (6.6-8.7)
== END 2022-11-09 23:59 | disposition home or self-care (01) ==
PROVIDERS: PCP Registered Nurse; Visit Provider Internal Medicine Hematology & Oncology
DX: C54.1 Malignant neoplasm of endometrium (principal); C77.8 Secondary and unspecified malignant neoplasm of lymph nodes of multiple regions; Z90.710 Acquired absence of both cervix and uterus; R31.0 Gross hematuria; Z79.899 Other long term (current) drug therapy; Z92.21 Personal history of antineoplastic chemotherapy; Z92.3 Personal history of irradiation
CPT/HCPCS: 36591; 80053; 85025

== ENCOUNTER 2022-12-07 09:43 | Oncology outpatient (recurring) (ONCR) | payer BC, MEDICAID, SELFPAY ==
[2022-11-22 12:45] LABS: Basophils % 0.3 %; Eosinophils # 0.1 10^3/uL (0.0-0.8); Eosinophils % 1.2 %; Hematocrit 34.7 % (37.0-47.0); Hemoglobin 10.3 g/dL (11.5-15.3); Lymphocytes # 1.5 10^3/uL (0.8-4.8); Lymphocytes % 19.8 %; Mean Corpuscular HGB Conc 29.7 g/dL (30.0-36.0); Mean Corpuscular Hemoglobin 24.8 pg (28.0-34.0); Mean Corpuscular Volume 83.4 fl (81-99); Mean Platelet Volume 9.3 fL (7.4-10.4); Monocytes # 0.5 10^3/uL (0.2-0.9); Monocytes % 6.4 %; Neutrophils # 5.31 10^3/uL (1.8-7.7); Neutrophils % 71.9 %; Nucleated Red Blood Cells % 0 %; Platelet Count 290 10^3/cmm (130-400); Red Blood Count 4.16 10^6/uL (4.1-5.3); Red Cell Distribution Width 16.5 % (12.1-15.1); White Blood Count 7.4 10^3/uL (4.0-10.0)
[2022-11-22 13:06] LABS: Alanine Aminotransferase 12 U/L (0-33); Albumin Level 4.1 g/dL (3.5-5.2); Alkaline Phosphatase 114 U/L (35-105); Chloride 100 mmol/L (98-107); Potassium 3.8 mmol/L (3.5-5.1); Sodium 137 mmol/L (136-145)
[2022-11-22 13:34] LABS: Anion Gap 15.8 (5-19); Aspartate Amino Transferase 15 U/L (0-32); Blood Urea Nitrogen 12 mg/dL (6-20); Calcium 9.4 mg/dL (8.5-10.5); Carbon Dioxide 25 mmol/L (22-29); Globulin 3.5 g/dL (1.3-4.6); Glomerular Filtration Rate 127.6 mL/min (90-130); Glucose 140 mg/dL (65-115); Osmolality Calculated 286 mOsm/kg (285-295); Total Bilirubin 0.4 mg/dL (0.15-1.2); Total Protein 7.6 g/dL (6.6-8.7)
[2022-11-22 15:42] LABS: Ferritin 256 ng/mL (15-150); Iron 19 ug/dL (37-145); Percent Saturation 7.3 % (20-50); Total Iron Binding Capacity 258 mcg/dl; Unsaturated Iron Binding 239 ug/dL (112-347)
--- NOTE | 2022-12-01 | CT_ITS ---
Radiation Therapy Planning CT images; total exam DLP: 745.71 mGy-cm and total exam DLP: 435.59 mGy-cm MTDD
--- NOTE | 2022-12-01 13:04 | N.ONRAD NP_ITS ---
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 Local recurrence extensively involving the bladder, upper vagina, and adjacent pelvis Radiotherapy to date: Summary > No prior radiation therapy. Chief Complaint / History of Present Illness: Ms Edmond 57-year-old lady who presented with heavy vaginal bleeding in November 2020 and was subsequently found to have a locally advanced and metastatic cancer of the endometrium. She had an approximately 5-1/2 cm mass in the uterus, pelvic lymphadenopathy, periaortic lymphadenopathy, aortocaval lymphadenopathy, and port hepatus lymphadenopathy. On PET scan she had what appeared to be a metastatic node in the left cervical region, level 4. She was placed on systemic therapy and had a good response. She underwent a hysterectomy on 11/09/2021. The pathology showed a undifferentiated carcinoma of the endometrium with 50% myometrial penetration and bilateral positive pelvic nodes. She had 4 periaortic lymph nodes removed and they were negative for malignancy. She received additional systemic therapy and when seen 07/06/2022, she had no evidence of disease on exam. In early October 2022, she presented with gross hematuria and lower pelvic discomfort. A CT scan revealed a large mass involving the urinary bladder and upper urethra measuring approximately 8.7 x 8.8 cm. She had a few slightly enlarged periaortic nodes. On 10/15/2022 she underwent cystoscopy and TURB. She had a large mass involving the posterior floor of the bladder. The patient's OPERATIONS PROGRAM MANAGER oncologist is Dr. Agarwal in [facility]. He advised against additional surgery. He recommends the patient undergo radiation for local control of the mass followed by further systemic therapy. Ms Pedraza comes in for consultation. She does not have any major bowel or bladder complaints. She has no significant vaginal bleeding, but does notice some spotting if she strains to have a bowel movement. She has upper pelvic discomfort but no lower pelvic pain. She she denies lower extremity edema. Current Medications: Adult Aspirin EC Low Strength, atorvastatin Calcium, b Complex, cholecalciferol, daily Multiple Vitamins, dexamethasone, enoxaparin Sodium, insulin Regular Human, loratadine, sennosides. Allergies: Adhesive tape. Medical History: Ganglion cyst, stroke in 11/2020, type II diabetes. No history of collagen vascular disease. No previous radiation therapy. Surgical History: Covid vaccine #1 in 01/2021, covid vaccine #2 in 04/2021, dilation and Curettage in 06/2021, excision of ganglion cyst, left carpal tunnel release, portacath placement on 06/29/2021 and repair of arm fracture. Family History: Father is at age 94 having experienced dementia. Mother is at age 81 having experienced brain cancer, and breast cancer, and cervical cancer, and hypertension, and lung cancer, and lung met, and stroke, and type II diabetes. Brother is alive. Brother is alive. Sister is alive. Sister is alive. Social History: Last screened on 01/27/2022 - Never smoked. Last screened on 01/27/2022 - Never drank. Current Complaints / Review of Systems: . She has fatigue and loss of appetite. No dysphagia or or upper digestive tract symptoms. She has very mild episodes of constipation that responded well to senna. Bladder dysfunction is minimal. She has good bladder control. She has no significant urgency or hesitancy. No recent hematuria. Nocturia x2-3. No spasm, pain, or burning. She times sometimes has spotting after straining to have a bowel movement. Otherwise no vaginal bleeding or discharge. Vital Signs: Performed on 12/01/2022 9:53 AM BMI - 23.619 kg/m2 (high), Height - 61 in, Weight - 125 lbs, Temperature - 97.5 f, Pulse - 99 /min, Respiration - 18 /min, O2 Sat - 99 %, Pain - 3, Fatigue - 0 and BP - 138/ 80 mm(hg). Physical Exam: Alert, oriented, no acute distress. She appears slightly pale and chronically ill. No cervical or supraclavicular lymphadenopathy. Lungs clear to percussion. On auscultation no rales, rhonchi, or wheezes. Heart rhythm is regular. No murmur, gallop, or rub. Abdomen is without distention. No organomegaly, mass, or tenderness. Over the upper pelvis she has mild discomfort to pressure. Over the lower pelvis, she feels a pressure sensation on palpation but no true pain. Musculoskeletal exam reveals her to be ambulatory without assistance. No bone tenderness. Pelvic examination reveals normal-appearing external genitalia. The vaginal mucosa is unremarkable in appearance below the apex. At the apex there is a bluish colored mass over the entire apex. It is smooth but firm to palpation. No bleeding seen. No disease seen or palpated involving the vaginal mucosa below the apex. In the right posterior pelvis bulky, nodular disease palpated through the posterior lateral vaginal wall. Performance Status: ECOG 2 Pathology: Primary, c54.1 - malignant neoplasm of endometrium, Diagnosed 07/01/2021 (active). Bulky pelvic recurrence. Lab: Imaging: See HPI Impression: Bulky gross recurrence of endometrial cancer invading the bladder, upper urethra, and adjacent areas of the pelvis. Ms Pedraza is a candidate for a course of radiation to provide control of disease in the bladder. A brief course of palliative radiation is unlikely to be of benefit for her because the disease is bulky and she does not have significant evidence of other disease progression in her body. If local control of the pelvic recurrence is not obtained, she is likely to be very symptomatic from her bladder in the near future , from bowel problems in the intermediate future and from anemia secondary to bleeding in both the near and intermediate future. I discussed a typical course of palliative radiation delivered over about 7 weeks. I discussed the potential side effects from complications. I reviewed the small risk of bowel or bladder injury that can result in the need for permanent ostomy. I feel the best chance of achieving local control of disease without undue risk of normal tissue injury will be obtained by utilizing IMRT. Plan: Simulation to be performed today. Signed by: 12/01/2022 1:03:03 PM <<Signature on File>> Time spent with patient: CPT Code: CPT Code:
--- NOTE | 2022-12-07 10:31 | ONCRAD TMN_ITS ---
Radiation Oncology Treatment Management Note Patient Name: Basilia Pedraza Date of : 1965 Date of Service: 12/07/2022 Attending Physician: Man Chan M.D. Basilia Pedraza is a 57 year-old white female diagnosed with recurrent endometrial cancer. The patient has received 3.6 Gy of a prescribed 54 Rodriguez with an intensity modulated radiotherapy plan utilizing a step and shoot treatment technique. She has been prescribed weekly during therapy. Upon review of systems, she denied any new symptoms. On physical examination, the patient weighed 125 lbs. Her temperature was 97.4 ???F and the blood pressure was 135/88 mmHg. The pulse was 88 bpm and her respiratory rate was 16. Continue thoracic radiotherapy as prescribed. Signed by: Man Chan 12/07/2022 10:29:34 AM
== END 2022-12-07 23:59 | disposition home or self-care (01) ==
PROVIDERS: Internal Medicine Hematology & Oncology; PCP Registered Nurse; Visit Provider Radiology Radiation Oncology
DX: Z51.0 Encounter for antineoplastic radiation therapy (principal); C54.1 Malignant neoplasm of endometrium; C77.8 Secondary and unspecified malignant neoplasm of lymph nodes of multiple regions; C79.11 Secondary malignant neoplasm of bladder; Z79.899 Other long term (current) drug therapy
CPT/HCPCS: 36415; 77300; 77301; 77334; 77338; 77386; 80053; 82728; 83540; 83550; 85025; 99024; 99205

== ENCOUNTER 2023-01-07 09:42 | Oncology outpatient (recurring) (ONCR) | payer BC, MEDICAID, SELFPAY ==
--- NOTE | 2022-12-13 10:25 | ONCRAD TMN_ITS ---
Radiation Oncology Treatment Management Note Patient Name: Basilia Pedraza Date of : 1965 Date of Service: 12/13/2022 Attending Physician: Man Chan M.D. Basilia Pedraza is a 57 year-old white female diagnosed with recurrent endometrial cancer. The patient has received 10.8 Gy of a prescribed 54 Rodriguez with an intensity modulated radiotherapy plan utilizing a step and shoot treatment technique. She has been prescribed weekly during therapy. Upon review of systems, she described occasional vaginal itching. On physical examination, the patient weighed 125 lbs. Her temperature was 97.3 ???F and the blood pressure was 128/84 mmHg. The pulse was 88 bpm and her respiratory rate was 18. There was no erythema of the skin within the treatment terrell. Continue thoracic radiotherapy as planned. Signed by: Man Chan 12/13/2022 10:24:24 AM
[2022-12-20 11:21] LABS: Bilirubin Urine Neg (Negative); Blood Urine 3+ (Negative); Glucose Urine UA Norm (Normal); Ketones Urine Negative (Negative); Nitrate Urine Negative (Negative); Protein Urine 3+ (Negative); Urine Appearance Turbid (CLEAR); Urine Color Yellow (Yellow); Urobilinogen Urine Neg (Negative); pH Urine 7 (5-7)
[2022-12-20 11:22] LABS: Add Urine Culture? Yes; Add Urine Microscopic? YES; Amorphous Sediment Urine 3+ /hpf; Bacteria Urine 2+ /hpf; Leukocyte Esterase Urine 2+ (Negative); Mucus Urine 3+ /hpf; RBC Urine 40-50 /hpf (0-2); WBC Urine 25-40 /hpf (0-5)
--- NOTE | 2022-12-21 11:00 | ONCRAD TMN_ITS ---
Radiation Oncology Weekly Treatment Management Patient: Keila Bahena MR#: [id number] : 1965> Attending Physician: Paul Blakely DO Date of Service: 12/21/2022 Referring Physician(s) : Jerardo Wilburn Diagnosis: C54.1 - Malignant neoplasm of endometrium, Diagnosed 07/01/2021 (Active) Radiotherapy to date: Course: Endometrium, Treatment Site: Endometrium, Ref. ID: [id number], Energy: 6X, Dose/Fx (cGy): 180, #Fx: , Dose Correction (cGy): 0, Total Dose (cGy): 2,160, Start Date: 12/06/2022, Elapsed Days: 15 Reason for visit: The patient is being seen today as part of their regularly scheduled weekly on treatment visits to assess for acute toxicities from radiotherapy. Review of Systems: Patient had complained of burning on urination and urinary frequency yesterday. Urinalysis was obtained and was positive for UTI. Antibiotics were started last night. Patient reports early decrease in urinary burning although she still has mild irritation. She reports her frequency has decreased as well. Vital Signs: Performed on 12/21/2022 10:17 AM BMI - 23.241 kg/m2 (high), Height - 61 in, Weight - 123 lbs, Temperature - 97.2 f, Pulse - 83 /min, Respiration - 18 /min, O2 Sat - 99 %, Pain - 3, Fatigue - 4 and BP - 133/ 90 mm(hg). Physical Exam: Alert and oriented female appearing her stated age. Skin in the treatment area is intact without erythema or desquamation. Patient ambulatory without assistance. Imaging: Radiation therapy imaging related to accurate target localization (i.e. KV, MV and CBCT) was reviewed. Appropriate changes, if any, were made to ensure treatment accuracy. Plan: Continue prescribed pelvic radiation. Patient has been instructed to continue her antibiotics and to maintain her fluid intake. Signed by: Paul Blakely DO 12/21/2022 10:59:16 AM
--- NOTE | 2022-12-27 10:24 | ONCRAD TMN_ITS ---
Radiation Oncology Treatment Management Note Patient Name: Basilia Pedraza Date of : 1965 Date of Service: 12/27/2022 Attending Physician: Man Chan M.D. Basilia Pedraza is a 57 year-old white female diagnosed with recurrent endometrial cancer. The patient has received 28.8 Gy of a prescribed 54 Rodriguez with an intensity modulated radiotherapy plan utilizing a step and shoot treatment technique. Upon review of systems, she reported constipation. On physical examination, the patient weighed 122 lbs. Her temperature was 97.3 ???F and the blood pressure was 130/92 mmHg. The pulse was 95 bpm and her respiratory rate was 18. There was no erythema of the skin within the treatment terrell. Continue pelvic radiotherapy as prescribed. A laxative was recommended. Signed by: Man Chan 12/27/2022 10:23:12 AM
--- NOTE | 2023-01-03 10:21 | ONCRAD TMN_ITS ---
Radiation Oncology Treatment Management Note Patient Name: Basilia Pedraza Date of : 1965 Date of Service: 01/03/2023 Attending Physician: Man Chan M.D. Basilia Pedraza is a 57 year-old white female diagnosed with recurrent endometrial cancer. The patient has received 37.8 Gy of a prescribed 54 Rodriguez with an intensity modulated radiotherapy plan utilizing a step and shoot treatment technique. Upon review of systems, she denied any new complaints. On physical examination, the patient weighed 122 lbs. Her temperature was 96.8 ???F and the blood pressure was 143/93 mmHg. The pulse was 92 bpm and her respiratory rate was 18. There was no erythema of the skin within the treatment terrell. Continue pelvic radiotherapy as planned. . Signed by: Man Chan 01/03/2023 10:19:30 AM
[2023-01-06 12:29] LABS: Protein Urine 3+ (Negative); Specific Gravity, Urine 1.015 (1.005-1.030); Urine Appearance Turbid (CLEAR); Urine Color Dark Yellow (Yellow); pH Urine 7 (5-7)
[2023-01-06 12:30] LABS: Bilirubin Urine Neg (Negative); Blood Urine 3+ (Negative); Glucose Urine UA Norm (Normal); Ketones Urine Negative (Negative); Leukocyte Esterase Urine 2+ (Negative); Nitrate Urine Negative (Negative); Urobilinogen Urine Neg (Negative)
[2023-01-06 12:31] LABS: Add Urine Culture? Yes; Bacteria Urine 2+ /hpf; RBC Urine TOO NUMEROUS TO CNT /hpf (0-2); Squamous Epithelial Cell Urine 0-4 /hpf (0-5); WBC Urine TOO NUMEROUS TO CNT /hpf (0-5)
== END 2023-01-07 23:59 | disposition home or self-care (01) ==
PROVIDERS: Internal Medicine Hematology & Oncology; PCP Registered Nurse; Visit Provider Radiology Radiation Oncology
DX: C54.1 Malignant neoplasm of endometrium (principal); C77.8 Secondary and unspecified malignant neoplasm of lymph nodes of multiple regions; Z90.710 Acquired absence of both cervix and uterus; Z79.899 Other long term (current) drug therapy; Z51.0 Encounter for antineoplastic radiation therapy
CPT/HCPCS: 77014; 77336; 77386; 81001; 87086; 99024; 99213

== ENCOUNTER 2023-01-14 09:53 | Oncology outpatient (recurring) (ONCR) | payer BC, MEDICAID, SELFPAY ==
--- NOTE | 2023-01-10 10:27 | ONCRAD TMN_ITS ---
Radiation Oncology Treatment Management Note Patient Name: Basilia Pedraza Date of : 1965 Date of Service: 01/10/2023 Attending Physician: Man Chan M.D. Basilia Pedraza is a 57 year-old white female diagnosed with recurrent endometrial cancer. The patient has received 46.8 Gy of a prescribed 54 Rodriguez with an intensity modulated radiotherapy plan utilizing a step and shoot treatment technique. Upon review of systems, she continues to describe LUTS (UA was negative for UTI). On physical examination, the patient weighed 121 lbs. Her temperature was 97.2 ???F and the blood pressure was 143/97 mmHg. The pulse was 105 bpm and her respiratory rate was 18. There was no erythema of the skin within the treatment terrell. Continue pelvic radiotherapy as prescribed. A bladder anti-spasmodic was offered. Signed by: Man Chan 01/10/2023 10:27:11 AM
--- NOTE | 2023-01-14 10:16 | N.ONRD TS_ITS ---
Radiation OncologyTreatment Summary Patient Name: Basilia Pedraza Date of : 1965 Date of Service: 01/14/2023 Attending Physician: Man Chan M.D. Basilia Pedraza has completed pelvic radiotherapy for the management of a recurrent endometrial cancer. Pelvic radiotherapy was delivered between the dates of December 06, 2022 through January 14, 2023. A prescribed dose of 54 Gy was delivered in 30 fractions encompassing 40 elapsed days. The invasive bladder mas was treated utilizing an intensity modulated radiotherapy plan with a step and shoot treatment technique. The plan required nine gantry angles (0???, 41???, 82???, 123???, 164???, 196???, 237???, 278???, and 319??? with a collimator rotation of 0??? in an arc design. The field sizes spanned 10.8 cm x 11.6 cm to 12.4 cm x 11.8 cm. The SSDs measured a minimum of 83.3 cm to a maximum of 90.2 cm. The ports delivered 109 MU, 104 MU, 91 MU, 95 MU, 91 MU, 99 MU, 92 MU, 87 MU, and 98 MU corresponding to the gantry angles described. Low energy photons were prescribed. All treatments were performed with the NOZA linear accelerator and an isocentric technique. The dose was calculated by Anisotropic Analytic Algorithm with the plan normalized to deliver 100% of the prescription dose to 95% of the planning target volume. The plan was designed and approved by the [facility] physician. Signed by: Man Chan 01/14/2023 10:14:48 AM
== END 2023-02-06 23:59 | disposition home or self-care (01) ==
PROVIDERS: PCP Registered Nurse; Visit Provider Radiology Radiation Oncology
DX: Z51.0 Encounter for antineoplastic radiation therapy (principal); C54.1 Malignant neoplasm of endometrium; C77.8 Secondary and unspecified malignant neoplasm of lymph nodes of multiple regions; Z90.710 Acquired absence of both cervix and uterus; Z79.899 Other long term (current) drug therapy; R35.0 Frequency of micturition; Z79.2 Long term (current) use of antibiotics; Z92.21 Personal history of antineoplastic chemotherapy
CPT/HCPCS: 77336; 77386

== ENCOUNTER 2023-01-20 09:08 | Emergency (ER) | payer BC, MEDICAID, SELFPAY ==
[2023-01-20 09:25] VITALS: BP 119/89; PULSE 122; RESP 16; TEMP 36.2; O2SAT 99; BMI 23.0
--- NOTE | 2023-01-20 09:50 | ED_ITS ---
HPI - Female Genitourinary General: Chief complaint: Urogenital-Female Stated complaint: urogenital Time Seen by Provider: 01/20/23 09:12 Source: patient Mode of arrival: ambulatory History of Present Illness: 57-year-old female with a history of bladder CA with previous treatments. She sees Dr. Wallis and Dr. Wilburn she completed course of treatment she is complaining of dysuria as she is having intermittent and continence. She is also complaining of some pelvic discomfort no hematuria. Is also complaining of some constipation. She is tachycardic on initial arrival. She is awake and alert previously a stroke sepsis of some difficulty with recall and expression. She is not on any anticoagulants. MD elicited complaint: dysuria Pertinent past history: recurrent UTIs Onset (ago): day(s) Severity: moderate Quality of pain: cramping Consistency: intermittent Vaginal bleeding: none Urinary symptoms: Difficulty Urinating and Dysuria Exacerbating factors: none Relieving factors: none Associated symptoms: Reports abdominal pain (Pelvic/suprapubic); Deny short of breath, fevers/chills, headache(s), nausea, rash, seizures, syncope, vaginal bleeding, vaginal discharge or weakness Treatment prior to arrival: none Review of Systems Const: Denies: fever(s), chills, body aches, change in appetite, fatigue or malaise ENMT: Denies: throat pain, ear or mastoid pain, nasal discharge or nasal congestion Card: Denies: chest pain or syncope Resp: Denies: dyspnea, productive cough or non-productive cough GI: Reports: abdominal pain (Pelvic/suprapubic); Denies: nausea : Denies: flank pain, dysuria, urinary frequency, urinary urgency or vaginal discharge Skin/Breast: Denies: rash or pruritus Neuro: Denies: headache(s) PFSH ED PFSH: Medical History Anemia Bladder cancer Diabetes mellitus type 2--diagnosed in November 2020 with a hemoglobin A1c of 10. She states she was on Metformin and her hemoglobin A1c improved to 4 and she was taken off of Metformin in April 2021. Gross hematuria History of TIA (transient ischemic attack) November 2020--some minor memory difficulty--is just on aspirin Hypercholesteremia Diagnosed in November 2020 at time of TIA--has been on Lipitor since then managed by her primary care provider Malignant neoplasm of endometrium Mass of bladder No pertinent past medical history Denies asthma, hypertension, seizures, DVT/PE. PMD: Pelvic mass Uterine cancer Surgical History H/O: knee surgery Arthroscopic left knee surgery History of surgery on arm broken arm-left arm and her 40s History of surgical removal of ganglion cyst Left wrist S/P dilation and curettage 06/09/2021--D&C done for acute abnormal uterine bleeding for thickened endometrium by Dr. Mayes at [facility] [place]. ------> pathology pending Family History Mother , IN HER 80'S Breast cancer Cervical cancer Cancer lymphnode, lung, brain Diabetes Hypertension Stroke Sister Diabetes Hypertension Sister Hypertension Father , AT AGE 94 Dementia Denies family history of CAD (coronary artery disease) Clotting disorder Hyperlipidemia Chronic kidney disease (CKD) Anesthesia complication Bleeding disorder Lung disease Social History Smoking and tobacco status: never smoked Alcohol intake: never Physical Exam Const: GENERAL APPEARANCE: cooperative and comfortable ORIENTATION/CONSCIOUSNESS: Yes awake, Yes oriented to person, Yes oriented to place and Yes oriented to time HENMT: COMMON NORMALS: normocephalic, atraumatic and hearing grossly normal bilaterally HEAD & SCALP: normocephalic and atraumatic Resp: COMMON NORMALS: normal respiratory effort, No retractions, No use of accessory muscles and clear to auscultation bilaterally AUSCULTATION: clear to auscultation bilaterally Cardio: COMMON NORMALS: regular rate, regular rhythm and No murmurs present (Cardio) RATE: regular rate RHYTHM: regular rhythm GI: COMMON NORMALS: Soft to palpation and No hepatosplenomegaly present AUSCULTATION: Yes normoactive bowel sounds PALPATION: Yes Soft to palpation, No Tenderness to palpation present (GI), No Guarding due to palpation present (GI) and Yes No hepatosplenomegaly present : COMMON NORMALS: Yes no CVA tenderness BLADDER/KIDNEY EXAM: Yes no CVA tenderness SPECULUM EXAM - VAGINA: No vaginal bleeding OB/EXTERNAL & SPECULUM: No vaginal bleeding Back/Pelvis: COMMON NORMALS: no CVA tenderness Extremity: COMMON NORMALS: normal to inspection, capillary refill normal, no clubbing, cyanosis or edema, no calf tenderness and no pedal edema Neuro: SENSORIUM/ORIENTATION: Yes oriented to person, Yes oriented to place and Yes oriented to time Skin: COMMON NORMALS: no rashes or lesions noted GENERAL SKIN EXAM: no rashes or lesions noted Course Vital Signs: Vital signs: Vital Signs Temperature 97.2 F L 01/20/23 09:25 Pulse Rate 103 H 01/20/23 10:30 Respiratory Rate 17 01/20/23 10:30 Blood Pressure 119/89 01/20/23 11:00 Pulse Oximetry 97 01/20/23 10:30 Oxygen Delivery Me thod Room Air 01/20/23 09:25 MDM - Female Medical Decision Making Labs imaging and EKG reviewed. Patient appears to have acute cystitis. Probably exacerbated by her cancer and the radiation. We will discharge patient home on antibiotics. No fever but mildly tachycardic improved after fluids we will discharge patient home with oral antibiotics push fluids follow-up with her primary care doctor return if she has any worsening difficulties or develops higher fever. Medical Records I reviewed the patient's medical records. Lab Data I reviewed the patient's lab results. 01/20/23 09:45 01/20/23 09:45 Laboratory Results WBC 7.1 10^3/uL (4.0-10.0) 01/20/23 09:45 RBC 4.76 10^6/uL (4.1-5.3) 01/20/23 09:45 Hgb 11.8 g/dL (11.5-15.3) 01/20/23 09:45 Hct 38.3 % (37.0-47.0) 01/20/23 09:45 MCV 80.5 fl (81-99) L 01/20/23 09:45 MCH 24.8 pg (28.0-34.0) L 01/20/23 09:45 MCHC 30.8 g/dL (30.0-36.0) 01/20/23 09:45 RDW 20.1 % (12.1-15.1) H 01/20/23 09:45 Plt Count 261 10^3/cmm (130-400) 01/20/23 09:45 MPV 8.6 fL (7.4-10.4) 01/20/23 09:45 Neut % (Auto) 84.3 % 01/20/23 09:45 Lymph % (Auto) 6.8 % 01/20/23 09:45 Edgar % (Auto) 7.3 % 01/20/23 09:45 Eos % (Auto) 0.8 % 01/20/23 09:45 Baso % (Auto) 0.4 % 01/20/23 09:45 Neut # (Auto) 5.96 10^3/uL (1.8-7.7) 01/20/23 09:45 Lymph # (Auto) 0.5 10^3/uL (0.8-4.8) L 01/20/23 09:45 Edgar # (Auto) 0.5 10^3/uL (0.2-0.9) 01/20/23 09:45 Eos # (Auto) 0.1 10^3/uL (0.0-0.8) 01/20/23 09:45 Baso # (Auto) 0.0 10^3/uL (0.0-0.1) 01/20/23 09:45 Nucleated RBC % (auto) 0 % 01/20/23 09:45 Nucleated RBCs # 0.0 /100WBC 01/20/23 09:45 Sodium 137 mmol/L (136-145) 01/20/23 09:45 Potassium 3.7 mmol/L (3.5-5.1) 01/20/23 09:45 Chloride 99 mmol/L (98-107) 01/20/23 09:45 Carbon Dioxide 26 mmol/L (22-29) 01/20/23 09:45 Anion Gap 15.7 (5-19) 01/20/23 09:45 BUN 10 mg/dL (6-20) 01/20/23 09:45 Creatinine 0.5 mg/dL (0.5-0.9) 01/20/23 09:45 GFR Calculation 127.2 mL/min (90-130) 01/20/23 09:45 Glucose 127 mg/dL (65-115) H 01/20/23 09:45 Calculated Osmolality 285 mOsm/kg (285-295) 01/20/23 09:45 Calcium 9.4 mg/dL (8.5-10.5) 01/20/23 09:45 Urine Color Yellow (Yellow) 01/20/23 10:18 Urine Appearance Turbid (CLEAR) A 01/20/23 10:18 Urine pH 8 (5-7) H 01/20/23 10:18 Ur Specific [place] 1.015 (1.005-1.030) 01/20/23 10:18 Urine Protein 3+ (Negative) H 01/20/23 10:18 Urine Glucose (UA) Norm (Normal) 01/20/23 10:18 Urine Ketones Negative (Negative) 01/20/23 10:18 Urine Blood 3+ (Negative) H 01/20/23 10:18 Urine Nitrate Negative (Negative) 01/20/23 10:18 Urine Bilirubin Neg (Negative) 01/20/23 10:18 Prot Sulfosalicylic Acd Positive (Negative) 01/20/23 09:31 Urine Urobilinogen Neg mg/dL (Negative) 01/20/23 10:18 Ur Leukocyte Esterase 2+ (Negative) H 01/20/23 10:18 Ur Microscopic Indic Cancelled 01/20/23 10:18 Urine RBC >100 /hpf (0-2) H 01/20/23 10:18 Urine WBC Too numerous to cnt /hpf (0-5) H 01/20/23 10:18 Ur Squamous Epith Cells 0-4 /hpf (0-5) H 01/20/23 10:18 Amorphous Sediment Not Reportable 01/20/23 10:18 Urine Bacteria 3+ /hpf (NONE) H 01/20/23 10:18 Urine Mucus 1+ /hpf 01/20/23 10:18 Discharge Plan Discharge Patient Disposition: Home Clinical Impression: Cystitis, Uterine cancer, Bladder cancer Condition: Stable Prescriptions: New Cipro 500 mg tablet 500 mg PO BID Qty: 14 0RF Pyridium 200 mg tablet 200 mg PO TID Qty: 6 0RF No Action vitamin B complex Tablet 1 tab PO DAILY multivitamin with minerals Capsule 1 cap PO DAILY cholecalciferol (vitamin D3) 25 mcg (1,000 unit) capsule 25 mcg PO DAILY Stool Softener-Laxative 8.6-50 mg tablet 1 tab PO DAILY PRN (Reason: Constipation) oxycodone-acetaminophen 5-325 mg tablet 1 tab PO Q8H PRN (Reason: pain) Qty: 10 0RF famotidine 20 mg tablet 20 mg PO BID Qty: 20 0RF tramadol 50 mg tablet 50 mg PO Q8H PRN (Reason: pain (scale score 4-6)) Qty: 10 0RF ondansetron 4 mg tablet,disintegrating 4 mg PO Q8H PRN (Reason: nausea and vomiting) Qty: 10 0RF Discharge Orders: Discharge ED (Routine); Ordered 01/20/23 Ordered By: Jordan Villa Referrals: Elisa Scott [Primary Care Provider] - Discharge Diet: Usual diet Discharge Activity: Increase activity as tolerated Patient Instructions: Opioid Safety, Pain Management Activity Restrictions/Additional Instructions: You are seen today for intermittent incontinence and pelvic discomfort. You have significant UTI there is no elevation in your white count. We will discharge you home with antibiotics and a bladder anesthetic follow-up with your doctor within the next week. Coding Level of Care Code ED Industrial Sales Manager for Viktoria Hdez
[2023-01-20 09:51] VITALS: BP 119/89; O2SAT 99
[2023-01-20 09:53] LABS: Basophils % 0.4 %; Eosinophils # 0.1 10^3/uL (0.0-0.8); Eosinophils % 0.8 %; Hematocrit 38.3 % (37.0-47.0); Hemoglobin 11.8 g/dL (11.5-15.3); Lymphocytes # 0.5 10^3/uL (0.8-4.8); Lymphocytes % 6.8 %; Mean Corpuscular HGB Conc 30.8 g/dL (30.0-36.0); Mean Corpuscular Hemoglobin 24.8 pg (28.0-34.0); Mean Corpuscular Volume 80.5 fl (81-99); Mean Platelet Volume 8.6 fL (7.4-10.4); Monocytes # 0.5 10^3/uL (0.2-0.9); Monocytes % 7.3 %; Neutrophils # 5.96 10^3/uL (1.8-7.7); Neutrophils % 84.3 %; Nucleated Red Blood Cells % 0 %; Platelet Count 261 10^3/cmm (130-400); Red Blood Count 4.76 10^6/uL (4.1-5.3); Red Cell Distribution Width 20.1 % (12.1-15.1); White Blood Count 7.1 10^3/uL (4.0-10.0)
[2023-01-20 10:00] VITALS: BP 119/89; PULSE 119; RESP 33; O2SAT 99
[2023-01-20 10:05] LABS: Urine Color Dark Yellow (Yellow)
[2023-01-20 10:06] LABS: Add Urine Microscopic? YES; Bilirubin Urine Neg (Negative); Blood Urine 3+ (Negative); Glucose Urine UA Norm (Normal); Ketones Urine 1+ (Negative); Leukocyte Esterase Urine 2+ (Negative); Nitrate Urine Negative (Negative); Protein Urine 3+ (Negative); Sulfosalicylic Acid Urine Positive (Negative); Urine Appearance Turbid (CLEAR); Urobilinogen Urine Neg (Negative); pH Urine 8 (5-7)
[2023-01-20 10:08] LABS: RBC Urine TOO NUMEROUS TO CNT /hpf (0-2)
[2023-01-20 10:09] LABS: Add Urine Culture? Yes; Bacteria Urine 3+ /hpf; Mucus Urine 1+ /hpf; Squamous Epithelial Cell Urine 0-4 /hpf (0-5); WBC Urine TOO NUMEROUS TO CNT /hpf (0-5)
[2023-01-20 10:15] LABS: Anion Gap 15.7 (5-19); Blood Urea Nitrogen 10 mg/dL (6-20); Calcium 9.4 mg/dL (8.5-10.5); Carbon Dioxide 26 mmol/L (22-29); Chloride 99 mmol/L (98-107); Glomerular Filtration Rate 127.2 mL/min (90-130); Glucose 127 mg/dL (65-115); Osmolality Calculated 285 mOsm/kg (285-295); Potassium 3.7 mmol/L (3.5-5.1); Sodium 137 mmol/L (136-145)
[2023-01-20 10:30] VITALS: BP 119/89; PULSE 103; RESP 17; O2SAT 97
[2023-01-20 10:47] LABS: Bilirubin Urine Neg (Negative); Blood Urine 3+ (Negative); Glucose Urine UA Norm (Normal); Ketones Urine Negative (Negative); Leukocyte Esterase Urine 2+ (Negative); Nitrate Urine Negative (Negative); Protein Urine 3+ (Negative); Specific Gravity, Urine 1.015 (1.005-1.030); Urine Appearance Turbid (CLEAR); Urine Color Yellow (Yellow); Urobilinogen Urine Neg (Negative); pH Urine 8 (5-7)
[2023-01-20 10:51] LABS: Bacteria Urine 3+ /hpf; Mucus Urine 1+ /hpf; RBC Urine >100 /hpf (0-2); Squamous Epithelial Cell Urine 0-4 /hpf (0-5); WBC Urine TOO NUMEROUS TO CNT /hpf (0-5)
[2023-01-20 10:52] LABS: Add Urine Culture? Yes
[2023-01-20 11:00] VITALS: BP 119/89
== END 2023-01-20 11:18 | disposition home or self-care (01) ==
PROVIDERS: Emergency Provider Family Medicine; PCP Registered Nurse
DX: N30.90 Cystitis, unspecified without hematuria (principal); C55 Malignant neoplasm of uterus, part unspecified; C67.9 Malignant neoplasm of bladder, unspecified; Z79.899 Other long term (current) drug therapy; E11.9 Type 2 diabetes mellitus without complications; Z86.73 Personal history of transient ischemic attack (TIA), and cerebral infarction without residual deficits
CPT/HCPCS: 36415; 51701; 80048; 81001; 85025; 87086; 99283

== ENCOUNTER 2023-01-23 23:22 | Emergency (ER) | payer BC, MEDICAID, SELFPAY ==
[2023-01-23 23:35] VITALS: BP 136/93; PULSE 113; RESP 17; TEMP 36.8; O2SAT 98; BMI 23.0
--- NOTE | 2023-01-24 00:21 | W.ED.ABDPA2 ---
Documented by User: ELDER Marcus 01/24/23 02:39 HPI - Abdominal Pain General: Chief Complaint: Abdominal Pain Stated Complaint: ABD Pain Time Seen by Provider: 01/24/23 00:19 History of Present Illness: 57-year-old female comes in today with complaints of abdominal discomfort and nausea. Patient was seen 3 days ago and was started on antibiotics for a probable UTI. Patient reports no significant improvement in urination. Patient has more epigastric discomfort along with nausea. Patient came in this evening due to feelings of malaise and epigastric discomfort. Patient appears chronically ill. Patient has a history of uterine cancer and recent radiation therapy. Associated Symptoms: Reports diarrhea (Occasional) and nausea; Denies constipation Review of Systems General: Reports: 10 or more systems reviewed and unremarkable except in HPI and below Const: Reports: malaise Eyes: Denies: change in vision ENMT: Denies: throat pain Card: Denies: chest pain Resp: Denies: dyspnea GI: Reports: abdominal pain (Epigastric), nausea and diarrhea (Occasional); Denies: constipation : Reports: urinary frequency and urinary urgency Musc: Denies: extremity pain Skin/Breast: Denies: rash PFSH ED PFSH: Medical History Anemia Bladder cancer Diabetes mellitus type 2--diagnosed in November 2020 with a hemoglobin A1c of 10. She states she was on Metformin and her hemoglobin A1c improved to 4 and she was taken off of Metformin in April 2021. Gross hematuria History of TIA (transient ischemic attack) November 2020--some minor memory difficulty--is just on aspirin Hypercholesteremia Diagnosed in November 2020 at time of TIA--has been on Lipitor since then managed by her primary care provider Malignant neoplasm of endometrium Mass of bladder No pertinent past medical history Denies asthma, hypertension, seizures, DVT/PE. PMD: Pelvic mass Uterine cancer Surgical History H/O: knee surgery Arthroscopic left knee surgery History of surgery on arm broken arm-left arm and her 40s History of surgical removal of ganglion cyst Left wrist S/P dilation and curettage 06/09/2021--D&C done for acute abnormal uterine bleeding for thickened endometrium by Dr. Mayes at [facility] [place]. ------> pathology pending Family History Mother , IN HER 80'S Breast cancer Cervical cancer Cancer lymphnode, lung, brain Diabetes Hypertension Stroke Sister Diabetes Hypertension Sister Hypertension Father , AT AGE 94 Dementia Denies family history of CAD (coronary artery disease) Clotting disorder Hyperlipidemia Chronic kidney disease (CKD) Anesthesia complication Bleeding disorder Lung disease Social History Smoking and tobacco status: never smoked Alcohol intake: never Physical Exam Const: COMMON NORMALS: alert HENMT: COMMON NORMALS: normocephalic HEAD & SCALP: normocephalic Neck/C-Spine: COMMON NORMALS: full ROM Chest: COMMONS NORMALS: normal inspection of the chest Resp: COMMON NORMALS: normal respiratory effort Cardio: COMMON NORMALS: regular rate RATE: regular rate GI: COMMON NORMALS: Soft to palpation and non-tender PALPATION: Yes Soft to palpation Extremity: COMMON NORMALS: normal to inspection Neuro: SENSORIUM/ORIENTATION: Yes alert Skin: COMMON NORMALS: turgor normal GENERAL SKIN EXAM: turgor normal Course Vital Signs: Vital signs: Vital Signs Temperature 98.2 F 01/23/23 23:35 Pulse Rate 83 01/24/23 01:29 Respiratory Rate 18 01/24/23 01:29 Blood Pressure 144/97 01/24/23 01:29 Pulse Oximetry 96 01/24/23 01:29 Oxygen Delivery Me thod Room Air 01/24/23 01:29 MDM - Abdominal Pain Medical Decision Making 57-year-old female comes in today for complaints of epigastric discomfort and urinary incontinence. Patient was seen 3 days ago and diagnosed with a urinary tract infection and started on Cipro and Pyridium. Patient reports minimal relief of symptoms for her urinary discomfort. Patient states that she has had nausea and epigastric discomfort that brought her into the ER tonight. Review of the record noted a urine collection 3 days ago that showed large amount of red blood cells and white blood cells. Cultures of the urine did not grow out any pathogens. Vital signs are normal except for some mild elevation in pulse at 113. Differential diagnosis includes urosepsis, hematuria, gastritis, adverse drug effect. Laboratory values noted a white count of 7000, hemoglobin 11.4. CMP noted sodium of 136, potassium of 3.7. CRP was elevated at 77. Urinalysis had a large amount of red blood cells and white blood cells in it without much change from prior exams. Review of the urine culture from 3 days ago noted no growth but normal kody. Patient is stable and appears nontoxic. Reviewed exam with Dr. Warren who agreed with plan for discharge to home treat for gastritis secondary to antibiotic use. Patient was infused with 500 mL of fluid and given Zofran and fentanyl with relief of discomfort and nausea. Patient reported understanding of care plan and need for follow-up or return to the ER. Lab Data 01/24/23 01:24 01/24/23 01:24 Labs/Radiology: Laboratory Results WBC 7.5 10^3/uL (4.0-10.0) 01/24/23 01:24 RBC 4.81 10^6/uL (4.1-5.3) 01/24/23 01:24 Hgb 11.4 g/dL (11.5-15.3) L 01/24/23 01:24 Hct 38.5 % (37.0-47.0) 01/24/23 01:24 MCV 80.0 fl (81-99) L 01/24/23 01:24 MCH 23.7 pg (28.0-34.0) L 01/24/23 01:24 MCHC 29.6 g/dL (30.0-36.0) L 01/24/23 01:24 RDW 19.3 % (12.1-15.1) H 01/24/23 01:24 Plt Count 304 10^3/cmm (130-400) 01/24/23 01:24 MPV 8.6 fL (7.4-10.4) 01/24/23 01:24 Neut % (Auto) 85.9 % 01/24/23 01:24 Lymph % (Auto) 6.5 % 01/24/23 01:24 [place] % (Auto) 6.9 % 01/24/23 01:24 Eos % (Auto) 0.1 % 01/24/23 01:24 Baso % (Auto) 0.3 % 01/24/23 01:24 Neut # (Auto) 6.46 10^3/uL (1.8-7.7) 04/17/23 01:24 Lymph # (Auto) 0.5 10^3/uL (0.8-4.8) L 01/24/23 01:24 [place] # (Auto) 0.5 10^3/uL (0.2-0.9) 01/24/23 01:24 Eos # (Auto) 0.0 10^3/uL (0.0-0.8) 01/24/23 01:24 Baso # (Auto) 0.0 10^3/uL (0.0-0.1) 01/24/23 01:24 Nucleated RBC % (auto) 0 % 01/24/23 01:24 Nucleated RBCs # 0.0 /100WBC 01/24/23 01:24 Sodium 136 mmol/L (136-145) 01/24/23 01:24 Potassium 3.7 mmol/L (3.5-5.1) 01/24/23 01:24 Chloride 96 mmol/L (98-107) L 01/24/23 01:24 Carbon Dioxide 26 mmol/L (22-29) 01/24/23 01:24 Anion Gap 17.7 (5-19) 01/24/23 01:24 BUN 11 mg/dL (6-20) 01/24/23 01:24 Creatinine 0.6 mg/dL (0.5-0.9) 01/24/23 01:24 GFR Calculation 103.0 mL/min (90-130) 01/24/23 01:24 Glucose 135 mg/dL (65-115) H 01/24/23 01:24 Calculated Osmolality 283 mOsm/kg (285-295) L 01/24/23 01:24 Lactic Acid 1.2 mmol/L (0.5-2.2) 01/24/23 01:24 Calcium 9.7 mg/dL (8.5-10.5) 01/24/23 01:24 Total Bilirubin 0.5 mg/dL (0.15-1.2) 01/24/23 01:24 AST 24 U/L (0-32) 01/24/23 01:24 ALT 18 U/L (0-33) 01/24/23 01:24 Alkaline Phosphatase 67 U/L (35-105) 01/24/23 01:24 C-Reactive Protein 77.5 mg/L (0.0-4.9) H 01/24/23 01:24 Total Protein 7.4 g/dL (6.6-8.7) 01/24/23 01:24 Albumin 3.5 g/dL (3.5-5.2) 01/24/23 01:24 Globulin 3.9 g/dL (1.3-4.6) 01/24/23 01:24 Urine Color Yellow (Yellow) 01/24/23 00:58 Urine Appearance Cloudy (CLEAR) A 01/24/23 00:58 Urine pH 6 (5-7) 01/24/23 00:58 Ur Specific Colony 1.025 (1.005-1.030) 01/24/23 00:58 Urine Protein 3+ (Negative) H 01/24/23 00:58 Urine Glucose (UA) Norm (Normal) 01/24/23 00:58 Urine Ketones 1+ (Negative) H 01/24/23 00:58 Urine Blood 3+ (Negative) H 01/24/23 00:58 Urine Nitrate Negative (Negative) 01/24/23 00:58 Urine Bilirubin Neg (Negative) 01/24/23 00:58 Urine Urobilinogen Norm mg/dL (Negative) 01/24/23 00:58 Ur Leukocyte Esterase 2+ (Negative) H 01/24/23 00:58 Urine RBC 50-80 /hpf (0-2) H 01/24/23 00:58 Urine WBC Too numerous to cnt /hpf (0-5) H 01/24/23 00:58 Ur Squamous Epith Cells 0-4 /hpf (0-5) H 01/24/23 00:58 Amorphous Sediment Not Reportable 01/24/23 00:58 Urine Bacteria 2+ /hpf (NONE) H 01/24/23 00:58 Discharge Plan Discharge Patient Disposition: Home Clinical Impression: Dysuria Gastritis Qualifiers: Gastritis type: unspecified gastritis Chronicity: acute Gastritis bleeding: without bleeding Qualified Code(s): K29.00 - Acute gastritis without bleeding Condition: Stable Prescriptions: New famotidine 20 mg tablet 20 mg PO BID Qty: 20 0RF tramadol 50 mg tablet 50 mg PO Q8H PRN (Reason: pain (scale score 4-6)) Qty: 10 0RF ondansetron 4 mg tablet,disintegrating 4 mg PO Q8H PRN (Reason: nausea and vomiting) Qty: 10 0RF No Action vitamin B complex Tablet 1 tab PO DAILY multivitamin with minerals Capsule 1 cap PO DAILY cholecalciferol (vitamin D3) 25 mcg (1,000 unit) capsule 25 mcg PO DAILY Stool Softener-Laxative 8.6-50 mg tablet 1 tab PO DAILY PRN (Reason: Constipation) oxycodone-acetaminophen 5-325 mg tablet 1 tab PO Q8H PRN (Reason: pain) Qty: 10 0RF Cipro 500 mg tablet 500 mg PO BID Qty: 14 0RF Pyridium 200 mg tablet 200 mg PO TID Qty: 6 0RF Discharge Orders: Discharge ED (Routine); Ordered 01/24/23 Ordered By: Hema Cardoza Referrals: Elisa Scott [Primary Care Provider] - Discharge Diet: Usual diet Discharge Activity: Increase activity as tolerated Patient Instructions: Opioid Safety, Pain Management Activity Restrictions/Additional Instructions: Home and rest. Drink plenty of water and fluids. Use famotidine 20 mg 1 tablet twice a day for gastric distress. Use ondansetron 4 mg every 8 hours as needed for nausea or vomiting. Use tramadol as needed for moderate to severe pain every 8 hours. Follow-up with primary care or urologist for further evaluation and treatment. Return to ER for worsening pain, high fever greater than 100.4, or fatmata blood in urine or stool. Coding Level of Care Code ED Rhinologist for Chg Fwd Documented by User: Alfonso Warren DO 01/24/23 04:02 HPI - Abdominal Pain General: Chief Complaint: Abdominal Pain Stated Complaint: ABD Pain Time Seen by Provider: 01/24/23 00:19 [facility] ED PFSH: Medical History Anemia Bladder cancer Diabetes mellitus type 2--diagnosed in November 2020 with a hemoglobin A1c of 10. She states she was on Metformin and her hemoglobin A1c improved to 4 and she was taken off of Metformin in April 2021. Gross hematuria History of TIA (transient ischemic attack) November 2020--some minor memory difficulty--is just on aspirin Hypercholesteremia Diagnosed in November 2020 at time of TIA--has been on Lipitor since then managed by her primary care provider Malignant neoplasm of endometrium Mass of bladder No pertinent past medical history Denies asthma, hypertension, seizures, DVT/PE. PMD: Pelvic mass Uterine cancer Surgical History H/O: knee surgery Arthroscopic left knee surgery History of surgery on arm broken arm-left arm and her 40s History of surgical removal of ganglion cyst Left wrist S/P dilation and curettage 06/09/2021--D&C done for acute abnormal uterine bleeding for thickened endometrium by Dr. Mayes at [facility] [place]. ------> pathology pending Family History Mother , IN HER 80'S Breast cancer Cervical cancer Cancer lymphnode, lung, brain Diabetes Hypertension Stroke Sister Diabetes Hypertension Sister Hypertension Father , AT AGE 94 Dementia Denies family history of CAD (coronary artery disease) Clotting disorder Hyperlipidemia Chronic kidney disease (CKD) Anesthesia complication Bleeding disorder Lung disease Social History Smoking and tobacco status: never smoked Alcohol intake: never Course Vital Signs: Vital signs: Vital Signs Temperature 98.2 F 01/23/23 23:35 Pulse Rate 83 01/24/23 01:29 Respiratory Rate 18 01/24/23 01:29 Blood Pressure 144/97 01/24/23 01:29 Pulse Oximetry 96 01/24/23 01:29 Oxygen Delivery Me thod Room Air 01/24/23 01:29 MDM - Abdominal Pain Medical Decision Making 57-year-old female comes in today for complaints of epigastric discomfort and urinary incontinence. Patient was seen 3 days ago and diagnosed with a urinary tract infection and started on Cipro and Pyridium. Patient reports minimal relief of symptoms for her urinary discomfort. Patient states that she has had nausea and epigastric discomfort that brought her into the ER tonight. Review of the record noted a urine collection 3 days ago that showed large amount of red blood cells and white blood cells. Cultures of the urine did not grow out any pathogens. Vital signs are normal except for some mild elevation in pulse at 113. Differential diagnosis includes urosepsis, hematuria, gastritis, adverse drug effect. Laboratory values noted a white count of 7000, hemoglobin 11.4. CMP noted sodium of 136, potassium of 3.7. CRP was elevated at 77. Urinalysis had a large amount of red blood cells and white blood cells in it without much change from prior exams. Review of the urine culture from 3 days ago noted no growth but normal kody. Patient is stable and appears nontoxic. Reviewed exam with Dr. Warren who agreed with plan for discharge to home treat for gastritis secondary to antibiotic use. Patient was infused with 500 mL of fluid and given Zofran and fentanyl with relief of discomfort and nausea. Patient reported understanding of care plan and need for follow-up or return to the ER. This patient was originally seen by ELDER England.? I agree with his history, evaluation, and treatment. Lab Data 01/24/23 01:24 01/24/23 01:24 Labs/Radiology: Laboratory Results WBC 7.5 10^3/uL (4.0-10.0) 01/24/23 01:24 RBC 4.81 10^6/uL (4.1-5.3) 01/24/23 01:24 Hgb 11.4 g/dL (11.5-15.3) L 01/24/23 01:24 Hct 38.5 % (37.0-47.0) 01/24/23 01:24 MCV 80.0 fl (81-99) L 01/24/23 01:24 MCH 23.7 pg (28.0-34.0) L 01/24/23 01:24 MCHC 29.6 g/dL (30.0-36.0) L 01/24/23 01:24 RDW 19.3 % (12.1-15.1) H 01/24/23 01:24 Plt Count 304 10^3/cmm (130-400) 01/24/23 01:24 MPV 8.6 fL (7.4-10.4) 01/24/23 01:24 Neut % (Auto) 85.9 % 01/24/23 01:24 Lymph % (Auto) 6.5 % 01/24/23 01:24 [place] % (Auto) 6.9 % 01/24/23 01:24 Eos % (Auto) 0.1 % 01/24/23 01:24 Baso % (Auto) 0.3 % 01/24/23 01:24 Neut # (Auto) 6.46 10^3/uL (1.8-7.7) 01/24/23 01:24 Lymph # (Auto) 0.5 10^3/uL (0.8-4.8) L 01/24/23 01:24 [place] # (Auto) 0.5 10^3/uL (0.2-0.9) 01/24/23 01:24 Eos # (Auto) 0.0 10^3/uL (0.0-0.8) 01/24/23 01:24 Baso # (Auto) 0.0 10^3/uL (0.0-0.1) 01/24/23 01:24 Nucleated RBC % (auto) 0 % 01/24/23 01: Nucleated RBCs # 0.0 /100WBC 01/24/23 01:24 Sodium 136 mmol/L (136-145) 01/24/23 01:24 Potassium 3.7 mmol/L (3.5-5.1) 01/24/23 01:24 Chloride 96 mmol/L (98-107) L 01/24/23 01:24 Carbon Dioxide 26 mmol/L (22-29) 01/24/23 01:24 Anion Gap 17.7 (5-19) 01/24/23 01:24 BUN 11 mg/dL (6-20) 01/24/23 01:24 Creatinine 0.6 mg/dL (0.5-0.9) 01/24/23 01:24 GFR Calculation 103.0 mL/min (90-130) 01/24/23 01:24 Glucose 135 mg/dL (65-115) H 01/24/23 01:24 Calculated Osmolality 283 mOsm/kg (285-295) L 01/24/23 01:24 Lactic Acid 1.2 mmol/L (0.5-2.2) 01/24/23 01:24 Calcium 9.7 mg/dL (8.5-10.5) 01/24/23 01:24 Total Bilirubin 0.5 mg/dL (0.15-1.2) 01/24/23 01:24 AST 24 U/L (0-32) 01/24/23 01:24 ALT 18 U/L (0-33) 01/24/23 01:24 Alkaline Phosphatase 67 U/L (35-105) 01/24/23 01:24 C-Reactive Protein 77.5 mg/L (0.0-4.9) H 01/24/23 01:24 Total Protein 7.4 g/dL (6.6-8.7) 01/24/23 01:24 Albumin 3.5 g/dL (3.5-5.2) 01/24/23 01:24 Globulin 3.9 g/dL (1.3-4.6) 01/24/23 01:24 Urine Color Yellow (Yellow) 01/24/23 00:58 Urine Appearance Cloudy (CLEAR) A 01/24/23 00:58 Urine pH 6 (5-7) 01/24/23 00:58 Ur Specific Colony 1.025 (1.005-1.030) 01/24/23 00:58 Urine Protein 3+ (Negative) H 01/24/23 00:58 Urine Glucose (UA) Norm (Normal) 01/24/23 00:58 Urine Ketones 1+ (Negative) H 01/24/23 00:58 Urine Blood 3+ (Negative) H 01/24/23 00:58 Urine Nitrate Negative (Negative) 01/24/23 00:58 Urine Bilirubin Neg (Negative) 01/24/23 00:58 Urine Urobilinogen Norm mg/dL (Negative) 01/24/23 00:58 Ur Leukocyte Esterase 2+ (Negative) H 01/24/23 00:58 Urine RBC 50-80 /hpf (0-2) H 01/24/23 00:58 Urine WBC Too numerous to cnt /hpf (0-5) H 01/24/23 00:58 Ur Squamous Epith Cells 0-4 /hpf (0-5) H 01/24/23 00:58 Amorphous Sediment Not Reportable 01/24/23 00:58 Urine Bacteria 2+ /hpf (NONE) H 01/24/23 00:58 Discharge Plan Discharge Patient Disposition: Home Clinical Impression: Dysuria Gastritis Qualifiers: Gastritis type: unspecified gastritis Chronicity: acute Gastritis bleeding: without bleeding Qualified Code(s): K29.00 - Acute gastritis without bleeding Condition: Stable Prescriptions: New famotidine 20 mg tablet 20 mg PO BID Qty: 20 0RF tramadol 50 mg tablet 50 mg PO Q8H PRN (Reason: pain (scale score 4-6)) Qty: 10 0RF ondansetron 4 mg tablet,disintegrating 4 mg PO Q8H PRN (Reason: nausea and vomiting) Qty: 10 0RF No Action vitamin B complex Tablet 1 tab PO DAILY multivitamin with minerals Capsule 1 cap PO DAILY cholecalciferol (vitamin D3) 25 mcg (1,000 unit) capsule 25 mcg PO DAILY Stool Softener-Laxative 8.6-50 mg tablet 1 tab PO DAILY PRN (Reason: Constipation) oxycodone-acetaminophen 5-325 mg tablet 1 tab PO Q8H PRN (Reason: pain) Qty: 10 0RF Cipro 500 mg tablet 500 mg PO BID Qty: 14 0RF Pyridium 200 mg tablet 200 mg PO TID Qty: 6 0RF Discharge Orders: Discharge ED (Routine); Ordered 01/24/23 Ordered By: Hema Cardoza Referrals: Elisa Scott [Primary Care Provider] - Discharge Diet: Usual diet Discharge Activity: Increase activity as tolerated Patient Instructions: Opioid Safety, Pain Management Activity Restrictions/Additional Instructions: Home and rest. Drink plenty of water and fluids. Use famotidine 20 mg 1 tablet twice a day for gastric distress. Use ondansetron 4 mg every 8 hours as needed for nausea or vomiting. Use tramadol as needed for moderate to severe pain every 8 hours. Follow-up with primary care or urologist for further evaluation and treatment. Return to ER for worsening pain, high fever greater than 100.4, or fatmata blood in urine or stool. Coding Level of Care Code ED Rhinologist for Viktoria Hdez
[2023-01-24 01:29] VITALS: BP 144/97; PULSE 83; RESP 18; O2SAT 96
[2023-01-24] MEDS: sodium chloride 0.9% 1,000 ML 999 ML IV (01:30)
[2023-01-24] MEDS: ondansetron 2 mg/ML SDV 2 mL 4 MG IVP (01:31)
[2023-01-24 01:33] LABS: Basophils % 0.3 %; Eosinophils % 0.1 %; Hematocrit 38.5 % (37.0-47.0); Hemoglobin 11.4 g/dL (11.5-15.3); Lymphocytes # 0.5 10^3/uL (0.8-4.8); Lymphocytes % 6.5 %; Mean Corpuscular HGB Conc 29.6 g/dL (30.0-36.0); Mean Corpuscular Hemoglobin 23.7 pg (28.0-34.0); Mean Platelet Volume 8.6 fL (7.4-10.4); Monocytes # 0.5 10^3/uL (0.2-0.9); Monocytes % 6.9 %; Neutrophils # 6.46 10^3/uL (1.8-7.7); Neutrophils % 85.9 %; Nucleated Red Blood Cells % 0 %; Platelet Count 304 10^3/cmm (130-400); Red Blood Count 4.81 10^6/uL (4.1-5.3); Red Cell Distribution Width 19.3 % (12.1-15.1); White Blood Count 7.5 10^3/uL (4.0-10.0)
[2023-01-24] MEDS: fentaNYL 50 mcg/mL INJ 2mL IVP (01:39)
[2023-01-24 01:44] LABS: Lactic Sepsis W/Reflex 1.2 mmol/L (0.5-2.2)
[2023-01-24 01:55] LABS: Alanine Aminotransferase 18 U/L (0-33); Albumin Level 3.5 g/dL (3.5-5.2); Alkaline Phosphatase 67 U/L (35-105); Anion Gap 17.7 (5-19); Aspartate Amino Transferase 24 U/L (0-32); Blood Urea Nitrogen 11 mg/dL (6-20); C Reactive Protein 77.5 mg/L (0.0-4.9); Calcium 9.7 mg/dL (8.5-10.5); Carbon Dioxide 26 mmol/L (22-29); Chloride 96 mmol/L (98-107); Globulin 3.9 g/dL (1.3-4.6); Glucose 135 mg/dL (65-115); Osmolality Calculated 283 mOsm/kg (285-295); Potassium 3.7 mmol/L (3.5-5.1); Sodium 136 mmol/L (136-145); Total Bilirubin 0.5 mg/dL (0.15-1.2); Total Protein 7.4 g/dL (6.6-8.7)
[2023-01-24 02:06] LABS: Glucose Urine UA Norm (Normal); Protein Urine 3+ (Negative); Specific Gravity, Urine 1.025 (1.005-1.030); Urine Appearance Cloudy (CLEAR); Urine Color Yellow (Yellow); pH Urine 6 (5-7)
[2023-01-24 02:07] LABS: Add Urine Microscopic? YES; Bilirubin Urine Neg (Negative); Blood Urine 3+ (Negative); Ketones Urine 1+ (Negative); Leukocyte Esterase Urine 2+ (Negative); Nitrate Urine Negative (Negative); Urobilinogen Urine Norm (Negative)
[2023-01-24 02:08] LABS: RBC Urine 50-80 /hpf (0-2); Squamous Epithelial Cell Urine 0-4 /hpf (0-5); WBC Urine TOO NUMEROUS TO CNT /hpf (0-5)
[2023-01-24 02:10] LABS: Bacteria Urine 2+ /hpf
[2023-01-24 02:11] LABS: Add Urine Culture? Yes
[2023-01-24] MEDS: famotidine 20 mg/2 mL INJ 40 MG IVP (02:45)
[2023-01-24 04:00] VITALS: BP 148/86; PULSE 78; RESP 16; O2SAT 97
--- NOTE | 2023-01-24 04:05 | PC.NURSE ---
Patient sent home with 2x 50mg Tramadol per Dr. Warren's order.
== END 2023-01-24 03:10 | disposition home or self-care (01) ==
PROVIDERS: Emergency Provider Nurse Practitioner Family; PCP Registered Nurse
DX: R30.0 Dysuria (principal); K29.00 Acute gastritis without bleeding; Z85.51 Personal history of malignant neoplasm of bladder; Z85.42 Personal history of malignant neoplasm of other parts of uterus; E11.9 Type 2 diabetes mellitus without complications; Z86.73 Personal history of transient ischemic attack (TIA), and cerebral infarction without residual deficits
CPT/HCPCS: 80053; 81001; 83605; 85025; 86140; 87086; 96361; 96374; 96375; 99284; J2405; J3010; J3490; J7030

== ENCOUNTER 2023-03-09 08:00 | Oncology outpatient (recurring) (ONCR) | payer BC, MEDICAID, SELFPAY ==
--- NOTE | 2023-02-09 09:44 | ONCRAD EPV_ITS ---
Radiation Oncology Follow-Up Note Patient Name: Basilia Pedraza Date of : 1965 Date of Service: 02/09/2023 Attending Physician: Man Chan M.D. Basilia Pedraza returned to my office this morning for a post-radiotherapy follow-up appointment. She completed pelvic radiotherapy in January for the management of a recurrent endometrial cancer. Pelvic radiotherapy was delivered between the dates of December 06, 2022 through January 14, 2023. A prescribed dose of 54 Gy was delivered in 30 fractions encompassing 40 elapsed days. On review of systems, the LUTS have improved. On physical examination, she weighed 117 lbs. Her temperature was 96.9???F and the blood pressure was 119/87 mmHg. The pulse was 106 bpm and her respiratory rate was 18. In summary, Ms. Pedraza returned for a routine post-radiotherapy follow-up. Adverse effects from radiotherapy have aborted. She will be evaluated for systemic therapy. Signed by: Man Chan 02/09/2023 9:42:49 AM
[2023-02-09] MEDS: alteplase 1 mg/mL SDV 2 mL 2 MG INTRACATH (12:11)
[2023-02-09 13:25] VITALS: BP 112/77; PULSE 90; RESP 18; TEMP 36.8; O2SAT 98
[2023-02-09 13:47] LABS: Basophils % 0.4 %; Eosinophils # 0.1 10^3/uL (0.0-0.8); Hematocrit 35.9 % (37.0-47.0); Hemoglobin 10.9 g/dL (11.5-15.3); Lymphocytes # 0.9 10^3/uL (0.8-4.8); Lymphocytes % 12.9 %; Mean Corpuscular HGB Conc 30.4 g/dL (30.0-36.0); Mean Corpuscular Hemoglobin 24.5 pg (28.0-34.0); Mean Corpuscular Volume 80.9 fl (81-99); Mean Platelet Volume 8.9 fL (7.4-10.4); Monocytes # 0.4 10^3/uL (0.2-0.9); Monocytes % 6.1 %; Neutrophils # 5.47 10^3/uL (1.8-7.7); Neutrophils % 79.5 %; Nucleated Red Blood Cells % 0 %; Platelet Count 280 10^3/cmm (130-400); Red Blood Count 4.44 10^6/uL (4.1-5.3); Red Cell Distribution Width 20.8 % (12.1-15.1); White Blood Count 6.9 10^3/uL (4.0-10.0)
[2023-02-09 14:10] LABS: Alanine Aminotransferase 23 U/L (0-33); Albumin Level 3.8 g/dL (3.5-5.2); Alkaline Phosphatase 82 U/L (35-105); Anion Gap 13.8 (5-19); Aspartate Amino Transferase 21 U/L (0-32); Blood Urea Nitrogen 19 mg/dL (6-20); Calcium 9.7 mg/dL (8.5-10.5); Carbon Dioxide 26 mmol/L (22-29); Chloride 104 mmol/L (98-107); Globulin 3.3 g/dL (1.3-4.6); Glomerular Filtration Rate 127.2 mL/min (90-130); Glucose 109 mg/dL (65-115); Osmolality Calculated 293 mOsm/kg (285-295); Potassium 3.8 mmol/L (3.5-5.1); Sodium 140 mmol/L (136-145); Total Bilirubin 0.2 mg/dL (0.15-1.2); Total Protein 7.1 g/dL (6.6-8.7)
[2023-02-21 07:55] LABS: Basophils % 0.4 %; Eosinophils # 0.1 10^3/uL (0.0-0.8); Eosinophils % 1.8 %; Hematocrit 35.9 % (37.0-47.0); Hemoglobin 10.7 g/dL (11.5-15.3); Lymphocytes % 12.6 %; Mean Corpuscular HGB Conc 29.8 g/dL (30.0-36.0); Mean Corpuscular Hemoglobin 24.5 pg (28.0-34.0); Mean Corpuscular Volume 82.3 fl (81-99); Monocytes # 0.6 10^3/uL (0.2-0.9); Monocytes % 6.9 %; Neutrophils # 6.22 10^3/uL (1.8-7.7); Neutrophils % 78.2 %; Nucleated Red Blood Cells % 0 %; Platelet Count 251 10^3/cmm (130-400); Red Blood Count 4.36 10^6/uL (4.1-5.3); Red Cell Distribution Width 20.8 % (12.1-15.1)
[2023-02-21 08:13] VITALS: BMI 22.4
[2023-02-21 08:14] VITALS: BP 118/84; PULSE 91; RESP 18; TEMP 36.4; O2SAT 99
[2023-02-21 08:34] LABS: Alanine Aminotransferase 10 U/L (0-33); Albumin Level 3.8 g/dL (3.5-5.2); Alkaline Phosphatase 88 U/L (35-105); Aspartate Amino Transferase 22 U/L (0-32); Blood Urea Nitrogen 15 mg/dL (6-20); Calcium 9.2 mg/dL (8.5-10.5); Carbon Dioxide 25 mmol/L (22-29); Chloride 102 mmol/L (98-107); Globulin 3.3 g/dL (1.3-4.6); Glomerular Filtration Rate 164.5 mL/min (90-130); Glucose 107 mg/dL (65-115); Osmolality Calculated 287 mOsm/kg (285-295); Sodium 138 mmol/L (136-145); Thyroid Stimulating Hormone 1.82 uIU/mL (0.27-4.20); Total Bilirubin 0.3 mg/dL (0.15-1.2); Total Protein 7.1 g/dL (6.6-8.7)
[2023-02-21 08:43] LABS: Anion Gap 14.8 (5-19); Potassium 3.8 mmol/L (3.5-5.1)
[2023-02-21 10:27] LABS: Ferritin 129 ng/mL (15-150); Iron 24 ug/dL (37-145); Percent Saturation 8.2 % (20-50); Total Iron Binding Capacity 291 mcg/dl; Unsaturated Iron Binding 267 ug/dL (112-347)
[2023-02-21] MEDS: sodium chloride 0.9% (100 ml) 100 ML 75 ML (10:54)
[2023-02-21] MEDS: acetaminophen 325 mg Tablet 650 MG PO (10:59)
[2023-02-21] MEDS: diphenhydrAMINE 50 mg/mL SDV 1mL 25 MG IVP (11:02)
[2023-02-21] MEDS: famotidine 20 mg/2 mL INJ IVP (11:06)
[2023-02-21] MEDS: palonosetron 0.25 mg/5 mL SDV IVP (11:09)
[2023-02-21] MEDS: dexamethasone 20 MG in sodium chloride 0.9% 50 ML 188 MG IV (11:09)
[2023-02-21] MEDS: sodium chloride 0.9% (100 ml) 100 ML 50 ML (12:53)
[2023-02-21] MEDS: CARBOplatin 230 MG in sodium chloride 0.9% 500 ML 523 MG IV (14:12)
[2023-02-21 16:12] VITALS: BP 112/72; PULSE 84; RESP 18; TEMP 36.2; O2SAT 98
[2023-03-01 08:11] VITALS: BP 141/89; PULSE 81; RESP 16; TEMP 36.6; O2SAT 97
[2023-03-01 08:13] VITALS: BMI 21.0
[2023-03-01 08:14] LABS: Basophils % 0.2 %; Hematocrit 36.1 % (37.0-47.0); Lymphocytes # 0.8 10^3/uL (0.8-4.8); Lymphocytes % 9.3 %; Mean Corpuscular HGB Conc 30.5 g/dL (30.0-36.0); Mean Corpuscular Hemoglobin 25.1 pg (28.0-34.0); Mean Corpuscular Volume 82.2 fl (81-99); Mean Platelet Volume 8.6 fL (7.4-10.4); Monocytes # 0.6 10^3/uL (0.2-0.9); Neutrophils # 7.34 10^3/uL (1.8-7.7); Nucleated Red Blood Cells % 0 %; Platelet Count 299 10^3/cmm (130-400); Red Blood Count 4.39 10^6/uL (4.1-5.3); White Blood Count 8.8 10^3/uL (4.0-10.0)
[2023-03-01 08:54] LABS: Alanine Aminotransferase 11 U/L (0-33); Albumin Level 4.3 g/dL (3.5-5.2); Alkaline Phosphatase 94 U/L (35-105); Anion Gap 16.4 (5-19); Aspartate Amino Transferase 17 U/L (0-32); Blood Urea Nitrogen 18 mg/dL (6-20); Calcium 9.9 mg/dL (8.5-10.5); Carbon Dioxide 29 mmol/L (22-29); Chloride 94 mmol/L (98-107); Globulin 3.4 g/dL (1.3-4.6); Glomerular Filtration Rate 127.2 mL/min (90-130); Glucose 150 mg/dL (65-115); Osmolality Calculated 287 mOsm/kg (285-295); Potassium 3.4 mmol/L (3.5-5.1); Sodium 136 mmol/L (136-145); Total Bilirubin 0.6 mg/dL (0.15-1.2); Total Protein 7.7 g/dL (6.6-8.7)
[2023-03-01] MEDS: sodium chloride 0.9% 1,000 ML 75 ML IV (10:35)
[2023-03-01] MEDS: ondansetron 2 mg/ML SDV 2 mL 8 MG IVP (10:38)
[2023-03-01 12:37] VITALS: BP 144/86; PULSE 78; RESP 18; TEMP 36.6; O2SAT 96
[2023-03-09 08:34] VITALS: BP 107/77; PULSE 121; RESP 18; TEMP 36.3; O2SAT 92
[2023-03-09 08:46] LABS: Basophils % 0.3 %; Eosinophils % 0.3 %; Hematocrit 35.4 % (37.0-47.0); Hemoglobin 10.4 g/dL (11.5-15.3); Lymphocytes # 0.8 10^3/uL (0.8-4.8); Lymphocytes % 9.1 %; Mean Corpuscular HGB Conc 29.4 g/dL (30.0-36.0); Mean Corpuscular Hemoglobin 24.8 pg (28.0-34.0); Mean Corpuscular Volume 84.5 fl (81-99); Mean Platelet Volume 8.6 fL (7.4-10.4); Monocytes # 0.7 10^3/uL (0.2-0.9); Monocytes % 8.2 %; Neutrophils % 81.6 %; Nucleated Red Blood Cells % 0 %; Platelet Count 277 10^3/cmm (130-400); Red Blood Count 4.19 10^6/uL (4.1-5.3); Red Cell Distribution Width 18.6 % (12.1-15.1); White Blood Count 8.6 10^3/uL (4.0-10.0)
[2023-03-09 09:41] LABS: Alanine Aminotransferase 8 U/L (0-33); Albumin Level 3.9 g/dL (3.5-5.2); Alkaline Phosphatase 79 U/L (35-105); Anion Gap 13.9 (5-19); Aspartate Amino Transferase 13 U/L (0-32); Blood Urea Nitrogen 15 mg/dL (6-20); Calcium 8.8 mg/dL (8.5-10.5); Carbon Dioxide 29 mmol/L (22-29); Chloride 96 mmol/L (98-107); Globulin 3.1 g/dL (1.3-4.6); Glomerular Filtration Rate 86.2 mL/min (90-130); Glucose 137 mg/dL (65-115); Osmolality Calculated 283 mOsm/kg (285-295); Potassium 3.9 mmol/L (3.5-5.1); Sodium 135 mmol/L (136-145); Total Bilirubin 0.8 mg/dL (0.15-1.2)
[2023-03-09] MEDS: sodium chloride 0.9% 250 ML 100 ML IV (11:37)
[2023-03-09] MEDS: acetaminophen 325 mg Tablet 650 MG PO (11:37)
[2023-03-09] MEDS: diphenhydrAMINE 50 mg/mL SDV 1mL 25 MG IVP (11:39)
[2023-03-09] MEDS: palonosetron 0.25 mg/5 mL SDV IVP (11:39)
[2023-03-09] MEDS: famotidine 20 mg/2 mL INJ IVP (11:39)
[2023-03-09] MEDS: dexamethasone 20 MG in sodium chloride 0.9% 50 ML 220 MG IV (11:41)
[2023-03-09] MEDS: CARBOplatin 200 MG in sodium chloride 0.9% 500 ML 520 MG IV (13:22)
[2023-03-09 15:27] VITALS: BP 133/60; PULSE 62; RESP 16; TEMP 36.1; O2SAT 99
== END 2023-03-09 23:59 | disposition home or self-care (01) ==
PROVIDERS: Nurse Practitioner; Absent Provider Radiology Radiation Oncology; PCP Registered Nurse; Visit Provider Internal Medicine Hematology & Oncology
DX: C54.1 Malignant neoplasm of endometrium; Z51.0 Encounter for antineoplastic radiation therapy; Z51.11 Encounter for antineoplastic chemotherapy; C77.8 Secondary and unspecified malignant neoplasm of lymph nodes of multiple regions; Z90.710 Acquired absence of both cervix and uterus; Z79.2 Long term (current) use of antibiotics; Z79.899 Other long term (current) drug therapy; Z92.21 Personal history of antineoplastic chemotherapy
CPT/HCPCS: 36591; 36593; 80053; 82728; 83540; 83550; 84443; 85025; 96365; 96367; 96374; 96375; 96413; 96415; 96417; J1100; J1200; J1642; J2405; J2469; J2997; J3490; J7030; J7040; J7050; J9045; J9267

== ENCOUNTER 2023-03-22 11:54 | Outpatient (CLI) | payer BC, MEDICAID, SELFPAY | END 2023-03-22 11:55 | disposition home or self-care (01) | LOC: LAB 11:57 | PROVIDERS: PCP Registered Nurse; Visit Provider Nurse Practitioner | DX: D50.9 Iron deficiency anemia, unspecified (principal) | CPT/HCPCS: 82274 ==

== ENCOUNTER 2023-04-07 14:30 | Oncology outpatient (recurring) (ONCR) | payer BC, MEDICAID, SELFPAY ==
[2023-03-21] VITALS (11 sets, daily range): BP systolic 97–128; BP diastolic 65–86; PULSE 60–107; RESP 18; TEMP 36.5–36.9; O2SAT 91–97
[2023-03-21 08:04] LABS: Basophils % 0.2 %; Eosinophils # 0.1 10^3/uL (0.0-0.8); Hematocrit 25.4 % (37.0-47.0); Hemoglobin 7.2 g/dL (11.5-15.3); Lymphocytes # 0.7 10^3/uL (0.8-4.8); Lymphocytes % 12.9 %; Mean Corpuscular HGB Conc 28.3 g/dL (30.0-36.0); Mean Corpuscular Hemoglobin 25.5 pg (28.0-34.0); Mean Corpuscular Volume 90.1 fl (81-99); Mean Platelet Volume 9.2 fL (7.4-10.4); Monocytes # 0.4 10^3/uL (0.2-0.9); Neutrophils # 4.01 10^3/uL (1.8-7.7); Neutrophils % 78.5 %; Nucleated Red Blood Cells % 0 %; Platelet Count 190 10^3/cmm (130-400); Red Blood Count 2.82 10^6/uL (4.1-5.3); Red Cell Distribution Width 20.4 % (12.1-15.1); White Blood Count 5.1 10^3/uL (4.0-10.0)
[2023-03-21 08:19] LABS: Alanine Aminotransferase 9 U/L (0-33); Albumin Level 3.3 g/dL (3.5-5.2); Alkaline Phosphatase 78 U/L (35-105); Anion Gap 14.5 (5-19); Aspartate Amino Transferase 13 U/L (0-32); Blood Urea Nitrogen 12 mg/dL (6-20); Carbon Dioxide 25 mmol/L (22-29); Chloride 98 mmol/L (98-107); Globulin 3.1 g/dL (1.3-4.6); Glomerular Filtration Rate 229.3 mL/min (90-130); Glucose 113 mg/dL (65-115); Osmolality Calculated 279 mOsm/kg (285-295); Potassium 3.5 mmol/L (3.5-5.1); Sodium 134 mmol/L (136-145); Total Bilirubin 0.8 mg/dL (0.15-1.2); Total Protein 6.4 g/dL (6.6-8.7)
[2023-03-21 10:22] LABS: Reticulocyte % 7.3 % (0.5-2.0)
[2023-03-21] MEDS: acetaminophen 325 mg Tablet 650 MG PO ×2 (10:35→15:21)
[2023-03-21] MEDS: diphenhydrAMINE 25 mg Capsule PO (10:35)
[2023-03-21] MEDS: sodium chloride 0.9% 250 mL Bag IV (10:37)
[2023-03-21] MEDS: FUROsemide 10 mg/mL SDV 2mL 20 MG IVP (12:52)
[2023-03-21] MEDS: sodium chloride 0.9% 250 ML 75 ML IV (15:20)
[2023-03-21] MEDS: diphenhydrAMINE 50 mg/mL SDV 1mL 25 MG IVP (15:23)
[2023-03-21] MEDS: famotidine 20 mg/2 mL INJ IVP (15:24)
[2023-03-21] MEDS: palonosetron 0.25 mg/5 mL SDV IVP (15:25)
[2023-03-21] MEDS: dexamethasone 20 MG in sodium chloride 0.9% 50 ML 188 MG IV (15:27)
[2023-03-28 08:47] VITALS: BP 126/89; PULSE 124; RESP 18; TEMP 37.4; O2SAT 96
[2023-03-28 08:57] LABS: Basophils % 0.4 %; Eosinophils % 0.9 %; Hematocrit 33.2 % (37.0-47.0); Lymphocytes # 0.6 10^3/uL (0.8-4.8); Lymphocytes % 13.7 %; Mean Corpuscular HGB Conc 30.1 g/dL (30.0-36.0); Mean Corpuscular Hemoglobin 27.7 pg (28.0-34.0); Monocytes # 0.4 10^3/uL (0.2-0.9); Monocytes % 9.1 %; Neutrophils # 3.48 10^3/uL (1.8-7.7); Neutrophils % 75.7 %; Nucleated Red Blood Cells % 0 %; Platelet Count 224 10^3/cmm (130-400); Red Blood Count 3.61 10^6/uL (4.1-5.3); Red Cell Distribution Width 19.2 % (12.1-15.1); White Blood Count 4.6 10^3/uL (4.0-10.0)
[2023-03-28 09:14] LABS: Alanine Aminotransferase 10 U/L (0-33); Albumin Level 3.4 g/dL (3.5-5.2); Alkaline Phosphatase 75 U/L (35-105); Anion Gap 14.6 (5-19); Aspartate Amino Transferase 15 U/L (0-32); Blood Urea Nitrogen 11 mg/dL (6-20); Calcium 9.3 mg/dL (8.5-10.5); Carbon Dioxide 26 mmol/L (22-29); Chloride 98 mmol/L (98-107); Globulin 3.1 g/dL (1.3-4.6); Glomerular Filtration Rate 164.5 mL/min (90-130); Glucose 112 mg/dL (65-115); Osmolality Calculated 280 mOsm/kg (285-295); Potassium 3.6 mmol/L (3.5-5.1); Sodium 135 mmol/L (136-145); Total Protein 6.5 g/dL (6.6-8.7)
[2023-03-29 11:50] VITALS: BP 114/81; PULSE 112; RESP 16; TEMP 36.9; O2SAT 91
[2023-03-29] MEDS: sodium chloride 0.9% 250 ML 75 ML IV (12:38)
[2023-03-29] MEDS: diphenhydrAMINE 50 mg/mL SDV 1mL 25 MG IVP (12:40)
[2023-03-29] MEDS: famotidine 20 mg/2 mL INJ IVP (12:42)
[2023-03-29] MEDS: palonosetron 0.25 mg/5 mL SDV IVP (12:43)
[2023-03-29] MEDS: dexamethasone 20 MG in sodium chloride 0.9% 50 ML 188 MG IV (12:44)
[2023-03-29] MEDS: acetaminophen 325 mg Tablet 650 MG PO (12:46)
[2023-03-29] MEDS: ferric carboxy (IVPB) 750 MG in sodium chloride 0.9% (100 ml) 100 ML 345 MG IV (14:57)
[2023-03-29 15:40] VITALS: BP 107/72; PULSE 85; RESP 16; TEMP 36.8; O2SAT 98
[2023-04-01] MEDS: sodium chloride 0.9% 250 ML 100 ML IV (09:42)
[2023-04-01] MEDS: iron sucrose 200 MG in sodium chloride 0.9% (100 ml) 100 ML 220 MG IV (09:43)
[2023-04-01 10:51] VITALS: BP 100/67; PULSE 105; TEMP 36.8; O2SAT 92
[2023-04-05 09:22] VITALS: BP 109/77; PULSE 116; RESP 18; TEMP 37; O2SAT 95
[2023-04-05 09:35] LABS: Basophils % 0.3 %; Eosinophils % 0.4 %; Hematocrit 30.4 % (37.0-47.0); Hemoglobin 9.1 g/dL (11.5-15.3); Lymphocytes # 0.7 10^3/uL (0.8-4.8); Lymphocytes % 10.1 %; Mean Corpuscular HGB Conc 29.9 g/dL (30.0-36.0); Mean Corpuscular Hemoglobin 28.3 pg (28.0-34.0); Mean Corpuscular Volume 94.7 fl (81-99); Mean Platelet Volume 8.8 fL (7.4-10.4); Monocytes # 0.6 10^3/uL (0.2-0.9); Monocytes % 8.4 %; Neutrophils # 5.33 10^3/uL (1.8-7.7); Neutrophils % 79.6 %; Nucleated Red Blood Cells # 0.1 /100WBC; Platelet Count 238 10^3/cmm (130-400); Red Blood Count 3.21 10^6/uL (4.1-5.3); Red Cell Distribution Width 20.7 % (12.1-15.1); White Blood Count 6.7 10^3/uL (4.0-10.0)
[2023-04-05 09:51] LABS: Alanine Aminotransferase 10 U/L (0-33); Albumin Level 3.4 g/dL (3.5-5.2); Alkaline Phosphatase 72 U/L (35-105); Anion Gap 15.3 (5-19); Aspartate Amino Transferase 15 U/L (0-32); Blood Urea Nitrogen 11 mg/dL (6-20); Carbon Dioxide 26 mmol/L (22-29); Chloride 98 mmol/L (98-107); Glomerular Filtration Rate 229.3 mL/min (90-130); Glucose 112 mg/dL (65-115); Osmolality Calculated 282 mOsm/kg (285-295); Potassium 3.3 mmol/L (3.5-5.1); Sodium 136 mmol/L (136-145); Total Bilirubin 0.6 mg/dL (0.15-1.2); Total Protein 6.4 g/dL (6.6-8.7)
[2023-04-05] MEDS: sodium chloride 0.9% 250 ML 75 ML IV ×2 (12:08→13:21)
[2023-04-05] MEDS: iron sucrose 200 MG in sodium chloride 0.9% (100 ml) 100 ML 220 MG IV (12:11)
[2023-04-05] MEDS: dexamethasone 20 MG in sodium chloride 0.9% 50 ML 210 MG IV (12:50)
[2023-04-05] MEDS: acetaminophen 325 mg Tablet 650 MG PO (12:54)
[2023-04-05] MEDS: diphenhydrAMINE 50 mg/mL SDV 1mL 25 MG IVP (13:19)
[2023-04-05] MEDS: famotidine 20 mg/2 mL INJ IVP (13:23)
[2023-04-05] MEDS: palonosetron 0.25 mg/5 mL SDV IVP (13:25)
[2023-04-05] MEDS: CARBOplatin 230 MG in sodium chloride 0.9% 500 ML 523 MG IV (14:40)
[2023-04-05 16:25] VITALS: BP 129/84; PULSE 84; RESP 18; TEMP 36.3; O2SAT 95
[2023-04-07] MEDS: iron sucrose 200 MG in sodium chloride 0.9% (100 ml) 100 ML 220 MG IV (15:07)
[2023-04-07 15:22] VITALS: BP 111/79; PULSE 116; RESP 18; TEMP 36.9; O2SAT 97
[2023-04-07 15:40] VITALS: BP 124/78; PULSE 75; RESP 18; TEMP 36.6; O2SAT 98
== END 2023-04-08 23:59 | disposition home or self-care (01) ==
PROVIDERS: Nurse Practitioner; Absent Provider Radiology Radiation Oncology; PCP Registered Nurse; Visit Provider Internal Medicine Hematology & Oncology
DX: D50.9 Iron deficiency anemia, unspecified (principal)
CPT/HCPCS: 36430; 80053; 85025; 85045; 86850; 86900; 86920; 96365; 96367; 96375; 96413; 96417; J1100; J1200; J1439; J1642; J1756; J1940; J2469; J3490; J7040; J7050; J9045; J9267; P9016; P9040

== ENCOUNTER 2023-05-03 09:30 | Oncology outpatient (recurring) (ONCR) | payer BC, MEDICAID, SELFPAY ==
[2023-04-13 10:26] VITALS: BP 115/70; PULSE 129; RESP 18; TEMP 37.2; O2SAT 98
[2023-04-13 10:37] LABS: Basophils % 0.4 %; Eosinophils % 0.2 %; Hemoglobin 9.5 g/dL (11.5-15.3); Lymphocytes # 0.8 10^3/uL (0.8-4.8); Mean Corpuscular HGB Conc 29.7 g/dL (30.0-36.0); Mean Corpuscular Hemoglobin 29.1 pg (28.0-34.0); Mean Corpuscular Volume 97.9 fl (81-99); Mean Platelet Volume 9.1 fL (7.4-10.4); Monocytes # 0.7 10^3/uL (0.2-0.9); Monocytes % 8.3 %; Neutrophils # 6.73 10^3/uL (1.8-7.7); Neutrophils % 81.1 %; Nucleated Red Blood Cells % 0.4 %; Platelet Count 254 10^3/cmm (130-400); Red Blood Count 3.27 10^6/uL (4.1-5.3); White Blood Count 8.3 10^3/uL (4.0-10.0)
[2023-04-13 10:55] LABS: Alanine Aminotransferase 8 U/L (0-33); Alkaline Phosphatase 64 U/L (35-105); Anion Gap 14.5 (5-19); Aspartate Amino Transferase 14 U/L (0-32); Blood Urea Nitrogen 9 mg/dL (6-20); Calcium 8.4 mg/dL (8.5-10.5); Carbon Dioxide 24 mmol/L (22-29); Chloride 101 mmol/L (98-107); Glomerular Filtration Rate 127.2 mL/min (90-130); Glucose 137 mg/dL (65-115); Osmolality Calculated 283 mOsm/kg (285-295); Potassium 3.5 mmol/L (3.5-5.1); Sodium 136 mmol/L (136-145); Total Bilirubin 0.4 mg/dL (0.15-1.2)
[2023-04-13] MEDS: iron sucrose 200 MG in sodium chloride 0.9% (100 ml) 100 ML 220 MG IV (12:33)
[2023-04-13 13:20] VITALS: BP 116/78; PULSE 102; RESP 18; TEMP 36.7; O2SAT 95
[2023-04-18 08:25] VITALS: BP 116/82; PULSE 114; RESP 18; TEMP 36.3; O2SAT 99
[2023-04-18 08:35] LABS: Basophils % 0.3 %; Eosinophils % 0.2 %; Hematocrit 34.5 % (37.0-47.0); Hemoglobin 10.3 g/dL (11.5-15.3); Lymphocytes # 0.6 10^3/uL (0.8-4.8); Lymphocytes % 6.5 %; Mean Corpuscular HGB Conc 29.9 g/dL (30.0-36.0); Mean Corpuscular Hemoglobin 28.8 pg (28.0-34.0); Mean Corpuscular Volume 96.4 fl (81-99); Mean Platelet Volume 8.6 fL (7.4-10.4); Monocytes # 0.8 10^3/uL (0.2-0.9); Monocytes % 7.8 %; Neutrophils % 84.8 %; Nucleated Red Blood Cells % 0 %; Platelet Count 317 10^3/cmm (130-400); Red Blood Count 3.58 10^6/uL (4.1-5.3); Red Cell Distribution Width 21.2 % (12.1-15.1); White Blood Count 9.8 10^3/uL (4.0-10.0)
[2023-04-18 08:55] LABS: Alanine Aminotransferase 9 U/L (0-33); Albumin Level 3.5 g/dL (3.5-5.2); Alkaline Phosphatase 72 U/L (35-105); Anion Gap 14.2 (5-19); Aspartate Amino Transferase 15 U/L (0-32); Blood Urea Nitrogen 9 mg/dL (6-20); Calcium 9.2 mg/dL (8.5-10.5); Carbon Dioxide 27 mmol/L (22-29); Chloride 100 mmol/L (98-107); Globulin 3.2 g/dL (1.3-4.6); Glomerular Filtration Rate 127.2 mL/min (90-130); Glucose 137 mg/dL (65-115); Osmolality Calculated 287 mOsm/kg (285-295); Potassium 3.2 mmol/L (3.5-5.1); Sodium 138 mmol/L (136-145); Total Bilirubin 0.5 mg/dL (0.15-1.2); Total Protein 6.7 g/dL (6.6-8.7)
[2023-04-18] MEDS: sodium chloride 0.9% 250 ML 75 ML IV (10:22)
[2023-04-18] MEDS: acetaminophen 325 mg Tablet 650 MG PO (10:23)
[2023-04-18] MEDS: famotidine 20 mg/2 mL INJ IVP (10:24)
[2023-04-18] MEDS: diphenhydrAMINE 50 mg/mL SDV 1mL 25 MG IVP (10:25)
[2023-04-18] MEDS: dexamethasone 20 MG in sodium chloride 0.9% 50 ML 188 MG IV (10:29)
[2023-04-18] MEDS: palonosetron 0.25 mg/5 mL SDV IVP (10:29)
[2023-04-18 11:15] LABS: Iron 31 ug/dL (37-145); Magnesium 1.7 mg/dL (1.7-2.3); Percent Saturation 19.3 % (20-50); Total Iron Binding Capacity 160 mcg/dl; Unsaturated Iron Binding 129 ug/dL (112-347)
[2023-04-18 11:33] LABS: Ferritin 3467 ng/mL (15-150)
[2023-04-18] MEDS: CARBOplatin 170 MG in sodium chloride 0.9% 500 ML 517 MG IV (12:16)
[2023-04-18 14:01] VITALS: BP 111/71; PULSE 78; RESP 17; TEMP 36.6; O2SAT 95
[2023-04-26 08:28] VITALS: BP 137/93; PULSE 121; RESP 16; TEMP 36.7; O2SAT 100
[2023-04-26 08:53] LABS: Basophils % 0.3 %; Eosinophils % 0.2 %; Hemoglobin 10.4 g/dL (11.5-15.3); Lymphocytes # 0.8 10^3/uL (0.8-4.8); Lymphocytes % 6.9 %; Mean Corpuscular HGB Conc 30.6 g/dL (30.0-36.0); Mean Corpuscular Hemoglobin 29.1 pg (28.0-34.0); Mean Platelet Volume 9.3 fL (7.4-10.4); Monocytes # 0.7 10^3/uL (0.2-0.9); Monocytes % 6.4 %; Neutrophils % 85.3 %; Nucleated Red Blood Cells % 0 %; Platelet Count 231 10^3/cmm (130-400); Red Blood Count 3.58 10^6/uL (4.1-5.3); Red Cell Distribution Width 19.9 % (12.1-15.1); White Blood Count 11.5 10^3/uL (4.0-10.0)
[2023-04-26 09:09] LABS: Alanine Aminotransferase 11 U/L (0-33); Albumin Level 3.4 g/dL (3.5-5.2); Alkaline Phosphatase 139 U/L (35-105); Aspartate Amino Transferase 25 U/L (0-32); Blood Urea Nitrogen 10 mg/dL (6-20); Calcium 9.3 mg/dL (8.5-10.5); Carbon Dioxide 24 mmol/L (22-29); Chloride 99 mmol/L (98-107); Globulin 3.1 g/dL (1.3-4.6); Glucose 185 mg/dL (65-115); Osmolality Calculated 282 mOsm/kg (285-295); Sodium 134 mmol/L (136-145); Total Bilirubin 0.5 mg/dL (0.15-1.2); Total Protein 6.5 g/dL (6.6-8.7)
[2023-04-26] MEDS: acetaminophen 325 mg Tablet 650 MG PO (11:06)
[2023-04-26] MEDS: famotidine 20 mg/2 mL INJ IVP (11:07)
[2023-04-26] MEDS: sodium chloride 0.9% 250 ML 75 ML IV (11:07)
[2023-04-26] MEDS: palonosetron 0.25 mg/5 mL SDV IVP (11:08)
[2023-04-26] MEDS: diphenhydrAMINE 50 mg/mL SDV 1mL 25 MG IVP (11:08)
[2023-04-26] MEDS: dexamethasone 20 MG in sodium chloride 0.9% 50 ML 188 MG IV (11:09)
[2023-04-26] MEDS: CARBOplatin 170 MG in sodium chloride 0.9% 500 ML 517 MG IV (12:44)
[2023-05-03 09:57] VITALS: BP 129/90; PULSE 120; RESP 18; TEMP 36.8; O2SAT 99; BMI 21.3
[2023-05-03 10:03] LABS: Basophils % 0.4 %; Eosinophils % 0.2 %; Hemoglobin 9.7 g/dL (11.5-15.3); Lymphocytes # 0.5 10^3/uL (0.8-4.8); Lymphocytes % 5.7 %; Mean Corpuscular HGB Conc 30.3 g/dL (30.0-36.0); Mean Corpuscular Hemoglobin 28.7 pg (28.0-34.0); Mean Corpuscular Volume 94.7 fl (81-99); Mean Platelet Volume 9.2 fL (7.4-10.4); Monocytes # 0.5 10^3/uL (0.2-0.9); Monocytes % 6.4 %; Neutrophils # 7.18 10^3/uL (1.8-7.7); Neutrophils % 86.6 %; Nucleated Red Blood Cells % 0 %; Platelet Count 166 10^3/cmm (130-400); Red Blood Count 3.38 10^6/uL (4.1-5.3); Red Cell Distribution Width 19.9 % (12.1-15.1); White Blood Count 8.3 10^3/uL (4.0-10.0)
[2023-05-03 10:30] LABS: Alanine Aminotransferase 9 U/L (0-33); Albumin Level 3.4 g/dL (3.5-5.2); Alkaline Phosphatase 63 U/L (35-105); Anion Gap 17.1 (5-19); Aspartate Amino Transferase 20 U/L (0-32); Blood Urea Nitrogen 12 mg/dL (6-20); Calcium 8.8 mg/dL (8.5-10.5); Carbon Dioxide 25 mmol/L (22-29); Chloride 96 mmol/L (98-107); Globulin 2.8 g/dL (1.3-4.6); Glomerular Filtration Rate 86.2 mL/min (90-130); Glucose 122 mg/dL (65-115); Osmolality Calculated 279 mOsm/kg (285-295); Potassium 4.1 mmol/L (3.5-5.1); Sodium 134 mmol/L (136-145); Total Bilirubin 0.6 mg/dL (0.15-1.2); Total Protein 6.2 g/dL (6.6-8.7)
[2023-05-03] MEDS: sodium chloride 0.9% 250 ML 75 ML IV (12:45)
[2023-05-03] MEDS: diphenhydrAMINE 50 mg/mL SDV 1mL 25 MG IVP (12:49)
[2023-05-03] MEDS: palonosetron 0.25 mg/5 mL SDV IVP (12:53)
[2023-05-03] MEDS: famotidine 20 mg/2 mL INJ IVP (12:57)
[2023-05-03] MEDS: acetaminophen 325 mg Tablet 650 MG PO (13:00)
[2023-05-03] MEDS: dexamethasone 20 MG in sodium chloride 0.9% 50 ML 188 MG IV (13:01)
[2023-05-03] MEDS: CARBOplatin 130 MG in sodium chloride 0.9% 500 ML 513 MG IV (15:03)
[2023-05-03 16:36] VITALS: BP 117/76; PULSE 84; RESP 16; TEMP 36.4; O2SAT 96
== END 2023-05-09 23:59 | disposition home or self-care (01) ==
PROVIDERS: Nurse Practitioner; Nurse Practitioner Family; Absent Provider Radiology Radiation Oncology; PCP Registered Nurse; Visit Provider Internal Medicine Hematology & Oncology
DX: Z51.11 Encounter for antineoplastic chemotherapy (principal); C54.1 Malignant neoplasm of endometrium
CPT/HCPCS: 80053; 82728; 83540; 83550; 83735; 85025; 96365; 96367; 96375; 96413; 96415; 96417; J1100; J1200; J1642; J1756; J2469; J3490; J7040; J7050; J9045; J9267

== ENCOUNTER 2023-05-10 13:57 | Oncology outpatient (recurring) (ONCR) | payer MEDICAID, SELFPAY ==
[2023-05-10 13:58] VITALS: BP 131/89; PULSE 124; RESP 17; TEMP 37.1; O2SAT 100; BMI 21.3
[2023-05-10 14:12] LABS: Basophils % 0.5 %; Eosinophils % 0.3 %; Hematocrit 30.6 % (37.0-47.0); Hemoglobin 9.5 g/dL (11.5-15.3); Lymphocytes # 0.5 10^3/uL (0.8-4.8); Mean Corpuscular Hemoglobin 29.5 pg (28.0-34.0); Mean Platelet Volume 9.2 fL (7.4-10.4); Monocytes # 0.5 10^3/uL (0.2-0.9); Monocytes % 9.2 %; Neutrophils # 4.68 10^3/uL (1.8-7.7); Neutrophils % 81.3 %; Nucleated Red Blood Cells % 0 %; Platelet Count 192 10^3/cmm (130-400); Red Blood Count 3.22 10^6/uL (4.1-5.3); Red Cell Distribution Width 19.7 % (12.1-15.1); White Blood Count 5.8 10^3/uL (4.0-10.0)
[2023-05-10 14:53] LABS: Alanine Aminotransferase 11 U/L (0-33); Albumin Level 3.4 g/dL (3.5-5.2); Alkaline Phosphatase 64 U/L (35-105); Anion Gap 15.9 (5-19); Aspartate Amino Transferase 17 U/L (0-32); Blood Urea Nitrogen 14 mg/dL (6-20); Calcium 9.1 mg/dL (8.5-10.5); Carbon Dioxide 26 mmol/L (22-29); Chloride 97 mmol/L (98-107); Globulin 2.9 g/dL (1.3-4.6); Glomerular Filtration Rate 64.5 mL/min (90-130); Glucose 133 mg/dL (65-115); Osmolality Calculated 282 mOsm/kg (285-295); Potassium 3.9 mmol/L (3.5-5.1); Sodium 135 mmol/L (136-145); Total Bilirubin 0.5 mg/dL (0.15-1.2); Total Protein 6.3 g/dL (6.6-8.7)
== END 2023-05-19 23:59 | disposition home or self-care (01) ==
PROVIDERS: Nurse Practitioner Family; Absent Provider Radiology Radiation Oncology; PCP Registered Nurse; Visit Provider Internal Medicine Hematology & Oncology
DX: C54.1 Malignant neoplasm of endometrium (principal); Z51.11 Encounter for antineoplastic chemotherapy; D50.9 Iron deficiency anemia, unspecified; Z51.0 Encounter for antineoplastic radiation therapy
CPT/HCPCS: 36591; 80053; 85025; J1642

== ENCOUNTER 2023-05-14 06:09 | Outpatient (CLI) | payer MEDICAID, SELFPAY ==
--- NOTE | 2023-05-14 10:00 | PETR_ITS ---
PROCEDURE INFORMATION: Exam: PET/CT Skull Base to Mid-thigh Exam date and time: 05/14/2023 10:35 AM Age: 57 years old Clinical indication: Condition or disease; Primary cancer: Malignant neoplasm of endometrium; Follow-up oncological assessment; Additional info: Restaging LABS AND CLINICAL REPORTS: Glucose: 107 mg/dl Treatment strategy for malignancy (PET staging): Restaging (PS) TECHNIQUE: Imaging protocol: Following at least four-hour fasting and following the injection of radiopharmaceutical, low dose CT images were obtained. Then, PET images were obtained. Attenuation corrected images were constructed using the CT scan. Fused images of PET and CT were reviewed. The standardized uptake values (SUV) reported below are maximum values within a region of interest, expressed in gm/ml. Exam includes orbital meatal line to mid-thigh. Radiopharmaceutical: 14.1 mCi F-18 FDG (Fluorodeoxyglucose), IV. Time of imaging post radiopharmaceutical administration: 1 hour Injection site: Left hand COMPARISON: CT abdomen pelvis 10/14/2022, PT PET Scan 10/08/2021 FINDINGS: Port catheter placed via the right internal jugular vein terminates in the superior vena cava. Brain: Visualized brain has normal physiologic uptake. Pharynx: No abnormal uptake. Larynx: No abnormal uptake. Lungs, pleura and trachea: No abnormal uptake. No suspicious lung nodules or masses. No pleural effusion. Heart: Normal physiologic uptake. There is no cardiomegaly. No coronary artery calcification is visualized. There is no pericardial effusion. Mediastinal space: No abnormal uptake. Liver: No abnormal uptake. Gallbladder and bile ducts: No abnormal uptake. No calcified gallstones. Pancreas: No abnormal uptake. Spleen: No abnormal uptake. No splenomegaly. Adrenal glands: No abnormal uptake. No adrenal nodules. Kidneys and ureters: Moderate bilateral hydronephrosis and hydroureter is new since 10/14/2022. Stomach and bowel: No abnormal uptake. No abnormal dilatation of the bowel. Large pelvic mass involving the bladder and the vaginal cuff is abutting the sigmoid colon (axial image 115). The wall of the sigmoid colon appears thickened in the area. Intraperitoneal and retroperitoneal spaces: No abnormal uptake. No ascites. Bladder: Centrally photopenic masslike lesion in the expected location of the bladder with peripheral linear uptake of 9.1 SUV measures about 9.2 cm in anterior-posterior diameter, 7.5 cm in [id number] diameter, 9.9 cm in the craniocaudal span is suggestive of malignant tumor involving the vaginal cuff and the bladder, increased in size from 9 x 7.7 x 7.7 cm on the prior exam. Reproductive: See above in bladder . Vasculature: No abnormal uptake. No aortic aneurysm. Lymph nodes: New small FDG avid mediastinal lymph nodes are suspicious for metastatic disease. This includes 1.2 x 0.6 cm left upper mediastinal node on axial image 33 with uptake of 3.4 SUV, and 1 x 1 cm left paratracheal lymph node on axial image 41 with uptake of 5.4 SUV. Periportal, portacaval and retroperitoneal lymph nodes increased in size and uptake compatible with progressive disease. The largest portacaval lymph node or a problem right of a couple of adjacent nodes measures 6.3 x 3.6 x 7 cm increased from 4 x 1.9 x 3.2 cm on 10/14/2022 with the highest uptake of 21.1 SUV. Anterior periportal lymph node measures 4 x 3 cm with the highest uptake of 14.6 SUV increased from 2.6 x 1.7 cm on 10/14/2022. The left para-aortic lymph node at L3 level on axial image 93 with uptake of 10.7 SUV increased from 0.9 x 0.7 cm on 10/14/2022. 1.7 x 1.3 cm left common iliac lymph node on axial image 104 with uptake of 3.6 SUV increased in size from 1.1 x 0.9 cm on 10/14/2022. Small 1 cm left internal iliac lymph nodes on axial image 109 and 111 with uptake of 3.5 SUV are stable in size since 10/14/2022. Only 1 small left pelvic lymph node decreased in size in comparison with 10/14/2022 suggestive of some response to radiation (left obturator lymph node on axial image 118 decreased from 1.3 x 1.1 cm on 10/14/2022 to 0.7 x 0.7 cm with no abnormal uptake on the current exam). 1.6 cm lymph node in the root of mesentery at T12 level on axial image 73 stable in size since 10/14/2022 increased from 1.2 cm on 10/08/2021 shows mildly increased uptake of 3.4 SUV. No FDG avid lymphadenopathy in the head, neck and extremities. Bones/joints: No abnormal uptake in the visualized axial and appendicular skeleton. Soft tissues: No abnormal uptake. Diffuse stranding of the pelvic fat including presacral fat and retroperitoneal fat is suggestive of sequela of prior radiation. PET/PET [facility] SUBSEQ [id number] IMPRESSION: There is disseminated metastatic disease with FDG avid retroperitoneal and pelvic lymphadenopathy, a couple of small FDG avid mediastinal lymph nodes, and very large centrally necrotic pelvic tumor involving the vaginal cuff and the bladder. There is progressive disease in comparison with 10/14/2022 including in size of periportal and portacaval lymphadenopathy, mild increase in size of retroperitoneal lymph nodes, increase in size of the pelvic tumor involving the bladder with new obstruction of bilateral ureterovesical junction and new moderate bilateral hydronephrosis and hydroureter. Clinical correlation with renal function is recommended.
== END 2023-05-14 06:10 | disposition home or self-care (01) ==
LOC: RAD 05-16 06:09
PROVIDERS: PCP Registered Nurse; Visit Provider Nurse Practitioner Family
DX: C54.1 Malignant neoplasm of endometrium (principal)
CPT/HCPCS: 78815; A9552